=== PATIENT | male | born 1945 | race African-American/Black ===

== ENCOUNTER 2016-04-26 19:10 | Outpatient (CLI) | payer MEDICARE, OTHER | END 2016-04-26 19:11 | disposition home or self-care (01) | DX: Z03.89 Encounter for observation for other suspected diseases and conditions ruled out (principal) ==

== ENCOUNTER 2017-06-20 10:07 | Outpatient (CLI) | payer MEDICARE, OTHER | END 2017-06-20 10:08 | disposition EMS.NT | LOC: EMS 10:07 | PROVIDERS: ATTEND Surgery | DX: Z03.89 Encounter for observation for other suspected diseases and conditions ruled out (principal) ==

== ENCOUNTER 2018-08-15 14:41 | Emergency (ER) | payer MEDICARE, OTHER ==
[2018-08-15 15:49] LABS: BASOPHILS % (AUTO) 0.3 %; EOSINOPHILS # (AUTO) 0.2 10^3/uL (0.0-0.7); EOSINOPHILS % (AUTO) 3.7 %; HGB - HEMOGLOBIN 12.2 g/dL (14.0-18.0); LYMPHOCYTES % (AUTO) 50.8 %; MEAN CORPUSCULAR HGB CONC 31.5 g/dL (32.0-36.0); MEAN PLATELET VOLUME 8.8 fL (7.4-11.4); MONOCYTES # (AUTO) 0.6 10^3/uL (0.0-1.0); NEUTROPHILS # (AUTO) 2.1 10^3/uL (1.5-6.6); PLT - PLATELET COUNT 235 10^3/uL (130-450); RED BLOOD COUNT 5.09 10^6/uL (4.70-6.10); WHITE BLOOD COUNT 5.9 x10^3/uL (4.8-10.8)
[2018-08-15 16:01] LABS: ALBUMIN 3.9 g/dL (3.2-5.5); ALBUMIN/GLOBULIN RATIO 1.4 (1.0-2.2); BILIRUBIN,TOTAL 0.6 mg/dL (0.2-1.0); CALCIUM 9.6 mg/dL (8.5-10.3); TOTAL PROTEIN 6.7 g/dL (6.7-8.2)
--- NOTE | 2018-08-15 17:30 | ED Physician Documentation ---
History of Present Illness - Stated complaint Stated Complaint: DIZZINESS - Chief complaint Chief Complaint: Neuro - History obtained from History obtained from: Patient - History of Present Illness Timing: Today Pain level max: 0 Pain level now: 0 Improved by: walking Worsened by: going to sleep - Additonal information Additional information: 73-year-old male presents to the emergency department stating that he feels dizzy when he wakes up from sleep. Feels like the room is spinning. He then sits up on the edge of the bed and the spinning decreases. He then starts to walk and the spinning goes away. This is been ongoing for the past 4 to 5 days. Does not occur when he is up and moving around during the day. No focal neurological deficits. No numbness or tingling. No recent illnesses or infections. Review of Systems Ten Systems: 10 systems reviewed and negative Constitutional: denies: Fever, Chills Eyes: denies: Loss of vision, Decreased vision Ears: denies: Ear pain, Drainage/discharge Nose: denies: Rhinorrhea / runny nose, Congestion Throat: denies: Sore throat Cardiac: denies: Chest pain / pressure Respiratory: denies: Cough GI: denies: Vomiting, Diarrhea Skin: denies: Rash Musculoskeletal: denies: Neck pain, Back pain Neurologic: denies: Focal weakness, Numbness, Difficulty speaking, Near syncope, Confused, Altered mental status, Headache PD PAST MEDICAL HISTORY - Past Medical History Cardiovascular: Hypertension Respiratory: None Musculoskeletal: Chronic back pain - Past Surgical History Past Surgical History: No - Present Medications Home Medications: Ambulatory Orders Medication Instructions Recorded Confirmed Atenolol 06/28/13 06/28/13 Docusate Sodium 100Mg Capsule 06/28/13 06/28/13 [Colace] Flurbiprofen Sodium [Ocufen] 2 drops OP QID #1 bottle 11/18/15 - Allergies Allergies/Adverse Reactions: Allergies Allergy/AdvReac Type Severity Reaction Status Date / Time codeine Allergy Itching Verified 11/18/15 18:46 - Social History Does the pt smoke?: No Smoking Status: Never smoker Does the pt drink ETOH?: Yes Does the pt have substance abuse?: No PD ED PE NORMAL - Vitals Vital signs reviewed: Yes - General General: Alert and oriented X 3, No acute distress, Well developed/nourished - HEENT HEENT: Atraumatic, PERRL, EOMI, Ears normal, Moist mucous membranes, Pharynx benign, Other - Neck Neck: Supple, no meningeal sign, No bony TTP - Cardiac Cardiac: RRR, Strong equal pulses - Respiratory Respiratory: No respiratory distress, Clear bilaterally - Abdomen Abdomen: Soft, Non tender, Non distended - Derm Derm: Warm and dry - Extremities Extremities: Normal ROM s pain, No edema - Neuro Neuro: Alert and oriented X 3, assistant plant controller 2-12 intact, No motor deficit, No sensory deficit, Normal speech - Psych Psych: Normal mood, Normal affect - Free text exam Free text exam: NIHSS 0 Results - Vitals Vitals: Vital Signs - 24 hr 08/15/18 08/15/18 08/15/18 14:47 16:52 19:19 Temperature 36.6 C 37 C Heart Rate 65 52 L 57 L Respiratory 16 20 17 Rate Blood Pressure 137/80 H 128/75 139/79 H O2 Saturation 100 100 100 08/15/18 19:20 Temperature 36.7 C Heart Rate 52 L Respiratory 18 Rate Blood Pressure 139/77 H O2 Saturation 97 Oxygen O2 Source Room air - EKG (time done) 1716 Rate: Rate (enter#) (49) Rhythm: Sinus bradycardia [place]: Normal Intervals: Normal [place] QRS: Normal Ischemia: Normal ST segments - Labs Labs: Laboratory Tests 08/15/18 08/15/18 08/15/18 15:44 15:44 17:20 WBC 5.9 RBC 5.09 Hgb 12.2 L Hct 38.7 L MCV 76.0 L MCH 24.0 L MCHC 31.5 L RDW 16.0 H Plt Count 235 MPV 8.8 Neut # (Auto) 2.1 Lymph # (Auto) 3.0 [place] # (Auto) 0.6 Eos # (Auto) 0.2 Baso # (Auto) 0.0 Absolute Nucleated RBC 0.00 Nucleated RBC % 0.0 Sodium 138 Potassium 4.3 Chloride 106 Carbon Dioxide 23 Anion Gap 9.0 BUN 16 Creatinine 1.0 Estimated GFR (MDRD) 89 Glucose 89 Calcium 9.6 Total Bilirubin 0.6 AST 14 ALT 11 Alkaline Phosphatase 56 Total Protein 6.7 Albumin 3.9 Globulin 2.8 Albumin/Globulin Ratio 1.4 Lipase 48 Urine Color YELLOW Urine Clarity CLEAR Urine pH 5.0 Ur Specific [place] 1.020 Urine Protein NEGATIVE Urine Glucose (UA) NEGATIVE Urine Ketones NEGATIVE Urine Occult Blood NEGATIVE Urine Nitrite NEGATIVE Urine Bilirubin NEGATIVE Urine Urobilinogen 0.2 (NORMAL) Ur Leukocyte Esterase NEGATIVE Ur Microscopic Review NOT INDICATED Urine Culture Comments NOT INDICATED - Rads (name of study) head CT Radiology: Prelim report reviewed, EMP read contemporaneously, See rad report (No acute abnormality) PD MEDICAL DECISION MAKING - ED course Complexity details: reviewed results, re-evaluated patient, considered differential, d/w patient ED course: Patient with dizziness upon waking up from sleep recently. Unclear etiology. He is slightly bradycardic in the emergency department and asymptomatic. It is possible that his heart rate decreases further during sleep causing him to feel lightheaded upon waking. Then as he moves the heart rate increases and symptoms resolved. He does not know his dose of atenolol, therefore we will hold the atenolol for a few days and see if this changes his symptoms. No acute findings on head CT. No signs of stroke. Hallpike is negative. No nystagmus here. Only occurs on waking up from sleep. Patient counseled regarding signs and symptoms for which I believe and urgent re-evaluation would be necessary. Patient with good understanding of and agreement to plan and is comfortable going home at this time This document was made in part using voice recognition software. While efforts are made to proofread this document, sound alike and grammatical errors may occur. Departure - Departure Disposition: 01 Home, Self Care Clinical Impression: Dizziness Condition: Good Instructions: ED Dizziness UKO Follow-Up: Your,doctor in 1 week [Other] Comments: Try holding the atenolol for the next 2 to 3 days and see if your symptoms resolve. Return if you worsen. This may be related to a low heart rates from the medication. Your doctor may want to place a Holter monitor on you as well. Discharge Date/Time: 08/15/18 19:20
[2018-08-15 17:31] LABS: BILIRUBIN,URINE NEGATIVE (NEGATIVE); GLUCOSE, URINE (UA) NEGATIVE (NEGATIVE); KETONES,URINE (UA) NEGATIVE (NEGATIVE); LEUKOCYTE ESTERASE, URINE NEGATIVE (NEGATIVE); NITRITE,URINE NEGATIVE (NEGATIVE); OCCULT BLOOD,URINE NEGATIVE (NEGATIVE); PROTEIN,URINE NEGATIVE (NEGATIVE); UROBILINOGEN,URINE 0.2 (NORMAL) E.U./dL (NORMAL)
[2018-08-15 17:33] LABS: CLARITY,URINE CLEAR (CLEAR)
--- NOTE | 2018-08-15 19:03 | CT Report ---
Reason: dizziness Procedure Date: 08/15/2018 Accession Number: [id number] / [id number] Procedure: CT - HEAD WO CPT Code: FULL RESULT: EXAM: CT HEAD EXAM DATE: 08/15/2018 06:21 PM. CLINICAL HISTORY: Dizziness. COMPARISON: None. TECHNIQUE: Multiaxial CT images were obtained from the foramen magnum to the vertex. Reformats: Sagittal and coronal. IV contrast: None. In accordance with CT protocol optimization, one or more of the following dose reduction techniques were utilized for this exam: automated exposure control, adjustment of mA and/or KV based on patient size, or use of iterative reconstructive technique. FINDINGS: Parenchyma: No intraparenchymal hemorrhage. No evidence of mass, midline shift, or CT findings of infarction. Alfonso-white differentiation is distinct. Extraaxial Spaces: Normal for age. No subdural or epidural collections identified. Ventricles: Normal in size and position. Sinuses and Orbits: Imaged paranasal sinuses, orbits, and mastoids show no significant abnormality. Bones: No evidence of fracture or calvarial defect. Other: None. IMPRESSION: No acute intracranial abnormality. RADIA
[2018-08-15 19:21] VITALS: BP 139/77
== END 2018-08-15 19:20 | disposition home or self-care (01) ==
LOC: ED 14:41
DX: R42 Dizziness and giddiness (principal); R00.1 Bradycardia, unspecified; I10 Essential (primary) hypertension
CPT/HCPCS: 36415; 70450; 80053; 81001; 81003; 83690; 85025; 87086; 93005; 99284

== ENCOUNTER 2021-05-28 16:52 | Emergency (ER) | payer MEDICARE, OTHER ==
[2021-05-28] MEDS ORDERED: ONDANSETRON 4 MG/2 ML VIAL IVP STA (17:16)
[2021-05-28] MEDS ORDERED: SODIUM CHLORIDE 0.9% 1,000 ML IV STA ×2 (17:16→19:17)
[2021-05-28 17:36] LABS: BASOPHILS % (AUTO) 0.6 %; EOSINOPHILS # (AUTO) 0.1 10^3/uL (0.0-0.7); EOSINOPHILS % (AUTO) 2.1 %; HCT - HEMATOCRIT 42.5 % (42.0-52.0); HGB - HEMOGLOBIN 14.1 g/dL (14.0-18.0); LYMPHOCYTES # (AUTO) 1.7 10^3/uL (1.5-3.5); LYMPHOCYTES % (AUTO) 26.7 %; MEAN CORPUSCULAR HEMOGLOBIN 27.6 pg (27.0-31.0); MEAN CORPUSCULAR HGB CONC 33.2 g/dL (32.0-36.0); MEAN CORPUSCULAR VOLUME 83.2 fL (80.0-94.0); MEAN PLATELET VOLUME 10.2 fL (7.4-11.4); MONOCYTES # (AUTO) 0.6 10^3/uL (0.0-1.0); MONOCYTES % (AUTO) 9.5 %; NEUTROPHILS # (AUTO) 3.8 10^3/uL (1.5-6.6); NEUTROPHILS % (AUTO) 60.9 %; NRBC ABSOLUTE COUNT (AUTO) 0.02 x10^3/uL; NUCLEATED RED BLOOD CELLS AUTO 0.3 /100WBC; PLT - PLATELET COUNT 173 10^3/uL (130-450); RED BLOOD COUNT 5.11 10^6/uL (4.70-6.10); RED CELL DISTRIBUTION WIDTH 16.5 % (12.0-15.0); WHITE BLOOD COUNT 6.2 x10^3/uL (4.8-10.8)
[2021-05-28 17:48] LABS: ALBUMIN 4.9 g/dL (3.2-5.5); ALBUMIN/GLOBULIN RATIO 1.5 (1.0-2.2); BILIRUBIN,TOTAL 1.3 mg/dL (0.2-1.0); CALCIUM 10.2 mg/dL (8.5-10.3); CREATININE 1.2 mg/dL (0.6-1.2); MAGNESIUM 1.6 mg/dL (1.7-2.8); TOTAL PROTEIN 8.1 g/dL (6.7-8.2)
--- NOTE | 2021-05-28 18:03 | XRAY Report ---
PROCEDURE: Chest 1 View X-Ray INDICATIONS: chest pain TECHNIQUE: One view of the chest was acquired. COMPARISON: None FINDINGS: Surgical changes and devices: None. Lungs and pleura: No pleural effusions or pneumothorax. Lungs are clear. Mediastinum: Mediastinal contours appear normal. Heart size is normal. Atherosclerotic vascular geovany cification noted in the aortic arch Bones and chest wall: No suspicious bony lesions. Overlying soft tissues appear unremarkable. IMPRESSION: No acute cardiopulmonary findings Reviewed by: Steve López MD on 05/28/2021 5:02 PM AKDT Approved by: Steve López MD on 05/28/2021 5:02 PM AKDT Station ID: [id number]
[2021-05-28] MEDS ORDERED: IOVERSOL 320 100 ML VIAL IVP ONE ×2 (18:06→18:32)
--- NOTE | 2021-05-28 19:05 | CT Report ---
PROCEDURE: Abdomen/Pelvis W INDICATIONS: abd fullness and nausea CONTRAST: IV CONTRAST: Optiray 320 ml: 100 PO CONTRAST: *NO PO CONTRAST TECHNIQUE: After the administration of intravenous contrast, 5 mm thick sections acquired from the diaphragms to the symphysis. 5 mm thick coronal and sagittal reformats were acquired. For radiation dose reducti on, the following was used: automated exposure control, adjustment of mA and/or kV according to becky ent size. COMPARISON: None. FINDINGS: Image quality: Excellent. ABDOMEN: Lung bases: Lung bases are clear, although images are mildly degraded by respiratory motion. Heart size is normal. Solid organs: Liver is diffusely hypoattenuating, consistent with fatty infiltration. Focal hypoatten uating lesion in the left hepatic lobe adjacent to the left portal vein is most likely a cyst or fady ngioma. Gallbladder is unremarkable. Biliary system is non dilated. Pancreas enhances normally. Spl een is normal in size. No adrenal nodules. Kidneys demonstrate normal size and enhancement, without hydronephrosis. Peritoneum and bowel: A few diverticula are seen in the colon without signs of acute diverticulitis. No free fluid or air. Nodes and vessels: No retroperitoneal or mesenteric adenopathy by size criteria. Aorta and inferior vena cava are normal in size. Mild aortic atherosclerotic calcifications. Prominent perinephric, ret roperitoneal, and pelvic fat deposition is seen diffusely without a focal mass. Miscellaneous: No ventral hernias. PELVIS: Genitourinary: Bladder wall thickness is normal. Miscellaneous: Fat-containing inguinal hernias are seen bilaterally. Bones: No suspicious bony lesions. No vertebral body compression fractures. Multilevel degenerativ e changes are seen in the spine. IMPRESSION: 1.No acute abnormality identified in the abdomen or pelvis. 2.Pelvic and retroperitoneal lipomatosis with displacement of bowel loops into the anterior upper abd omen. 3.Mild diffuse fatty infiltration of the liver. 4.Mild colonic diverticulosis without signs of acute diverticulitis. Reviewed by: Sony Meek MD on 05/28/2021 7:03 PM PDT Approved by: Sony Meek MD on 05/28/2021 7:03 PM PDT Station ID: [id number]
[2021-05-28 19:12] LABS: B. PARAPERTUSSIS- RESP PCR PAN NOT DETECTED; B. PERTUSSIS- RESP PCR PANEL NOT DETECTED; C. PNEUMONIAE- RESP PCR PANEL NOT DETECTED; CORONAVIRUS 229E-RESP PCR NOT DETECTED; CORONAVIRUS HKU1-RESP PCR NOT DETECTED; CORONAVIRUS NL63-RESP PCR NOT DETECTED; CORONAVIRUS OC43-RESP PCR NOT DETECTED; HUMAN METAPNEUMOVIRUS NOT DETECTED; INFLUENZA A- RESP PCR PANEL NOT DETECTED; INFLUENZA B - RESP PCR PANEL NOT DETECTED; M. PNEUMONIAE- RESP PCR PANEL NOT DETECTED; PARAINFLUENZA VIRUS 1 NOT DETECTED; PARAINFLUENZA VIRUS 2 NOT DETECTED; PARAINFLUENZA VIRUS 3 NOT DETECTED; PARAINFLUENZA VIRUS 4 NOT DETECTED; RHINOVIRUS/ENTEROVIRUS NOT DETECTED; RSV- RESP PCR PANEL NOT DETECTED; SARS-CoV-2 -RESP PCR PANEL NOT DETECTED
[2021-05-28] MEDS ORDERED: ALBUTEROL 1 PUFF INH STA (19:17)
--- NOTE | 2021-05-28 19:20 | ED Physician Documentation ---
PD HPI DYSPNEA - Stated complaint Stated Complaint: LOSS OF APPETITE/RUNNY NOSE/LIGHT HEADED - Chief complaint Chief Complaint: Neuro - History obtained from History obtained from: Patient - History of Present Illness Timing - onset: How many days ago (few) Timing - onset during: Light activity Timing - duration: Days (few) Timing - details: Gradual onset, Still present Inciting event(s): No: URI (The patient does not have any fever or chills sore throat or cough per se but he has had feeling of difficulty getting deep breaths, easy satiety with even small amounts of food and abdominal bloating, general weakness and body aches.) Improved by: No: Rest Worsened by: Exertion, Laying flat Associated symptoms: No: Fever, Cough, Wheezing, Chest pain / discomfort, Bilateral edema Similar symptoms before: Has not had sx before Recently seen: Not recently seen Review of Systems Constitutional: reports: Myalgias, Fatigue (for few days). denies: Fever, Chills Nose: reports: Congestion. denies: Rhinorrhea / runny nose Throat: denies: Sore throat Cardiac: denies: Chest pain / pressure, Palpitations, Pedal edema, Calf pain Respiratory: reports: Dyspnea. denies: Cough, Wheezing GI: reports: Abdominal Swelling (feeling of fullness and easy satiety, feeling bloated with just small amounts of fluids/food.), Nausea. denies: Abdominal Pain, Vomiting, Constipation, Diarrhea : denies: Dysuria Skin: denies: Rash, Lesions Neurologic: reports: Generalized weakness. denies: Near syncope (but has had some lightheaded feeling today.), Headache Endocrine: denies: Weight loss Immunocompromised: denies: Immunocompromised PD PAST MEDICAL HISTORY - Past Medical History Cardiovascular: Hypertension Respiratory: None Neuro: None Endocrine/Autoimmune: None Musculoskeletal: Chronic back pain - Past Surgical History Past Surgical History: No - Present Medications Home Medications: Ambulatory Orders Medication Instructions Recorded Confirmed Atenolol 06/28/13 06/28/13 Docusate Sodium 100Mg Capsule 06/28/13 06/28/13 [Colace] Flurbiprofen Sodium [Ocufen] 2 drops OP QID #1 bottle 11/18/15 Albuterol Sulf [Ventolin Hfa 2 - 3 puffs INH Q4HR PRN #1 inhaler 05/28/21 Inhaler] Ondansetron Odt [Zofran] 4 mg TL Q6H PRN #10 tablet 05/28/21 - Allergies Allergies/Adverse Reactions: Allergies Allergy/AdvReac Type Severity Reaction Status Date / Time codeine Allergy Itching Verified 05/28/21 16:56 - Social History Does the pt smoke?: No Smoking Status: Never smoker Does the pt drink ETOH?: Yes Does the pt have substance abuse?: No PD ED PE NORMAL - Vitals Vital signs reviewed: Yes - General General: Alert and oriented X 3, No acute distress, Well developed/nourished - HEENT HEENT: Moist mucous membranes, Pharynx benign - Cardiac Cardiac: No: RRR (mild tachycardia without murmur nor rub. ) - Respiratory Respiratory: No respiratory distress (He does occasionally take a purposeful deep breath to feel that he has good air. Otherwise he can talk in sentences without any accessory muscle use and no obvious wheezing. O2 sats are 98%.), Clear bilaterally - Abdomen Abdomen: Normal bowel sounds, Soft, Non distended, No organomegaly, Other (Bowel sounds are present and slightly hyperactive. Minimal distention in the upper abdomen without any focal tenderness.) - Back Back: No CVA TTP - Derm Derm: Normal color, Warm and dry - Extremities Extremities: No edema, No calf tenderness / cord - Neuro Neuro: Alert and oriented X 3, No motor deficit, Normal speech Eye Opening: Spontaneous Motor: Obeys Commands Verbal: Oriented GCS Score: 15 Results - Vitals Vitals: Vital Signs - 24 hr 05/28/21 05/28/21 05/28/21 16:57 17:28 19:07 Temperature 37.0 C Heart Rate 125 H 135 H 100 Respiratory 18 23 17 Rate Blood Pressure 174/93 H 157/99 H O2 Saturation 98 100 Oxygen O2 Source Room air - Labs Labs: Laboratory Tests 05/28/21 05/28/21 05/28/21 17:28 17:28 17:28 WBC 6.2 RBC 5.11 Hgb 14.1 Hct 42.5 MCV 83.2 MCH 27.6 MCHC 33.2 RDW 16.5 H Plt Count 173 MPV 10.2 Neut # (Auto) 3.8 Lymph # (Auto) 1.7 [place] # (Auto) 0.6 Eos # (Auto) 0.1 Baso # (Auto) 0.0 Absolute Nucleated RBC 0.02 Nucleated RBC % 0.3 Sodium 141 Potassium 4.0 Chloride 103 Carbon Dioxide 21 Anion Gap 17.0 H BUN 13 Creatinine 1.2 Estimated GFR (MDRD) 72 L Glucose 156 H Calcium 10.2 Magnesium 1.6 L Total Bilirubin 1.3 H AST 33 ALT 17 Alkaline Phosphatase 50 Troponin I High Sens 4.7 B-Natriuretic Peptide Total Protein 8.1 Albumin 4.9 Globulin 3.2 Albumin/Globulin Ratio 1.5 Lipase 57 H Nasal Adenovirus (PCR) Nasal B. parapertussis DNA (PCR) Nasal Coronavir 229E PCR Nasal Coronavir HKU1 PCR Nasal Coronavir NL63 PCR Nasal Coronavir OC43 PCR Nasal Enterovir/Rhinovir PCR Nasal Influenza B PCR Nasal Influenza A PCR Nasal Parainfluen 1 PCR Nasal Parainfluen 2 PCR Nasal Parainfluen 3 PCR Nasal Parainfluen 4 PCR Nasal RSV (PCR) Nasal B.pertussis DNA PCR Nasal C.pneumoniae (PCR) [place] Human Metapneumo PCR Nasal M.pneumoniae (PCR) Nasal SARS-CoV-2 (PCR) 05/28/21 05/28/21 17:28 17:54 WBC RBC Hgb Hct MCV MCH MCHC RDW Plt Count MPV Neut # (Auto) Lymph # (Auto) [place] # (Auto) Eos # (Auto) Baso # (Auto) Absolute Nucleated RBC Nucleated RBC % Sodium Potassium Chloride Carbon Dioxide Anion Gap BUN Creatinine Estimated GFR (MDRD) Glucose Calcium Magnesium Total Bilirubin AST ALT Alkaline Phosphatase Troponin I High Sens B-Natriuretic Peptide 16 Total Protein Albumin Globulin Albumin/Globulin Ratio Lipase Nasal Adenovirus (PCR) NOT DETECTED Nasal B. parapertussis DNA (PCR) NOT DETECTED Nasal Coronavir 229E PCR NOT DETECTED Nasal Coronavir HKU1 PCR NOT DETECTED Nasal Coronavir NL63 PCR NOT DETECTED Nasal Coronavir OC43 PCR NOT DETECTED Nasal Enterovir/Rhinovir PCR NOT DETECTED Nasal Influenza B PCR NOT DETECTED Nasal Influenza A PCR NOT DETECTED Nasal Parainfluen 1 PCR NOT DETECTED Nasal Parainfluen 2 PCR NOT DETECTED Nasal Parainfluen 3 PCR NOT DETECTED Nasal Parainfluen 4 PCR NOT DETECTED Nasal RSV (PCR) NOT DETECTED Nasal B.pertussis DNA PCR NOT DETECTED Nasal C.pneumoniae (PCR) NOT DETECTED [place] Human Metapneumo PCR NOT DETECTED Nasal M.pneumoniae (PCR) NOT DETECTED Nasal SARS-CoV-2 (PCR) NOT DETECTED - Rads (name of study) chest xray Radiology: Prelim report reviewed (no acute cardiopulmonary process), See rad report abd/pelvic CT Radiology: Prelim report reviewed (No acute abnormality. Diverticula without diverticulitis. Moderate amount of intra-abdominal fat without any focal lesions. No bowel obstruction.), See rad report PD MEDICAL DECISION MAKING - ED course Complexity details: re-evaluated patient (No obvious acute processes seen. He did have some improvement with albuterol inhaler 3 puffs. Consider some airway irritation either environmental or possibly viral (more likely a viral syndrome given his other symptoms 2).), considered differential (Consider possible viral syndrome with some congestion, dyspnea, nausea and easy satiety along with general weakness and fatigue. We can do a respiratory panel to evaluate. Otherwise check x-ray and labs to ensure no heart failure or heart injury, CT of the abdomen for obstruction or masses.), d/w patient Departure - Departure Clinical Impression: Abdominal bloating Dyspnea Qualifiers: Dyspnea type: shortness of breath Qualified Code(s): R06.02 - Shortness of breath Condition: Stable Record reviewed to determine appropriate education?: Yes Prescriptions: Albuterol Sulf [Ventolin Hfa Inhaler] 2 - 3 puffs INH Q4HR PRN #1 inhaler PRN Reason: Shortness Of Air/Wheezing Ondansetron Odt [Zofran] 4 mg TL Q6H PRN #10 tablet PRN Reason: Nausea / Vomiting Comments: Your blood tests, chest x-ray, CT scan do not show any obvious acute problems. We did a respiratory panel test and you are negative for the common viruses and negative for COVID. Your symptoms still sound possibly to relate to a viral type illness given less appetite, abdominal fullness, feeling short of breath. There is no signs of pneumonia, heart failure, heart attack, bowel obstruction, gallbladder process or intra-abdominal infection. At this point I would have you try ondansetron every 4-6 hours if not having nausea per se but to see if it improves your feeling of satiety in stomach fullness. Small frequent fluids to maintain hydration. Use the albuterol inhaler 2 to 3 puffs 4 times a day for the next several days to week to help with breathing. Recheck if not improved over the next few days and return sooner if worsening. I sent your prescriptions to [facility] in [place].
[2021-05-28 19:55] VITALS: BP 158/101
== END 2021-05-28 19:56 | disposition home or self-care (01) ==
LOC: ED 16:52
DX: R14.0 Abdominal distension (gaseous) (principal); R06.02 Shortness of breath; I10 Essential (primary) hypertension
CPT/HCPCS: 36415; 71045; 74177; 80053; 83690; 83735; 83880; 84484; 85025; 87633; 93005; 94640; 96374; 99282; 99284; Q9967

== ENCOUNTER 2022-02-20 15:59 | Outpatient (CLI) | payer MEDICARE, OTHER ==
--- NOTE | 2022-02-20 17:51 | XRAY Report ---
PROCEDURE: Hip w/Pelvis 2-3V RT INDICATIONS: PAIN IN RIGHT HIP TECHNIQUE: AP pelvis with lateral view(s) of the right hip(s). COMPARISON: None. FINDINGS: Bones: No fractures or dislocations. Moderate bilateral hip joint osteoarthritic changes are seen w ith joint space narrowing, subchondral sclerosis and small marginal osteophyte formation. No evidence of avascular necrosis of femoral head. Pelvic ring appears intact. No suspicious bony lesions. Mod erate degenerative disc disease throughout visualized lower lumbar spine is also seen. Soft tissues: The visualized bowel gas pattern is normal. No suspicious soft tissue calcifications. IMPRESSION: Moderate bilateral hip joint osteoarthritis. No acute right hip fracture or dislocation. No evidence of avascular necrosis. Degenerative disc disease in lower lumbar spine. No evidence of av ascular necrosis of femoral heads. Reviewed by: Cesar Gomez MD on 02/20/2022 5:49 PM PST Approved by: Cesar Gomez MD on 02/20/2022 5:49 PM PST Station ID: [id number]
== END 2022-02-20 16:00 | disposition home or self-care (01) ==
LOC: DI 15:59
PROVIDERS: ATTEND Physician Assistant
DX: M16.0 Bilateral primary osteoarthritis of hip (principal); M51.36 Other intervertebral disc degeneration, lumbar region

== ENCOUNTER 2022-06-26 15:08 | Outpatient (CLI) | payer MEDICARE, OTHER | END 2022-06-26 15:09 | disposition EMS.NT | LOC: EMS 15:08 | DX: H93.13 Tinnitus, bilateral (principal) ==

== ENCOUNTER 2022-07-30 08:57 | Emergency (ER) | payer MEDICARE, OTHER ==
--- NOTE | 2022-07-30 09:18 | ED Physician Documentation ---
PD HPI ABD PAIN - Stated complaint Stated Complaint: CONSTIPATION - Chief complaint Chief Complaint: Abd Pain - History obtained from History obtained from: Patient - History of Present Illness Timing - onset: How many weeks ago (1) Timing - duration: Weeks (1) Timing - details: Gradual onset, Still present (he states no BM for a week and has had some cramping lower abd pain intermttent the past 2-3 days, worse this morning with marked cramping. Tried enema at home and Miralax doses yesterday. Feeling of rectal fullness/stool.) Quality: Cramping, Aching, Pain Location: Suprapubic, Other (lower abd and rectal area) Radiation: No: Lower back Worsened by: No: Eating, Moving Associated symptoms: Constipation. No: Fever, Nausea, Diarrhea, Melena, Hematochezia Similar symptoms before: Has not had sx before Recently seen: Surgery (had colonoscopy 2 weeks ago with findings of some abnomral and is having repeat scope this coming week.) Review of Systems Constitutional: denies: Fever, Chills Nose: denies: Rhinorrhea / runny nose, Congestion Throat: denies: Sore throat Respiratory: denies: Cough GI: reports: Abdominal Pain, Constipation. denies: Abdominal Swelling, Nausea, Vomiting, Bloody / black stool : reports: Frequency, Hesitancy PD PAST MEDICAL HISTORY - Past Medical History Cardiovascular: Hypertension Respiratory: None Neuro: None Endocrine/Autoimmune: None Musculoskeletal: Chronic back pain - Past Surgical History Past Surgical History: No - Present Medications Home Medications: Ambulatory Orders Medication Instructions Recorded Confirmed Atenolol 06/28/13 06/28/13 Docusate Sodium 100Mg Capsule 06/28/13 06/28/13 [Colace] Flurbiprofen Sodium [Ocufen] 2 drops OP QID #1 bottle 11/18/15 Albuterol Sulf [Ventolin Hfa 2 - 3 puffs INH Q4HR PRN #1 inhaler 05/28/21 Inhaler] Ondansetron Odt [Zofran] 4 mg TL Q6H PRN #10 tablet 05/28/21 Docusate Sodium 100Mg Capsule 100 mg PO DAILY #20 cap 07/30/22 [Colace 100Mg Capsule] - Allergies Allergies/Adverse Reactions: Allergies Allergy/AdvReac Type Severity Reaction Status Date / Time codeine Allergy Itching Verified 07/30/22 09:16 - Social History Does the pt smoke?: No Smoking Status: Never smoker Does the pt drink ETOH?: Yes Does the pt have substance abuse?: No PD ED PE NORMAL - Vitals Vital signs reviewed: Yes - General General: Alert and oriented X 3, No acute distress, Well developed/nourished, Other (he states he had hard ball of stool out just as arrived to ER and his pain has gone. He feels okay now. ) - Abdomen Abdomen: Normal bowel sounds, Soft, Non tender, Non distended, No organomegaly - Male Male : Deferred - Rectal Rectal: Deferred - Back Back: No CVA TTP - Derm Derm: Normal color, Warm and dry Results - Vitals Vitals: Vital Signs - 24 hr 07/30/22 07/30/22 09:09 09:39 Temperature 36.4 C L 36.5 C Heart Rate 73 72 Respiratory 15 20 Rate Blood Pressure 118/77 127/83 H O2 Saturation 99 99 Oxygen O2 Source Room air PD Medical Decision Making - ED course Complexity details: reviewed results (Shared decision with patient to not do any testing at this time, given no pain nor tender at this time. He describes some urinary frequency and small volume. F/U with PMD regarding meds for BPH or other testing. ), considered differential (constipation with cramps and pains. He had recent colonoscopy 2 weeks ago. This is long enough ago to less suspect perforation or such complication of the scope. The complete improvement of the pain with BM here sould suggest against diverticulitis/colitis/etc. ), d/w patient Departure - Departure Disposition: 01 Home, Self Care Clinical Impression: Abdominal cramping, Constipation Condition: Stable Record reviewed to determine appropriate education?: Yes Instructions: ED Constipation Prescriptions: Docusate Sodium 100Mg Capsule [Colace 100Mg Capsule] 100 mg PO DAILY #20 cap Comments: It is good that you are having such improved abdominal pain with having had some bowel movement now. Presume the cramping was related to the constipation. You likely still have some firm stool up through the intestine. I would suggest continuing with the laxative powder dosing once or twice daily for today and tomorrow. I would also add a stool softener such as docusate daily. Stay well-hydrated. Contact the surgical office and see the what their plans are for your colon prep for the colonoscopy next week. Follow-up with your primary care as well regarding the hesitancy and trouble urinating that you describe. They may want to start a mild prostate type medicine or have some other testing to evaluate that. Discharge Date/Time: 07/30/22 09:40
--- OUTSIDE RECORDS SUMMARY | 2022-07-30 09:33 | EXTERNAL MEDICAL SUMMARY RPT | Continuity of Care Document ---
Author Name Unknown Address [address] [place] [address] Phone Organization [facility] Address [address] [place] [address] Phone Care Team Providers Care Gaming Cashier Name Role Phone Unavailable Unavailable Unavailable Jeannette Mcleroy Unavailable Unavailable Allergies and Intolerances date description facility type (no date) No Known Drug Allergies [facility] ( unknown) Medications date description facility 2022-06-28 00:00 Amoxicillin [facility] Problems date description facility 2022-06-26 00:00 Acute urinary tract infection I [facility] 2022-06-27 00:00 Acute metabolic encephalopathy [facility] 2022-06-28 08:12 Urinary tract infection, site n ot specified [facility] 2022-06-28 10:03 Urinary tract infection, site n ot specified [facility] 2022-06-28 13:37 Urinary tract infection, site n ot specified [facility] 2022-06-28 14:11 Urinary tract infection, site n ot specified [facility] 2022-06-28 14:35 Urinary tract infection, site n ot specified [facility] 2022-06-29 08:53 Urinary tract infection, site n ot specified [facility] 2022-06-29 11:01 Urinary tract infection, site n ot specified [facility] 2022-06-29 12:03 Urinary tract infection, site n ot specified [facility] 2022-06-30 12:35 Urinary tract infection, site n ot specified [facility] 2022-06-30 12:40 Urinary tract infection, site n ot specified [facility] 2022-06-30 15:20 Urinary tract infection, site n ot specified [facility] 2022-06-30 15:29 Urinary tract infection, site n ot specified [facility] 2022-07-13 12:58 Urinary tract infection, site n ot specified [facility] 2022-07-13 13:11 Urinary tract infection, site n ot specified [facility] 2022-07-13 14:07 Urinary tract infection, site n ot specified [facility] 2022-07-15 09:22 Urinary tract infection, site n ot specified [facility] 2022-07-15 10:13 Urinary tract infection, site n ot specified [facility] 2022-07-15 11:57 Urinary tract infection, site n ot specified [facility] 2022-07-15 11:57 Weakness [facility] Procedures date description facility 2022-06-26 00:00 Computed tomography of head or brain without contrast [facility] 2022-06-26 00:00 X-ray of chest, single [facility] Results/Labs test date author facility value unit interpretation Result panel 1 (unknown) (no date) (unknown) [facility] (no value) (units unknown) (unknown) Result panel 2 (unknown) (no date) (unknown) [facility] (no value) (units unknown) (unknown) Result panel 3 (unknown) (no date) (unknown) [facility] (no value) (units unknown) (unknown) Result panel 4 (unknown) (no date) (unknown) [facility] (no value) (units unknown) (unknown) Result panel 5 (unknown) (no date) (unknown) [facility] (no value) (units unknown) (unknown) Result panel 6 (unknown) (no date) (unknown) [facility] (no value) (units unknown) (unknown) Result panel 7 (unknown) (no date) (unknown) [facility] (no value) (units unknown) (unknown) Result panel 8 (unknown) (no date) (unknown) [facility] (no value) (units unknown) (unknown) Result panel 9 (unknown) (no date) (unknown) [facility] (no value) (units unknown) (unknown) Result panel 10 (unknown) (no date) (unknown) [facility] (no value) (units unknown) (unknown) Result panel 11 (unknown) (no date) (unknown) [facility] (no value) (units unknown) (unknown) Result panel 12 (unknown) (no date) (unknown) [facility] (no value) (units unknown) (unknown) Result panel 13 (unknown) (no date) (unknown) [facility] (no value) (units unknown) (unknown) Result panel 14 (unknown) (no date) (unknown) [facility] (no value) (units unknown) (unknown) Result panel 15 (unknown) (no date) (unknown) [facility] (no value) (units unknown) (unknown) Result panel 16 (unknown) (no date) (unknown) [facility] (no value) (units unknown) (unknown) Result panel 17 (unknown) (no date) (unknown) [facility] (no value) (units unknown) (unknown) Result panel 18 (unknown) (no date) (unknown) [facility] (no value) (units unknown) (unknown) Result panel 19 (unknown) (no date) (unknown) [facility] (no value) (units unknown) (unknown) Result panel 20 (unknown) (no date) (unknown) [facility] (no value) (units unknown) (unknown) Result panel 21 (unknown) (no date) (unknown) [facility] (no value) (units unknown) (unknown) Result panel 22 (unknown) (no date) (unknown) [facility] (no value) (units unknown) (unknown) Result panel 23 (unknown) (no date) (unknown) [facility] (no value) (units unknown) (unknown) Result panel 24 (unknown) (no date) (unknown) [facility] (no value) (units unknown) (unknown) Result panel 25 (unknown) (no date) (unknown) [facility] (no value) (units unknown) (unknown) Result panel 26 (unknown) (no date) (unknown) [facility] (no value) (units unknown) (unknown) Result panel 27 (unknown) (no date) (unknown) [facility] (no value) (units unknown) (unknown) Result panel 28 (unknown) (no date) (unknown) [facility] (no value) (units unknown) (unknown) Result panel 29 (unknown) (no date) (unknown) [facility] (no value) (units unknown) (unknown) Result panel 30 (unknown) (no date) (unknown) [facility] (no value) (units unknown) (unknown) Result panel 31 (unknown) (no date) (unknown) [facility] (no value) (units unknown) (unknown) Result panel 32 (unknown) (no date) (unknown) [facility] (no value) (units unknown) (unknown) Result panel 33 (unknown) (no date) (unknown) [facility] (no value) (units unknown) (unknown) Result panel 34 (unknown) (no date) (unknown) [facility] (no value) (units unknown) (unknown) Result panel 35 (unknown) (no date) (unknown) [facility] (no value) (units unknown) (unknown) Result panel 36 (unknown) (no date) (unknown) [facility] (no value) (units unknown) (unknown) Result panel 37 (unknown) (no date) (unknown) [facility] (no value) (units unknown) (unknown) Result panel 38 (unknown) (no date) (unknown) [facility] (no value) (units unknown) (unknown) Result panel 39 (unknown) (no date) (unknown) [facility] (no value) (units unknown) (unknown) Result panel 40 (unknown) (no date) (unknown) [facility] (no value) (units unknown) (unknown) Result panel 41 (unknown) (no date) (unknown) [facility] (no value) (units unknown) (unknown) Result panel 42 (unknown) (no date) (unknown) [facility] (no value) (units unknown) (unknown) Result panel 43 (unknown) (no date) (unknown) [facility] (no value) (units unknown) (unknown) Result panel 44 (unknown) (no date) (unknown) [facility] (no value) (units unknown) (unknown) Result panel 45 (unknown) (no date) (unknown) [facility] (no value) (units unknown) (unknown) Result panel 46 (unknown) (no date) (unknown) [facility] (no value) (units unknown) (unknown) Result panel 47 (unknown) (no date) (unknown) [facility] (no value) (units unknown) (unknown) Result panel 48 (unknown) (no date) (unknown) [facility] (no value) (units unknown) (unknown) Result panel 49 (unknown) (no date) (unknown) [facility] (no value) (units unknown) (unknown) Result panel 50 (unknown) (no date) (unknown) [facility] (no value) (units unknown) (unknown) Result panel 51 (unknown) (no date) (unknown) [facility] (no value) (units unknown) (unknown) Result panel 52 (unknown) (no date) (unknown) [facility] (no value) (units unknown) (unknown) Result panel 53 (unknown) (no date) (unknown) [facility] (no value) (units unknown) (unknown) Result panel 54 (unknown) (no date) (unknown) [facility] (no value) (units unknown) (unknown) Result panel 55 (unknown) (no date) (unknown) [facility] (no value) (units unknown) (unknown) Result panel 56 (unknown) (no date) (unknown) [facility] (no value) (units unknown) (unknown) Result panel 57 (unknown) (no date) (unknown) [facility] (no value) (units unknown) (unknown) Result panel 58 (unknown) (no date) (unknown) [facility] (no value) (units unknown) (unknown) Result panel 59 (unknown) (no date) (unknown) [facility] (no value) (units unknown) (unknown) Result panel 60 (unknown) (no date) (unknown) [facility] (no value) (units unknown) (unknown) Result panel 61 (unknown) (no date) (unknown) [facility] (no value) (units unknown) (unknown) Result panel 62 (unknown) (no date) (unknown) [facility] (no value) (units unknown) (unknown) Result panel 63 (unknown) (no date) (unknown) [facility] (no value) (units unknown) (unknown) Result panel 64 (unknown) (no date) (unknown) [facility] (no value) (units unknown) (unknown) Result panel 65 (unknown) (no date) (unknown) [facility] (no value) (units unknown) (unknown) Result panel 66 (unknown) (no date) (unknown) [facility] (no value) (units unknown) (unknown) Result panel 67 (unknown) (no date) (unknown) [facility] (no value) (units unknown) (unknown) Result panel 68 (unknown) (no date) (unknown) [facility] (no value) (units unknown) (unknown) Result panel 69 (unknown) (no date) (unknown) [facility] (no value) (units unknown) (unknown) Result panel 70 (unknown) (no date) (unknown) [facility] (no value) (units unknown) (unknown) Result panel 71 (unknown) (no date) (unknown) [facility] (no value) (units unknown) (unknown) Result panel 72 (unknown) (no date) (unknown) [facility] (no value) (units unknown) (unknown) Result panel 73 (unknown) (no date) (unknown) [facility] (no value) (units unknown) (unknown) Result panel 74 (unknown) (no date) (unknown) [facility] (no value) (units unknown) (unknown) Result panel 75 (unknown) (no date) (unknown) [facility] (no value) (units unknown) (unknown) Result panel 76 (unknown) (no date) (unknown) [facility] (no value) (units unknown) (unknown) Result panel 77 (unknown) (no date) (unknown) [facility] (no value) (units unknown) (unknown) Result panel 78 (unknown) (no date) (unknown) [facility] (no value) (units unknown) (unknown) Result panel 79 (unknown) (no date) (unknown) [facility] (no value) (units unknown) (unknown) Result panel 80 (unknown) (no date) (unknown) [facility] (no value) (units unknown) (unknown) Result panel 81 (unknown) (no date) (unknown) [facility] (no value) (units unknown) (unknown) Result panel 82 (unknown) (no date) (unknown) [facility] (no value) (units unknown) (unknown) Result panel 83 (unknown) (no date) (unknown) [facility] (no value) (units unknown) (unknown) Result panel 84 (unknown) (no date) (unknown) [facility] (no value) (units unknown) (unknown) Result panel 85 (unknown) (no date) (unknown) [facility] (no value) (units unknown) (unknown) Result panel 86 (unknown) (no date) (unknown) [facility] (no value) (units unknown) (unknown) Result panel 87 (unknown) (no date) (unknown) [facility] (no value) (units unknown) (unknown) Result panel 88 (unknown) (no date) (unknown) [facility] (no value) (units unknown) (unknown) Result panel 89 (unknown) (no date) (unknown) [facility] (no value) (units unknown) (unknown) Result panel 90 (unknown) (no date) (unknown) [facility] (no value) (units unknown) (unknown) Result panel 91 (unknown) (no date) (unknown) [facility] (no value) (units unknown) (unknown) Result panel 92 (unknown) (no date) (unknown) [facility] (no value) (units unknown) (unknown) Result panel 93 (unknown) (no date) (unknown) [facility] (no value) (units unknown) (unknown) Result panel 94 (unknown) (no date) (unknown) [facility] (no value) (units unknown) (unknown) Result panel 95 (unknown) (no date) (unknown) [facility] (no value) (units unknown) (unknown) Result panel 96 (unknown) (no date) (unknown) [facility] (no value) (units unknown) (unknown) Result panel 97 (unknown) (no date) (unknown) [facility] (no value) (units unknown) (unknown) Result panel 98 (unknown) (no date) (unknown) [facility] (no value) (units unknown) (unknown) Result panel 99 (unknown) (no date) (unknown) [facility] (no value) (units unknown) (unknown) Result panel 100 (unknown) (no date) (unknown) [facility] (no value) (units unknown) (unknown) Result panel 101 (unknown) (no date) (unknown) [facility] (no value) (units unknown) (unknown) Result panel 102 (unknown) (no date) (unknown) [facility] (no value) (units unknown) (unknown) Result panel 103 (unknown) (no date) (unknown) [facility] (no value) (units unknown) (unknown) Result panel 104 (unknown) (no date) (unknown) [facility] (no value) (units unknown) (unknown) Result panel 105 (unknown) (no date) (unknown) [facility] (no value) (units unknown) (unknown) Result panel 106 (unknown) (no date) (unknown) [facility] (no value) (units unknown) (unknown) Result panel 107 (unknown) (no date) (unknown) [facility] (no value) (units unknown) (unknown) Result panel 108 (unknown) (no date) (unknown) [facility] (no value) (units unknown) (unknown) Result panel 109 (unknown) (no date) (unknown) [facility] (no value) (units unknown) (unknown) Result panel 110 (unknown) (no date) (unknown) [facility] (no value) (units unknown) (unknown) Result panel 111 (unknown) (no date) (unknown) [facility] (no value) (units unknown) (unknown) Result panel 112 (unknown) (no date) (unknown) [facility] (no value) (units unknown) (unknown) Result panel 113 (unknown) (no date) (unknown) [facility] (no value) (units unknown) (unknown) Result panel 114 (unknown) (no date) (unknown) [facility] (no value) (units unknown) (unknown) Result panel 115 (unknown) (no date) (unknown) [facility] (no value) (units unknown) (unknown) Result panel 116 (unknown) (no date) (unknown) [facility] (no value) (units unknown) (unknown) Result panel 117 (unknown) (no date) (unknown) [facility] (no value) (units unknown) (unknown) Result panel 118 (unknown) (no date) (unknown) [facility] (no value) (units unknown) (unknown) Result panel 119 (unknown) (no date) (unknown) [facility] (no value) (units unknown) (unknown) Result panel 120 (unknown) (no date) (unknown) [facility] (no value) (units unknown) (unknown) Result panel 121 (unknown) (no date) (unknown) [facility] (no value) (units unknown) (unknown) Result panel 122 (unknown) (no date) (unknown) [facility] (no value) (units unknown) (unknown) Result panel 123 (unknown) (no date) (unknown) [facility] (no value) (units unknown) (unknown) Result panel 124 (unknown) (no date) (unknown) [facility] (no value) (units unknown) (unknown) Result panel 125 (unknown) (no date) (unknown) [facility] (no value) (units unknown) (unknown) Result panel 126 (unknown) (no date) (unknown) [facility] (no value) (units unknown) (unknown) Result panel 127 (unknown) (no date) (unknown) [facility] (no value) (units unknown) (unknown) Result panel 128 (unknown) (no date) (unknown) [facility] (no value) (units unknown) (unknown) Result panel 129 (unknown) (no date) (unknown) [facility] (no value) (units unknown) (unknown) Result panel 130 (unknown) (no date) (unknown) [facility] (no value) (units unknown) (unknown) Result panel 131 (unknown) (no date) (unknown) [facility] (no value) (units unknown) (unknown) Result panel 132 (unknown) (no date) (unknown) [facility] (no value) (units unknown) (unknown) Result panel 133 (unknown) (no date) (unknown) [facility] (no value) (units unknown) (unknown) Result panel 134 (unknown) (no date) (unknown) [facility] (no value) (units unknown) (unknown) Result panel 135 (unknown) (no date) (unknown) [facility] (no value) (units unknown) (unknown) Result panel 136 (unknown) (no date) (unknown) [facility] (no value) (units unknown) (unknown) Result panel 137 (unknown) (no date) (unknown) [facility] (no value) (units unknown) (unknown) Result panel 138 (unknown) (no date) (unknown) [facility] (no value) (units unknown) (unknown) Result panel 139 (unknown) (no date) (unknown) [facility] (no value) (units unknown) (unknown) Result panel 140 (unknown) (no date) (unknown) [facility] (no value) (units unknown) (unknown) Result panel 141 (unknown) (no date) (unknown) [facility] (no value) (units unknown) (unknown) Result panel 142 (unknown) (no date) (unknown) [facility] (no value) (units unknown) (unknown) Result panel 143 (unknown) (no date) (unknown) [facility] (no value) (units unknown) (unknown) Result panel 144 (unknown) (no date) (unknown) [facility] (no value) (units unknown) (unknown) Result panel 145 (unknown) (no date) (unknown) [facility] (no value) (units unknown) (unknown) Result panel 146 (unknown) (no date) (unknown) [facility] (no value) (units unknown) (unknown) Result panel 147 (unknown) (no date) (unknown) [facility] (no value) (units unknown) (unknown) Result panel 148 (unknown) (no date) (unknown) [facility] (no value) (units unknown) (unknown) Result panel 149 (unknown) (no date) (unknown) [facility] (no value) (units unknown) (unknown) Result panel 150 (unknown) (no date) (unknown) [facility] (no value) (units unknown) (unknown) Result panel 151 (unknown) (no date) (unknown) [facility] (no value) (units unknown) (unknown) Result panel 152 (unknown) (no date) (unknown) [facility] (no value) (units unknown) (unknown) Result panel 153 (unknown) (no date) (unknown) [facility] (no value) (units unknown) (unknown) Result panel 154 (unknown) (no date) (unknown) [facility] (no value) (units unknown) (unknown) Result panel 155 (unknown) (no date) (unknown) [facility] (no value) (units unknown) (unknown) Result panel 156 (unknown) (no date) (unknown) [facility] (no value) (units unknown) (unknown) Result panel 157 (unknown) (no date) (unknown) [facility] (no value) (units unknown) (unknown) Result panel 158 (unknown) (no date) (unknown) [facility] (no value) (units unknown) (unknown) Result panel 159 (unknown) (no date) (unknown) [facility] (no value) (units unknown) (unknown) Result panel 160 (unknown) (no date) (unknown) [facility] (no value) (units unknown) (unknown) Result panel 161 (unknown) (no date) (unknown) [facility] (no value) (units unknown) (unknown) Result panel 162 (unknown) (no date) (unknown) [facility] (no value) (units unknown) (unknown) Result panel 163 (unknown) (no date) (unknown) [facility] (no value) (units unknown) (unknown) Result panel 164 (unknown) (no date) (unknown) [facility] (no value) (units unknown) (unknown) Result panel 165 (unknown) (no date) (unknown) [facility] (no value) (units unknown) (unknown) Result panel 166 (unknown) (no date) (unknown) [facility] (no value) (units unknown) (unknown) Result panel 167 (unknown) (no date) (unknown) [facility] (no value) (units unknown) (unknown) Result panel 168 (unknown) (no date) (unknown) [facility] (no value) (units unknown) (unknown) Result panel 169 (unknown) (no date) (unknown) [facility] (no value) (units unknown) (unknown) Result panel 170 (unknown) (no date) (unknown) [facility] (no value) (units unknown) (unknown) Result panel 171 (unknown) (no date) (unknown) [facility] (no value) (units unknown) (unknown) Result panel 172 (unknown) (no date) (unknown) [facility] (no value) (units unknown) (unknown) Result panel 173 (unknown) (no date) (unknown) [facility] (no value) (units unknown) (unknown) Result panel 174 (unknown) (no date) (unknown) [facility] (no value) (units unknown) (unknown) Result panel 175 (unknown) (no date) (unknown) [facility] (no value) (units unknown) (unknown) Result panel 176 (unknown) (no date) (unknown) [facility] (no value) (units unknown) (unknown) Result panel 177 (unknown) (no date) (unknown) [facility] (no value) (units unknown) (unknown) Result panel 178 (unknown) (no date) (unknown) [facility] (no value) (units unknown) (unknown) Result panel 179 (unknown) (no date) (unknown) [facility] (no value) (units unknown) (unknown) Result panel 180 (unknown) (no date) (unknown) [facility] (no value) (units unknown) (unknown) Result panel 181 (unknown) (no date) (unknown) [facility] (no value) (units unknown) (unknown) Result panel 182 (unknown) (no date) (unknown) [facility] (no value) (units unknown) (unknown) Result panel 183 (unknown) (no date) (unknown) [facility] (no value) (units unknown) (unknown) Result panel 184 (unknown) (no date) (unknown) [facility] (no value) (units unknown) (unknown) Result panel 185 (unknown) (no date) (unknown) [facility] (no value) (units unknown) (unknown) Result panel 186 (unknown) (no date) (unknown) [facility] (no value) (units unknown) (unknown) Result panel 187 (unknown) (no date) (unknown) [facility] (no value) (units unknown) (unknown) Result panel 188 (unknown) (no date) (unknown) [facility] (no value) (units unknown) (unknown) Result panel 189 (unknown) (no date) (unknown) [facility] (no value) (units unknown) (unknown) Result panel 190 (unknown) (no date) (unknown) [facility] (no value) (units unknown) (unknown) Result panel 191 (unknown) (no date) (unknown) [facility] (no value) (units unknown) (unknown) Result panel 192 (unknown) (no date) (unknown) [facility] (no value) (units unknown) (unknown) Result panel 193 (unknown) (no date) (unknown) [facility] (no value) (units unknown) (unknown) Result panel 194 (unknown) (no date) (unknown) [facility] (no value) (units unknown) (unknown) Result panel 195 (unknown) (no date) (unknown) [facility] (no value) (units unknown) (unknown) Result panel 196 (unknown) (no date) (unknown) [facility] (no value) (units unknown) (unknown) Result panel 197 (unknown) (no date) (unknown) [facility] (no value) (units unknown) (unknown) Result panel 198 (unknown) (no date) (unknown) [facility] (no value) (units unknown) (unknown) Result panel 199 (unknown) (no date) (unknown) [facility] (no value) (units unknown) (unknown) Result panel 200 (unknown) (no date) (unknown) [facility] (no value) (units unknown) (unknown) Result panel 201 (unknown) (no date) (unknown) [facility] (no value) (units unknown) (unknown) Result panel 202 (unknown) (no date) (unknown) [facility] (no value) (units unknown) (unknown) Result panel 203 (unknown) (no date) (unknown) [facility] (no value) (units unknown) (unknown) Result panel 204 (unknown) (no date) (unknown) [facility] (no value) (units unknown) (unknown) Result panel 205 (unknown) (no date) (unknown) [facility] (no value) (units unknown) (unknown) Result panel 206 (unknown) (no date) (unknown) [facility] (no value) (units unknown) (unknown) Result panel 207 (unknown) (no date) (unknown) [facility] (no value) (units unknown) (unknown) Result panel 208 (unknown) (no date) (unknown) [facility] (no value) (units unknown) (unknown) Result panel 209 (unknown) (no date) (unknown) [facility] (no value) (units unknown) (unknown) Result panel 210 (unknown) (no date) (unknown) [facility] (no value) (units unknown) (unknown) Result panel 211 (unknown) (no date) (unknown) [facility] (no value) (units unknown) (unknown) Result panel 212 (unknown) (no date) (unknown) [facility] (no value) (units unknown) (unknown) Result panel 213 (unknown) (no date) (unknown) [facility] (no value) (units unknown) (unknown) Result panel 214 (unknown) (no date) (unknown) [facility] (no value) (units unknown) (unknown) Result panel 215 (unknown) (no date) (unknown) [facility] (no value) (units unknown) (unknown) Result panel 216 (unknown) (no date) (unknown) [facility] (no value) (units unknown) (unknown) Result panel 217 (unknown) (no date) (unknown) [facility] (no value) (units unknown) (unknown) Result panel 218 (unknown) (no date) (unknown) [facility] (no value) (units unknown) (unknown) Result panel 219 (unknown) (no date) (unknown) [facility] (no value) (units unknown) (unknown) Result panel 220 (unknown) (no date) (unknown) [facility] (no value) (units unknown) (unknown) Result panel 221 (unknown) (no date) (unknown) [facility] (no value) (units unknown) (unknown) Result panel 222 (unknown) (no date) (unknown) [facility] (no value) (units unknown) (unknown) Result panel 223 (unknown) (no date) (unknown) [facility] (no value) (units unknown) (unknown) Result panel 224 (unknown) (no date) (unknown) [facility] (no value) (units unknown) (unknown) Result panel 225 (unknown) (no date) (unknown) [facility] (no value) (units unknown) (unknown) Result panel 226 (unknown) (no date) (unknown) [facility] (no value) (units unknown) (unknown) Result panel 227 (unknown) (no date) (unknown) [facility] (no value) (units unknown) (unknown) Result panel 228 (unknown) (no date) (unknown) [facility] (no value) (units unknown) (unknown) Result panel 229 (unknown) (no date) (unknown) [facility] (no value) (units unknown) (unknown) Result panel 230 (unknown) (no date) (unknown) [facility] (no value) (units unknown) (unknown) Result panel 231 (unknown) (no date) (unknown) [facility] (no value) (units unknown) (unknown) Result panel 232 (unknown) (no date) (unknown) [facility] (no value) (units unknown) (unknown) Result panel 233 (unknown) (no date) (unknown) [facility] (no value) (units unknown) (unknown) Result panel 234 (unknown) (no date) (unknown) [facility] (no value) (units unknown) (unknown) Result panel 235 (unknown) (no date) (unknown) [facility] (no value) (units unknown) (unknown) Result panel 236 (unknown) (no date) (unknown) [facility] (no value) (units unknown) (unknown) Result panel 237 (unknown) (no date) (unknown) [facility] (no value) (units unknown) (unknown) Result panel 238 (unknown) (no date) (unknown) [facility] (no value) (units unknown) (unknown) Result panel 239 (unknown) (no date) (unknown) (unknown) (no value) (units unknown) (unknown) (unknown) (no date) (unknown) (unknown) [id number] (units unknown) (unknown) (unknown) (no date) (unknown) (unknown) 06/26/22 (units unknown) (unknown) (unknown) (no date) (unknown) (unknown) [address] [place] [address] (units unknown) (unknown) (unknown) (no date) (unknown) (unknown) Accession Number: [id number] (units unknown) (unknown) (unknown) (no date) (unknown) (unknown) Age/Sex: 77 / M Date of Service: (units unknown) (unknown) (unknown) (no date) (unknown) (unknown) [place] [address] (units unknown) (unknown) (unknown) (no date) (unknown) (unknown) Approved by: Casey Sneed M.D. on 06/26/2022 at 16:41 (units unknown) (unknown) (unknown) (no date) (unknown) (unknown) Bones and chest wall : No suspicious bony lesions. Overlying soft tissues (units unknown) (unknown) (unknown) (no date) (unknown) (unknown) COMPARISON: [facility], CR, XR CHEST 1 VIEW, 08/08/2017, 15:26. (units unknown) (unknown) (unknown) (no date) (unknown) (unknown) : 1945 Acct:[id number] (units unknown) (unknown) (unknown) (no date) (unknown) (unknown) Dictated by: Casey Sneed M.D. on 06/26/2022 at 16:40 (units unknown) (unknown) (unknown) (no date) (unknown) (unknown) FINDINGS: (units unknown) (unknown) (unknown) (no date) (unknown) (unknown) IMPRESSION: No acute process. (units unknown) (unknown) (unknown) (no date) (unknown) (unknown) INDICATIONS: suspect ed sepsis (units unknown) (unknown) (unknown) (no date) (unknown) (unknown) [facility] (units unknown) (unknown) (unknown) (no date) (unknown) (unknown) Loc: ED (units unknown) (unknown) (unknown) (no date) (unknown) (unknown) Lungs and pleura: Chante ngs are clear. No pleural effusions or pneumothorax. (units unknown) (unknown) (unknown) (no date) (unknown) (unknown) Mediastinum: Mediastinal contours appear normal. Heart size is normal. (units unknown) (unknown) (unknown) (no date) (unknown) (unknown) Ordering Provider: Gerard Amin D.O. (units unknown) (unknown) (unknown) (no date) (unknown) (unknown) PROCEDURE: XR CHEST 1V (units unknown) (unknown) (unknown) (no date) (unknown) (unknown) Patient: James Hoffman MR#: M (units unknown) (unknown) (unknown) (no date) (unknown) (unknown) Procedure: XR chest 1V (units unknown) (unknown) (unknown) (no date) (unknown) (unknown) Signed (units unknown) (unknown) (unknown) (no date) (unknown) (unknown) Surgical changes and devices: None. (units unknown) (unknown) (unknown) (no date) (unknown) (unknown) TECHNIQUE: One view of the chest was acquired. (units unknown) (unknown) (unknown) (no date) (unknown) (unknown) XRay Report (units unknown) (unknown) (unknown) (no date) (unknown) (unknown) appear (units unknown) (unknown) (unknown) (no date) (unknown) (unknown) unremarkable. (units unknown) (unknown) Result panel 240 (unknown) (no date) (unknown) (unknown) 0 /ul (unknown) (unknown) (no date) (unknown) (unknown) 0.0 % (unknown) (unknown) (no date) (unknown) (unknown) 100 /ul (unknown) (unknown) (no date) (unknown) (unknown) 13.2 g/dl (unknown) (unknown) (no date) (unknown) (unknown) 1300 /ul (unknown) (unknown) (no date) (unknown) (unknown) 15.6 % (unknown) (unknown) (no date) (unknown) (unknown) 16.6 % (unknown) (unknown) (no date) (unknown) (unknown) 168 x10 3/ul (unknown) (unknown) (no date) (unknown) (unknown) 1700 /ul (unknown) (unknown) (no date) (unknown) (unknown) 2.0 % (unknown) (unknown) (no date) (unknown) (unknown) 26.7 pg (unknown) (unknown) (no date) (unknown) (unknown) 3.6 x10 3/ul (unknown) (unknown) (no date) (unknown) (unknown) 32.1 % (unknown) (unknown) (no date) (unknown) (unknown) 36.0 % (unknown) (unknown) (no date) (unknown) (unknown) 4.94 x10 6/ul (unknown) (unknown) (no date) (unknown) (unknown) 41.1 % (unknown) (unknown) (no date) (unknown) (unknown) 46.4 % (unknown) (unknown) (no date) (unknown) (unknown) 600 /ul (unknown) (unknown) (no date) (unknown) (unknown) 83.2 fl (unknown) Result panel 241 (unknown) (no date) (unknown) (unknown) 1.0 (units unknown) (unknown) (unknown) (no date) (unknown) (unknown) 11.4 seconds (unknown) (unknown) (no date) (unknown) (unknown) 31 seconds (unknown) (unknown) (no date) (unknown) (unknown) 31 seconds (unknown) Result panel 242 (unknown) (no date) (unknown) (unknown) (no value) (units unknown) (unknown) (unknown) (no date) (unknown) (unknown) [id number] (units unknown) (unknown) (unknown) (no date) (unknown) (unknown) 06/26/22 (units unknown) (unknown) (unknown) (no date) (unknown) (unknown) [address] [place] [address] (units unknown) (unknown) (unknown) (no date) (unknown) (unknown) Accession Number: [id number] (units unknown) (unknown) (unknown) (no date) (unknown) (unknown) Age/Sex: 77 / M Date of Service: (units unknown) (unknown) (unknown) (no date) (unknown) (unknown) [place] [address] (units unknown) (unknown) (unknown) (no date) (unknown) (unknown) Approved by: Casey Sneed M.D. on 06/26/2022 at 17:08 (units unknown) (unknown) (unknown) (no date) (unknown) (unknown) Brain: No intracrani al bleeds or masses. There is cerebral volume loss for (units unknown) (unknown) (unknown) (no date) (unknown) (unknown) COMPARISON: None. (units unknown) (unknown) (unknown) (no date) (unknown) (unknown) CSF spaces: Basal cisterns are patent. No extra-axial fluid collections. The (units unknown) (unknown) (unknown) (no date) (unknown) (unknown) CT Scan Report (units unknown) (unknown) (unknown) (no date) (unknown) (unknown) : 1945 Acct:[id number] (units unknown) (unknown) (unknown) (no date) (unknown) (unknown) Dictated by: Casey Sneed M.D. on 06/26/2022 at 17:07 (units unknown) (unknown) (unknown) (no date) (unknown) (unknown) FINDINGS: (units unknown) (unknown) (unknown) (no date) (unknown) (unknown) IMPRESSION: No acute intracranial abnormality. (units unknown) (unknown) (unknown) (no date) (unknown) (unknown) INDICATIONS: dizzy, headache (units unknown) (unknown) (unknown) (no date) (unknown) (unknown) Image quality: Excellent. (units unknown) (unknown) (unknown) (no date) (unknown) (unknown) [facility] (units unknown) (unknown) (unknown) (no date) (unknown) (unknown) Loc: ED (units unknown) (unknown) (unknown) (no date) (unknown) (unknown) Noncontrast 4.5 mm thick angled axial sections acquired from the foramen magnum (units unknown) (unknown) (unknown) (no date) (unknown) (unknown) Ordering Provider: Gerard Amin D.O. (units unknown) (unknown) (unknown) (no date) (unknown) (unknown) PROCEDURE: CT HEAD/BRAIN WO CON (units unknown) (unknown) (unknown) (no date) (unknown) (unknown) Patient: James Hoffman MR#: M (units unknown) (unknown) (unknown) (no date) (unknown) (unknown) Procedure: CT head/brain wo con (units unknown) (unknown) (unknown) (no date) (unknown) (unknown) Signed (units unknown) (unknown) (unknown) (no date) (unknown) (unknown) Sinuses: Visualized sinuses and mastoids are clear. (units unknown) (unknown) (unknown) (no date) (unknown) (unknown) Skull and face: Calvarium and visualized facial bones appear intact, without (units unknown) (unknown) (unknown) (no date) (unknown) (unknown) TECHNIQUE: (units unknown) (unknown) (unknown) (no date) (unknown) (unknown) age, with (units unknown) (unknown) (unknown) (no date) (unknown) (unknown) artery atherosclerosis. (units unknown) (unknown) (unknown) (no date) (unknown) (unknown) carotid (units unknown) (unknown) (unknown) (no date) (unknown) (unknown) following (units unknown) (unknown) (unknown) (no date) (unknown) (unknown) lesions. (units unknown) (unknown) (unknown) (no date) (unknown) (unknown) matter chronic small vessel ischemic changes. There is intracranial internal (units unknown) (unknown) (unknown) (no date) (unknown) (unknown) patient (units unknown) (unknown) (unknown) (no date) (unknown) (unknown) resultant ventricula r and sulcal prominence. There are periventricular and deep (units unknown) (unknown) (unknown) (no date) (unknown) (unknown) size. (units unknown) (unknown) (unknown) (no date) (unknown) (unknown) suspicious (units unknown) (unknown) (unknown) (no date) (unknown) (unknown) to the (units unknown) (unknown) (unknown) (no date) (unknown) (unknown) ventricles are symmetric in size and shape. (units unknown) (unknown) (unknown) (no date) (unknown) (unknown) vertex, with coronal and sagittal reformats. For radiation dose reduction, the (units unknown) (unknown) (unknown) (no date) (unknown) (unknown) was used: automated exposure control, adjustment of mA and/or kV according to (units unknown) (unknown) (unknown) (no date) (unknown) (unknown) white (units unknown) (unknown) Result panel 243 (unknown) (no date) (unknown) (unknown) > 60 ml/min (unknown) (unknown) (no date) (unknown) (unknown) > 60 ml/min (unknown) (unknown) (no date) (unknown) (unknown) 0.6 mg/dl (unknown) (unknown) (no date) (unknown) (unknown) 1.04 mg/dl (unknown) (unknown) (no date) (unknown) (unknown) 1.5 (units unknown) (unknown) (unknown) (no date) (unknown) (unknown) 135 mmol/l (unknown) (unknown) (no date) (unknown) (unknown) 181 mg/dl (unknown) (unknown) (no date) (unknown) (unknown) 181 mg/dl (unknown) (unknown) (no date) (unknown) (unknown) 204 u/l (unknown) (unknown) (no date) (unknown) (unknown) 22 mmol/l (unknown) (unknown) (no date) (unknown) (unknown) 3.1 g/dl (unknown) (unknown) (no date) (unknown) (unknown) 3.8 mmol/l (unknown) (unknown) (no date) (unknown) (unknown) 3.9 mmol/l (unknown) (unknown) (no date) (unknown) (unknown) 385 u/l (unknown) (unknown) (no date) (unknown) (unknown) 4.5 g/dl (unknown) (unknown) (no date) (unknown) (unknown) 43 iu/l (unknown) (unknown) (no date) (unknown) (unknown) 48 u/l (unknown) (unknown) (no date) (unknown) (unknown) 7.6 g/dl (unknown) (unknown) (no date) (unknown) (unknown) 8.7 (units unknown) (unknown) (unknown) (no date) (unknown) (unknown) 82 iu/l (unknown) (unknown) (no date) (unknown) (unknown) 9 mg/dl (unknown) (unknown) (no date) (unknown) (unknown) 9.4 mg/dl (unknown) (unknown) (no date) (unknown) (unknown) 99 mmol/l (unknown) Result panel 244 (unknown) (no date) (unknown) (unknown) (no value) (units unknown) (unknown) (unknown) (no date) (unknown) (unknown) > 60 ml/min (unknown) (unknown) (no date) (unknown) (unknown) > 60 ml/min (unknown) (unknown) (no date) (unknown) (unknown) < 0.012 ng/ml (unknown) (unknown) (no date) (unknown) (unknown) < 0.012 ng/ml (unknown) (unknown) (no date) (unknown) (unknown) 0.11 ng/ml (unknown) (unknown) (no date) (unknown) (unknown) 0.11 ng/ml (unknown) (unknown) (no date) (unknown) (unknown) 0.4 % (unknown) (unknown) (no date) (unknown) (unknown) 0.6 mg/dl (unknown) (unknown) (no date) (unknown) (unknown) 0.87 ng/ml (unknown) (unknown) (no date) (unknown) (unknown) [id number] (units unknown) (unknown) (unknown) (no date) (unknown) (unknown) 06/26/22 06/26/22 06/26/22 Range/Units (units unknown) (unknown) (unknown) (no date) (unknown) (unknown) 06/26/22 16:51 (units unknown) (unknown) (unknown) (no date) (unknown) (unknown) 06/26/22 16:57 (units unknown) (unknown) (unknown) (no date) (unknown) (unknown) 06/26/22 17:10 (units unknown) (unknown) (unknown) (no date) (unknown) (unknown) 06/26/22 17:20 (units unknown) (unknown) (unknown) (no date) (unknown) (unknown) 06/26/22 17:42 (units unknown) (unknown) (unknown) (no date) (unknown) (unknown) 06/26/22 Range/Units (units unknown) (unknown) (unknown) (no date) (unknown) (unknown) 06/26/22 (units unknown) (unknown) (unknown) (no date) (unknown) (unknown) 1 tab PO DIRECTED (units unknown) (unknown) (unknown) (no date) (unknown) (unknown) 1.04 mg/dl (unknown) (unknown) (no date) (unknown) (unknown) 1.5 (units unknown) (unknown) (unknown) (no date) (unknown) (unknown) 100 mg PO DAILY (units unknown) (unknown) (unknown) (no date) (unknown) (unknown) 135 mmol/l (unknown) (unknown) (no date) (unknown) (unknown) 16:44 (units unknown) (unknown) (unknown) (no date) (unknown) (unknown) 17:10 17:10 17:10 (units unknown) (unknown) (unknown) (no date) (unknown) (unknown) 17:10 (units unknown) (unknown) (unknown) (no date) (unknown) (unknown) 181 mg/dl (unknown) (unknown) (no date) (unknown) (unknown) 181 mg/dl (unknown) (unknown) (no date) (unknown) (unknown) 204 u/l (unknown) (unknown) (no date) (unknown) (unknown) 22 mmol/l (unknown) (unknown) (no date) (unknown) (unknown) 3.1 g/dl (unknown) (unknown) (no date) (unknown) (unknown) 3.8 mmol/l (unknown) (unknown) (no date) (unknown) (unknown) 385 u/l (unknown) (unknown) (no date) (unknown) (unknown) 4.5 g/dl (unknown) (unknown) (no date) (unknown) (unknown) 43 iu/l (unknown) (unknown) (no date) (unknown) (unknown) 44 pg/ml (unknown) (unknown) (no date) (unknown) (unknown) 44 pg/ml (unknown) (unknown) (no date) (unknown) (unknown) 48 u/l (unknown) (unknown) (no date) (unknown) (unknown) 7.6 g/dl (unknown) (unknown) (no date) (unknown) (unknown) 8.7 (units unknown) (unknown) (unknown) (no date) (unknown) (unknown) 82 iu/l (unknown) (unknown) (no date) (unknown) (unknown) 9 mg/dl (unknown) (unknown) (no date) (unknown) (unknown) 9.4 mg/dl (unknown) (unknown) (no date) (unknown) (unknown) 99 mmol/l (unknown) (unknown) (no date) (unknown) (unknown) ALT (<50) IU/L (units unknown) (unknown) (unknown) (no date) (unknown) (unknown) ALT 43 (<50) IU/L (units unknown) (unknown) (unknown) (no date) (unknown) (unknown) APTT (26-36) SECONDS (units unknown) (unknown) (unknown) (no date) (unknown) (unknown) APTT 31 (26-36) SECONDS (units unknown) (unknown) (unknown) (no date) (unknown) (unknown) AST (17-59) IU/L (units unknown) (unknown) (unknown) (no date) (unknown) (unknown) AST 82 H (17-59) IU/L (units unknown) (unknown) (unknown) (no date) (unknown) (unknown) Age/Sex: 77 / M (units unknown) (unknown) (unknown) (no date) (unknown) (unknown) Albumin (3.5-5.0) g/dL (units unknown) (unknown) (unknown) (no date) (unknown) (unknown) Albumin 4.5 (3.5-5.0 ) g/dL (units unknown) (unknown) (unknown) (no date) (unknown) (unknown) Albumin/Globulin Rat io (1.0-2.8) (units unknown) (unknown) (unknown) (no date) (unknown) (unknown) Albumin/Globulin Rat io 1.5 (1.0-2.8) (units unknown) (unknown) (unknown) (no date) (unknown) (unknown) Alkaline Phosphatase (38-126) U/L (units unknown) (unknown) (unknown) (no date) (unknown) (unknown) Alkaline Phosphatase 48 (38-126) U/L (units unknown) (unknown) (unknown) (no date) (unknown) (unknown) Allergies (units unknown) (unknown) (unknown) (no date) (unknown) (unknown) Allergy/AdvReac Type Severity Reaction Status Date / Time (units unknown) (unknown) (unknown) (no date) (unknown) (unknown) BNP [NT-proBNP (BNP-Adult 18+)] Stat (units unknown) (unknown) (unknown) (no date) (unknown) (unknown) BUN (9-20) mg/dL (units unknown) (unknown) (unknown) (no date) (unknown) (unknown) BUN 9 (9-20) mg/dL (units unknown) (unknown) (unknown) (no date) (unknown) (unknown) BUN/Creatinine Ratio (6-22) (units unknown) (unknown) (unknown) (no date) (unknown) (unknown) BUN/Creatinine Ratio 8.7 (6-22) (units unknown) (unknown) (unknown) (no date) (unknown) (unknown) Baso # (Auto) (0-100 ) /uL (units unknown) (unknown) (unknown) (no date) (unknown) (unknown) Baso # (Auto) 100 (0-100) /uL (units unknown) (unknown) (unknown) (no date) (unknown) (unknown) Baso % (Auto) (0-2) % (units unknown) (unknown) (unknown) (no date) (unknown) (unknown) Baso % (Auto) 2.0 (0 -2) % (units unknown) (unknown) (unknown) (no date) (unknown) (unknown) Blood Culture Stat (units unknown) (unknown) (unknown) (no date) (unknown) (unknown) Blood Pressure 159/8 5 H 06/26/22 16:44 (units unknown) (unknown) (unknown) (no date) (unknown) (unknown) Blood Pressure 159/85 H (units unknown) (unknown) (unknown) (no date) (unknown) (unknown) COVID19 -Nasal RAPID Stat (units unknown) (unknown) (unknown) (no date) (unknown) (unknown) CT head/brain wo con Stat (units unknown) (unknown) (unknown) (no date) (unknown) (unknown) Calcium (8.4-10.2) mg/dL (units unknown) (unknown) (unknown) (no date) (unknown) (unknown) Calcium 9.4 (8.4-10. 2) mg/dL (units unknown) (unknown) (unknown) (no date) (unknown) (unknown) Carbon Dioxide (22-3 2) mmol/L (units unknown) (unknown) (unknown) (no date) (unknown) (unknown) Carbon Dioxide 22 (22-32) mmol/L (units unknown) (unknown) (unknown) (no date) (unknown) (unknown) Chief complaint: Weakness (units unknown) (unknown) (unknown) (no date) (unknown) (unknown) Chloride (98-107) mmol/L (units unknown) (unknown) (unknown) (no date) (unknown) (unknown) Chloride 99 (98-107) mmol/L (units unknown) (unknown) (unknown) (no date) (unknown) (unknown) Complete Blood Count AUTO DIFF Stat (units unknown) (unknown) (unknown) (no date) (unknown) (unknown) Complete) (units unknown) (unknown) (unknown) (no date) (unknown) (unknown) Comprehensive Metabo lic Panel Stat (units unknown) (unknown) (unknown) (no date) (unknown) (unknown) Course (units unknown) (unknown) (unknown) (no date) (unknown) (unknown) Creatinine (0.66-1.2 5) mg/dL (units unknown) (unknown) (unknown) (no date) (unknown) (unknown) Creatinine 1.04 (0.66-1.25) mg/dL (units unknown) (unknown) (unknown) (no date) (unknown) (unknown) : 1945 Acct:[id number] (units unknown) (unknown) (unknown) (no date) (unknown) (unknown) Date of Service: 06/26/22 (units unknown) (unknown) (unknown) (no date) (unknown) (unknown) Departure (units unknown) (unknown) (unknown) (no date) (unknown) (unknown) Discharge Plan (units unknown) (unknown) (unknown) (no date) (unknown) (unknown) Discontinued Medications (units unknown) (unknown) (unknown) (no date) (unknown) (unknown) Documented By: NR (units unknown) (unknown) (unknown) (no date) (unknown) (unknown) ED Orders (units unknown) (unknown) (unknown) (no date) (unknown) (unknown) EKG-12 Lead Stat (units unknown) (unknown) (unknown) (no date) (unknown) (unknown) ER Physician: Mabel Garcia D.O. (units unknown) (unknown) (unknown) (no date) (unknown) (unknown) Emergency Report (units unknown) (unknown) (unknown) (no date) (unknown) (unknown) Eos # (Auto) (0-450) /uL (units unknown) (unknown) (unknown) (no date) (unknown) (unknown) Eos # (Auto) 0 (0-45 0) /uL (units unknown) (unknown) (unknown) (no date) (unknown) (unknown) Eos % (Auto) (2-4) % (units unknown) (unknown) (unknown) (no date) (unknown) (unknown) Eos % (Auto) 0.0 L (2-4) % (units unknown) (unknown) (unknown) (no date) (unknown) (unknown) Estimated GFR > 60 (>60) mL/min (units unknown) (unknown) (unknown) (no date) (unknown) (unknown) Estimated GFR (>60) mL/min (units unknown) (unknown) (unknown) (no date) (unknown) (unknown) Exam (units unknown) (unknown) (unknown) (no date) (unknown) (unknown) General (units unknown) (unknown) (unknown) (no date) (unknown) (unknown) Globulin (1.7-4.1) g/dL (units unknown) (unknown) (unknown) (no date) (unknown) (unknown) Globulin 3.1 (1.7-4. 1) g/dL (units unknown) (unknown) (unknown) (no date) (unknown) (unknown) Glucose (80-110) mg/dL (units unknown) (unknown) (unknown) (no date) (unknown) (unknown) Glucose 181 H (80-11 0) mg/dL (units unknown) (unknown) (unknown) (no date) (unknown) (unknown) HPI - Weakness (units unknown) (unknown) (unknown) (no date) (unknown) (unknown) Hct (41-53) % (units unknown) (unknown) (unknown) (no date) (unknown) (unknown) Hct 41.1 (41-53) % (units unknown) (unknown) (unknown) (no date) (unknown) (unknown) Hgb (13.5-17.5) g/dL (units unknown) (unknown) (unknown) (no date) (unknown) (unknown) Hgb 13.2 L (13.5-17. 5) g/dL (units unknown) (unknown) (unknown) (no date) (unknown) (unknown) Home Medications (units unknown) (unknown) (unknown) (no date) (unknown) (unknown) INR (0.9-1.3) (units unknown) (unknown) (unknown) (no date) (unknown) (unknown) INR 1.0 (0.9-1.3) (units unknown) (unknown) (unknown) (no date) (unknown) (unknown) Initial Vital Signs (units unknown) (unknown) (unknown) (no date) (unknown) (unknown) Initial Vital Signs: (units unknown) (unknown) (unknown) (no date) (unknown) (unknown) [address] [address] (units unknown) (unknown) (unknown) (no date) (unknown) (unknown) Lab Data (units unknown) (unknown) (unknown) (no date) (unknown) (unknown) Lab Results (units unknown) (unknown) (unknown) (no date) (unknown) (unknown) Labs: (units unknown) (unknown) (unknown) (no date) (unknown) (unknown) Lactate (0.7-2.1) mmol/L (units unknown) (unknown) (unknown) (no date) (unknown) (unknown) Lactate (Lactic Acid ) Stat (units unknown) (unknown) (unknown) (no date) (unknown) (unknown) Lactate 3.9 H (0.7-2 .1) mmol/L (units unknown) (unknown) (unknown) (no date) (unknown) (unknown) Last Admin: 06/26/22 17:52 Dose: 1,000 mls/hr (units unknown) (unknown) (unknown) (no date) (unknown) (unknown) Lipase (23-300) U/L (units unknown) (unknown) (unknown) (no date) (unknown) (unknown) Lipase 385 H (23-300 ) U/L (units unknown) (unknown) (unknown) (no date) (unknown) (unknown) Lipase Stat (units unknown) (unknown) (unknown) (no date) (unknown) (unknown) Lymph # (Auto) (8410-4686) /uL (units unknown) (unknown) (unknown) (no date) (unknown) (unknown) Lymph # (Auto) 1300 ([phone]) /uL (units unknown) (unknown) (unknown) (no date) (unknown) (unknown) Lymph % (Auto) (25-4 0) % (units unknown) (unknown) (unknown) (no date) (unknown) (unknown) Lymph % (Auto) 36.0 (25-40) % (units unknown) (unknown) (unknown) (no date) (unknown) (unknown) MCH (26-34) PG (units unknown) (unknown) (unknown) (no date) (unknown) (unknown) MCH 26.7 (26-34) PG (units unknown) (unknown) (unknown) (no date) (unknown) (unknown) MCHC (30-36) % (units unknown) (unknown) (unknown) (no date) (unknown) (unknown) MCHC 32.1 (30-36) % (units unknown) (unknown) (unknown) (no date) (unknown) (unknown) MCV (80-100) fL (units unknown) (unknown) (unknown) (no date) (unknown) (unknown) MCV 83.2 (80-100) fL (units unknown) (unknown) (unknown) (no date) (unknown) (unknown) MDM - Weakness (units unknown) (unknown) (unknown) (no date) (unknown) (unknown) Medication Instructi ons Recorded Confirmed (units unknown) (unknown) (unknown) (no date) (unknown) (unknown) Mode of arrival: Wheelchair (units unknown) (unknown) (unknown) (no date) (unknown) (unknown) [place]y # (Auto) (0-900 ) /uL (units unknown) (unknown) (unknown) (no date) (unknown) (unknown) [place]y # (Auto) 600 (0-900) /uL (units unknown) (unknown) (unknown) (no date) (unknown) (unknown) [place]y % (Auto) (3-14) % (units unknown) (unknown) (unknown) (no date) (unknown) (unknown) [place] % (Auto) 15.6 H (3-14) % (units unknown) (unknown) (unknown) (no date) (unknown) (unknown) Neut # (Auto) (0582-5020) /uL (units unknown) (unknown) (unknown) (no date) (unknown) (unknown) Neut # (Auto) 1700 (3996-1053) /uL (units unknown) (unknown) (unknown) (no date) (unknown) (unknown) Neut % (Auto) (50-75) % (units unknown) (unknown) (unknown) (no date) (unknown) (unknown) Neut % (Auto) 46.4 L (50-75) % (units unknown) (unknown) (unknown) (no date) (unknown) (unknown) No Action (units unknown) (unknown) (unknown) (no date) (unknown) (unknown) No Known Drug Allerg ies Allergy Verified 06/26/22 16:44 (units unknown) (unknown) (unknown) (no date) (unknown) (unknown) Ondansetron HCl (Ondansetron 4 Mg Odt) 4 mg SL NOW PRN (units unknown) (unknown) (unknown) (no date) (unknown) (unknown) Ondansetron HCl (Ondansetron 4 Mg/2 Ml Inj) 4 mg IV NOW PRN (units unknown) (unknown) (unknown) (no date) (unknown) (unknown) Ordered: (units unknown) (unknown) (unknown) (no date) (unknown) (unknown) Orders (units unknown) (unknown) (unknown) (no date) (unknown) (unknown) Oxygen Delivery Meth od Room Air 06/26/22 16:44 (units unknown) (unknown) (unknown) (no date) (unknown) (unknown) Oxygen Delivery Meth od Room Air (units unknown) (unknown) (unknown) (no date) (unknown) (unknown) PRN Reason: Nausea A nd Vomiting (units unknown) (unknown) (unknown) (no date) (unknown) (unknown) PT (10.1-12.7) SECONDS (units unknown) (unknown) (unknown) (no date) (unknown) (unknown) PT 11.4 (10.1-12.7) SECONDS (units unknown) (unknown) (unknown) (no date) (unknown) (unknown) PTT Partial Thromboplastin Freddy Stat (units unknown) (unknown) (unknown) (no date) (unknown) (unknown) Patient Comments: (units unknown) (unknown) (unknown) (no date) (unknown) (unknown) Patient History (units unknown) (unknown) (unknown) (no date) (unknown) (unknown) Patient: James Hoffman MR#: [id number] (units unknown) (unknown) (unknown) (no date) (unknown) (unknown) Plt Count (150-400) X103/uL (units unknown) (unknown) (unknown) (no date) (unknown) (unknown) Plt Count 168 (150-4 00) X103/uL (units unknown) (unknown) (unknown) (no date) (unknown) (unknown) Potassium (3.4-5.1) mmol/L (units unknown) (unknown) (unknown) (no date) (unknown) (unknown) Potassium 3.8 (3.4-5 .1) mmol/L (units unknown) (unknown) (unknown) (no date) (unknown) (unknown) Prescriptions: (units unknown) (unknown) (unknown) (no date) (unknown) (unknown) Procalcitonin Stat (units unknown) (unknown) (unknown) (no date) (unknown) (unknown) Prothrombin Time INR Stat (units unknown) (unknown) (unknown) (no date) (unknown) (unknown) Pulse Oximetry 98 06/26/22 16:44 (units unknown) (unknown) (unknown) (no date) (unknown) (unknown) Pulse Oximetry 98 (units unknown) (unknown) (unknown) (no date) (unknown) (unknown) Pulse Rate 111 H 06/26/22 16:44 (units unknown) (unknown) (unknown) (no date) (unknown) (unknown) Pulse Rate 111 H (units unknown) (unknown) (unknown) (no date) (unknown) (unknown) RBC (4.5-5.9) X106/uL (units unknown) (unknown) (unknown) (no date) (unknown) (unknown) RBC 4.94 (4.5-5.9) X106/uL (units unknown) (unknown) (unknown) (no date) (unknown) (unknown) RDW (11.6-14.8) % (units unknown) (unknown) (unknown) (no date) (unknown) (unknown) RDW 16.6 H (11.6-14. 8) % (units unknown) (unknown) (unknown) (no date) (unknown) (unknown) RT Consult Eval and Treat NOW (units unknown) (unknown) (unknown) (no date) (unknown) (unknown) Referrals: (units unknown) (unknown) (unknown) (no date) (unknown) (unknown) Related Data (units unknown) (unknown) (unknown) (no date) (unknown) (unknown) Respiratory Rate 18 06/26/22 16:44 (units unknown) (unknown) (unknown) (no date) (unknown) (unknown) Respiratory Rate 18 (units unknown) (unknown) (unknown) (no date) (unknown) (unknown) Signed By: (units unknown) (unknown) (unknown) (no date) (unknown) (unknown) Smoking Status: Aviva monge smoker (units unknown) (unknown) (unknown) (no date) (unknown) (unknown) Social History (units unknown) (unknown) (unknown) (no date) (unknown) (unknown) Sodium (137-145) mmol/L (units unknown) (unknown) (unknown) (no date) (unknown) (unknown) Sodium 135 L (137-14 5) mmol/L (units unknown) (unknown) (unknown) (no date) (unknown) (unknown) Sodium Chloride (Nor mal Saline 0.9%) 1,000 mls @ 1,000 mls/hr IV BOLUS ONE (units unknown) (unknown) (unknown) (no date) (unknown) (unknown) Source: patient (units unknown) (unknown) (unknown) (no date) (unknown) (unknown) Stated complaint: Dizzy, Tinnitus, Headache (units unknown) (unknown) (unknown) (no date) (unknown) (unknown) Stop: 06/26/22 17:50 (units unknown) (unknown) (unknown) (no date) (unknown) (unknown) Substance Use Type: does not use (units unknown) (unknown) (unknown) (no date) (unknown) (unknown) Temperature 98.9 F 06/26/22 16:44 (units unknown) (unknown) (unknown) (no date) (unknown) (unknown) Temperature 98.9 F (units unknown) (unknown) (unknown) (no date) (unknown) (unknown) Jeannette Mcelroy MD [Primary Care Provider] (units unknown) (unknown) (unknown) (no date) (unknown) (unknown) Time Seen by Provide r: 06/26/22 17:42 (units unknown) (unknown) (unknown) (no date) (unknown) (unknown) Total Bilirubin (0.2-1.3) mg/dL (units unknown) (unknown) (unknown) (no date) (unknown) (unknown) Total Bilirubin 0.6 (0.2-1.3) mg/dL (units unknown) (unknown) (unknown) (no date) (unknown) (unknown) Total Creatine Kinas e (55-170) U/L (units unknown) (unknown) (unknown) (no date) (unknown) (unknown) Total Creatine Kinas e 204 H (55-170) U/L (units unknown) (unknown) (unknown) (no date) (unknown) (unknown) Total Protein (6.3-8 .2) g/dL (units unknown) (unknown) (unknown) (no date) (unknown) (unknown) Total Protein 7.6 (6.3-8.2) g/dL (units unknown) (unknown) (unknown) (no date) (unknown) (unknown) Troponin + CK Cardia c Panel Stat (units unknown) (unknown) (unknown) (no date) (unknown) (unknown) Vital Signs - 8 hr (units unknown) (unknown) (unknown) (no date) (unknown) (unknown) Vital Signs (units unknown) (unknown) (unknown) (no date) (unknown) (unknown) Vital signs: (units unknown) (unknown) (unknown) (no date) (unknown) (unknown) WBC (4.5-11.0) X103/uL (units unknown) (unknown) (unknown) (no date) (unknown) (unknown) WBC 3.6 L (4.5-11.0) X103/uL (units unknown) (unknown) (unknown) (no date) (unknown) (unknown) XR chest 1V Stat (units unknown) (unknown) (unknown) (no date) (unknown) (unknown) [Embedded Image Not Available] (units unknown) (unknown) (unknown) (no date) (unknown) (unknown) alcohol intake frequency: 0-2 drinks per day (units unknown) (unknown) (unknown) (no date) (unknown) (unknown) atenolol 100 mg Tablet (units unknown) (unknown) (unknown) (no date) (unknown) (unknown) atenolol 100 mg tabl et 100 mg PO DAILY 07/05/17 07/05/17 (units unknown) (unknown) (unknown) (no date) (unknown) (unknown) iron-0.38 mg tablet (Geritol (units unknown) (unknown) (unknown) (no date) (unknown) (unknown) multivitamin with mi n 1 tab PO DIRECTED 07/05/17 07/05/17 (units unknown) (unknown) (unknown) (no date) (unknown) (unknown) mv, min #36-iron,carbonyl-FA [Geritol Complete] 16 mg iron- 0.38 mg Tablet (units unknown) (unknown) (unknown) (no date) (unknown) (unknown) no.36-iron,carbonyl- FA 16 mg (units unknown) (unknown) (unknown) (no date) (unknown) (unknown) strength not confirmed (units unknown) (unknown) Result panel 245 (unknown) (no date) (unknown) (unknown) (no value) (units unknown) (unknown) (unknown) (no date) (unknown) (unknown) [id number] (units unknown) (unknown) (unknown) (no date) (unknown) (unknown) 06/26/22 06/26/22 06/26/22 Range/Units (units unknown) (unknown) (unknown) (no date) (unknown) (unknown) 06/26/22 16:51 (units unknown) (unknown) (unknown) (no date) (unknown) (unknown) 06/26/22 16:57 (units unknown) (unknown) (unknown) (no date) (unknown) (unknown) 06/26/22 17:10 (units unknown) (unknown) (unknown) (no date) (unknown) (unknown) 06/26/22 17:20 (units unknown) (unknown) (unknown) (no date) (unknown) (unknown) 06/26/22 17:42 (units unknown) (unknown) (unknown) (no date) (unknown) (unknown) 06/26/22 Range/Units (units unknown) (unknown) (unknown) (no date) (unknown) (unknown) 06/26/22 (units unknown) (unknown) (unknown) (no date) (unknown) (unknown) 1 tab PO DIRECTED (units unknown) (unknown) (unknown) (no date) (unknown) (unknown) 100 mg PO DAILY (units unknown) (unknown) (unknown) (no date) (unknown) (unknown) 16:44 (units unknown) (unknown) (unknown) (no date) (unknown) (unknown) 17:10 17:10 17:10 (units unknown) (unknown) (unknown) (no date) (unknown) (unknown) 17:10 (units unknown) (unknown) (unknown) (no date) (unknown) (unknown) ALT (<50) IU/L (units unknown) (unknown) (unknown) (no date) (unknown) (unknown) ALT 43 (<50) IU/L (units unknown) (unknown) (unknown) (no date) (unknown) (unknown) APTT (26-36) SECONDS (units unknown) (unknown) (unknown) (no date) (unknown) (unknown) APTT 31 (26-36) SECONDS (units unknown) (unknown) (unknown) (no date) (unknown) (unknown) AST (17-59) IU/L (units unknown) (unknown) (unknown) (no date) (unknown) (unknown) AST 82 H (17-59) IU/L (units unknown) (unknown) (unknown) (no date) (unknown) (unknown) Age/Sex: 77 / M (units unknown) (unknown) (unknown) (no date) (unknown) (unknown) Albumin (3.5-5.0) g/dL (units unknown) (unknown) (unknown) (no date) (unknown) (unknown) Albumin 4.5 (3.5-5.0 ) g/dL (units unknown) (unknown) (unknown) (no date) (unknown) (unknown) Albumin/Globulin Rat io (1.0-2.8) (units unknown) (unknown) (unknown) (no date) (unknown) (unknown) Albumin/Globulin Rat io 1.5 (1.0-2.8) (units unknown) (unknown) (unknown) (no date) (unknown) (unknown) Alkaline Phosphatase (38-126) U/L (units unknown) (unknown) (unknown) (no date) (unknown) (unknown) Alkaline Phosphatase 48 (38-126) U/L (units unknown) (unknown) (unknown) (no date) (unknown) (unknown) Allergies (units unknown) (unknown) (unknown) (no date) (unknown) (unknown) Allergy/AdvReac Type Severity Reaction Status Date / Time (units unknown) (unknown) (unknown) (no date) (unknown) (unknown) BNP [NT-proBNP (BNP-Adult 18+)] Stat (units unknown) (unknown) (unknown) (no date) (unknown) (unknown) BUN (9-20) mg/dL (units unknown) (unknown) (unknown) (no date) (unknown) (unknown) BUN 9 (9-20) mg/dL (units unknown) (unknown) (unknown) (no date) (unknown) (unknown) BUN/Creatinine Ratio (6-22) (units unknown) (unknown) (unknown) (no date) (unknown) (unknown) BUN/Creatinine Ratio 8.7 (6-22) (units unknown) (unknown) (unknown) (no date) (unknown) (unknown) Baso # (Auto) (0-100 ) /uL (units unknown) (unknown) (unknown) (no date) (unknown) (unknown) Baso # (Auto) 100 (0-100) /uL (units unknown) (unknown) (unknown) (no date) (unknown) (unknown) Baso % (Auto) (0-2) % (units unknown) (unknown) (unknown) (no date) (unknown) (unknown) Baso % (Auto) 2.0 (0 -2) % (units unknown) (unknown) (unknown) (no date) (unknown) (unknown) Blood Culture Stat (units unknown) (unknown) (unknown) (no date) (unknown) (unknown) Blood Pressure 159/8 5 H 06/26/22 16:44 (units unknown) (unknown) (unknown) (no date) (unknown) (unknown) Blood Pressure 159/85 H (units unknown) (unknown) (unknown) (no date) (unknown) (unknown) COVID19 -Nasal RAPID Stat (units unknown) (unknown) (unknown) (no date) (unknown) (unknown) CT head/brain wo con Stat (units unknown) (unknown) (unknown) (no date) (unknown) (unknown) Calcium (8.4-10.2) mg/dL (units unknown) (unknown) (unknown) (no date) (unknown) (unknown) Calcium 9.4 (8.4-10. 2) mg/dL (units unknown) (unknown) (unknown) (no date) (unknown) (unknown) Carbon Dioxide (22-3 2) mmol/L (units unknown) (unknown) (unknown) (no date) (unknown) (unknown) Carbon Dioxide 22 (22-32) mmol/L (units unknown) (unknown) (unknown) (no date) (unknown) (unknown) Chief complaint: Weakness (units unknown) (unknown) (unknown) (no date) (unknown) (unknown) Chloride (98-107) mmol/L (units unknown) (unknown) (unknown) (no date) (unknown) (unknown) Chloride 99 (98-107) mmol/L (units unknown) (unknown) (unknown) (no date) (unknown) (unknown) Complete Blood Count AUTO DIFF Stat (units unknown) (unknown) (unknown) (no date) (unknown) (unknown) Complete) (units unknown) (unknown) (unknown) (no date) (unknown) (unknown) Comprehensive Metabo lic Panel Stat (units unknown) (unknown) (unknown) (no date) (unknown) (unknown) Course (units unknown) (unknown) (unknown) (no date) (unknown) (unknown) Creatinine (0.66-1.2 5) mg/dL (units unknown) (unknown) (unknown) (no date) (unknown) (unknown) Creatinine 1.04 (0.66-1.25) mg/dL (units unknown) (unknown) (unknown) (no date) (unknown) (unknown) : 1945 Acct:[id number] (units unknown) (unknown) (unknown) (no date) (unknown) (unknown) Date of Service: 06/26/22 (units unknown) (unknown) (unknown) (no date) (unknown) (unknown) Departure (units unknown) (unknown) (unknown) (no date) (unknown) (unknown) Discharge Plan (units unknown) (unknown) (unknown) (no date) (unknown) (unknown) Discontinued Medications (units unknown) (unknown) (unknown) (no date) (unknown) (unknown) Documented By: NR (units unknown) (unknown) (unknown) (no date) (unknown) (unknown) ED Orders (units unknown) (unknown) (unknown) (no date) (unknown) (unknown) EKG-12 Lead Stat (units unknown) (unknown) (unknown) (no date) (unknown) (unknown) ER Physician: Mabel Garcia D.O. (units unknown) (unknown) (unknown) (no date) (unknown) (unknown) Emergency Report (units unknown) (unknown) (unknown) (no date) (unknown) (unknown) Eos # (Auto) (0-450) /uL (units unknown) (unknown) (unknown) (no date) (unknown) (unknown) Eos # (Auto) 0 (0-45 0) /uL (units unknown) (unknown) (unknown) (no date) (unknown) (unknown) Eos % (Auto) (2-4) % (units unknown) (unknown) (unknown) (no date) (unknown) (unknown) Eos % (Auto) 0.0 L (2-4) % (units unknown) (unknown) (unknown) (no date) (unknown) (unknown) Estimated GFR > 60 (>60) mL/min (units unknown) (unknown) (unknown) (no date) (unknown) (unknown) Estimated GFR (>60) mL/min (units unknown) (unknown) (unknown) (no date) (unknown) (unknown) Exam (units unknown) (unknown) (unknown) (no date) (unknown) (unknown) General (units unknown) (unknown) (unknown) (no date) (unknown) (unknown) Globulin (1.7-4.1) g/dL (units unknown) (unknown) (unknown) (no date) (unknown) (unknown) Globulin 3.1 (1.7-4. 1) g/dL (units unknown) (unknown) (unknown) (no date) (unknown) (unknown) Glucose (80-110) mg/dL (units unknown) (unknown) (unknown) (no date) (unknown) (unknown) Glucose 181 H (80-11 0) mg/dL (units unknown) (unknown) (unknown) (no date) (unknown) (unknown) HPI - Weakness (units unknown) (unknown) (unknown) (no date) (unknown) (unknown) Hct (41-53) % (units unknown) (unknown) (unknown) (no date) (unknown) (unknown) Hct 41.1 (41-53) % (units unknown) (unknown) (unknown) (no date) (unknown) (unknown) Hgb (13.5-17.5) g/dL (units unknown) (unknown) (unknown) (no date) (unknown) (unknown) Hgb 13.2 L (13.5-17. 5) g/dL (units unknown) (unknown) (unknown) (no date) (unknown) (unknown) Home Medications (units unknown) (unknown) (unknown) (no date) (unknown) (unknown) INR (0.9-1.3) (units unknown) (unknown) (unknown) (no date) (unknown) (unknown) INR 1.0 (0.9-1.3) (units unknown) (unknown) (unknown) (no date) (unknown) (unknown) Initial Vital Signs (units unknown) (unknown) (unknown) (no date) (unknown) (unknown) Initial Vital Signs: (units unknown) (unknown) (unknown) (no date) (unknown) (unknown) [address] [address] (units unknown) (unknown) (unknown) (no date) (unknown) (unknown) Lab Data (units unknown) (unknown) (unknown) (no date) (unknown) (unknown) Lab Results (units unknown) (unknown) (unknown) (no date) (unknown) (unknown) Labs: (units unknown) (unknown) (unknown) (no date) (unknown) (unknown) Lactate (0.7-2.1) mmol/L (units unknown) (unknown) (unknown) (no date) (unknown) (unknown) Lactate (Lactic Acid ) Stat (units unknown) (unknown) (unknown) (no date) (unknown) (unknown) Lactate 3.9 H (0.7-2 .1) mmol/L (units unknown) (unknown) (unknown) (no date) (unknown) (unknown) Last Admin: 06/26/22 17:52 Dose: 1,000 mls/hr (units unknown) (unknown) (unknown) (no date) (unknown) (unknown) Lipase (23-300) U/L (units unknown) (unknown) (unknown) (no date) (unknown) (unknown) Lipase 385 H (23-300 ) U/L (units unknown) (unknown) (unknown) (no date) (unknown) (unknown) Lipase Stat (units unknown) (unknown) (unknown) (no date) (unknown) (unknown) Lymph # (Auto) (9676-4824) /uL (units unknown) (unknown) (unknown) (no date) (unknown) (unknown) Lymph # (Auto) 1300 (7973-7689) /uL (units unknown) (unknown) (unknown) (no date) (unknown) (unknown) Lymph % (Auto) (25-4 0) % (units unknown) (unknown) (unknown) (no date) (unknown) (unknown) Lymph % (Auto) 36.0 (25-40) % (units unknown) (unknown) (unknown) (no date) (unknown) (unknown) MCH (26-34) PG (units unknown) (unknown) (unknown) (no date) (unknown) (unknown) MCH 26.7 (26-34) PG (units unknown) (unknown) (unknown) (no date) (unknown) (unknown) MCHC (30-36) % (units unknown) (unknown) (unknown) (no date) (unknown) (unknown) MCHC 32.1 (30-36) % (units unknown) (unknown) (unknown) (no date) (unknown) (unknown) MCV (80-100) fL (units unknown) (unknown) (unknown) (no date) (unknown) (unknown) MCV 83.2 (80-100) fL (units unknown) (unknown) (unknown) (no date) (unknown) (unknown) MDM - Weakness (units unknown) (unknown) (unknown) (no date) (unknown) (unknown) Medication Instructi ons Recorded Confirmed (units unknown) (unknown) (unknown) (no date) (unknown) (unknown) Mode of arrival: Wheelchair (units unknown) (unknown) (unknown) (no date) (unknown) (unknown) Ripley # (Auto) (0-900 ) /uL (units unknown) (unknown) (unknown) (no date) (unknown) (unknown) [place]ipley # (Auto) 600 (0-900) /uL (units unknown) (unknown) (unknown) (no date) (unknown) (unknown) [place]y % (Auto) (3-14) % (units unknown) (unknown) (unknown) (no date) (unknown) (unknown) [place]y % (Auto) 15.6 H (3-14) % (units unknown) (unknown) (unknown) (no date) (unknown) (unknown) Neut # (Auto) (5532-2454) /uL (units unknown) (unknown) (unknown) (no date) (unknown) (unknown) Neut # (Auto) 1700 (9641-5206) /uL (units unknown) (unknown) (unknown) (no date) (unknown) (unknown) Neut % (Auto) (50-75) % (units unknown) (unknown) (unknown) (no date) (unknown) (unknown) Neut % (Auto) 46.4 L (50-75) % (units unknown) (unknown) (unknown) (no date) (unknown) (unknown) No Action (units unknown) (unknown) (unknown) (no date) (unknown) (unknown) No Known Drug Allerg ies Allergy Verified 06/26/22 16:44 (units unknown) (unknown) (unknown) (no date) (unknown) (unknown) Ondansetron HCl (Ondansetron 4 Mg Odt) 4 mg SL NOW PRN (units unknown) (unknown) (unknown) (no date) (unknown) (unknown) Ondansetron HCl (Ondansetron 4 Mg/2 Ml Inj) 4 mg IV NOW PRN (units unknown) (unknown) (unknown) (no date) (unknown) (unknown) Ordered: (units unknown) (unknown) (unknown) (no date) (unknown) (unknown) Orders (units unknown) (unknown) (unknown) (no date) (unknown) (unknown) Oxygen Delivery Meth od Room Air 06/26/22 16:44 (units unknown) (unknown) (unknown) (no date) (unknown) (unknown) Oxygen Delivery Meth od Room Air (units unknown) (unknown) (unknown) (no date) (unknown) (unknown) PRN Reason: Nausea A nd Vomiting (units unknown) (unknown) (unknown) (no date) (unknown) (unknown) PT (10.1-12.7) SECONDS (units unknown) (unknown) (unknown) (no date) (unknown) (unknown) PT 11.4 (10.1-12.7) SECONDS (units unknown) (unknown) (unknown) (no date) (unknown) (unknown) PTT Partial Thromboplastin Freddy Stat (units unknown) (unknown) (unknown) (no date) (unknown) (unknown) Patient Comments: (units unknown) (unknown) (unknown) (no date) (unknown) (unknown) Patient History (units unknown) (unknown) (unknown) (no date) (unknown) (unknown) Patient: James Hoffman MR#: M0 (units unknown) (unknown) (unknown) (no date) (unknown) (unknown) Plt Count (150-400) X103/uL (units unknown) (unknown) (unknown) (no date) (unknown) (unknown) Plt Count 168 (150-4 00) X103/uL (units unknown) (unknown) (unknown) (no date) (unknown) (unknown) Potassium (3.4-5.1) mmol/L (units unknown) (unknown) (unknown) (no date) (unknown) (unknown) Potassium 3.8 (3.4-5 .1) mmol/L (units unknown) (unknown) (unknown) (no date) (unknown) (unknown) Prescriptions: (units unknown) (unknown) (unknown) (no date) (unknown) (unknown) Procalcitonin Stat (units unknown) (unknown) (unknown) (no date) (unknown) (unknown) Prothrombin Time INR Stat (units unknown) (unknown) (unknown) (no date) (unknown) (unknown) Pulse Oximetry 98 06/26/22 16:44 (units unknown) (unknown) (unknown) (no date) (unknown) (unknown) Pulse Oximetry 98 (units unknown) (unknown) (unknown) (no date) (unknown) (unknown) Pulse Rate 111 H 06/26/22 16:44 (units unknown) (unknown) (unknown) (no date) (unknown) (unknown) Pulse Rate 111 H (units unknown) (unknown) (unknown) (no date) (unknown) (unknown) RBC (4.5-5.9) X106/uL (units unknown) (unknown) (unknown) (no date) (unknown) (unknown) RBC 4.94 (4.5-5.9) X106/uL (units unknown) (unknown) (unknown) (no date) (unknown) (unknown) RDW (11.6-14.8) % (units unknown) (unknown) (unknown) (no date) (unknown) (unknown) RDW 16.6 H (11.6-14. 8) % (units unknown) (unknown) (unknown) (no date) (unknown) (unknown) RT Consult Eval and Treat NOW (units unknown) (unknown) (unknown) (no date) (unknown) (unknown) Referrals: (units unknown) (unknown) (unknown) (no date) (unknown) (unknown) Related Data (units unknown) (unknown) (unknown) (no date) (unknown) (unknown) Respiratory Rate 18 06/26/22 16:44 (units unknown) (unknown) (unknown) (no date) (unknown) (unknown) Respiratory Rate 18 (units unknown) (unknown) (unknown) (no date) (unknown) (unknown) Signed By: (units unknown) (unknown) (unknown) (no date) (unknown) (unknown) Smoking Status: Aviva monge smoker (units unknown) (unknown) (unknown) (no date) (unknown) (unknown) Social History (units unknown) (unknown) (unknown) (no date) (unknown) (unknown) Sodium (137-145) mmol/L (units unknown) (unknown) (unknown) (no date) (unknown) (unknown) Sodium 135 L (137-14 5) mmol/L (units unknown) (unknown) (unknown) (no date) (unknown) (unknown) Sodium Chloride (Nor mal Saline 0.9%) 1,000 mls @ 1,000 mls/hr IV BOLUS ONE (units unknown) (unknown) (unknown) (no date) (unknown) (unknown) Source: patient (units unknown) (unknown) (unknown) (no date) (unknown) (unknown) Stated complaint: Dizzy, Tinnitus, Headache (units unknown) (unknown) (unknown) (no date) (unknown) (unknown) Stop: 06/26/22 17:50 (units unknown) (unknown) (unknown) (no date) (unknown) (unknown) Substance Use Type: does not use (units unknown) (unknown) (unknown) (no date) (unknown) (unknown) Temperature 98.9 F 06/26/22 16:44 (units unknown) (unknown) (unknown) (no date) (unknown) (unknown) Temperature 98.9 F (units unknown) (unknown) (unknown) (no date) (unknown) (unknown) Jeannette Mcelroy MD [Primary Care Provider] (units unknown) (unknown) (unknown) (no date) (unknown) (unknown) Time Seen by Provide r: 06/26/22 17:42 (units unknown) (unknown) (unknown) (no date) (unknown) (unknown) Total Bilirubin (0.2-1.3) mg/dL (units unknown) (unknown) (unknown) (no date) (unknown) (unknown) Total Bilirubin 0.6 (0.2-1.3) mg/dL (units unknown) (unknown) (unknown) (no date) (unknown) (unknown) Total Creatine Kinas e (55-170) U/L (units unknown) (unknown) (unknown) (no date) (unknown) (unknown) Total Creatine Kinas e 204 H (55-170) U/L (units unknown) (unknown) (unknown) (no date) (unknown) (unknown) Total Protein (6.3-8 .2) g/dL (units unknown) (unknown) (unknown) (no date) (unknown) (unknown) Total Protein 7.6 (6.3-8.2) g/dL (units unknown) (unknown) (unknown) (no date) (unknown) (unknown) Troponin + CK Cardia c Panel Stat (units unknown) (unknown) (unknown) (no date) (unknown) (unknown) Vital Signs - 8 hr (units unknown) (unknown) (unknown) (no date) (unknown) (unknown) Vital Signs (units unknown) (unknown) (unknown) (no date) (unknown) (unknown) Vital signs: (units unknown) (unknown) (unknown) (no date) (unknown) (unknown) WBC (4.5-11.0) X103/uL (units unknown) (unknown) (unknown) (no date) (unknown) (unknown) WBC 3.6 L (4.5-11.0) X103/uL (units unknown) (unknown) (unknown) (no date) (unknown) (unknown) XR chest 1V Stat (units unknown) (unknown) (unknown) (no date) (unknown) (unknown) [Embedded Image Not Available] (units unknown) (unknown) (unknown) (no date) (unknown) (unknown) alcohol intake frequency: 0-2 drinks per day (units unknown) (unknown) (unknown) (no date) (unknown) (unknown) atenolol 100 mg Tablet (units unknown) (unknown) (unknown) (no date) (unknown) (unknown) atenolol 100 mg tabl et 100 mg PO DAILY 07/05/17 07/05/17 (units unknown) (unknown) (unknown) (no date) (unknown) (unknown) iron-0.38 mg tablet (Geritol (units unknown) (unknown) (unknown) (no date) (unknown) (unknown) multivitamin with mi n 1 tab PO DIRECTED 07/05/17 07/05/17 (units unknown) (unknown) (unknown) (no date) (unknown) (unknown) mv, min #36-iron,carbonyl-FA [Geritol Complete] 16 mg iron- 0.38 mg Tablet (units unknown) (unknown) (unknown) (no date) (unknown) (unknown) no.36-iron,carbonyl- FA 16 mg (units unknown) (unknown) (unknown) (no date) (unknown) (unknown) strength not confirmed (units unknown) (unknown) Result panel 246 (unknown) (no date) (unknown) (unknown) (no value) (units unknown) (unknown) (unknown) (no date) (unknown) (unknown) [id number] (units unknown) (unknown) (unknown) (no date) (unknown) (unknown) 06/26/22 06/26/22 06/26/22 Range/Units (units unknown) (unknown) (unknown) (no date) (unknown) (unknown) 06/26/22 16:51 (units unknown) (unknown) (unknown) (no date) (unknown) (unknown) 06/26/22 16:57 (units unknown) (unknown) (unknown) (no date) (unknown) (unknown) 06/26/22 17:10 (units unknown) (unknown) (unknown) (no date) (unknown) (unknown) 06/26/22 17:20 (units unknown) (unknown) (unknown) (no date) (unknown) (unknown) 06/26/22 17:42 (units unknown) (unknown) (unknown) (no date) (unknown) (unknown) 06/26/22 Range/Units (units unknown) (unknown) (unknown) (no date) (unknown) (unknown) 06/26/22 (units unknown) (unknown) (unknown) (no date) (unknown) (unknown) 1 tab PO DIRECTED (units unknown) (unknown) (unknown) (no date) (unknown) (unknown) 100 mg PO DAILY (units unknown) (unknown) (unknown) (no date) (unknown) (unknown) 16:44 (units unknown) (unknown) (unknown) (no date) (unknown) (unknown) 17:10 17:10 17:10 (units unknown) (unknown) (unknown) (no date) (unknown) (unknown) 17:10 (units unknown) (unknown) (unknown) (no date) (unknown) (unknown) ALT (<50) IU/L (units unknown) (unknown) (unknown) (no date) (unknown) (unknown) ALT 43 (<50) IU/L (units unknown) (unknown) (unknown) (no date) (unknown) (unknown) APTT (26-36) SECONDS (units unknown) (unknown) (unknown) (no date) (unknown) (unknown) APTT 31 (26-36) SECONDS (units unknown) (unknown) (unknown) (no date) (unknown) (unknown) AST (17-59) IU/L (units unknown) (unknown) (unknown) (no date) (unknown) (unknown) AST 82 H (17-59) IU/L (units unknown) (unknown) (unknown) (no date) (unknown) (unknown) Age/Sex: 77 / M (units unknown) (unknown) (unknown) (no date) (unknown) (unknown) Albumin (3.5-5.0) g/dL (units unknown) (unknown) (unknown) (no date) (unknown) (unknown) Albumin 4.5 (3.5-5.0 ) g/dL (units unknown) (unknown) (unknown) (no date) (unknown) (unknown) Albumin/Globulin Rat io (1.0-2.8) (units unknown) (unknown) (unknown) (no date) (unknown) (unknown) Albumin/Globulin Rat io 1.5 (1.0-2.8) (units unknown) (unknown) (unknown) (no date) (unknown) (unknown) Alkaline Phosphatase (38-126) U/L (units unknown) (unknown) (unknown) (no date) (unknown) (unknown) Alkaline Phosphatase 48 (38-126) U/L (units unknown) (unknown) (unknown) (no date) (unknown) (unknown) Allergies (units unknown) (unknown) (unknown) (no date) (unknown) (unknown) Allergy/AdvReac Type Severity Reaction Status Date / Time (units unknown) (unknown) (unknown) (no date) (unknown) (unknown) BNP [NT-proBNP (BNP-Adult 18+)] Stat (units unknown) (unknown) (unknown) (no date) (unknown) (unknown) BUN (9-20) mg/dL (units unknown) (unknown) (unknown) (no date) (unknown) (unknown) BUN 9 (9-20) mg/dL (units unknown) (unknown) (unknown) (no date) (unknown) (unknown) BUN/Creatinine Ratio (6-22) (units unknown) (unknown) (unknown) (no date) (unknown) (unknown) BUN/Creatinine Ratio 8.7 (6-22) (units unknown) (unknown) (unknown) (no date) (unknown) (unknown) Baso # (Auto) (0-100 ) /uL (units unknown) (unknown) (unknown) (no date) (unknown) (unknown) Baso # (Auto) 100 (0-100) /uL (units unknown) (unknown) (unknown) (no date) (unknown) (unknown) Baso % (Auto) (0-2) % (units unknown) (unknown) (unknown) (no date) (unknown) (unknown) Baso % (Auto) 2.0 (0 -2) % (units unknown) (unknown) (unknown) (no date) (unknown) (unknown) Blood Culture Stat (units unknown) (unknown) (unknown) (no date) (unknown) (unknown) Blood Pressure 159/8 5 H 06/26/22 16:44 (units unknown) (unknown) (unknown) (no date) (unknown) (unknown) Blood Pressure 159/85 H (units unknown) (unknown) (unknown) (no date) (unknown) (unknown) COVID19 -Nasal RAPID Stat (units unknown) (unknown) (unknown) (no date) (unknown) (unknown) CT head/brain wo con Stat (units unknown) (unknown) (unknown) (no date) (unknown) (unknown) Calcium (8.4-10.2) mg/dL (units unknown) (unknown) (unknown) (no date) (unknown) (unknown) Calcium 9.4 (8.4-10. 2) mg/dL (units unknown) (unknown) (unknown) (no date) (unknown) (unknown) Carbon Dioxide (22-3 2) mmol/L (units unknown) (unknown) (unknown) (no date) (unknown) (unknown) Carbon Dioxide 22 (22-32) mmol/L (units unknown) (unknown) (unknown) (no date) (unknown) (unknown) Chief complaint: Weakness (units unknown) (unknown) (unknown) (no date) (unknown) (unknown) Chloride (98-107) mmol/L (units unknown) (unknown) (unknown) (no date) (unknown) (unknown) Chloride 99 (98-107) mmol/L (units unknown) (unknown) (unknown) (no date) (unknown) (unknown) Complete Blood Count AUTO DIFF Stat (units unknown) (unknown) (unknown) (no date) (unknown) (unknown) Complete) (units unknown) (unknown) (unknown) (no date) (unknown) (unknown) Comprehensive Metabo lic Panel Stat (units unknown) (unknown) (unknown) (no date) (unknown) (unknown) Course (units unknown) (unknown) (unknown) (no date) (unknown) (unknown) Creatinine (0.66-1.2 5) mg/dL (units unknown) (unknown) (unknown) (no date) (unknown) (unknown) Creatinine 1.04 (0.66-1.25) mg/dL (units unknown) (unknown) (unknown) (no date) (unknown) (unknown) : 1945 Acct:[id number] (units unknown) (unknown) (unknown) (no date) (unknown) (unknown) Date of Service: 06/26/22 (units unknown) (unknown) (unknown) (no date) (unknown) (unknown) Departure (units unknown) (unknown) (unknown) (no date) (unknown) (unknown) Discharge Plan (units unknown) (unknown) (unknown) (no date) (unknown) (unknown) Discontinued Medications (units unknown) (unknown) (unknown) (no date) (unknown) (unknown) Documented By: NR (units unknown) (unknown) (unknown) (no date) (unknown) (unknown) ED Orders (units unknown) (unknown) (unknown) (no date) (unknown) (unknown) EKG-12 Lead Stat (units unknown) (unknown) (unknown) (no date) (unknown) (unknown) ER Physician: Mabel Garcia D.O. (units unknown) (unknown) (unknown) (no date) (unknown) (unknown) Emergency Report (units unknown) (unknown) (unknown) (no date) (unknown) (unknown) Eos # (Auto) (0-450) /uL (units unknown) (unknown) (unknown) (no date) (unknown) (unknown) Eos # (Auto) 0 (0-45 0) /uL (units unknown) (unknown) (unknown) (no date) (unknown) (unknown) Eos % (Auto) (2-4) % (units unknown) (unknown) (unknown) (no date) (unknown) (unknown) Eos % (Auto) 0.0 L (2-4) % (units unknown) (unknown) (unknown) (no date) (unknown) (unknown) Estimated GFR > 60 (>60) mL/min (units unknown) (unknown) (unknown) (no date) (unknown) (unknown) Estimated GFR (>60) mL/min (units unknown) (unknown) (unknown) (no date) (unknown) (unknown) Exam (units unknown) (unknown) (unknown) (no date) (unknown) (unknown) General (units unknown) (unknown) (unknown) (no date) (unknown) (unknown) Globulin (1.7-4.1) g/dL (units unknown) (unknown) (unknown) (no date) (unknown) (unknown) Globulin 3.1 (1.7-4. 1) g/dL (units unknown) (unknown) (unknown) (no date) (unknown) (unknown) Glucose (80-110) mg/dL (units unknown) (unknown) (unknown) (no date) (unknown) (unknown) Glucose 181 H (80-11 0) mg/dL (units unknown) (unknown) (unknown) (no date) (unknown) (unknown) HPI - Weakness (units unknown) (unknown) (unknown) (no date) (unknown) (unknown) Hct (41-53) % (units unknown) (unknown) (unknown) (no date) (unknown) (unknown) Hct 41.1 (41-53) % (units unknown) (unknown) (unknown) (no date) (unknown) (unknown) Hgb (13.5-17.5) g/dL (units unknown) (unknown) (unknown) (no date) (unknown) (unknown) Hgb 13.2 L (13.5-17. 5) g/dL (units unknown) (unknown) (unknown) (no date) (unknown) (unknown) Home Medications (units unknown) (unknown) (unknown) (no date) (unknown) (unknown) INR (0.9-1.3) (units unknown) (unknown) (unknown) (no date) (unknown) (unknown) INR 1.0 (0.9-1.3) (units unknown) (unknown) (unknown) (no date) (unknown) (unknown) Initial Vital Signs (units unknown) (unknown) (unknown) (no date) (unknown) (unknown) Initial Vital Signs: (units unknown) (unknown) (unknown) (no date) (unknown) (unknown) [address] [address] (units unknown) (unknown) (unknown) (no date) (unknown) (unknown) Lab Data (units unknown) (unknown) (unknown) (no date) (unknown) (unknown) Lab Results (units unknown) (unknown) (unknown) (no date) (unknown) (unknown) Labs: (units unknown) (unknown) (unknown) (no date) (unknown) (unknown) Lactate (0.7-2.1) mmol/L (units unknown) (unknown) (unknown) (no date) (unknown) (unknown) Lactate (Lactic Acid ) Stat (units unknown) (unknown) (unknown) (no date) (unknown) (unknown) Lactate 3.9 H (0.7-2 .1) mmol/L (units unknown) (unknown) (unknown) (no date) (unknown) (unknown) Last Admin: 06/26/22 17:52 Dose: 1,000 mls/hr (units unknown) (unknown) (unknown) (no date) (unknown) (unknown) Lipase (23-300) U/L (units unknown) (unknown) (unknown) (no date) (unknown) (unknown) Lipase 385 H (23-300 ) U/L (units unknown) (unknown) (unknown) (no date) (unknown) (unknown) Lipase Stat (units unknown) (unknown) (unknown) (no date) (unknown) (unknown) Lymph # (Auto) (9967-9612) /uL (units unknown) (unknown) (unknown) (no date) (unknown) (unknown) Lymph # (Auto) 1300 (1875-0861) /uL (units unknown) (unknown) (unknown) (no date) (unknown) (unknown) Lymph % (Auto) (25-4 0) % (units unknown) (unknown) (unknown) (no date) (unknown) (unknown) Lymph % (Auto) 36.0 (25-40) % (units unknown) (unknown) (unknown) (no date) (unknown) (unknown) MCH (26-34) PG (units unknown) (unknown) (unknown) (no date) (unknown) (unknown) MCH 26.7 (26-34) PG (units unknown) (unknown) (unknown) (no date) (unknown) (unknown) MCHC (30-36) % (units unknown) (unknown) (unknown) (no date) (unknown) (unknown) MCHC 32.1 (30-36) % (units unknown) (unknown) (unknown) (no date) (unknown) (unknown) MCV (80-100) fL (units unknown) (unknown) (unknown) (no date) (unknown) (unknown) MCV 83.2 (80-100) fL (units unknown) (unknown) (unknown) (no date) (unknown) (unknown) MDM - Weakness (units unknown) (unknown) (unknown) (no date) (unknown) (unknown) Medication Instructi ons Recorded Confirmed (units unknown) (unknown) (unknown) (no date) (unknown) (unknown) Mode of arrival: Wheelchair (units unknown) (unknown) (unknown) (no date) (unknown) (unknown) [place] # (Auto) (0-900 ) /uL (units unknown) (unknown) (unknown) (no date) (unknown) (unknown) [place] # (Auto) 600 (0-900) /uL (units unknown) (unknown) (unknown) (no date) (unknown) (unknown) [place] % (Auto) (3-14) % (units unknown) (unknown) (unknown) (no date) (unknown) (unknown) [place] % (Auto) 15.6 H (3-14) % (units unknown) (unknown) (unknown) (no date) (unknown) (unknown) Neut # (Auto) (0448-0090) /uL (units unknown) (unknown) (unknown) (no date) (unknown) (unknown) Neut # (Auto) 1700 (3527-9870) /uL (units unknown) (unknown) (unknown) (no date) (unknown) (unknown) Neut % (Auto) (50-75) % (units unknown) (unknown) (unknown) (no date) (unknown) (unknown) Neut % (Auto) 46.4 L (50-75) % (units unknown) (unknown) (unknown) (no date) (unknown) (unknown) No Action (units unknown) (unknown) (unknown) (no date) (unknown) (unknown) No Known Drug Allerg ies Allergy Verified 06/26/22 16:44 (units unknown) (unknown) (unknown) (no date) (unknown) (unknown) Ondansetron HCl (Ondansetron 4 Mg Odt) 4 mg SL NOW PRN (units unknown) (unknown) (unknown) (no date) (unknown) (unknown) Ondansetron HCl (Ondansetron 4 Mg/2 Ml Inj) 4 mg IV NOW PRN (units unknown) (unknown) (unknown) (no date) (unknown) (unknown) Ordered: (units unknown) (unknown) (unknown) (no date) (unknown) (unknown) Orders (units unknown) (unknown) (unknown) (no date) (unknown) (unknown) Oxygen Delivery Meth od Room Air 06/26/22 16:44 (units unknown) (unknown) (unknown) (no date) (unknown) (unknown) Oxygen Delivery Meth od Room Air (units unknown) (unknown) (unknown) (no date) (unknown) (unknown) PRN Reason: Nausea A nd Vomiting (units unknown) (unknown) (unknown) (no date) (unknown) (unknown) PT (10.1-12.7) SECONDS (units unknown) (unknown) (unknown) (no date) (unknown) (unknown) PT 11.4 (10.1-12.7) SECONDS (units unknown) (unknown) (unknown) (no date) (unknown) (unknown) PTT Partial Thromboplastin Freddy Stat (units unknown) (unknown) (unknown) (no date) (unknown) (unknown) Patient Comments: (units unknown) (unknown) (unknown) (no date) (unknown) (unknown) Patient History (units unknown) (unknown) (unknown) (no date) (unknown) (unknown) Patient: James Hoffman MR#: [id number] (units unknown) (unknown) (unknown) (no date) (unknown) (unknown) Plt Count (150-400) X103/uL (units unknown) (unknown) (unknown) (no date) (unknown) (unknown) Plt Count 168 (150-4 00) X103/uL (units unknown) (unknown) (unknown) (no date) (unknown) (unknown) Potassium (3.4-5.1) mmol/L (units unknown) (unknown) (unknown) (no date) (unknown) (unknown) Potassium 3.8 (3.4-5 .1) mmol/L (units unknown) (unknown) (unknown) (no date) (unknown) (unknown) Prescriptions: (units unknown) (unknown) (unknown) (no date) (unknown) (unknown) Procalcitonin Stat (units unknown) (unknown) (unknown) (no date) (unknown) (unknown) Prothrombin Time INR Stat (units unknown) (unknown) (unknown) (no date) (unknown) (unknown) Pulse Oximetry 98 06/26/22 16:44 (units unknown) (unknown) (unknown) (no date) (unknown) (unknown) Pulse Oximetry 98 (units unknown) (unknown) (unknown) (no date) (unknown) (unknown) Pulse Rate 111 H 06/26/22 16:44 (units unknown) (unknown) (unknown) (no date) (unknown) (unknown) Pulse Rate 111 H (units unknown) (unknown) (unknown) (no date) (unknown) (unknown) RBC (4.5-5.9) X106/uL (units unknown) (unknown) (unknown) (no date) (unknown) (unknown) RBC 4.94 (4.5-5.9) X106/uL (units unknown) (unknown) (unknown) (no date) (unknown) (unknown) RDW (11.6-14.8) % (units unknown) (unknown) (unknown) (no date) (unknown) (unknown) RDW 16.6 H (11.6-14. 8) % (units unknown) (unknown) (unknown) (no date) (unknown) (unknown) RT Consult Eval and Treat NOW (units unknown) (unknown) (unknown) (no date) (unknown) (unknown) Referrals: (units unknown) (unknown) (unknown) (no date) (unknown) (unknown) Related Data (units unknown) (unknown) (unknown) (no date) (unknown) (unknown) Respiratory Rate 18 06/26/22 16:44 (units unknown) (unknown) (unknown) (no date) (unknown) (unknown) Respiratory Rate 18 (units unknown) (unknown) (unknown) (no date) (unknown) (unknown) Signed By: (units unknown) (unknown) (unknown) (no date) (unknown) (unknown) Smoking Status: Aviva r smoker (units unknown) (unknown) (unknown) (no date) (unknown) (unknown) Social History (units unknown) (unknown) (unknown) (no date) (unknown) (unknown) Sodium (137-145) mmol/L (units unknown) (unknown) (unknown) (no date) (unknown) (unknown) Sodium 135 L (137-14 5) mmol/L (units unknown) (unknown) (unknown) (no date) (unknown) (unknown) Sodium Chloride (Nor mal Saline 0.9%) 1,000 mls @ 1,000 mls/hr IV BOLUS ONE (units unknown) (unknown) (unknown) (no date) (unknown) (unknown) Source: patient (units unknown) (unknown) (unknown) (no date) (unknown) (unknown) Stated complaint: Dizzy, Tinnitus, Headache (units unknown) (unknown) (unknown) (no date) (unknown) (unknown) Stop: 06/26/22 17:50 (units unknown) (unknown) (unknown) (no date) (unknown) (unknown) Substance Use Type: does not use (units unknown) (unknown) (unknown) (no date) (unknown) (unknown) Temperature 98.9 F 06/26/22 16:44 (units unknown) (unknown) (unknown) (no date) (unknown) (unknown) Temperature 98.9 F (units unknown) (unknown) (unknown) (no date) (unknown) (unknown) Jeannette Mcelroy MD [Primary Care Provider] (units unknown) (unknown) (unknown) (no date) (unknown) (unknown) Time Seen by Provide r: 06/26/22 17:42 (units unknown) (unknown) (unknown) (no date) (unknown) (unknown) Total Bilirubin (0.2-1.3) mg/dL (units unknown) (unknown) (unknown) (no date) (unknown) (unknown) Total Bilirubin 0.6 (0.2-1.3) mg/dL (units unknown) (unknown) (unknown) (no date) (unknown) (unknown) Total Creatine Kinas e (55-170) U/L (units unknown) (unknown) (unknown) (no date) (unknown) (unknown) Total Creatine Kinas e 204 H (55-170) U/L (units unknown) (unknown) (unknown) (no date) (unknown) (unknown) Total Protein (6.3-8 .2) g/dL (units unknown) (unknown) (unknown) (no date) (unknown) (unknown) Total Protein 7.6 (6.3-8.2) g/dL (units unknown) (unknown) (unknown) (no date) (unknown) (unknown) Troponin + CK Cardia c Panel Stat (units unknown) (unknown) (unknown) (no date) (unknown) (unknown) Vital Signs - 8 hr (units unknown) (unknown) (unknown) (no date) (unknown) (unknown) Vital Signs (units unknown) (unknown) (unknown) (no date) (unknown) (unknown) Vital signs: (units unknown) (unknown) (unknown) (no date) (unknown) (unknown) WBC (4.5-11.0) X103/uL (units unknown) (unknown) (unknown) (no date) (unknown) (unknown) WBC 3.6 L (4.5-11.0) X103/uL (units unknown) (unknown) (unknown) (no date) (unknown) (unknown) XR chest 1V Stat (units unknown) (unknown) (unknown) (no date) (unknown) (unknown) [Embedded Image Not Available] (units unknown) (unknown) (unknown) (no date) (unknown) (unknown) alcohol intake frequency: 0-2 drinks per day (units unknown) (unknown) (unknown) (no date) (unknown) (unknown) atenolol 100 mg Tablet (units unknown) (unknown) (unknown) (no date) (unknown) (unknown) atenolol 100 mg tabl et 100 mg PO DAILY 07/05/17 07/05/17 (units unknown) (unknown) (unknown) (no date) (unknown) (unknown) iron-0.38 mg tablet (Geritol (units unknown) (unknown) (unknown) (no date) (unknown) (unknown) multivitamin with mi n 1 tab PO DIRECTED 07/05/17 07/05/17 (units unknown) (unknown) (unknown) (no date) (unknown) (unknown) mv, min #36-iron,carbonyl-FA [Geritol Complete] 16 mg iron- 0.38 mg Tablet (units unknown) (unknown) (unknown) (no date) (unknown) (unknown) no.36-iron,carbonyl- FA 16 mg (units unknown) (unknown) (unknown) (no date) (unknown) (unknown) strength not confirmed (units unknown) (unknown) Result panel 247 (unknown) (no date) (unknown) (unknown) (no value) (units unknown) (unknown) (unknown) (no date) (unknown) (unknown) [id number] (units unknown) (unknown) (unknown) (no date) (unknown) (unknown) 06/26/22 06/26/22 06/26/22 Range/Units (units unknown) (unknown) (unknown) (no date) (unknown) (unknown) 06/26/22 16:51 (units unknown) (unknown) (unknown) (no date) (unknown) (unknown) 06/26/22 16:57 (units unknown) (unknown) (unknown) (no date) (unknown) (unknown) 06/26/22 17:10 (units unknown) (unknown) (unknown) (no date) (unknown) (unknown) 06/26/22 17:20 (units unknown) (unknown) (unknown) (no date) (unknown) (unknown) 06/26/22 17:42 (units unknown) (unknown) (unknown) (no date) (unknown) (unknown) 06/26/22 Range/Units (units unknown) (unknown) (unknown) (no date) (unknown) (unknown) 06/26/22 (units unknown) (unknown) (unknown) (no date) (unknown) (unknown) 1 tab PO DIRECTED (units unknown) (unknown) (unknown) (no date) (unknown) (unknown) 100 mg PO DAILY (units unknown) (unknown) (unknown) (no date) (unknown) (unknown) 16:44 (units unknown) (unknown) (unknown) (no date) (unknown) (unknown) 17:10 17:10 17:10 (units unknown) (unknown) (unknown) (no date) (unknown) (unknown) 17:10 (units unknown) (unknown) (unknown) (no date) (unknown) (unknown) ALT (<50) IU/L (units unknown) (unknown) (unknown) (no date) (unknown) (unknown) ALT 43 (<50) IU/L (units unknown) (unknown) (unknown) (no date) (unknown) (unknown) APTT (26-36) SECONDS (units unknown) (unknown) (unknown) (no date) (unknown) (unknown) APTT 31 (26-36) SECONDS (units unknown) (unknown) (unknown) (no date) (unknown) (unknown) AST (17-59) IU/L (units unknown) (unknown) (unknown) (no date) (unknown) (unknown) AST 82 H (17-59) IU/L (units unknown) (unknown) (unknown) (no date) (unknown) (unknown) Age/Sex: 77 / M (units unknown) (unknown) (unknown) (no date) (unknown) (unknown) Albumin (3.5-5.0) g/dL (units unknown) (unknown) (unknown) (no date) (unknown) (unknown) Albumin 4.5 (3.5-5.0 ) g/dL (units unknown) (unknown) (unknown) (no date) (unknown) (unknown) Albumin/Globulin Rat io (1.0-2.8) (units unknown) (unknown) (unknown) (no date) (unknown) (unknown) Albumin/Globulin Rat io 1.5 (1.0-2.8) (units unknown) (unknown) (unknown) (no date) (unknown) (unknown) Alkaline Phosphatase (38-126) U/L (units unknown) (unknown) (unknown) (no date) (unknown) (unknown) Alkaline Phosphatase 48 (38-126) U/L (units unknown) (unknown) (unknown) (no date) (unknown) (unknown) Allergies (units unknown) (unknown) (unknown) (no date) (unknown) (unknown) Allergy/AdvReac Type Severity Reaction Status Date / Time (units unknown) (unknown) (unknown) (no date) (unknown) (unknown) BNP [NT-proBNP (BNP-Adult 18+)] Stat (units unknown) (unknown) (unknown) (no date) (unknown) (unknown) BUN (9-20) mg/dL (units unknown) (unknown) (unknown) (no date) (unknown) (unknown) BUN 9 (9-20) mg/dL (units unknown) (unknown) (unknown) (no date) (unknown) (unknown) BUN/Creatinine Ratio (6-22) (units unknown) (unknown) (unknown) (no date) (unknown) (unknown) BUN/Creatinine Ratio 8.7 (6-22) (units unknown) (unknown) (unknown) (no date) (unknown) (unknown) Baso # (Auto) (0-100 ) /uL (units unknown) (unknown) (unknown) (no date) (unknown) (unknown) Baso # (Auto) 100 (0-100) /uL (units unknown) (unknown) (unknown) (no date) (unknown) (unknown) Baso % (Auto) (0-2) % (units unknown) (unknown) (unknown) (no date) (unknown) (unknown) Baso % (Auto) 2.0 (0 -2) % (units unknown) (unknown) (unknown) (no date) (unknown) (unknown) Blood Culture Stat (units unknown) (unknown) (unknown) (no date) (unknown) (unknown) Blood Pressure 159/8 5 H 06/26/22 16:44 (units unknown) (unknown) (unknown) (no date) (unknown) (unknown) Blood Pressure 159/85 H (units unknown) (unknown) (unknown) (no date) (unknown) (unknown) COVID19 -Nasal RAPID Stat (units unknown) (unknown) (unknown) (no date) (unknown) (unknown) CT head/brain wo con Stat (units unknown) (unknown) (unknown) (no date) (unknown) (unknown) Calcium (8.4-10.2) mg/dL (units unknown) (unknown) (unknown) (no date) (unknown) (unknown) Calcium 9.4 (8.4-10. 2) mg/dL (units unknown) (unknown) (unknown) (no date) (unknown) (unknown) Carbon Dioxide (22-3 2) mmol/L (units unknown) (unknown) (unknown) (no date) (unknown) (unknown) Carbon Dioxide 22 (22-32) mmol/L (units unknown) (unknown) (unknown) (no date) (unknown) (unknown) Chief complaint: Weakness (units unknown) (unknown) (unknown) (no date) (unknown) (unknown) Chloride (98-107) mmol/L (units unknown) (unknown) (unknown) (no date) (unknown) (unknown) Chloride 99 (98-107) mmol/L (units unknown) (unknown) (unknown) (no date) (unknown) (unknown) Complete Blood Count AUTO DIFF Stat (units unknown) (unknown) (unknown) (no date) (unknown) (unknown) Complete) (units unknown) (unknown) (unknown) (no date) (unknown) (unknown) Comprehensive Metabo lic Panel Stat (units unknown) (unknown) (unknown) (no date) (unknown) (unknown) Course (units unknown) (unknown) (unknown) (no date) (unknown) (unknown) Creatinine (0.66-1.2 5) mg/dL (units unknown) (unknown) (unknown) (no date) (unknown) (unknown) Creatinine 1.04 (0.66-1.25) mg/dL (units unknown) (unknown) (unknown) (no date) (unknown) (unknown) : 1945 Acct:[id number] (units unknown) (unknown) (unknown) (no date) (unknown) (unknown) Date of Service: 06/26/22 (units unknown) (unknown) (unknown) (no date) (unknown) (unknown) Departure (units unknown) (unknown) (unknown) (no date) (unknown) (unknown) Discharge Plan (units unknown) (unknown) (unknown) (no date) (unknown) (unknown) Discontinued Medications (units unknown) (unknown) (unknown) (no date) (unknown) (unknown) Documented By: NR (units unknown) (unknown) (unknown) (no date) (unknown) (unknown) ED Orders (units unknown) (unknown) (unknown) (no date) (unknown) (unknown) EKG-12 Lead Stat (units unknown) (unknown) (unknown) (no date) (unknown) (unknown) ER Physician: Mabel Garcia D.O. (units unknown) (unknown) (unknown) (no date) (unknown) (unknown) Emergency Report (units unknown) (unknown) (unknown) (no date) (unknown) (unknown) Eos # (Auto) (0-450) /uL (units unknown) (unknown) (unknown) (no date) (unknown) (unknown) Eos # (Auto) 0 (0-45 0) /uL (units unknown) (unknown) (unknown) (no date) (unknown) (unknown) Eos % (Auto) (2-4) % (units unknown) (unknown) (unknown) (no date) (unknown) (unknown) Eos % (Auto) 0.0 L (2-4) % (units unknown) (unknown) (unknown) (no date) (unknown) (unknown) Estimated GFR > 60 (>60) mL/min (units unknown) (unknown) (unknown) (no date) (unknown) (unknown) Estimated GFR (>60) mL/min (units unknown) (unknown) (unknown) (no date) (unknown) (unknown) Exam (units unknown) (unknown) (unknown) (no date) (unknown) (unknown) General (units unknown) (unknown) (unknown) (no date) (unknown) (unknown) Globulin (1.7-4.1) g/dL (units unknown) (unknown) (unknown) (no date) (unknown) (unknown) Globulin 3.1 (1.7-4. 1) g/dL (units unknown) (unknown) (unknown) (no date) (unknown) (unknown) Glucose (80-110) mg/dL (units unknown) (unknown) (unknown) (no date) (unknown) (unknown) Glucose 181 H (80-11 0) mg/dL (units unknown) (unknown) (unknown) (no date) (unknown) (unknown) HPI - Weakness (units unknown) (unknown) (unknown) (no date) (unknown) (unknown) HPI Narrative: (units unknown) (unknown) (unknown) (no date) (unknown) (unknown) Hct (41-53) % (units unknown) (unknown) (unknown) (no date) (unknown) (unknown) Hct 41.1 (41-53) % (units unknown) (unknown) (unknown) (no date) (unknown) (unknown) Hgb (13.5-17.5) g/dL (units unknown) (unknown) (unknown) (no date) (unknown) (unknown) Hgb 13.2 L (13.5-17. 5) g/dL (units unknown) (unknown) (unknown) (no date) (unknown) (unknown) History of Present Illness (units unknown) (unknown) (unknown) (no date) (unknown) (unknown) Home Medications (units unknown) (unknown) (unknown) (no date) (unknown) (unknown) INR (0.9-1.3) (units unknown) (unknown) (unknown) (no date) (unknown) (unknown) INR 1.0 (0.9-1.3) (units unknown) (unknown) (unknown) (no date) (unknown) (unknown) Initial Vital Signs (units unknown) (unknown) (unknown) (no date) (unknown) (unknown) Initial Vital Signs: (units unknown) (unknown) (unknown) (no date) (unknown) (unknown) [address] [address] (units unknown) (unknown) (unknown) (no date) (unknown) (unknown) Lab Data (units unknown) (unknown) (unknown) (no date) (unknown) (unknown) Lab Results (units unknown) (unknown) (unknown) (no date) (unknown) (unknown) Labs: (units unknown) (unknown) (unknown) (no date) (unknown) (unknown) Lactate (0.7-2.1) mmol/L (units unknown) (unknown) (unknown) (no date) (unknown) (unknown) Lactate (Lactic Acid ) Stat (units unknown) (unknown) (unknown) (no date) (unknown) (unknown) Lactate 3.9 H (0.7-2 .1) mmol/L (units unknown) (unknown) (unknown) (no date) (unknown) (unknown) Last Admin: 06/26/22 17:52 Dose: 1,000 mls/hr (units unknown) (unknown) (unknown) (no date) (unknown) (unknown) Lipase (23-300) U/L (units unknown) (unknown) (unknown) (no date) (unknown) (unknown) Lipase 385 H (23-300 ) U/L (units unknown) (unknown) (unknown) (no date) (unknown) (unknown) Lipase Stat (units unknown) (unknown) (unknown) (no date) (unknown) (unknown) Lymph # (Auto) (8550-8520) /uL (units unknown) (unknown) (unknown) (no date) (unknown) (unknown) Lymph # (Auto) 1300 (6837-9332) /uL (units unknown) (unknown) (unknown) (no date) (unknown) (unknown) Lymph % (Auto) (25-4 0) % (units unknown) (unknown) (unknown) (no date) (unknown) (unknown) Lymph % (Auto) 36.0 (25-40) % (units unknown) (unknown) (unknown) (no date) (unknown) (unknown) MCH (26-34) PG (units unknown) (unknown) (unknown) (no date) (unknown) (unknown) MCH 26.7 (26-34) PG (units unknown) (unknown) (unknown) (no date) (unknown) (unknown) MCHC (30-36) % (units unknown) (unknown) (unknown) (no date) (unknown) (unknown) MCHC 32.1 (30-36) % (units unknown) (unknown) (unknown) (no date) (unknown) (unknown) MCV (80-100) fL (units unknown) (unknown) (unknown) (no date) (unknown) (unknown) MCV 83.2 (80-100) fL (units unknown) (unknown) (unknown) (no date) (unknown) (unknown) MDM - Weakness (units unknown) (unknown) (unknown) (no date) (unknown) (unknown) Medication Instructi ons Recorded Confirmed (units unknown) (unknown) (unknown) (no date) (unknown) (unknown) Mode of arrival: Wheelchair (units unknown) (unknown) (unknown) (no date) (unknown) (unknown) [place] # (Auto) (0-900 ) /uL (units unknown) (unknown) (unknown) (no date) (unknown) (unknown) [place] # (Auto) 600 (0-900) /uL (units unknown) (unknown) (unknown) (no date) (unknown) (unknown) [place] % (Auto) (3-14) % (units unknown) (unknown) (unknown) (no date) (unknown) (unknown) [place] % (Auto) 15.6 H (3-14) % (units unknown) (unknown) (unknown) (no date) (unknown) (unknown) Neut # (Auto) (1497-6041) /uL (units unknown) (unknown) (unknown) (no date) (unknown) (unknown) Neut # (Auto) 1700 (2700-9437) /uL (units unknown) (unknown) (unknown) (no date) (unknown) (unknown) Neut % (Auto) (50-75) % (units unknown) (unknown) (unknown) (no date) (unknown) (unknown) Neut % (Auto) 46.4 L (50-75) % (units unknown) (unknown) (unknown) (no date) (unknown) (unknown) No Action (units unknown) (unknown) (unknown) (no date) (unknown) (unknown) No Known Drug Allerg ies Allergy Verified 06/26/22 16:44 (units unknown) (unknown) (unknown) (no date) (unknown) (unknown) Ondansetron HCl (Ondansetron 4 Mg Odt) 4 mg SL NOW PRN (units unknown) (unknown) (unknown) (no date) (unknown) (unknown) Ondansetron HCl (Ondansetron 4 Mg/2 Ml Inj) 4 mg IV NOW PRN (units unknown) (unknown) (unknown) (no date) (unknown) (unknown) Ordered: (units unknown) (unknown) (unknown) (no date) (unknown) (unknown) Orders (units unknown) (unknown) (unknown) (no date) (unknown) (unknown) Oxygen Delivery Meth od Room Air 06/26/22 16:44 (units unknown) (unknown) (unknown) (no date) (unknown) (unknown) Oxygen Delivery Meth od Room Air (units unknown) (unknown) (unknown) (no date) (unknown) (unknown) PRN Reason: Nausea A nd Vomiting (units unknown) (unknown) (unknown) (no date) (unknown) (unknown) PT (10.1-12.7) SECONDS (units unknown) (unknown) (unknown) (no date) (unknown) (unknown) PT 11.4 (10.1-12.7) SECONDS (units unknown) (unknown) (unknown) (no date) (unknown) (unknown) PTT Partial Thromboplastin Freddy Stat (units unknown) (unknown) (unknown) (no date) (unknown) (unknown) Patient Comments: (units unknown) (unknown) (unknown) (no date) (unknown) (unknown) Patient History (units unknown) (unknown) (unknown) (no date) (unknown) (unknown) Patient is a 77-year-old male history of hypertension presenting today with (units unknown) (unknown) (unknown) (no date) (unknown) (unknown) Patient: James Hoffman MR#: [id number] (units unknown) (unknown) (unknown) (no date) (unknown) (unknown) Plt Count (150-400) X103/uL (units unknown) (unknown) (unknown) (no date) (unknown) (unknown) Plt Count 168 (150-4 00) X103/uL (units unknown) (unknown) (unknown) (no date) (unknown) (unknown) Potassium (3.4-5.1) mmol/L (units unknown) (unknown) (unknown) (no date) (unknown) (unknown) Potassium 3.8 (3.4-5 .1) mmol/L (units unknown) (unknown) (unknown) (no date) (unknown) (unknown) Prescriptions: (units unknown) (unknown) (unknown) (no date) (unknown) (unknown) Procalcitonin Stat (units unknown) (unknown) (unknown) (no date) (unknown) (unknown) Prothrombin Time INR Stat (units unknown) (unknown) (unknown) (no date) (unknown) (unknown) Pulse Oximetry 98 06/26/22 16:44 (units unknown) (unknown) (unknown) (no date) (unknown) (unknown) Pulse Oximetry 98 (units unknown) (unknown) (unknown) (no date) (unknown) (unknown) Pulse Rate 111 H 06/26/22 16:44 (units unknown) (unknown) (unknown) (no date) (unknown) (unknown) Pulse Rate 111 H (units unknown) (unknown) (unknown) (no date) (unknown) (unknown) RBC (4.5-5.9) X106/uL (units unknown) (unknown) (unknown) (no date) (unknown) (unknown) RBC 4.94 (4.5-5.9) X106/uL (units unknown) (unknown) (unknown) (no date) (unknown) (unknown) RDW (11.6-14.8) % (units unknown) (unknown) (unknown) (no date) (unknown) (unknown) RDW 16.6 H (11.6-14. 8) % (units unknown) (unknown) (unknown) (no date) (unknown) (unknown) RT Consult Eval and Treat NOW (units unknown) (unknown) (unknown) (no date) (unknown) (unknown) Referrals: (units unknown) (unknown) (unknown) (no date) (unknown) (unknown) Related Data (units unknown) (unknown) (unknown) (no date) (unknown) (unknown) Respiratory Rate 18 06/26/22 16:44 (units unknown) (unknown) (unknown) (no date) (unknown) (unknown) Respiratory Rate 18 (units unknown) (unknown) (unknown) (no date) (unknown) (unknown) Signed By: (units unknown) (unknown) (unknown) (no date) (unknown) (unknown) Smoking Status: Aviva monge smoker (units unknown) (unknown) (unknown) (no date) (unknown) (unknown) Social History (units unknown) (unknown) (unknown) (no date) (unknown) (unknown) Sodium (137-145) mmol/L (units unknown) (unknown) (unknown) (no date) (unknown) (unknown) Sodium 135 L (137-14 5) mmol/L (units unknown) (unknown) (unknown) (no date) (unknown) (unknown) Sodium Chloride (Nor mal Saline 0.9%) 1,000 mls @ 1,000 mls/hr IV BOLUS ONE (units unknown) (unknown) (unknown) (no date) (unknown) (unknown) Source: patient (units unknown) (unknown) (unknown) (no date) (unknown) (unknown) Stated complaint: Dizzy, Tinnitus, Headache (units unknown) (unknown) (unknown) (no date) (unknown) (unknown) Stop: 06/26/22 17:50 (units unknown) (unknown) (unknown) (no date) (unknown) (unknown) Substance Use Type: does not use (units unknown) (unknown) (unknown) (no date) (unknown) (unknown) Temperature 98.9 F 06/26/22 16:44 (units unknown) (unknown) (unknown) (no date) (unknown) (unknown) Temperature 98.9 F (units unknown) (unknown) (unknown) (no date) (unknown) (unknown) Jeannette Mcelroy MD [Primary Care Provider] (units unknown) (unknown) (unknown) (no date) (unknown) (unknown) Time Seen by Provide r: 06/26/22 17:42 (units unknown) (unknown) (unknown) (no date) (unknown) (unknown) Total Bilirubin (0.2-1.3) mg/dL (units unknown) (unknown) (unknown) (no date) (unknown) (unknown) Total Bilirubin 0.6 (0.2-1.3) mg/dL (units unknown) (unknown) (unknown) (no date) (unknown) (unknown) Total Creatine Kinas e (55-170) U/L (units unknown) (unknown) (unknown) (no date) (unknown) (unknown) Total Creatine Kinas e 204 H (55-170) U/L (units unknown) (unknown) (unknown) (no date) (unknown) (unknown) Total Protein (6.3-8 .2) g/dL (units unknown) (unknown) (unknown) (no date) (unknown) (unknown) Total Protein 7.6 (6.3-8.2) g/dL (units unknown) (unknown) (unknown) (no date) (unknown) (unknown) Troponin + CK Cardia c Panel Stat (units unknown) (unknown) (unknown) (no date) (unknown) (unknown) Vital Signs - 8 hr (units unknown) (unknown) (unknown) (no date) (unknown) (unknown) Vital Signs (units unknown) (unknown) (unknown) (no date) (unknown) (unknown) Vital signs: (units unknown) (unknown) (unknown) (no date) (unknown) (unknown) WBC (4.5-11.0) X103/uL (units unknown) (unknown) (unknown) (no date) (unknown) (unknown) WBC 3.6 L (4.5-11.0) X103/uL (units unknown) (unknown) (unknown) (no date) (unknown) (unknown) XR chest 1V Stat (units unknown) (unknown) (unknown) (no date) (unknown) (unknown) [Embedded Image Not Available] (units unknown) (unknown) (unknown) (no date) (unknown) (unknown) alcohol intake frequency: 0-2 drinks per day (units unknown) (unknown) (unknown) (no date) (unknown) (unknown) atenolol 100 mg Tablet (units unknown) (unknown) (unknown) (no date) (unknown) (unknown) atenolol 100 mg tabl et 100 mg PO DAILY 07/05/17 07/05/17 (units unknown) (unknown) (unknown) (no date) (unknown) (unknown) iron-0.38 mg tablet (Geritol (units unknown) (unknown) (unknown) (no date) (unknown) (unknown) lightheadedness and weakness. (units unknown) (unknown) (unknown) (no date) (unknown) (unknown) multivitamin with mi n 1 tab PO DIRECTED 07/05/17 07/05/17 (units unknown) (unknown) (unknown) (no date) (unknown) (unknown) mv, min #36-iron,carbonyl-FA [Geritol Complete] 16 mg iron- 0.38 mg Tablet (units unknown) (unknown) (unknown) (no date) (unknown) (unknown) no.36-iron,carbonyl- FA 16 mg (units unknown) (unknown) (unknown) (no date) (unknown) (unknown) strength not confirmed (units unknown) (unknown) Result panel 248 (unknown) (no date) (unknown) (unknown) (no value) (units unknown) (unknown) (unknown) (no date) (unknown) (unknown) [id number] (units unknown) (unknown) (unknown) (no date) (unknown) (unknown) 06/26/22 06/26/22 06/26/22 Range/Units (units unknown) (unknown) (unknown) (no date) (unknown) (unknown) 06/26/22 16:51 (units unknown) (unknown) (unknown) (no date) (unknown) (unknown) 06/26/22 16:57 (units unknown) (unknown) (unknown) (no date) (unknown) (unknown) 06/26/22 17:10 (units unknown) (unknown) (unknown) (no date) (unknown) (unknown) 06/26/22 17:20 (units unknown) (unknown) (unknown) (no date) (unknown) (unknown) 06/26/22 17:42 (units unknown) (unknown) (unknown) (no date) (unknown) (unknown) 06/26/22 Range/Units (units unknown) (unknown) (unknown) (no date) (unknown) (unknown) 06/26/22 (units unknown) (unknown) (unknown) (no date) (unknown) (unknown) 1 tab PO DIRECTED (units unknown) (unknown) (unknown) (no date) (unknown) (unknown) 100 mg PO DAILY (units unknown) (unknown) (unknown) (no date) (unknown) (unknown) 16:44 (units unknown) (unknown) (unknown) (no date) (unknown) (unknown) 17:10 17:10 17:10 (units unknown) (unknown) (unknown) (no date) (unknown) (unknown) 17:10 (units unknown) (unknown) (unknown) (no date) (unknown) (unknown) ABDOMEN: Soft, nontender. Normoactive bowel sounds all 4 quadrants. No (units unknown) (unknown) (unknown) (no date) (unknown) (unknown) ALT (<50) IU/L (units unknown) (unknown) (unknown) (no date) (unknown) (unknown) ALT 43 (<50) IU/L (units unknown) (unknown) (unknown) (no date) (unknown) (unknown) APTT (26-36) SECONDS (units unknown) (unknown) (unknown) (no date) (unknown) (unknown) APTT 31 (26-36) SECONDS (units unknown) (unknown) (unknown) (no date) (unknown) (unknown) AST (17-59) IU/L (units unknown) (unknown) (unknown) (no date) (unknown) (unknown) AST 82 H (17-59) IU/L (units unknown) (unknown) (unknown) (no date) (unknown) (unknown) Actually called 911 and then his neighbor brought him in. (units unknown) (unknown) (unknown) (no date) (unknown) (unknown) Age/Sex: 77 / M (units unknown) (unknown) (unknown) (no date) (unknown) (unknown) Albumin (3.5-5.0) g/dL (units unknown) (unknown) (unknown) (no date) (unknown) (unknown) Albumin 4.5 (3.5-5.0 ) g/dL (units unknown) (unknown) (unknown) (no date) (unknown) (unknown) Albumin/Globulin Rat io (1.0-2.8) (units unknown) (unknown) (unknown) (no date) (unknown) (unknown) Albumin/Globulin Rat io 1.5 (1.0-2.8) (units unknown) (unknown) (unknown) (no date) (unknown) (unknown) Alkaline Phosphatase (38-126) U/L (units unknown) (unknown) (unknown) (no date) (unknown) (unknown) Alkaline Phosphatase 48 (38-126) U/L (units unknown) (unknown) (unknown) (no date) (unknown) (unknown) Allergies (units unknown) (unknown) (unknown) (no date) (unknown) (unknown) Allergy/AdvReac Type Severity Reaction Status Date / Time (units unknown) (unknown) (unknown) (no date) (unknown) (unknown) BNP [NT-proBNP (BNP-Adult 18+)] Stat (units unknown) (unknown) (unknown) (no date) (unknown) (unknown) BUN (9-20) mg/dL (units unknown) (unknown) (unknown) (no date) (unknown) (unknown) BUN 9 (9-20) mg/dL (units unknown) (unknown) (unknown) (no date) (unknown) (unknown) BUN/Creatinine Ratio (6-22) (units unknown) (unknown) (unknown) (no date) (unknown) (unknown) BUN/Creatinine Ratio 8.7 (6-22) (units unknown) (unknown) (unknown) (no date) (unknown) (unknown) Baso # (Auto) (0-100 ) /uL (units unknown) (unknown) (unknown) (no date) (unknown) (unknown) Baso # (Auto) 100 (0-100) /uL (units unknown) (unknown) (unknown) (no date) (unknown) (unknown) Baso % (Auto) (0-2) % (units unknown) (unknown) (unknown) (no date) (unknown) (unknown) Baso % (Auto) 2.0 (0 -2) % (units unknown) (unknown) (unknown) (no date) (unknown) (unknown) Blood Culture Stat (units unknown) (unknown) (unknown) (no date) (unknown) (unknown) Blood Pressure 159/8 5 H 06/26/22 16:44 (units unknown) (unknown) (unknown) (no date) (unknown) (unknown) Blood Pressure 159/85 H (units unknown) (unknown) (unknown) (no date) (unknown) (unknown) CARDIOVASCULAR: Regu lar rate and rhythm without murmurs, rubs or gallops. (units unknown) (unknown) (unknown) (no date) (unknown) (unknown) COVID19 -Nasal RAPID Stat (units unknown) (unknown) (unknown) (no date) (unknown) (unknown) CT head/brain wo con Stat (units unknown) (unknown) (unknown) (no date) (unknown) (unknown) Calcium (8.4-10.2) mg/dL (units unknown) (unknown) (unknown) (no date) (unknown) (unknown) Calcium 9.4 (8.4-10. 2) mg/dL (units unknown) (unknown) (unknown) (no date) (unknown) (unknown) Carbon Dioxide (22-3 2) mmol/L (units unknown) (unknown) (unknown) (no date) (unknown) (unknown) Carbon Dioxide 22 (22-32) mmol/L (units unknown) (unknown) (unknown) (no date) (unknown) (unknown) Chief complaint: Weakness (units unknown) (unknown) (unknown) (no date) (unknown) (unknown) Chloride (98-107) mmol/L (units unknown) (unknown) (unknown) (no date) (unknown) (unknown) Chloride 99 (98-107) mmol/L (units unknown) (unknown) (unknown) (no date) (unknown) (unknown) Complete Blood Count AUTO DIFF Stat (units unknown) (unknown) (unknown) (no date) (unknown) (unknown) Complete) (units unknown) (unknown) (unknown) (no date) (unknown) (unknown) Comprehensive Metabo lic Panel Stat (units unknown) (unknown) (unknown) (no date) (unknown) (unknown) Course (units unknown) (unknown) (unknown) (no date) (unknown) (unknown) Creatinine (0.66-1.2 5) mg/dL (units unknown) (unknown) (unknown) (no date) (unknown) (unknown) Creatinine 1.04 (0.66-1.25) mg/dL (units unknown) (unknown) (unknown) (no date) (unknown) (unknown) : 1945 Acct:[id number] (units unknown) (unknown) (unknown) (no date) (unknown) (unknown) Date of Service: 06/26/22 (units unknown) (unknown) (unknown) (no date) (unknown) (unknown) Departure (units unknown) (unknown) (unknown) (no date) (unknown) (unknown) Discharge Plan (units unknown) (unknown) (unknown) (no date) (unknown) (unknown) Discontinued Medications (units unknown) (unknown) (unknown) (no date) (unknown) (unknown) Documented By: NR (units unknown) (unknown) (unknown) (no date) (unknown) (unknown) ED Orders (units unknown) (unknown) (unknown) (no date) (unknown) (unknown) EKG-12 Lead Stat (units unknown) (unknown) (unknown) (no date) (unknown) (unknown) ER Physician: Mabel Garcia D.O. (units unknown) (unknown) (unknown) (no date) (unknown) (unknown) EXTREMITIES: Normal range of motion, no clubbing or edema. Neurovascularly (units unknown) (unknown) (unknown) (no date) (unknown) (unknown) Emergency Report (units unknown) (unknown) (unknown) (no date) (unknown) (unknown) Eos # (Auto) (0-450) /uL (units unknown) (unknown) (unknown) (no date) (unknown) (unknown) Eos # (Auto) 0 (0-45 0) /uL (units unknown) (unknown) (unknown) (no date) (unknown) (unknown) Eos % (Auto) (2-4) % (units unknown) (unknown) (unknown) (no date) (unknown) (unknown) Eos % (Auto) 0.0 L (2-4) % (units unknown) (unknown) (unknown) (no date) (unknown) (unknown) Estimated GFR > 60 (>60) mL/min (units unknown) (unknown) (unknown) (no date) (unknown) (unknown) Estimated GFR (>60) mL/min (units unknown) (unknown) (unknown) (no date) (unknown) (unknown) Exam (units unknown) (unknown) (unknown) (no date) (unknown) (unknown) GENERAL: Alert week 77-year-old male no acute distress and in no acute (units unknown) (unknown) (unknown) (no date) (unknown) (unknown) General (units unknown) (unknown) (unknown) (no date) (unknown) (unknown) Globulin (1.7-4.1) g/dL (units unknown) (unknown) (unknown) (no date) (unknown) (unknown) Globulin 3.1 (1.7-4. 1) g/dL (units unknown) (unknown) (unknown) (no date) (unknown) (unknown) Glucose (80-110) mg/dL (units unknown) (unknown) (unknown) (no date) (unknown) (unknown) Glucose 181 H (80-11 0) mg/dL (units unknown) (unknown) (unknown) (no date) (unknown) (unknown) HEENT: Head atraumatic,EOMI, pupils reactive, face symmetric, moist mucous (units unknown) (unknown) (unknown) (no date) (unknown) (unknown) HPI - Weakness (units unknown) (unknown) (unknown) (no date) (unknown) (unknown) HPI Narrative: (units unknown) (unknown) (unknown) (no date) (unknown) (unknown) Hct (41-53) % (units unknown) (unknown) (unknown) (no date) (unknown) (unknown) Hct 41.1 (41-53) % (units unknown) (unknown) (unknown) (no date) (unknown) (unknown) Hgb (13.5-17.5) g/dL (units unknown) (unknown) (unknown) (no date) (unknown) (unknown) Hgb 13.2 L (13.5-17. 5) g/dL (units unknown) (unknown) (unknown) (no date) (unknown) (unknown) History of Present Illness (units unknown) (unknown) (unknown) (no date) (unknown) (unknown) Home Medications (units unknown) (unknown) (unknown) (no date) (unknown) (unknown) INR (0.9-1.3) (units unknown) (unknown) (unknown) (no date) (unknown) (unknown) INR 1.0 (0.9-1.3) (units unknown) (unknown) (unknown) (no date) (unknown) (unknown) Initial Vital Signs (units unknown) (unknown) (unknown) (no date) (unknown) (unknown) Initial Vital Signs: (units unknown) (unknown) (unknown) (no date) (unknown) (unknown) [address] [address] (units unknown) (unknown) (unknown) (no date) (unknown) (unknown) Lab Data (units unknown) (unknown) (unknown) (no date) (unknown) (unknown) Lab Results (units unknown) (unknown) (unknown) (no date) (unknown) (unknown) Labs: (units unknown) (unknown) (unknown) (no date) (unknown) (unknown) Lactate (0.7-2.1) mmol/L (units unknown) (unknown) (unknown) (no date) (unknown) (unknown) Lactate (Lactic Acid ) Stat (units unknown) (unknown) (unknown) (no date) (unknown) (unknown) Lactate 3.9 H (0.7-2 .1) mmol/L (units unknown) (unknown) (unknown) (no date) (unknown) (unknown) Last Admin: 06/26/22 17:52 Dose: 1,000 mls/hr (units unknown) (unknown) (unknown) (no date) (unknown) (unknown) Lipase (23-300) U/L (units unknown) (unknown) (unknown) (no date) (unknown) (unknown) Lipase 385 H (23-300 ) U/L (units unknown) (unknown) (unknown) (no date) (unknown) (unknown) Lipase Stat (units unknown) (unknown) (unknown) (no date) (unknown) (unknown) Lymph # (Auto) (3373-6388) /uL (units unknown) (unknown) (unknown) (no date) (unknown) (unknown) Lymph # (Auto) 1300 (6761-1419) /uL (units unknown) (unknown) (unknown) (no date) (unknown) (unknown) Lymph % (Auto) (25-4 0) % (units unknown) (unknown) (unknown) (no date) (unknown) (unknown) Lymph % (Auto) 36.0 (25-40) % (units unknown) (unknown) (unknown) (no date) (unknown) (unknown) MCH (26-34) PG (units unknown) (unknown) (unknown) (no date) (unknown) (unknown) MCH 26.7 (26-34) PG (units unknown) (unknown) (unknown) (no date) (unknown) (unknown) MCHC (30-36) % (units unknown) (unknown) (unknown) (no date) (unknown) (unknown) MCHC 32.1 (30-36) % (units unknown) (unknown) (unknown) (no date) (unknown) (unknown) MCV (80-100) fL (units unknown) (unknown) (unknown) (no date) (unknown) (unknown) MCV 83.2 (80-100) fL (units unknown) (unknown) (unknown) (no date) (unknown) (unknown) MDM - Weakness (units unknown) (unknown) (unknown) (no date) (unknown) (unknown) Medication Instructi ons Recorded Confirmed (units unknown) (unknown) (unknown) (no date) (unknown) (unknown) Mode of arrival: Wheelchair (units unknown) (unknown) (unknown) (no date) (unknown) (unknown) [place] # (Auto) (0-900 ) /uL (units unknown) (unknown) (unknown) (no date) (unknown) (unknown) [place] # (Auto) 600 (0-900) /uL (units unknown) (unknown) (unknown) (no date) (unknown) (unknown) [place] % (Auto) (3-14) % (units unknown) (unknown) (unknown) (no date) (unknown) (unknown) [place] % (Auto) 15.6 H (3-14) % (units unknown) (unknown) (unknown) (no date) (unknown) (unknown) NEUROLOGICAL: Alert and oriented x4. Concession Attendant strength equal bilaterally good (units unknown) (unknown) (unknown) (no date) (unknown) (unknown) Neut # (Auto) (2747-4633) /uL (units unknown) (unknown) (unknown) (no date) (unknown) (unknown) Neut # (Auto) 1700 (0681-0835) /uL (units unknown) (unknown) (unknown) (no date) (unknown) (unknown) Neut % (Auto) (50-75) % (units unknown) (unknown) (unknown) (no date) (unknown) (unknown) Neut % (Auto) 46.4 L (50-75) % (units unknown) (unknown) (unknown) (no date) (unknown) (unknown) No Action (units unknown) (unknown) (unknown) (no date) (unknown) (unknown) No Known Drug Allerg ies Allergy Verified 06/26/22 16:44 (units unknown) (unknown) (unknown) (no date) (unknown) (unknown) Ondansetron HCl (Ondansetron 4 Mg Odt) 4 mg SL NOW PRN (units unknown) (unknown) (unknown) (no date) (unknown) (unknown) Ondansetron HCl (Ondansetron 4 Mg/2 Ml Inj) 4 mg IV NOW PRN (units unknown) (unknown) (unknown) (no date) (unknown) (unknown) Ordered: (units unknown) (unknown) (unknown) (no date) (unknown) (unknown) Orders (units unknown) (unknown) (unknown) (no date) (unknown) (unknown) Oxygen Delivery Meth od Room Air 06/26/22 16:44 (units unknown) (unknown) (unknown) (no date) (unknown) (unknown) Oxygen Delivery Meth od Room Air (units unknown) (unknown) (unknown) (no date) (unknown) (unknown) PRN Reason: Nausea A nd Vomiting (units unknown) (unknown) (unknown) (no date) (unknown) (unknown) PT (10.1-12.7) SECONDS (units unknown) (unknown) (unknown) (no date) (unknown) (unknown) PT 11.4 (10.1-12.7) SECONDS (units unknown) (unknown) (unknown) (no date) (unknown) (unknown) PTT Partial Thromboplastin Freddy Stat (units unknown) (unknown) (unknown) (no date) (unknown) (unknown) Patient Comments: (units unknown) (unknown) (unknown) (no date) (unknown) (unknown) Patient History (units unknown) (unknown) (unknown) (no date) (unknown) (unknown) Patient is a 77-year-old male history of hypertension presenting today with (units unknown) (unknown) (unknown) (no date) (unknown) (unknown) Patient: James Hoffman MR#: [id number] (units unknown) (unknown) (unknown) (no date) (unknown) (unknown) Plt Count (150-400) X103/uL (units unknown) (unknown) (unknown) (no date) (unknown) (unknown) Plt Count 168 (150-4 00) X103/uL (units unknown) (unknown) (unknown) (no date) (unknown) (unknown) Potassium (3.4-5.1) mmol/L (units unknown) (unknown) (unknown) (no date) (unknown) (unknown) Potassium 3.8 (3.4-5 .1) mmol/L (units unknown) (unknown) (unknown) (no date) (unknown) (unknown) Prescriptions: (units unknown) (unknown) (unknown) (no date) (unknown) (unknown) Procalcitonin Stat (units unknown) (unknown) (unknown) (no date) (unknown) (unknown) Prothrombin Time INR Stat (units unknown) (unknown) (unknown) (no date) (unknown) (unknown) Pulse Oximetry 98 06/26/22 16:44 (units unknown) (unknown) (unknown) (no date) (unknown) (unknown) Pulse Oximetry 98 (units unknown) (unknown) (unknown) (no date) (unknown) (unknown) Pulse Rate 111 H 06/26/22 16:44 (units unknown) (unknown) (unknown) (no date) (unknown) (unknown) Pulse Rate 111 H (units unknown) (unknown) (unknown) (no date) (unknown) (unknown) RBC (4.5-5.9) X106/uL (units unknown) (unknown) (unknown) (no date) (unknown) (unknown) RBC 4.94 (4.5-5.9) X106/uL (units unknown) (unknown) (unknown) (no date) (unknown) (unknown) RDW (11.6-14.8) % (units unknown) (unknown) (unknown) (no date) (unknown) (unknown) RDW 16.6 H (11.6-14. 8) % (units unknown) (unknown) (unknown) (no date) (unknown) (unknown) RESPIRATORY: Breath sounds equal bilaterally, no wheezes rales or rhonchi. (units unknown) (unknown) (unknown) (no date) (unknown) (unknown) ROS Unobtainable: Al l systems reviewed + are unremarkable except as noted in HPI (units unknown) (unknown) (unknown) (no date) (unknown) (unknown) RT Consult Eval and Treat NOW (units unknown) (unknown) (unknown) (no date) (unknown) (unknown) Referrals: (units unknown) (unknown) (unknown) (no date) (unknown) (unknown) Related Data (units unknown) (unknown) (unknown) (no date) (unknown) (unknown) Respiratory Rate 18 06/26/22 16:44 (units unknown) (unknown) (unknown) (no date) (unknown) (unknown) Respiratory Rate 18 (units unknown) (unknown) (unknown) (no date) (unknown) (unknown) Review of Systems (units unknown) (unknown) (unknown) (no date) (unknown) (unknown) SKIN: Warm, dry, no laceration, no petechiae, no rashes or lesions. (units unknown) (unknown) (unknown) (no date) (unknown) (unknown) Signed By: (units unknown) (unknown) (unknown) (no date) (unknown) (unknown) Smoking Status: Neve r smoker (units unknown) (unknown) (unknown) (no date) (unknown) (unknown) Social History (units unknown) (unknown) (unknown) (no date) (unknown) (unknown) Sodium (137-145) mmol/L (units unknown) (unknown) (unknown) (no date) (unknown) (unknown) Sodium 135 L (137-14 5) mmol/L (units unknown) (unknown) (unknown) (no date) (unknown) (unknown) Sodium Chloride (Nor mal Saline 0.9%) 1,000 mls @ 1,000 mls/hr IV BOLUS ONE (units unknown) (unknown) (unknown) (no date) (unknown) (unknown) Source: patient (units unknown) (unknown) (unknown) (no date) (unknown) (unknown) Stated complaint: Dizzy, Tinnitus, Headache (units unknown) (unknown) (unknown) (no date) (unknown) (unknown) Stop: 06/26/22 17:50 (units unknown) (unknown) (unknown) (no date) (unknown) (unknown) Substance Use Type: does not use (units unknown) (unknown) (unknown) (no date) (unknown) (unknown) Temperature 98.9 F 06/26/22 16:44 (units unknown) (unknown) (unknown) (no date) (unknown) (unknown) Temperature 98.9 F (units unknown) (unknown) (unknown) (no date) (unknown) (unknown) Jeannette Mcelroy MD [Primary Care Provider] (units unknown) (unknown) (unknown) (no date) (unknown) (unknown) Time Seen by Provide r: 06/26/22 17:42 (units unknown) (unknown) (unknown) (no date) (unknown) (unknown) Total Bilirubin (0.2-1.3) mg/dL (units unknown) (unknown) (unknown) (no date) (unknown) (unknown) Total Bilirubin 0.6 (0.2-1.3) mg/dL (units unknown) (unknown) (unknown) (no date) (unknown) (unknown) Total Creatine Kinas e (55-170) U/L (units unknown) (unknown) (unknown) (no date) (unknown) (unknown) Total Creatine Kinas e 204 H (55-170) U/L (units unknown) (unknown) (unknown) (no date) (unknown) (unknown) Total Protein (6.3-8 .2) g/dL (units unknown) (unknown) (unknown) (no date) (unknown) (unknown) Total Protein 7.6 (6.3-8.2) g/dL (units unknown) (unknown) (unknown) (no date) (unknown) (unknown) Troponin + CK Cardia c Panel Stat (units unknown) (unknown) (unknown) (no date) (unknown) (unknown) Vital Signs - 8 hr (units unknown) (unknown) (unknown) (no date) (unknown) (unknown) Vital Signs (units unknown) (unknown) (unknown) (no date) (unknown) (unknown) Vital signs: (units unknown) (unknown) (unknown) (no date) (unknown) (unknown) WBC (4.5-11.0) X103/uL (units unknown) (unknown) (unknown) (no date) (unknown) (unknown) WBC 3.6 L (4.5-11.0) X103/uL (units unknown) (unknown) (unknown) (no date) (unknown) (unknown) XR chest 1V Stat (units unknown) (unknown) (unknown) (no date) (unknown) (unknown) [Embedded Image Not Available] (units unknown) (unknown) (unknown) (no date) (unknown) (unknown) alcohol intake frequency: 0-2 drinks per day (units unknown) (unknown) (unknown) (no date) (unknown) (unknown) and below (units unknown) (unknown) (unknown) (no date) (unknown) (unknown) atenolol 100 mg Tablet (units unknown) (unknown) (unknown) (no date) (unknown) (unknown) atenolol 100 mg tabl et 100 mg PO DAILY 07/05/17 07/05/17 (units unknown) (unknown) (unknown) (no date) (unknown) (unknown) breath. No abdominal pain nausea or vomiting. Just overall does not feel good. (units unknown) (unknown) (unknown) (no date) (unknown) (unknown) distress. (units unknown) (unknown) (unknown) (no date) (unknown) (unknown) [id number]-[id number] no facial droop (units unknown) (unknown) (unknown) (no date) (unknown) (unknown) guarding or rebound. (units unknown) (unknown) (unknown) (no date) (unknown) (unknown) intact (units unknown) (unknown) (unknown) (no date) (unknown) (unknown) iron-0.38 mg tablet (Geritol (units unknown) (unknown) (unknown) (no date) (unknown) (unknown) is actually afebrile . Denies any chest pain palpitations or shortness of (units unknown) (unknown) (unknown) (no date) (unknown) (unknown) lightheadedness and weakness. Ongoing for last 2 days. He says that he feels (units unknown) (unknown) (unknown) (no date) (unknown) (unknown) membranes (units unknown) (unknown) (unknown) (no date) (unknown) (unknown) multivitamin with mi n 1 tab PO DIRECTED 07/05/17 07/05/17 (units unknown) (unknown) (unknown) (no date) (unknown) (unknown) mv, min #36-iron,carbonyl-FA [Geritol Complete] 16 mg iron- 0.38 mg Tablet (units unknown) (unknown) (unknown) (no date) (unknown) (unknown) no.36-iron,carbonyl- FA 16 mg (units unknown) (unknown) (unknown) (no date) (unknown) (unknown) overall weak. Dizzy when he stands up. He thinks he may have had a fever but (units unknown) (unknown) (unknown) (no date) (unknown) (unknown) strength not confirmed (units unknown) (unknown) Result panel 249 (unknown) (no date) (unknown) (unknown) Negative (units unknown) (unknown) (unknown) (no date) (unknown) (unknown) Normal (units unknown) (unknown) Result panel 250 (unknown) (no date) (unknown) (unknown) 90 mg/dl (unknown) (unknown) (no date) (unknown) (unknown) 90 mg/dl (unknown) (unknown) (no date) (unknown) (unknown) Flu A NEGATIVE (units unknown) (unknown) (unknown) (no date) (unknown) (unknown) Flu B NEGATIVE (units unknown) (unknown) (unknown) (no date) (unknown) (unknown) Negative (units unknown) (unknown) (unknown) (no date) (unknown) (unknown) Negative (units unknown) (unknown) Result panel 251 (unknown) (no date) (unknown) (unknown) 0.2 e.u./dl (unknown) (unknown) (no date) (unknown) (unknown) 1.015 (units unknown) (unknown) (unknown) (no date) (unknown) (unknown) 7.5 (units unknown) (unknown) (unknown) (no date) (unknown) (unknown) CLEAR (units unknown) (unknown) (unknown) (no date) (unknown) (unknown) NEGATIVE (units unknown) (unknown) (unknown) (no date) (unknown) (unknown) POSITIVE (units unknown) (unknown) (unknown) (no date) (unknown) (unknown) TRACE (units unknown) (unknown) (unknown) (no date) (unknown) (unknown) TRACE g/dl (unknown) (unknown) (no date) (unknown) (unknown) YELLOW (units unknown) (unknown) (unknown) (no date) (unknown) (unknown) YELLOW (units unknown) (unknown) Result panel 252 (unknown) (no date) (unknown) (unknown) 0.2 e.u./dl (unknown) (unknown) (no date) (unknown) (unknown) 1.015 (units unknown) (unknown) (unknown) (no date) (unknown) (unknown) 10-30/HPF (units unknown) (unknown) (unknown) (no date) (unknown) (unknown) 7.5 (units unknown) (unknown) (unknown) (no date) (unknown) (unknown) CLEAR (units unknown) (unknown) (unknown) (no date) (unknown) (unknown) Many (>30) (units unknown) (unknown) (unknown) (no date) (unknown) (unknown) NEGATIVE (units unknown) (unknown) (unknown) (no date) (unknown) (unknown) None Seen (units unknown) (unknown) (unknown) (no date) (unknown) (unknown) POSITIVE (units unknown) (unknown) (unknown) (no date) (unknown) (unknown) Specimen Cultured (units unknown) (unknown) (unknown) (no date) (unknown) (unknown) TRACE (units unknown) (unknown) (unknown) (no date) (unknown) (unknown) TRACE g/dl (unknown) (unknown) (no date) (unknown) (unknown) YELLOW (units unknown) (unknown) (unknown) (no date) (unknown) (unknown) YELLOW (units unknown) (unknown) Result panel 253 (unknown) (no date) (unknown) (unknown) 2.3 mmol/l (unknown) Result panel 254 (unknown) (no date) (unknown) (unknown) (no value) (units unknown) (unknown) (unknown) (no date) (unknown) (unknown) [id number] (units unknown) (unknown) (unknown) (no date) (unknown) (unknown) 06/26/22 06/26/22 06/26/22 Range/Units (units unknown) (unknown) (unknown) (no date) (unknown) (unknown) 06/26/22 17:10 (units unknown) (unknown) (unknown) (no date) (unknown) (unknown) 06/26/22 17:42 (units unknown) (unknown) (unknown) (no date) (unknown) (unknown) 06/26/22 18:13 (units unknown) (unknown) (unknown) (no date) (unknown) (unknown) 06/26/22 18:47 (units unknown) (unknown) (unknown) (no date) (unknown) (unknown) 06/26/22 (units unknown) (unknown) (unknown) (no date) (unknown) (unknown) 17:10 17:10 17:10 (units unknown) (unknown) (unknown) (no date) (unknown) (unknown) 17:10 17:10 18:13 (units unknown) (unknown) (unknown) (no date) (unknown) (unknown) 18:45 06/26/22 (units unknown) (unknown) (unknown) (no date) (unknown) (unknown) 18:47 18:47 19:45 (units unknown) (unknown) (unknown) (no date) (unknown) (unknown) 19:00 06/26/22 (units unknown) (unknown) (unknown) (no date) (unknown) (unknown) 19:15 (units unknown) (unknown) (unknown) (no date) (unknown) (unknown) 19:30 06/26/22 (units unknown) (unknown) (unknown) (no date) (unknown) (unknown) 19:45 06/26/22 (units unknown) (unknown) (unknown) (no date) (unknown) (unknown) 20:00 (units unknown) (unknown) (unknown) (no date) (unknown) (unknown) 20:15 06/26/22 (units unknown) (unknown) (unknown) (no date) (unknown) (unknown) 20:30 06/26/22 (units unknown) (unknown) (unknown) (no date) (unknown) (unknown) 20:45 (units unknown) (unknown) (unknown) (no date) (unknown) (unknown) ? (units unknown) (unknown) (unknown) (no date) (unknown) (unknown) ABDOMEN: Soft, nontender. Normoactive bowel sounds all 4 quadrants. No (units unknown) (unknown) (unknown) (no date) (unknown) (unknown) ALT (<50) IU/L (units unknown) (unknown) (unknown) (no date) (unknown) (unknown) ALT 43 (<50) IU/L (units unknown) (unknown) (unknown) (no date) (unknown) (unknown) APTT (26-36) SECONDS (units unknown) (unknown) (unknown) (no date) (unknown) (unknown) APTT 31 (26-36) SECONDS (units unknown) (unknown) (unknown) (no date) (unknown) (unknown) AST (17-59) IU/L (units unknown) (unknown) (unknown) (no date) (unknown) (unknown) AST 82 H (17-59) IU/L (units unknown) (unknown) (unknown) (no date) (unknown) (unknown) Acetaminophen (Acetaminophen 325 Mg Tablet) 650 mg PO Q6H PRN (units unknown) (unknown) (unknown) (no date) (unknown) (unknown) Actually called 911 and then his neighbor brought him in. (units unknown) (unknown) (unknown) (no date) (unknown) (unknown) Acute UTI (units unknown) (unknown) (unknown) (no date) (unknown) (unknown) Admin: 06/26/22 17:5 2 Dose: 1,000 mls/hr (units unknown) (unknown) (unknown) (no date) (unknown) (unknown) Admin: 06/26/22 18:3 9 Dose: 1,000 mls/hr (units unknown) (unknown) (unknown) (no date) (unknown) (unknown) Admin: 06/26/22 19:4 1 Dose: 200 mls/hr (units unknown) (unknown) (unknown) (no date) (unknown) (unknown) Admit Date/Time: 06/26/22 20:51 (units unknown) (unknown) (unknown) (no date) (unknown) (unknown) Admit Provider: Boo Byrd (units unknown) (unknown) (unknown) (no date) (unknown) (unknown) Age/Sex: 77 / M (units unknown) (unknown) (unknown) (no date) (unknown) (unknown) Albumin (3.5-5.0) g/dL (units unknown) (unknown) (unknown) (no date) (unknown) (unknown) Albumin 4.5 (3.5-5.0 ) g/dL (units unknown) (unknown) (unknown) (no date) (unknown) (unknown) Albumin/Globulin Rat io (1.0-2.8) (units unknown) (unknown) (unknown) (no date) (unknown) (unknown) Albumin/Globulin Rat io 1.5 (1.0-2.8) (units unknown) (unknown) (unknown) (no date) (unknown) (unknown) Alkaline Phosphatase (38-126) U/L (units unknown) (unknown) (unknown) (no date) (unknown) (unknown) Alkaline Phosphatase 48 (38-126) U/L (units unknown) (unknown) (unknown) (no date) (unknown) (unknown) Allergies (units unknown) (unknown) (unknown) (no date) (unknown) (unknown) Allergy/AdvReac Type Severity Reaction Status Date / Time (units unknown) (unknown) (unknown) (no date) (unknown) (unknown) BUN (9-20) mg/dL (units unknown) (unknown) (unknown) (no date) (unknown) (unknown) BUN 9 (9-20) mg/dL (units unknown) (unknown) (unknown) (no date) (unknown) (unknown) BUN/Creatinine Ratio (6-22) (units unknown) (unknown) (unknown) (no date) (unknown) (unknown) BUN/Creatinine Ratio 8.7 (6-22) (units unknown) (unknown) (unknown) (no date) (unknown) (unknown) Baso # (Auto) (0-100 ) /uL (units unknown) (unknown) (unknown) (no date) (unknown) (unknown) Baso # (Auto) 100 (0-100) /uL (units unknown) (unknown) (unknown) (no date) (unknown) (unknown) Baso % (Auto) (0-2) % (units unknown) (unknown) (unknown) (no date) (unknown) (unknown) Baso % (Auto) 2.0 (0 -2) % (units unknown) (unknown) (unknown) (no date) (unknown) (unknown) Blood Pressure 140/76 (units unknown) (unknown) (unknown) (no date) (unknown) (unknown) Blood Pressure 144/80 H (units unknown) (unknown) (unknown) (no date) (unknown) (unknown) Blood Pressure 159/8 5 H 06/26/22 16:44 (units unknown) (unknown) (unknown) (no date) (unknown) (unknown) Blood Pressure (units unknown) (unknown) (unknown) (no date) (unknown) (unknown) Bones and chest wall :? No suspicious bony lesions.? Overlying soft tissues (units unknown) (unknown) (unknown) (no date) (unknown) (unknown) Brain:? No intracran ial bleeds or masses.? There is cerebral volume loss for (units unknown) (unknown) (unknown) (no date) (unknown) (unknown) CARDIOVASCULAR: Regu lar rate and rhythm without murmurs, rubs or gallops. (units unknown) (unknown) (unknown) (no date) (unknown) (unknown) CK-MB (CK-2) (<2.37) ng/mL (units unknown) (unknown) (unknown) (no date) (unknown) (unknown) CK-MB (CK-2) 0.87 (<2.37) ng/mL (units unknown) (unknown) (unknown) (no date) (unknown) (unknown) CK-MB (CK-2) Rel Ind ex (1.5-5.0) % (units unknown) (unknown) (unknown) (no date) (unknown) (unknown) CK-MB (CK-2) Rel Ind ex 0.4 L (1.5-5.0) % (units unknown) (unknown) (unknown) (no date) (unknown) (unknown) COMPARISON:? None. (units unknown) (unknown) (unknown) (no date) (unknown) (unknown) COMPARISON:? [facility], CR, XR CHEST 1 VIEW, 08/08/2017, 15:26. (units unknown) (unknown) (unknown) (no date) (unknown) (unknown) CSF spaces:? Basal cisterns are patent.? No extra-axial fluid collections.? The (units unknown) (unknown) (unknown) (no date) (unknown) (unknown) CT head/brain wo con Stat (units unknown) (unknown) (unknown) (no date) (unknown) (unknown) CT scan - head: (units unknown) (unknown) (unknown) (no date) (unknown) (unknown) Calcium (8.4-10.2) mg/dL (units unknown) (unknown) (unknown) (no date) (unknown) (unknown) Calcium 9.4 (8.4-10. 2) mg/dL (units unknown) (unknown) (unknown) (no date) (unknown) (unknown) Carbon Dioxide (22-3 2) mmol/L (units unknown) (unknown) (unknown) (no date) (unknown) (unknown) Carbon Dioxide 22 (22-32) mmol/L (units unknown) (unknown) (unknown) (no date) (unknown) (unknown) Ceftriaxone Sodium 1,000 mg/ (Sodium Chloride) 100 mls @ 200 mls/hr IV NOW ONE (units unknown) (unknown) (unknown) (no date) (unknown) (unknown) Ceftriaxone Sodium 1,000 mg/ (Sodium Chloride) 100 mls @ 200 mls/hr IV Q24H AURY (units unknown) (unknown) (unknown) (no date) (unknown) (unknown) Chest x-ray: (units unknown) (unknown) (unknown) (no date) (unknown) (unknown) Chief complaint: Weakness (units unknown) (unknown) (unknown) (no date) (unknown) (unknown) Chloride (98-107) mmol/L (units unknown) (unknown) (unknown) (no date) (unknown) (unknown) Chloride 99 (98-107) mmol/L (units unknown) (unknown) (unknown) (no date) (unknown) (unknown) Clinical Impression: (units unknown) (unknown) (unknown) (no date) (unknown) (unknown) Complete) (units unknown) (unknown) (unknown) (no date) (unknown) (unknown) Course (units unknown) (unknown) (unknown) (no date) (unknown) (unknown) Covid-19 + FLU A/B + RSV - PCR Stat (units unknown) (unknown) (unknown) (no date) (unknown) (unknown) Creatinine (0.66-1.2 5) mg/dL (units unknown) (unknown) (unknown) (no date) (unknown) (unknown) Creatinine 1.04 (0.66-1.25) mg/dL (units unknown) (unknown) (unknown) (no date) (unknown) (unknown) : 1945 Acct:[id number] (units unknown) (unknown) (unknown) (no date) (unknown) (unknown) Date of Service: 06/26/22 (units unknown) (unknown) (unknown) (no date) (unknown) (unknown) Departure (units unknown) (unknown) (unknown) (no date) (unknown) (unknown) Dictated by: Casey Sneed M.D. on 06/26/2022 at 16:40? (units unknown) (unknown) (unknown) (no date) (unknown) (unknown) Dictated by: Casey Sneed M.D. on 06/26/2022 at 17:07 ? (units unknown) (unknown) (unknown) (no date) (unknown) (unknown) Discharge Plan (units unknown) (unknown) (unknown) (no date) (unknown) (unknown) Discontinued Medications (units unknown) (unknown) (unknown) (no date) (unknown) (unknown) Documented By: GC (units unknown) (unknown) (unknown) (no date) (unknown) (unknown) Documented By: JH (units unknown) (unknown) (unknown) (no date) (unknown) (unknown) Documented By: NR (units unknown) (unknown) (unknown) (no date) (unknown) (unknown) Documented By: RL (units unknown) (unknown) (unknown) (no date) (unknown) (unknown) Documented By: SB (units unknown) (unknown) (unknown) (no date) (unknown) (unknown) ED Orders (units unknown) (unknown) (unknown) (no date) (unknown) (unknown) ER Physician: Mabel Garcia D.O. (units unknown) (unknown) (unknown) (no date) (unknown) (unknown) EXTREMITIES: Normal range of motion, no clubbing or edema. Neurovascularly (units unknown) (unknown) (unknown) (no date) (unknown) (unknown) Emergency Report (units unknown) (unknown) (unknown) (no date) (unknown) (unknown) Enoxaparin Sodium (Enoxaparin 40 Mg/0.4 Ml Syringe) 40 mg SUBCUT DAILY AURY (units unknown) (unknown) (unknown) (no date) (unknown) (unknown) Eos # (Auto) (0-450) /uL (units unknown) (unknown) (unknown) (no date) (unknown) (unknown) Eos # (Auto) 0 (0-45 0) /uL (units unknown) (unknown) (unknown) (no date) (unknown) (unknown) Eos % (Auto) (2-4) % (units unknown) (unknown) (unknown) (no date) (unknown) (unknown) Eos % (Auto) 0.0 L (2-4) % (units unknown) (unknown) (unknown) (no date) (unknown) (unknown) Estimated GFR > 60 (>60) mL/min (units unknown) (unknown) (unknown) (no date) (unknown) (unknown) Estimated GFR (>60) mL/min (units unknown) (unknown) (unknown) (no date) (unknown) (unknown) Ethyl Alcohol ( - 10 ) mg/dL (units unknown) (unknown) (unknown) (no date) (unknown) (unknown) Ethyl Alcohol 90 H ( - 10) mg/dL (units unknown) (unknown) (unknown) (no date) (unknown) (unknown) Exam (units unknown) (unknown) (unknown) (no date) (unknown) (unknown) FINDINGS:? (units unknown) (unknown) (unknown) (no date) (unknown) (unknown) GENERAL: Alert week 77-year-old male no acute distress and in no acute (units unknown) (unknown) (unknown) (no date) (unknown) (unknown) General (units unknown) (unknown) (unknown) (no date) (unknown) (unknown) Globulin (1.7-4.1) g/dL (units unknown) (unknown) (unknown) (no date) (unknown) (unknown) Globulin 3.1 (1.7-4. 1) g/dL (units unknown) (unknown) (unknown) (no date) (unknown) (unknown) Glucose (80-110) mg/dL (units unknown) (unknown) (unknown) (no date) (unknown) (unknown) Glucose 181 H (80-11 0) mg/dL (units unknown) (unknown) (unknown) (no date) (unknown) (unknown) HEENT: Head atraumatic,EOMI, pupils reactive, face symmetric, moist mucous (units unknown) (unknown) (unknown) (no date) (unknown) (unknown) HPI - Weakness (units unknown) (unknown) (unknown) (no date) (unknown) (unknown) HPI Narrative: (units unknown) (unknown) (unknown) (no date) (unknown) (unknown) Hct (41-53) % (units unknown) (unknown) (unknown) (no date) (unknown) (unknown) Hct 41.1 (41-53) % (units unknown) (unknown) (unknown) (no date) (unknown) (unknown) Hgb (13.5-17.5) g/dL (units unknown) (unknown) (unknown) (no date) (unknown) (unknown) Hgb 13.2 L (13.5-17. 5) g/dL (units unknown) (unknown) (unknown) (no date) (unknown) (unknown) History of Present Illness (units unknown) (unknown) (unknown) (no date) (unknown) (unknown) Home Medications (units unknown) (unknown) (unknown) (no date) (unknown) (unknown) I spoke with his neighbor on the phone he reports that done is actually quite (units unknown) (unknown) (unknown) (no date) (unknown) (unknown) IMPRESSION:? No acut e intracranial abnormality.? (units unknown) (unknown) (unknown) (no date) (unknown) (unknown) IMPRESSION:? No acut e process. (units unknown) (unknown) (unknown) (no date) (unknown) (unknown) INDICATIONS:? dizzy, headache (units unknown) (unknown) (unknown) (no date) (unknown) (unknown) INDICATIONS:? suspec guilherme sepsis (units unknown) (unknown) (unknown) (no date) (unknown) (unknown) INR (0.9-1.3) (units unknown) (unknown) (unknown) (no date) (unknown) (unknown) INR 1.0 (0.9-1.3) (units unknown) (unknown) (unknown) (no date) (unknown) (unknown) Image quality:? Excellent.? (units unknown) (unknown) (unknown) (no date) (unknown) (unknown) Imaging Data (units unknown) (unknown) (unknown) (no date) (unknown) (unknown) Influenza A (RT-PCR) (NEGATIVE) (units unknown) (unknown) (unknown) (no date) (unknown) (unknown) Influenza A (RT-PCR) Flu a negative (NEGATIVE) (units unknown) (unknown) (unknown) (no date) (unknown) (unknown) Influenza B (RT-PCR) (NEGATIVE) (units unknown) (unknown) (unknown) (no date) (unknown) (unknown) Influenza B (RT-PCR) Flu b negative (NEGATIVE) (units unknown) (unknown) (unknown) (no date) (unknown) (unknown) Initial Vital Signs (units unknown) (unknown) (unknown) (no date) (unknown) (unknown) Initial Vital Signs: (units unknown) (unknown) (unknown) (no date) (unknown) (unknown) [address] [address] (units unknown) (unknown) (unknown) (no date) (unknown) (unknown) Lab Data (units unknown) (unknown) (unknown) (no date) (unknown) (unknown) Lab Results (units unknown) (unknown) (unknown) (no date) (unknown) (unknown) Labs: (units unknown) (unknown) (unknown) (no date) (unknown) (unknown) Lactate (0.7-2.1) mmol/L (units unknown) (unknown) (unknown) (no date) (unknown) (unknown) Lactate 2.3 H (0.7-2 .1) mmol/L (units unknown) (unknown) (unknown) (no date) (unknown) (unknown) Lactate 3.9 H (0.7-2 .1) mmol/L (units unknown) (unknown) (unknown) (no date) (unknown) (unknown) Lactated Ringer's (Lactated Ringers) 1,000 mls @ 100 mls/hr IV CONT AURY (units unknown) (unknown) (unknown) (no date) (unknown) (unknown) Last Admin: 06/26/22 21:07 Dose: 125 mls/hr (units unknown) (unknown) (unknown) (no date) (unknown) (unknown) Last Admin: 06/27/22 00:04 Dose: 100 mls/hr (units unknown) (unknown) (unknown) (no date) (unknown) (unknown) Last Admin: 06/27/22 00:04 Dose: 650 mg (units unknown) (unknown) (unknown) (no date) (unknown) (unknown) Last Infusion: 06/26 18:40 Dose: 0 mls/hr (units unknown) (unknown) (unknown) (no date) (unknown) (unknown) Last Infusion: 06/26 19:40 Dose: 0 mls/hr (units unknown) (unknown) (unknown) (no date) (unknown) (unknown) Last Infusion: 06/26 20:25 Dose: 0 mls/hr (units unknown) (unknown) (unknown) (no date) (unknown) (unknown) Lipase (23-300) U/L (units unknown) (unknown) (unknown) (no date) (unknown) (unknown) Lipase 385 H (23-300 ) U/L (units unknown) (unknown) (unknown) (no date) (unknown) (unknown) Lungs and pleura:? Lungs are clear.? No pleural effusions or pneumothorax.? (units unknown) (unknown) (unknown) (no date) (unknown) (unknown) Lymph # (Auto) (5493-5205) /uL (units unknown) (unknown) (unknown) (no date) (unknown) (unknown) Lymph # (Auto) 1300 (5162-3603) /uL (units unknown) (unknown) (unknown) (no date) (unknown) (unknown) Lymph % (Auto) (25-4 0) % (units unknown) (unknown) (unknown) (no date) (unknown) (unknown) Lymph % (Auto) 36.0 (25-40) % (units unknown) (unknown) (unknown) (no date) (unknown) (unknown) MCH (26-34) PG (units unknown) (unknown) (unknown) (no date) (unknown) (unknown) MCH 26.7 (26-34) PG (units unknown) (unknown) (unknown) (no date) (unknown) (unknown) MCHC (30-36) % (units unknown) (unknown) (unknown) (no date) (unknown) (unknown) MCHC 32.1 (30-36) % (units unknown) (unknown) (unknown) (no date) (unknown) (unknown) MCV (80-100) fL (units unknown) (unknown) (unknown) (no date) (unknown) (unknown) MCV 83.2 (80-100) fL (units unknown) (unknown) (unknown) (no date) (unknown) (unknown) MDM - Weakness (units unknown) (unknown) (unknown) (no date) (unknown) (unknown) Mediastinum:? Mediastinal contours appear normal.? Heart size is normal.? (units unknown) (unknown) (unknown) (no date) (unknown) (unknown) Medication Instructi ons Recorded Confirmed (units unknown) (unknown) (unknown) (no date) (unknown) (unknown) Mode of arrival: Wheelchair (units unknown) (unknown) (unknown) (no date) (unknown) (unknown) [place] # (Auto) (0-900 ) /uL (units unknown) (unknown) (unknown) (no date) (unknown) (unknown) [place] # (Auto) 600 (0-900) /uL (units unknown) (unknown) (unknown) (no date) (unknown) (unknown) [place] % (Auto) (3-14) % (units unknown) (unknown) (unknown) (no date) (unknown) (unknown) [place] % (Auto) 15.6 H (3-14) % (units unknown) (unknown) (unknown) (no date) (unknown) (unknown) NEUROLOGICAL: Alert and oriented x4. Concession Attendant strength equal bilaterally good (units unknown) (unknown) (unknown) (no date) (unknown) (unknown) NT-Pro-B Natriuret P ep (<450) pg/mL (units unknown) (unknown) (unknown) (no date) (unknown) (unknown) NT-Pro-B Natriuret P ep 44 (<450) pg/mL (units unknown) (unknown) (unknown) (no date) (unknown) (unknown) Naloxone HCl (Naloxo ne 0.4 Mg/Ml Vial) 0.2 mg IV Q2MIN PRN (units unknown) (unknown) (unknown) (no date) (unknown) (unknown) Neut # (Auto) (9270-4361) /uL (units unknown) (unknown) (unknown) (no date) (unknown) (unknown) Neut # (Auto) 1700 (7950-8279) /uL (units unknown) (unknown) (unknown) (no date) (unknown) (unknown) Neut % (Auto) (50-75) % (units unknown) (unknown) (unknown) (no date) (unknown) (unknown) Neut % (Auto) 46.4 L (50-75) % (units unknown) (unknown) (unknown) (no date) (unknown) (unknown) No Known Drug Allerg ies Allergy Verified 06/26/22 16:44 (units unknown) (unknown) (unknown) (no date) (unknown) (unknown) Noncontrast 4.5 mm thick angled axial sections acquired from the foramen magnum (units unknown) (unknown) (unknown) (no date) (unknown) (unknown) Ondansetron HCl (Ondansetron 4 Mg Odt) 4 mg SL NOW PRN (units unknown) (unknown) (unknown) (no date) (unknown) (unknown) Ondansetron HCl (Ondansetron 4 Mg/2 Ml Inj) 4 mg IV NOW PRN (units unknown) (unknown) (unknown) (no date) (unknown) (unknown) Ondansetron HCl (Ondansetron 4 Mg/2 Ml Inj) 4 mg IV Q8HR PRN (units unknown) (unknown) (unknown) (no date) (unknown) (unknown) Ordered: (units unknown) (unknown) (unknown) (no date) (unknown) (unknown) Orders (units unknown) (unknown) (unknown) (no date) (unknown) (unknown) Oxygen Delivery Meth od Room Air 06/26/22 16:44 (units unknown) (unknown) (unknown) (no date) (unknown) (unknown) PRN Reason: Fever/Mi ld Pain (1-3) (units unknown) (unknown) (unknown) (no date) (unknown) (unknown) PRN Reason: Nausea A nd Vomiting (units unknown) (unknown) (unknown) (no date) (unknown) (unknown) PRN Reason: Opiate Reversal (units unknown) (unknown) (unknown) (no date) (unknown) (unknown) PROCEDURE:? CT HEAD/BRAIN WO CON (units unknown) (unknown) (unknown) (no date) (unknown) (unknown) PROCEDURE:? XR CHEST 1V (units unknown) (unknown) (unknown) (no date) (unknown) (unknown) PT (10.1-12.7) SECONDS (units unknown) (unknown) (unknown) (no date) (unknown) (unknown) PT 11.4 (10.1-12.7) SECONDS (units unknown) (unknown) (unknown) (no date) (unknown) (unknown) Patient Disposition: Admitted As Inpatient (units unknown) (unknown) (unknown) (no date) (unknown) (unknown) Patient History (units unknown) (unknown) (unknown) (no date) (unknown) (unknown) Patient is a 77-year-old male history of hypertension presenting today with (units unknown) (unknown) (unknown) (no date) (unknown) (unknown) Patient: James Hoffman MR#: [id number] (units unknown) (unknown) (unknown) (no date) (unknown) (unknown) Plt Count (150-400) X103/uL (units unknown) (unknown) (unknown) (no date) (unknown) (unknown) Plt Count 168 (150-4 00) X103/uL (units unknown) (unknown) (unknown) (no date) (unknown) (unknown) Potassium (3.4-5.1) mmol/L (units unknown) (unknown) (unknown) (no date) (unknown) (unknown) Potassium 3.8 (3.4-5 .1) mmol/L (units unknown) (unknown) (unknown) (no date) (unknown) (unknown) Procalcitonin (<0.5) ng/mL (units unknown) (unknown) (unknown) (no date) (unknown) (unknown) Procalcitonin 0.11 (<0.5) ng/mL (units unknown) (unknown) (unknown) (no date) (unknown) (unknown) Pulse Oximetry 95 97 99 (units unknown) (unknown) (unknown) (no date) (unknown) (unknown) Pulse Oximetry 97 96 95 (units unknown) (unknown) (unknown) (no date) (unknown) (unknown) Pulse Oximetry 97 97 97 (units unknown) (unknown) (unknown) (no date) (unknown) (unknown) Pulse Oximetry 98 06/26/22 16:44 (units unknown) (unknown) (unknown) (no date) (unknown) (unknown) Pulse Rate 108 H 114 H 85 (units unknown) (unknown) (unknown) (no date) (unknown) (unknown) Pulse Rate 111 H 06/26/22 16:44 (units unknown) (unknown) (unknown) (no date) (unknown) (unknown) Pulse Rate 88 103 H 112 H (units unknown) (unknown) (unknown) (no date) (unknown) (unknown) Pulse Rate 94 H 97 H 107 H (units unknown) (unknown) (unknown) (no date) (unknown) (unknown) RBC (4.5-5.9) X106/uL (units unknown) (unknown) (unknown) (no date) (unknown) (unknown) RBC 4.94 (4.5-5.9) X106/uL (units unknown) (unknown) (unknown) (no date) (unknown) (unknown) RDW (11.6-14.8) % (units unknown) (unknown) (unknown) (no date) (unknown) (unknown) RDW 16.6 H (11.6-14. 8) % (units unknown) (unknown) (unknown) (no date) (unknown) (unknown) RESPIRATORY: Breath sounds equal bilaterally, no wheezes rales or rhonchi. (units unknown) (unknown) (unknown) (no date) (unknown) (unknown) ROS Unobtainable: Al l systems reviewed + are unremarkable except as noted in HPI (units unknown) (unknown) (unknown) (no date) (unknown) (unknown) RSV (PCR) (Negative) (units unknown) (unknown) (unknown) (no date) (unknown) (unknown) RSV (PCR) Negative (Negative) (units unknown) (unknown) (unknown) (no date) (unknown) (unknown) Radiologist Impression: (units unknown) (unknown) (unknown) (no date) (unknown) (unknown) Related Data (units unknown) (unknown) (unknown) (no date) (unknown) (unknown) Respiratory Rate 18 06/26/22 16:44 (units unknown) (unknown) (unknown) (no date) (unknown) (unknown) Respiratory Rate 19 46 H 45 H (units unknown) (unknown) (unknown) (no date) (unknown) (unknown) Respiratory Rate 22 30 H 35 H (units unknown) (unknown) (unknown) (no date) (unknown) (unknown) Respiratory Rate 36 H 50 H 22 (units unknown) (unknown) (unknown) (no date) (unknown) (unknown) Review of Systems (units unknown) (unknown) (unknown) (no date) (unknown) (unknown) SARS-CoV-2 (PCR) (Negative) (units unknown) (unknown) (unknown) (no date) (unknown) (unknown) SARS-CoV-2 (PCR) Negative (Negative) (units unknown) (unknown) (unknown) (no date) (unknown) (unknown) SKIN: Warm, dry, no laceration, no petechiae, no rashes or lesions. (units unknown) (unknown) (unknown) (no date) (unknown) (unknown) Signed By: (units unknown) (unknown) (unknown) (no date) (unknown) (unknown) Sinuses:? Visualized sinuses and mastoids are clear.? (units unknown) (unknown) (unknown) (no date) (unknown) (unknown) Skull and face:? Calvarium and visualized facial bones appear intact, without (units unknown) (unknown) (unknown) (no date) (unknown) (unknown) Smoking Status: Josee r smoker (units unknown) (unknown) (unknown) (no date) (unknown) (unknown) Social History (units unknown) (unknown) (unknown) (no date) (unknown) (unknown) Sodium (137-145) mmol/L (units unknown) (unknown) (unknown) (no date) (unknown) (unknown) Sodium 135 L (137-14 5) mmol/L (units unknown) (unknown) (unknown) (no date) (unknown) (unknown) Sodium Chloride (Nor mal Saline 0.9%) 1,000 mls @ 1,000 mls/hr IV BOLUS ONE (units unknown) (unknown) (unknown) (no date) (unknown) (unknown) Sodium Chloride (Nor mal Saline 0.9%) 1,000 mls @ 125 mls/hr IV CONT AURY (units unknown) (unknown) (unknown) (no date) (unknown) (unknown) Source: patient (units unknown) (unknown) (unknown) (no date) (unknown) (unknown) Stated complaint: Dizzy, Tinnitus, Headache (units unknown) (unknown) (unknown) (no date) (unknown) (unknown) Stop: 06/26/22 17:50 (units unknown) (unknown) (unknown) (no date) (unknown) (unknown) Stop: 06/26/22 19:12 (units unknown) (unknown) (unknown) (no date) (unknown) (unknown) Stop: 06/26/22 19:23 (units unknown) (unknown) (unknown) (no date) (unknown) (unknown) Substance Use Type: does not use (units unknown) (unknown) (unknown) (no date) (unknown) (unknown) Surgical changes and devices:? None.? (units unknown) (unknown) (unknown) (no date) (unknown) (unknown) TECHNIQUE:? One view of the chest was acquired.? (units unknown) (unknown) (unknown) (no date) (unknown) (unknown) TECHNIQUE:? (units unknown) (unknown) (unknown) (no date) (unknown) (unknown) Temperature 98.9 F 06/26/22 16:44 (units unknown) (unknown) (unknown) (no date) (unknown) (unknown) Time Seen by Provide r: 06/26/22 17:42 (units unknown) (unknown) (unknown) (no date) (unknown) (unknown) Total Bilirubin (0.2-1.3) mg/dL (units unknown) (unknown) (unknown) (no date) (unknown) (unknown) Total Bilirubin 0.6 (0.2-1.3) mg/dL (units unknown) (unknown) (unknown) (no date) (unknown) (unknown) Total Creatine Kinas e (55-170) U/L (units unknown) (unknown) (unknown) (no date) (unknown) (unknown) Total Creatine Kinas e 204 H (55-170) U/L (units unknown) (unknown) (unknown) (no date) (unknown) (unknown) Total Protein (6.3-8 .2) g/dL (units unknown) (unknown) (unknown) (no date) (unknown) (unknown) Total Protein 7.6 (6.3-8.2) g/dL (units unknown) (unknown) (unknown) (no date) (unknown) (unknown) Troponin I < 0.012 (0.01-0.034) ng/mL (units unknown) (unknown) (unknown) (no date) (unknown) (unknown) Troponin I (0.01-0.0 34) ng/mL (units unknown) (unknown) (unknown) (no date) (unknown) (unknown) U Benzodiazepines Sc rn (Negative) (units unknown) (unknown) (unknown) (no date) (unknown) (unknown) U Benzodiazepines Sc rn Negative (Negative) (units unknown) (unknown) (unknown) (no date) (unknown) (unknown) U Marijuana (THC) Screen (Negative) (units unknown) (unknown) (unknown) (no date) (unknown) (unknown) U Marijuana (THC) Screen Negative (Negative) (units unknown) (unknown) (unknown) (no date) (unknown) (unknown) U Methamphetamines S crn (Negative) (units unknown) (unknown) (unknown) (no date) (unknown) (unknown) U Methamphetamines S crn Negative (Negative) (units unknown) (unknown) (unknown) (no date) (unknown) (unknown) U Opiates 300ng/mL c ut (Negative) (units unknown) (unknown) (unknown) (no date) (unknown) (unknown) U Opiates 300ng/mL c ut Negative (Negative) (units unknown) (unknown) (unknown) (no date) (unknown) (unknown) U Tricyclic Antidepr ess (Negative) (units unknown) (unknown) (unknown) (no date) (unknown) (unknown) U Tricyclic Antidepr ess Negative (Negative) (units unknown) (unknown) (unknown) (no date) (unknown) (unknown) Ur Amphetamines Scre en (Negative) (units unknown) (unknown) (unknown) (no date) (unknown) (unknown) Ur Amphetamines Scre en Negative (Negative) (units unknown) (unknown) (unknown) (no date) (unknown) (unknown) Ur Barbiturates Scre en (Negative) (units unknown) (unknown) (unknown) (no date) (unknown) (unknown) Ur Barbiturates Scre en Negative (Negative) (units unknown) (unknown) (unknown) (no date) (unknown) (unknown) Ur Culture Indicated ? Specimen cultured (units unknown) (unknown) (unknown) (no date) (unknown) (unknown) Ur Culture Indicated? (units unknown) (unknown) (unknown) (no date) (unknown) (unknown) Ur Leukocyte [place] e (NEGATIVE) (units unknown) (unknown) (unknown) (no date) (unknown) (unknown) Ur Leukocyte [place] e Trace H (NEGATIVE) (units unknown) (unknown) (unknown) (no date) (unknown) (unknown) Ur MDMA Scrn ([place] y) (Negative) (units unknown) (unknown) (unknown) (no date) (unknown) (unknown) Ur MDMA Scrn ([place] y) Negative (Negative) (units unknown) (unknown) (unknown) (no date) (unknown) (unknown) Ur Oxycodone Screen (Negative) (units unknown) (unknown) (unknown) (no date) (unknown) (unknown) Ur Oxycodone Screen Negative (Negative) (units unknown) (unknown) (unknown) (no date) (unknown) (unknown) Ur Phencyclidine Scr n (Negative) (units unknown) (unknown) (unknown) (no date) (unknown) (unknown) Ur Phencyclidine Scr n Negative (Negative) (units unknown) (unknown) (unknown) (no date) (unknown) (unknown) Ur Specific [place] (1.000-1.035) (units unknown) (unknown) (unknown) (no date) (unknown) (unknown) Ur Specific [place] 1.015 (1.000-1.035) (units unknown) (unknown) (unknown) (no date) (unknown) (unknown) Urinalysis and Microscopic Stat (units unknown) (unknown) (unknown) (no date) (unknown) (unknown) Urine Appearance Clear (units unknown) (unknown) (unknown) (no date) (unknown) (unknown) Urine Appearance (units unknown) (unknown) (unknown) (no date) (unknown) (unknown) Urine Bacteria (None) (units unknown) (unknown) (unknown) (no date) (unknown) (unknown) Urine Bacteria Many (>30) H (None) (units unknown) (unknown) (unknown) (no date) (unknown) (unknown) Urine Bilirubin (NEGATIVE) (units unknown) (unknown) (unknown) (no date) (unknown) (unknown) Urine Bilirubin Negative (NEGATIVE) (units unknown) (unknown) (unknown) (no date) (unknown) (unknown) Urine Cocaine Screen (Negative) (units unknown) (unknown) (unknown) (no date) (unknown) (unknown) Urine Cocaine Screen Negative (Negative) (units unknown) (unknown) (unknown) (no date) (unknown) (unknown) Urine Color Yellow (units unknown) (unknown) (unknown) (no date) (unknown) (unknown) Urine Color (units unknown) (unknown) (unknown) (no date) (unknown) (unknown) Urine Culture Stat (units unknown) (unknown) (unknown) (no date) (unknown) (unknown) Urine Drug Screen, Rapid Stat (units unknown) (unknown) (unknown) (no date) (unknown) (unknown) Urine Glucose (UA) (Negative) g/dL (units unknown) (unknown) (unknown) (no date) (unknown) (unknown) Urine Glucose (UA) Trace H (Negative) g/dL (units unknown) (unknown) (unknown) (no date) (unknown) (unknown) Urine Ketones (NEGATIVE) (units unknown) (unknown) (unknown) (no date) (unknown) (unknown) Urine Ketones Negati ve (NEGATIVE) (units unknown) (unknown) (unknown) (no date) (unknown) (unknown) Urine Methadone Scre en (Negative) (units unknown) (unknown) (unknown) (no date) (unknown) (unknown) Urine Methadone Scre en Negative (Negative) (units unknown) (unknown) (unknown) (no date) (unknown) (unknown) Urine Nitrate (Negative) (units unknown) (unknown) (unknown) (no date) (unknown) (unknown) Urine Nitrate [place] H (Negative) (units unknown) (unknown) (unknown) (no date) (unknown) (unknown) Urine Occult Blood (Negative) (units unknown) (unknown) (unknown) (no date) (unknown) (unknown) Urine Occult Blood Negative (Negative) (units unknown) (unknown) (unknown) (no date) (unknown) (unknown) Urine Protein (Negative) (units unknown) (unknown) (unknown) (no date) (unknown) (unknown) Urine Protein Trace H (Negative) (units unknown) (unknown) (unknown) (no date) (unknown) (unknown) Urine RBC (0-5/HPF) (units unknown) (unknown) (unknown) (no date) (unknown) (unknown) Urine RBC None seen (0-5/HPF) (units unknown) (unknown) (unknown) (no date) (unknown) (unknown) Urine Urobilinogen (0.2) E.U./dL (units unknown) (unknown) (unknown) (no date) (unknown) (unknown) Urine Urobilinogen 0 .2 (0.2) E.U./dL (units unknown) (unknown) (unknown) (no date) (unknown) (unknown) Urine WBC (0-5/HPF) (units unknown) (unknown) (unknown) (no date) (unknown) (unknown) Urine WBC 10-30/hpf H (0-5/HPF) (units unknown) (unknown) (unknown) (no date) (unknown) (unknown) Urine pH (4.5-8.0) (units unknown) (unknown) (unknown) (no date) (unknown) (unknown) Urine pH 7.5 (4.5-8.0) (units unknown) (unknown) (unknown) (no date) (unknown) (unknown) Vital Signs - 8 hr (units unknown) (unknown) (unknown) (no date) (unknown) (unknown) Vital Signs (units unknown) (unknown) (unknown) (no date) (unknown) (unknown) Vital signs: (units unknown) (unknown) (unknown) (no date) (unknown) (unknown) WBC (4.5-11.0) X103/uL (units unknown) (unknown) (unknown) (no date) (unknown) (unknown) WBC 3.6 L (4.5-11.0) X103/uL (units unknown) (unknown) (unknown) (no date) (unknown) (unknown) [Embedded Image Not Available] (units unknown) (unknown) (unknown) (no date) (unknown) (unknown) age, with (units unknown) (unknown) (unknown) (no date) (unknown) (unknown) alcohol intake frequency: 0-2 drinks per day (units unknown) (unknown) (unknown) (no date) (unknown) (unknown) and below (units unknown) (unknown) (unknown) (no date) (unknown) (unknown) appear (units unknown) (unknown) (unknown) (no date) (unknown) (unknown) artery atherosclerosis.? (units unknown) (unknown) (unknown) (no date) (unknown) (unknown) atenolol 100 mg tabl et 100 mg PO DAILY 07/05/17 07/05/17 (units unknown) (unknown) (unknown) (no date) (unknown) (unknown) breath. No abdominal pain nausea or vomiting. Just overall does not feel good. (units unknown) (unknown) (unknown) (no date) (unknown) (unknown) carotid (units unknown) (unknown) (unknown) (no date) (unknown) (unknown) confused more so arielle n normal. He lives by himself he is family out of state. (units unknown) (unknown) (unknown) (no date) (unknown) (unknown) distress. (units unknown) (unknown) (unknown) (no date) (unknown) (unknown) [id number] no facial droop (units unknown) (unknown) (unknown) (no date) (unknown) (unknown) following (units unknown) (unknown) (unknown) (no date) (unknown) (unknown) guarding or rebound. (units unknown) (unknown) (unknown) (no date) (unknown) (unknown) household members: none (units unknown) (unknown) (unknown) (no date) (unknown) (unknown) intact (units unknown) (unknown) (unknown) (no date) (unknown) (unknown) iron-0.38 mg tablet (Geritol (units unknown) (unknown) (unknown) (no date) (unknown) (unknown) is actually afebrile . Denies any chest pain palpitations or shortness of (units unknown) (unknown) (unknown) (no date) (unknown) (unknown) lesions.? (units unknown) (unknown) (unknown) (no date) (unknown) (unknown) lightheadedness and weakness. Ongoing for last 2 days. He says that he feels (units unknown) (unknown) (unknown) (no date) (unknown) (unknown) matter chronic small vessel ischemic changes.? There is intracranial internal (units unknown) (unknown) (unknown) (no date) (unknown) (unknown) membranes (units unknown) (unknown) (unknown) (no date) (unknown) (unknown) multivitamin with mi n 1 tab PO DIRECTED 07/05/17 07/05/17 (units unknown) (unknown) (unknown) (no date) (unknown) (unknown) no.36-iron,carbonyl- FA 16 mg (units unknown) (unknown) (unknown) (no date) (unknown) (unknown) overall weak. Dizzy when he stands up. He thinks he may have had a fever but (units unknown) (unknown) (unknown) (no date) (unknown) (unknown) patient (units unknown) (unknown) (unknown) (no date) (unknown) (unknown) resultant ventricula r and sulcal prominence.? There are periventricular and deep (units unknown) (unknown) (unknown) (no date) (unknown) (unknown) size.? (units unknown) (unknown) (unknown) (no date) (unknown) (unknown) suspicious (units unknown) (unknown) (unknown) (no date) (unknown) (unknown) to the (units unknown) (unknown) (unknown) (no date) (unknown) (unknown) unremarkable.? (units unknown) (unknown) (unknown) (no date) (unknown) (unknown) ventricles are symmetric in size and shape.? (units unknown) (unknown) (unknown) (no date) (unknown) (unknown) vertex, with coronal and sagittal reformats.? For radiation dose reduction, the (units unknown) (unknown) (unknown) (no date) (unknown) (unknown) was used:? automated exposure control, adjustment of mA and/or kV according to (units unknown) (unknown) (unknown) (no date) (unknown) (unknown) white (units unknown) (unknown) Result panel 255 (unknown) (no date) (unknown) (unknown) (no value) (units unknown) (unknown) (unknown) (no date) (unknown) (unknown) <Electronically sign ed by Mabel Garcia D.O.> (units unknown) (unknown) (unknown) (no date) (unknown) (unknown) [id number] (units unknown) (unknown) (unknown) (no date) (unknown) (unknown) 06/26/22 06/26/22 06/26/22 Range/Units (units unknown) (unknown) (unknown) (no date) (unknown) (unknown) 06/26/22 17:10 (units unknown) (unknown) (unknown) (no date) (unknown) (unknown) 06/26/22 17:42 (units unknown) (unknown) (unknown) (no date) (unknown) (unknown) 06/26/22 18:13 (units unknown) (unknown) (unknown) (no date) (unknown) (unknown) 06/26/22 18:47 (units unknown) (unknown) (unknown) (no date) (unknown) (unknown) 06/26/22 (units unknown) (unknown) (unknown) (no date) (unknown) (unknown) 06/27/22 0239 (units unknown) (unknown) (unknown) (no date) (unknown) (unknown) 17:10 17:10 17:10 (units unknown) (unknown) (unknown) (no date) (unknown) (unknown) 17:10 17:10 18:13 (units unknown) (unknown) (unknown) (no date) (unknown) (unknown) 18:45 06/26/22 (units unknown) (unknown) (unknown) (no date) (unknown) (unknown) 18:47 18:47 19:45 (units unknown) (unknown) (unknown) (no date) (unknown) (unknown) 19:00 06/26/22 (units unknown) (unknown) (unknown) (no date) (unknown) (unknown) 19:15 (units unknown) (unknown) (unknown) (no date) (unknown) (unknown) 19:30 06/26/22 (units unknown) (unknown) (unknown) (no date) (unknown) (unknown) 19:45 06/26/22 (units unknown) (unknown) (unknown) (no date) (unknown) (unknown) 20:00 (units unknown) (unknown) (unknown) (no date) (unknown) (unknown) 20:15 06/26/22 (units unknown) (unknown) (unknown) (no date) (unknown) (unknown) 20:30 06/26/22 (units unknown) (unknown) (unknown) (no date) (unknown) (unknown) 20:45 (units unknown) (unknown) (unknown) (no date) (unknown) (unknown) ? (units unknown) (unknown) (unknown) (no date) (unknown) (unknown) ABDOMEN: Soft, nontender. Normoactive bowel sounds all 4 quadrants. No (units unknown) (unknown) (unknown) (no date) (unknown) (unknown) ALT (<50) IU/L (units unknown) (unknown) (unknown) (no date) (unknown) (unknown) ALT 43 (<50) IU/L (units unknown) (unknown) (unknown) (no date) (unknown) (unknown) APTT (26-36) SECONDS (units unknown) (unknown) (unknown) (no date) (unknown) (unknown) APTT 31 (26-36) SECONDS (units unknown) (unknown) (unknown) (no date) (unknown) (unknown) AST (17-59) IU/L (units unknown) (unknown) (unknown) (no date) (unknown) (unknown) AST 82 H (17-59) IU/L (units unknown) (unknown) (unknown) (no date) (unknown) (unknown) Acetaminophen (Acetaminophen 325 Mg Tablet) 650 mg PO Q6H PRN (units unknown) (unknown) (unknown) (no date) (unknown) (unknown) Actually called 911 and then his neighbor brought him in. (units unknown) (unknown) (unknown) (no date) (unknown) (unknown) Acute UTI, Acute metabolic encephalopathy (units unknown) (unknown) (unknown) (no date) (unknown) (unknown) Admin: 06/26/22 17:5 2 Dose: 1,000 mls/hr (units unknown) (unknown) (unknown) (no date) (unknown) (unknown) Admin: 06/26/22 18:3 9 Dose: 1,000 mls/hr (units unknown) (unknown) (unknown) (no date) (unknown) (unknown) Admin: 06/26/22 19:4 1 Dose: 200 mls/hr (units unknown) (unknown) (unknown) (no date) (unknown) (unknown) Admit Date/Time: 06/26/22 20:51 (units unknown) (unknown) (unknown) (no date) (unknown) (unknown) Admit Provider: Boo Byrd (units unknown) (unknown) (unknown) (no date) (unknown) (unknown) Age/Sex: 77 / M (units unknown) (unknown) (unknown) (no date) (unknown) (unknown) Albumin (3.5-5.0) g/dL (units unknown) (unknown) (unknown) (no date) (unknown) (unknown) Albumin 4.5 (3.5-5.0 ) g/dL (units unknown) (unknown) (unknown) (no date) (unknown) (unknown) Albumin/Globulin Rat io (1.0-2.8) (units unknown) (unknown) (unknown) (no date) (unknown) (unknown) Albumin/Globulin Rat io 1.5 (1.0-2.8) (units unknown) (unknown) (unknown) (no date) (unknown) (unknown) Alkaline Phosphatase (38-126) U/L (units unknown) (unknown) (unknown) (no date) (unknown) (unknown) Alkaline Phosphatase 48 (38-126) U/L (units unknown) (unknown) (unknown) (no date) (unknown) (unknown) Allergies (units unknown) (unknown) (unknown) (no date) (unknown) (unknown) Allergy/AdvReac Type Severity Reaction Status Date / Time (units unknown) (unknown) (unknown) (no date) (unknown) (unknown) BUN (9-20) mg/dL (units unknown) (unknown) (unknown) (no date) (unknown) (unknown) BUN 9 (9-20) mg/dL (units unknown) (unknown) (unknown) (no date) (unknown) (unknown) BUN/Creatinine Ratio (6-22) (units unknown) (unknown) (unknown) (no date) (unknown) (unknown) BUN/Creatinine Ratio 8.7 (6-22) (units unknown) (unknown) (unknown) (no date) (unknown) (unknown) Baso # (Auto) (0-100 ) /uL (units unknown) (unknown) (unknown) (no date) (unknown) (unknown) Baso # (Auto) 100 (0-100) /uL (units unknown) (unknown) (unknown) (no date) (unknown) (unknown) Baso % (Auto) (0-2) % (units unknown) (unknown) (unknown) (no date) (unknown) (unknown) Baso % (Auto) 2.0 (0 -2) % (units unknown) (unknown) (unknown) (no date) (unknown) (unknown) Blood Pressure 140/76 (units unknown) (unknown) (unknown) (no date) (unknown) (unknown) Blood Pressure 144/80 H (units unknown) (unknown) (unknown) (no date) (unknown) (unknown) Blood Pressure 159/8 5 H 06/26/22 16:44 (units unknown) (unknown) (unknown) (no date) (unknown) (unknown) Blood Pressure (units unknown) (unknown) (unknown) (no date) (unknown) (unknown) Bones and chest wall :? No suspicious bony lesions.? Overlying soft tissues (units unknown) (unknown) (unknown) (no date) (unknown) (unknown) Brain:? No intracran ial bleeds or masses.? There is cerebral volume loss for (units unknown) (unknown) (unknown) (no date) (unknown) (unknown) CARDIOVASCULAR: Regu lar rate and rhythm without murmurs, rubs or gallops. (units unknown) (unknown) (unknown) (no date) (unknown) (unknown) CK-MB (CK-2) (<2.37) ng/mL (units unknown) (unknown) (unknown) (no date) (unknown) (unknown) CK-MB (CK-2) 0.87 (<2.37) ng/mL (units unknown) (unknown) (unknown) (no date) (unknown) (unknown) CK-MB (CK-2) Rel Ind ex (1.5-5.0) % (units unknown) (unknown) (unknown) (no date) (unknown) (unknown) CK-MB (CK-2) Rel Ind ex 0.4 L (1.5-5.0) % (units unknown) (unknown) (unknown) (no date) (unknown) (unknown) COMPARISON:? None. (units unknown) (unknown) (unknown) (no date) (unknown) (unknown) COMPARISON:? [facility], CR, XR CHEST 1 VIEW, 08/08/2017, 15:26. (units unknown) (unknown) (unknown) (no date) (unknown) (unknown) CSF spaces:? Basal cisterns are patent.? No extra-axial fluid collections.? The (units unknown) (unknown) (unknown) (no date) (unknown) (unknown) CT head/brain wo con Stat (units unknown) (unknown) (unknown) (no date) (unknown) (unknown) CT scan - head: (units unknown) (unknown) (unknown) (no date) (unknown) (unknown) Calcium (8.4-10.2) mg/dL (units unknown) (unknown) (unknown) (no date) (unknown) (unknown) Calcium 9.4 (8.4-10. 2) mg/dL (units unknown) (unknown) (unknown) (no date) (unknown) (unknown) Carbon Dioxide (22-3 2) mmol/L (units unknown) (unknown) (unknown) (no date) (unknown) (unknown) Carbon Dioxide 22 (22-32) mmol/L (units unknown) (unknown) (unknown) (no date) (unknown) (unknown) Ceftriaxone Sodium 1,000 mg/ (Sodium Chloride) 100 mls @ 200 mls/hr IV NOW ONE (units unknown) (unknown) (unknown) (no date) (unknown) (unknown) Ceftriaxone Sodium 1,000 mg/ (Sodium Chloride) 100 mls @ 200 mls/hr IV Q24H AURY (units unknown) (unknown) (unknown) (no date) (unknown) (unknown) Chest x-ray: (units unknown) (unknown) (unknown) (no date) (unknown) (unknown) Chief complaint: Weakness (units unknown) (unknown) (unknown) (no date) (unknown) (unknown) Chloride (98-107) mmol/L (units unknown) (unknown) (unknown) (no date) (unknown) (unknown) Chloride 99 (98-107) mmol/L (units unknown) (unknown) (unknown) (no date) (unknown) (unknown) Clinical Impression: (units unknown) (unknown) (unknown) (no date) (unknown) (unknown) Complete) (units unknown) (unknown) (unknown) (no date) (unknown) (unknown) Course (units unknown) (unknown) (unknown) (no date) (unknown) (unknown) Covid-19 + FLU A/B + RSV - PCR Stat (units unknown) (unknown) (unknown) (no date) (unknown) (unknown) Creatinine (0.66-1.2 5) mg/dL (units unknown) (unknown) (unknown) (no date) (unknown) (unknown) Creatinine 1.04 (0.66-1.25) mg/dL (units unknown) (unknown) (unknown) (no date) (unknown) (unknown) : 1945 Acct:[id number] (units unknown) (unknown) (unknown) (no date) (unknown) (unknown) Date of Service: 06/26/22 (units unknown) (unknown) (unknown) (no date) (unknown) (unknown) Departure (units unknown) (unknown) (unknown) (no date) (unknown) (unknown) Dictated by: Casey Sneed M.D. on 06/26/2022 at 16:40? (units unknown) (unknown) (unknown) (no date) (unknown) (unknown) Dictated by: Casey Sneed M.D. on 06/26/2022 at 17:07 ? (units unknown) (unknown) (unknown) (no date) (unknown) (unknown) Discharge Plan (units unknown) (unknown) (unknown) (no date) (unknown) (unknown) Discontinued Medications (units unknown) (unknown) (unknown) (no date) (unknown) (unknown) Documented By: GC (units unknown) (unknown) (unknown) (no date) (unknown) (unknown) Documented By: JH (units unknown) (unknown) (unknown) (no date) (unknown) (unknown) Documented By: NR (units unknown) (unknown) (unknown) (no date) (unknown) (unknown) Documented By: RL (units unknown) (unknown) (unknown) (no date) (unknown) (unknown) Documented By: SB (units unknown) (unknown) (unknown) (no date) (unknown) (unknown) Dr Byrd accepts patient. (units unknown) (unknown) (unknown) (no date) (unknown) (unknown) ECG Data (units unknown) (unknown) (unknown) (no date) (unknown) (unknown) ED Orders (units unknown) (unknown) (unknown) (no date) (unknown) (unknown) ER Physician: Mabel Garcia D.O. (units unknown) (unknown) (unknown) (no date) (unknown) (unknown) EXTREMITIES: Normal range of motion, no clubbing or edema. Neurovascularly (units unknown) (unknown) (unknown) (no date) (unknown) (unknown) Emergency Report (units unknown) (unknown) (unknown) (no date) (unknown) (unknown) Enoxaparin Sodium (Enoxaparin 40 Mg/0.4 Ml Syringe) 40 mg SUBCUT DAILY AURY (units unknown) (unknown) (unknown) (no date) (unknown) (unknown) Eos # (Auto) (0-450) /uL (units unknown) (unknown) (unknown) (no date) (unknown) (unknown) Eos # (Auto) 0 (0-45 0) /uL (units unknown) (unknown) (unknown) (no date) (unknown) (unknown) Eos % (Auto) (2-4) % (units unknown) (unknown) (unknown) (no date) (unknown) (unknown) Eos % (Auto) 0.0 L (2-4) % (units unknown) (unknown) (unknown) (no date) (unknown) (unknown) Estimated GFR > 60 (>60) mL/min (units unknown) (unknown) (unknown) (no date) (unknown) (unknown) Estimated GFR (>60) mL/min (units unknown) (unknown) (unknown) (no date) (unknown) (unknown) Ethyl Alcohol ( - 10 ) mg/dL (units unknown) (unknown) (unknown) (no date) (unknown) (unknown) Ethyl Alcohol 90 H ( - 10) mg/dL (units unknown) (unknown) (unknown) (no date) (unknown) (unknown) Exam (units unknown) (unknown) (unknown) (no date) (unknown) (unknown) FINDINGS:? (units unknown) (unknown) (unknown) (no date) (unknown) (unknown) GENERAL: Alert week 77-year-old male no acute distress and in no acute (units unknown) (unknown) (unknown) (no date) (unknown) (unknown) General (units unknown) (unknown) (unknown) (no date) (unknown) (unknown) Globulin (1.7-4.1) g/dL (units unknown) (unknown) (unknown) (no date) (unknown) (unknown) Globulin 3.1 (1.7-4. 1) g/dL (units unknown) (unknown) (unknown) (no date) (unknown) (unknown) Glucose (80-110) mg/dL (units unknown) (unknown) (unknown) (no date) (unknown) (unknown) Glucose 181 H (80-11 0) mg/dL (units unknown) (unknown) (unknown) (no date) (unknown) (unknown) HEENT: Head atraumatic,EOMI, pupils reactive, face symmetric, moist mucous (units unknown) (unknown) (unknown) (no date) (unknown) (unknown) HPI - Weakness (units unknown) (unknown) (unknown) (no date) (unknown) (unknown) HPI Narrative: (units unknown) (unknown) (unknown) (no date) (unknown) (unknown) Hct (41-53) % (units unknown) (unknown) (unknown) (no date) (unknown) (unknown) Hct 41.1 (41-53) % (units unknown) (unknown) (unknown) (no date) (unknown) (unknown) He is given a dose Rocephin. He is no significant electrolyte abnormality. (units unknown) (unknown) (unknown) (no date) (unknown) (unknown) Hgb (13.5-17.5) g/dL (units unknown) (unknown) (unknown) (no date) (unknown) (unknown) Hgb 13.2 L (13.5-17. 5) g/dL (units unknown) (unknown) (unknown) (no date) (unknown) (unknown) History of Present Illness (units unknown) (unknown) (unknown) (no date) (unknown) (unknown) Home Medications (units unknown) (unknown) (unknown) (no date) (unknown) (unknown) I spoke with his neighbor on the phone he reports that done is actually quite (units unknown) (unknown) (unknown) (no date) (unknown) (unknown) IMPRESSION:? No acut e intracranial abnormality.? (units unknown) (unknown) (unknown) (no date) (unknown) (unknown) IMPRESSION:? No acut e process. (units unknown) (unknown) (unknown) (no date) (unknown) (unknown) INDICATIONS:? dizzy, headache (units unknown) (unknown) (unknown) (no date) (unknown) (unknown) INDICATIONS:? suspec guilherme sepsis (units unknown) (unknown) (unknown) (no date) (unknown) (unknown) INR (0.9-1.3) (units unknown) (unknown) (unknown) (no date) (unknown) (unknown) INR 1.0 (0.9-1.3) (units unknown) (unknown) (unknown) (no date) (unknown) (unknown) Image quality:? Excellent.? (units unknown) (unknown) (unknown) (no date) (unknown) (unknown) Imaging Data (units unknown) (unknown) (unknown) (no date) (unknown) (unknown) Influenza A (RT-PCR) (NEGATIVE) (units unknown) (unknown) (unknown) (no date) (unknown) (unknown) Influenza A (RT-PCR) Flu a negative (NEGATIVE) (units unknown) (unknown) (unknown) (no date) (unknown) (unknown) Influenza B (RT-PCR) (NEGATIVE) (units unknown) (unknown) (unknown) (no date) (unknown) (unknown) Influenza B (RT-PCR) Flu b negative (NEGATIVE) (units unknown) (unknown) (unknown) (no date) (unknown) (unknown) Initial Vital Signs (units unknown) (unknown) (unknown) (no date) (unknown) (unknown) Initial Vital Signs: (units unknown) (unknown) (unknown) (no date) (unknown) (unknown) Interpretation: (units unknown) (unknown) (unknown) (no date) (unknown) (unknown) Irregular rhythm rat e [address] changes no priors to compare (units unknown) (unknown) (unknown) (no date) (unknown) (unknown) [address] [address] (units unknown) (unknown) (unknown) (no date) (unknown) (unknown) Lab Data (units unknown) (unknown) (unknown) (no date) (unknown) (unknown) Lab Results (units unknown) (unknown) (unknown) (no date) (unknown) (unknown) Labs: (units unknown) (unknown) (unknown) (no date) (unknown) (unknown) Lactate (0.7-2.1) mmol/L (units unknown) (unknown) (unknown) (no date) (unknown) (unknown) Lactate 2.3 H (0.7-2 .1) mmol/L (units unknown) (unknown) (unknown) (no date) (unknown) (unknown) Lactate 3.9 H (0.7-2 .1) mmol/L (units unknown) (unknown) (unknown) (no date) (unknown) (unknown) Lactated Ringer's (Lactated Ringers) 1,000 mls @ 100 mls/hr IV CONT AURY (units unknown) (unknown) (unknown) (no date) (unknown) (unknown) Last Admin: 06/26/22 21:07 Dose: 125 mls/hr (units unknown) (unknown) (unknown) (no date) (unknown) (unknown) Last Admin: 06/27/22 00:04 Dose: 100 mls/hr (units unknown) (unknown) (unknown) (no date) (unknown) (unknown) Last Admin: 06/27/22 00:04 Dose: 650 mg (units unknown) (unknown) (unknown) (no date) (unknown) (unknown) Last Infusion: 06/26 18:40 Dose: 0 mls/hr (units unknown) (unknown) (unknown) (no date) (unknown) (unknown) Last Infusion: 06/26 19:40 Dose: 0 mls/hr (units unknown) (unknown) (unknown) (no date) (unknown) (unknown) Last Infusion: 06/26 20:25 Dose: 0 mls/hr (units unknown) (unknown) (unknown) (no date) (unknown) (unknown) Lipase (23-300) U/L (units unknown) (unknown) (unknown) (no date) (unknown) (unknown) Lipase 385 H (23-300 ) U/L (units unknown) (unknown) (unknown) (no date) (unknown) (unknown) Lungs and pleura:? Lungs are clear.? No pleural effusions or pneumothorax.? (units unknown) (unknown) (unknown) (no date) (unknown) (unknown) Lymph # (Auto) (3284-2493) /uL (units unknown) (unknown) (unknown) (no date) (unknown) (unknown) Lymph # (Auto) 1300 (9839-6363) /uL (units unknown) (unknown) (unknown) (no date) (unknown) (unknown) Lymph % (Auto) (25-4 0) % (units unknown) (unknown) (unknown) (no date) (unknown) (unknown) Lymph % (Auto) 36.0 (25-40) % (units unknown) (unknown) (unknown) (no date) (unknown) (unknown) MCH (26-34) PG (units unknown) (unknown) (unknown) (no date) (unknown) (unknown) MCH 26.7 (26-34) PG (units unknown) (unknown) (unknown) (no date) (unknown) (unknown) MCHC (30-36) % (units unknown) (unknown) (unknown) (no date) (unknown) (unknown) MCHC 32.1 (30-36) % (units unknown) (unknown) (unknown) (no date) (unknown) (unknown) MCV (80-100) fL (units unknown) (unknown) (unknown) (no date) (unknown) (unknown) MCV 83.2 (80-100) fL (units unknown) (unknown) (unknown) (no date) (unknown) (unknown) MDM - Weakness (units unknown) (unknown) (unknown) (no date) (unknown) (unknown) MDM Narrative (units unknown) (unknown) (unknown) (no date) (unknown) (unknown) Mediastinum:? Mediastinal contours appear normal.? Heart size is normal.? (units unknown) (unknown) (unknown) (no date) (unknown) (unknown) Medical decision temitope ing narrative: (units unknown) (unknown) (unknown) (no date) (unknown) (unknown) Medication Instructi ons Recorded Confirmed (units unknown) (unknown) (unknown) (no date) (unknown) (unknown) Mode of arrival: Wheelchair (units unknown) (unknown) (unknown) (no date) (unknown) (unknown) [place] # (Auto) (0-900 ) /uL (units unknown) (unknown) (unknown) (no date) (unknown) (unknown) [place] # (Auto) 600 (0-900) /uL (units unknown) (unknown) (unknown) (no date) (unknown) (unknown) [place] % (Auto) (3-14) % (units unknown) (unknown) (unknown) (no date) (unknown) (unknown) [place] % (Auto) 15.6 H (3-14) % (units unknown) (unknown) (unknown) (no date) (unknown) (unknown) NEUROLOGICAL: Alert and oriented x4. Concession Attendant strength equal bilaterally good (units unknown) (unknown) (unknown) (no date) (unknown) (unknown) NT-Pro-B Natriuret P ep (<450) pg/mL (units unknown) (unknown) (unknown) (no date) (unknown) (unknown) NT-Pro-B Natriuret P ep 44 (<450) pg/mL (units unknown) (unknown) (unknown) (no date) (unknown) (unknown) Naloxone HCl (Naloxo ne 0.4 Mg/Ml Vial) 0.2 mg IV Q2MIN PRN (units unknown) (unknown) (unknown) (no date) (unknown) (unknown) Neut # (Auto) (2637-2916) /uL (units unknown) (unknown) (unknown) (no date) (unknown) (unknown) Neut # (Auto) 1700 (4840-1035) /uL (units unknown) (unknown) (unknown) (no date) (unknown) (unknown) Neut % (Auto) (50-75) % (units unknown) (unknown) (unknown) (no date) (unknown) (unknown) Neut % (Auto) 46.4 L (50-75) % (units unknown) (unknown) (unknown) (no date) (unknown) (unknown) No Known Drug Allerg ies Allergy Verified 06/26/22 16:44 (units unknown) (unknown) (unknown) (no date) (unknown) (unknown) Noncontrast 4.5 mm thick angled axial sections acquired from the foramen magnum (units unknown) (unknown) (unknown) (no date) (unknown) (unknown) Ondansetron HCl (Ondansetron 4 Mg Odt) 4 mg SL NOW PRN (units unknown) (unknown) (unknown) (no date) (unknown) (unknown) Ondansetron HCl (Ondansetron 4 Mg/2 Ml Inj) 4 mg IV NOW PRN (units unknown) (unknown) (unknown) (no date) (unknown) (unknown) Ondansetron HCl (Ondansetron 4 Mg/2 Ml Inj) 4 mg IV Q8HR PRN (units unknown) (unknown) (unknown) (no date) (unknown) (unknown) Ordered: (units unknown) (unknown) (unknown) (no date) (unknown) (unknown) Orders (units unknown) (unknown) (unknown) (no date) (unknown) (unknown) Oxygen Delivery Meth od Room Air 06/26/22 16:44 (units unknown) (unknown) (unknown) (no date) (unknown) (unknown) PRN Reason: Fever/Mi ld Pain (1-3) (units unknown) (unknown) (unknown) (no date) (unknown) (unknown) PRN Reason: Nausea A nd Vomiting (units unknown) (unknown) (unknown) (no date) (unknown) (unknown) PRN Reason: Opiate Reversal (units unknown) (unknown) (unknown) (no date) (unknown) (unknown) PROCEDURE:? CT HEAD/BRAIN WO CON (units unknown) (unknown) (unknown) (no date) (unknown) (unknown) PROCEDURE:? XR CHEST 1V (units unknown) (unknown) (unknown) (no date) (unknown) (unknown) PT (10.1-12.7) SECONDS (units unknown) (unknown) (unknown) (no date) (unknown) (unknown) PT 11.4 (10.1-12.7) SECONDS (units unknown) (unknown) (unknown) (no date) (unknown) (unknown) Patient 77-year-old male history of hypertension presenting today with (units unknown) (unknown) (unknown) (no date) (unknown) (unknown) Patient Disposition: Admitted As Inpatient (units unknown) (unknown) (unknown) (no date) (unknown) (unknown) Patient History (units unknown) (unknown) (unknown) (no date) (unknown) (unknown) Patient is a 77-year-old male history of hypertension presenting today with (units unknown) (unknown) (unknown) (no date) (unknown) (unknown) Patient: James Hoffman MR#: [id number] (units unknown) (unknown) (unknown) (no date) (unknown) (unknown) Plt Count (150-400) X103/uL (units unknown) (unknown) (unknown) (no date) (unknown) (unknown) Plt Count 168 (150-4 00) X103/uL (units unknown) (unknown) (unknown) (no date) (unknown) (unknown) Potassium (3.4-5.1) mmol/L (units unknown) (unknown) (unknown) (no date) (unknown) (unknown) Potassium 3.8 (3.4-5 .1) mmol/L (units unknown) (unknown) (unknown) (no date) (unknown) (unknown) Procalcitonin (<0.5) ng/mL (units unknown) (unknown) (unknown) (no date) (unknown) (unknown) Procalcitonin 0.11 (<0.5) ng/mL (units unknown) (unknown) (unknown) (no date) (unknown) (unknown) Pulse Oximetry 95 97 99 (units unknown) (unknown) (unknown) (no date) (unknown) (unknown) Pulse Oximetry 97 96 95 (units unknown) (unknown) (unknown) (no date) (unknown) (unknown) Pulse Oximetry 97 97 97 (units unknown) (unknown) (unknown) (no date) (unknown) (unknown) Pulse Oximetry 98 06/26/22 16:44 (units unknown) (unknown) (unknown) (no date) (unknown) (unknown) Pulse Rate 108 H 114 H 85 (units unknown) (unknown) (unknown) (no date) (unknown) (unknown) Pulse Rate 111 H 06/26/22 16:44 (units unknown) (unknown) (unknown) (no date) (unknown) (unknown) Pulse Rate 88 103 H 112 H (units unknown) (unknown) (unknown) (no date) (unknown) (unknown) Pulse Rate 94 H 97 H 107 H (units unknown) (unknown) (unknown) (no date) (unknown) (unknown) RBC (4.5-5.9) X106/uL (units unknown) (unknown) (unknown) (no date) (unknown) (unknown) RBC 4.94 (4.5-5.9) X106/uL (units unknown) (unknown) (unknown) (no date) (unknown) (unknown) RDW (11.6-14.8) % (units unknown) (unknown) (unknown) (no date) (unknown) (unknown) RDW 16.6 H (11.6-14. 8) % (units unknown) (unknown) (unknown) (no date) (unknown) (unknown) RESPIRATORY: Breath sounds equal bilaterally, no wheezes rales or rhonchi. (units unknown) (unknown) (unknown) (no date) (unknown) (unknown) ROS Unobtainable: Al l systems reviewed + are unremarkable except as noted in HPI (units unknown) (unknown) (unknown) (no date) (unknown) (unknown) RSV (PCR) (Negative) (units unknown) (unknown) (unknown) (no date) (unknown) (unknown) RSV (PCR) Negative (Negative) (units unknown) (unknown) (unknown) (no date) (unknown) (unknown) Radiologist Impression: (units unknown) (unknown) (unknown) (no date) (unknown) (unknown) Related Data (units unknown) (unknown) (unknown) (no date) (unknown) (unknown) Respiratory Rate 18 06/26/22 16:44 (units unknown) (unknown) (unknown) (no date) (unknown) (unknown) Respiratory Rate 19 46 H 45 H (units unknown) (unknown) (unknown) (no date) (unknown) (unknown) Respiratory Rate 22 30 H 35 H (units unknown) (unknown) (unknown) (no date) (unknown) (unknown) Respiratory Rate 36 H 50 H 22 (units unknown) (unknown) (unknown) (no date) (unknown) (unknown) Review of Systems (units unknown) (unknown) (unknown) (no date) (unknown) (unknown) SARS-CoV-2 (PCR) (Negative) (units unknown) (unknown) (unknown) (no date) (unknown) (unknown) SARS-CoV-2 (PCR) Negative (Negative) (units unknown) (unknown) (unknown) (no date) (unknown) (unknown) SKIN: Warm, dry, no laceration, no petechiae, no rashes or lesions. (units unknown) (unknown) (unknown) (no date) (unknown) (unknown) Signed By: (units unknown) (unknown) (unknown) (no date) (unknown) (unknown) Sinuses:? Visualized sinuses and mastoids are clear.? (units unknown) (unknown) (unknown) (no date) (unknown) (unknown) Skull and face:? Calvarium and visualized facial bones appear intact, without (units unknown) (unknown) (unknown) (no date) (unknown) (unknown) Smoking Status: Neve r smoker (units unknown) (unknown) (unknown) (no date) (unknown) (unknown) Social History (units unknown) (unknown) (unknown) (no date) (unknown) (unknown) Sodium (137-145) mmol/L (units unknown) (unknown) (unknown) (no date) (unknown) (unknown) Sodium 135 L (137-14 5) mmol/L (units unknown) (unknown) (unknown) (no date) (unknown) (unknown) Sodium Chloride (Nor mal Saline 0.9%) 1,000 mls @ 1,000 mls/hr IV BOLUS ONE (units unknown) (unknown) (unknown) (no date) (unknown) (unknown) Sodium Chloride (Nor mal Saline 0.9%) 1,000 mls @ 125 mls/hr IV CONT AURY (units unknown) (unknown) (unknown) (no date) (unknown) (unknown) Source: patient (units unknown) (unknown) (unknown) (no date) (unknown) (unknown) Stated complaint: Dizzy, Tinnitus, Headache (units unknown) (unknown) (unknown) (no date) (unknown) (unknown) Stop: 06/26/22 17:50 (units unknown) (unknown) (unknown) (no date) (unknown) (unknown) Stop: 06/26/22 19:12 (units unknown) (unknown) (unknown) (no date) (unknown) (unknown) Stop: 06/26/22 19:23 (units unknown) (unknown) (unknown) (no date) (unknown) (unknown) Substance Use Type: does not use (units unknown) (unknown) (unknown) (no date) (unknown) (unknown) Surgical changes and devices:? None.? (units unknown) (unknown) (unknown) (no date) (unknown) (unknown) TECHNIQUE:? One view of the chest was acquired.? (units unknown) (unknown) (unknown) (no date) (unknown) (unknown) TECHNIQUE:? (units unknown) (unknown) (unknown) (no date) (unknown) (unknown) Temperature 98.9 F 06/26/22 16:44 (units unknown) (unknown) (unknown) (no date) (unknown) (unknown) Time Seen by Provide r: 06/26/22 17:42 (units unknown) (unknown) (unknown) (no date) (unknown) (unknown) Total Bilirubin (0.2-1.3) mg/dL (units unknown) (unknown) (unknown) (no date) (unknown) (unknown) Total Bilirubin 0.6 (0.2-1.3) mg/dL (units unknown) (unknown) (unknown) (no date) (unknown) (unknown) Total Creatine Kin[place] e (55-170) U/L (units unknown) (unknown) (unknown) (no date) (unknown) (unknown) Total Creatine Kinas e 204 H (55-170) U/L (units unknown) (unknown) (unknown) (no date) (unknown) (unknown) Total Protein (6.3-8 .2) g/dL (units unknown) (unknown) (unknown) (no date) (unknown) (unknown) Total Protein 7.6 (6.3-8.2) g/dL (units unknown) (unknown) (unknown) (no date) (unknown) (unknown) Troponin I < 0.012 (0.01-0.034) ng/mL (units unknown) (unknown) (unknown) (no date) (unknown) (unknown) Troponin I (0.01-0.0 34) ng/mL (units unknown) (unknown) (unknown) (no date) (unknown) (unknown) U Benzodiazepines Sc rn (Negative) (units unknown) (unknown) (unknown) (no date) (unknown) (unknown) U Benzodiazepines Sc rn Negative (Negative) (units unknown) (unknown) (unknown) (no date) (unknown) (unknown) U Marijuana (THC) Screen (Negative) (units unknown) (unknown) (unknown) (no date) (unknown) (unknown) U Marijuana (THC) Screen Negative (Negative) (units unknown) (unknown) (unknown) (no date) (unknown) (unknown) U Methamphetamines S crn (Negative) (units unknown) (unknown) (unknown) (no date) (unknown) (unknown) U Methamphetamines S crn Negative (Negative) (units unknown) (unknown) (unknown) (no date) (unknown) (unknown) U Opiates 300ng/mL c ut (Negative) (units unknown) (unknown) (unknown) (no date) (unknown) (unknown) U Opiates 300ng/mL c ut Negative (Negative) (units unknown) (unknown) (unknown) (no date) (unknown) (unknown) U Tricyclic Antidepr ess (Negative) (units unknown) (unknown) (unknown) (no date) (unknown) (unknown) U Tricyclic Antidepr ess Negative (Negative) (units unknown) (unknown) (unknown) (no date) (unknown) (unknown) Ur Amphetamines Scre en (Negative) (units unknown) (unknown) (unknown) (no date) (unknown) (unknown) Ur Amphetamines Scre en Negative (Negative) (units unknown) (unknown) (unknown) (no date) (unknown) (unknown) Ur Barbiturates Scre en (Negative) (units unknown) (unknown) (unknown) (no date) (unknown) (unknown) Ur Barbiturates Scre en Negative (Negative) (units unknown) (unknown) (unknown) (no date) (unknown) (unknown) Ur Culture Indicated ? Specimen cultured (units unknown) (unknown) (unknown) (no date) (unknown) (unknown) Ur Culture Indicated? (units unknown) (unknown) (unknown) (no date) (unknown) (unknown) Ur Leukocyte [place] e (NEGATIVE) (units unknown) (unknown) (unknown) (no date) (unknown) (unknown) Ur Leukocyte [place] e Trace H (NEGATIVE) (units unknown) (unknown) (unknown) (no date) (unknown) (unknown) Ur MDMA Scrn ([place] y) (Negative) (units unknown) (unknown) (unknown) (no date) (unknown) (unknown) Ur MDMA Scrn ([place] y) Negative (Negative) (units unknown) (unknown) (unknown) (no date) (unknown) (unknown) Ur Oxycodone Screen (Negative) (units unknown) (unknown) (unknown) (no date) (unknown) (unknown) Ur Oxycodone Screen Negative (Negative) (units unknown) (unknown) (unknown) (no date) (unknown) (unknown) Ur Phencyclidine Scr n (Negative) (units unknown) (unknown) (unknown) (no date) (unknown) (unknown) Ur Phencyclidine Scr n Negative (Negative) (units unknown) (unknown) (unknown) (no date) (unknown) (unknown) Ur Specific [place] (1.000-1.035) (units unknown) (unknown) (unknown) (no date) (unknown) (unknown) Ur Specific [place] 1.015 (1.000-1.035) (units unknown) (unknown) (unknown) (no date) (unknown) (unknown) Urinalysis and Microscopic Stat (units unknown) (unknown) (unknown) (no date) (unknown) (unknown) Urine Appearance Clear (units unknown) (unknown) (unknown) (no date) (unknown) (unknown) Urine Appearance (units unknown) (unknown) (unknown) (no date) (unknown) (unknown) Urine Bacteria (None) (units unknown) (unknown) (unknown) (no date) (unknown) (unknown) Urine Bacteria Many (>30) H (None) (units unknown) (unknown) (unknown) (no date) (unknown) (unknown) Urine Bilirubin (NEGATIVE) (units unknown) (unknown) (unknown) (no date) (unknown) (unknown) Urine Bilirubin Negative (NEGATIVE) (units unknown) (unknown) (unknown) (no date) (unknown) (unknown) Urine Cocaine Screen (Negative) (units unknown) (unknown) (unknown) (no date) (unknown) (unknown) Urine Cocaine Screen Negative (Negative) (units unknown) (unknown) (unknown) (no date) (unknown) (unknown) Urine Color Yellow (units unknown) (unknown) (unknown) (no date) (unknown) (unknown) Urine Color (units unknown) (unknown) (unknown) (no date) (unknown) (unknown) Urine Culture Stat (units unknown) (unknown) (unknown) (no date) (unknown) (unknown) Urine Drug Screen, Rapid Stat (units unknown) (unknown) (unknown) (no date) (unknown) (unknown) Urine Glucose (UA) (Negative) g/dL (units unknown) (unknown) (unknown) (no date) (unknown) (unknown) Urine Glucose (UA) Trace H (Negative) g/dL (units unknown) (unknown) (unknown) (no date) (unknown) (unknown) Urine Ketones (NEGATIVE) (units unknown) (unknown) (unknown) (no date) (unknown) (unknown) Urine Ketones Negati ve (NEGATIVE) (units unknown) (unknown) (unknown) (no date) (unknown) (unknown) Urine Methadone Scre en (Negative) (units unknown) (unknown) (unknown) (no date) (unknown) (unknown) Urine Methadone Scre en Negative (Negative) (units unknown) (unknown) (unknown) (no date) (unknown) (unknown) Urine Nitrate (Negative) (units unknown) (unknown) (unknown) (no date) (unknown) (unknown) Urine Nitrate [place] H (Negative) (units unknown) (unknown) (unknown) (no date) (unknown) (unknown) Urine Occult Blood (Negative) (units unknown) (unknown) (unknown) (no date) (unknown) (unknown) Urine Occult Blood Negative (Negative) (units unknown) (unknown) (unknown) (no date) (unknown) (unknown) Urine Protein (Negative) (units unknown) (unknown) (unknown) (no date) (unknown) (unknown) Urine Protein Trace H (Negative) (units unknown) (unknown) (unknown) (no date) (unknown) (unknown) Urine RBC (0-5/HPF) (units unknown) (unknown) (unknown) (no date) (unknown) (unknown) Urine RBC None seen (0-5/HPF) (units unknown) (unknown) (unknown) (no date) (unknown) (unknown) Urine Urobilinogen (0.2) E.U./dL (units unknown) (unknown) (unknown) (no date) (unknown) (unknown) Urine Urobilinogen 0 .2 (0.2) E.U./dL (units unknown) (unknown) (unknown) (no date) (unknown) (unknown) Urine WBC (0-5/HPF) (units unknown) (unknown) (unknown) (no date) (unknown) (unknown) Urine WBC 10-30/hpf H (0-5/HPF) (units unknown) (unknown) (unknown) (no date) (unknown) (unknown) Urine pH (4.5-8.0) (units unknown) (unknown) (unknown) (no date) (unknown) (unknown) Urine pH 7.5 (4.5-8.0) (units unknown) (unknown) (unknown) (no date) (unknown) (unknown) Vital Signs - 8 hr (units unknown) (unknown) (unknown) (no date) (unknown) (unknown) Vital Signs (units unknown) (unknown) (unknown) (no date) (unknown) (unknown) Vital signs: (units unknown) (unknown) (unknown) (no date) (unknown) (unknown) WBC (4.5-11.0) X103/uL (units unknown) (unknown) (unknown) (no date) (unknown) (unknown) WBC 3.6 L (4.5-11.0) X103/uL (units unknown) (unknown) (unknown) (no date) (unknown) (unknown) [Embedded Image Not Available] (units unknown) (unknown) (unknown) (no date) (unknown) (unknown) age, with (units unknown) (unknown) (unknown) (no date) (unknown) (unknown) alcohol intake frequency: 0-2 drinks per day (units unknown) (unknown) (unknown) (no date) (unknown) (unknown) and below (units unknown) (unknown) (unknown) (no date) (unknown) (unknown) appear (units unknown) (unknown) (unknown) (no date) (unknown) (unknown) artery atherosclerosis.? (units unknown) (unknown) (unknown) (no date) (unknown) (unknown) atenolol 100 mg tabl et 100 mg PO DAILY 07/05/17 07/05/17 (units unknown) (unknown) (unknown) (no date) (unknown) (unknown) breath. No abdominal pain nausea or vomiting. Just overall does not feel good. (units unknown) (unknown) (unknown) (no date) (unknown) (unknown) carotid (units unknown) (unknown) (unknown) (no date) (unknown) (unknown) confused more so arielle n normal. He lives by himself he is family out of state. (units unknown) (unknown) (unknown) (no date) (unknown) (unknown) confusion. He is fou nd to have a UTI with nitrates in his urine along with an (units unknown) (unknown) (unknown) (no date) (unknown) (unknown) distress. (units unknown) (unknown) (unknown) (no date) (unknown) (unknown) elevated lactate of 3.9 and leukopenia 3.6. He is afebrile here vitals are (units unknown) (unknown) (unknown) (no date) (unknown) (unknown) [id number] no facial droop (units unknown) (unknown) (unknown) (no date) (unknown) (unknown) following (units unknown) (unknown) (unknown) (no date) (unknown) (unknown) getting up out of be d but is easily redirectable. Further workup head CT is (units unknown) (unknown) (unknown) (no date) (unknown) (unknown) guarding or rebound. (units unknown) (unknown) (unknown) (no date) (unknown) (unknown) household members: none (units unknown) (unknown) (unknown) (no date) (unknown) (unknown) intact (units unknown) (unknown) (unknown) (no date) (unknown) (unknown) iron-0.38 mg tablet (Geritol (units unknown) (unknown) (unknown) (no date) (unknown) (unknown) is actually afebrile . Denies any chest pain palpitations or shortness of (units unknown) (unknown) (unknown) (no date) (unknown) (unknown) lesions.? (units unknown) (unknown) (unknown) (no date) (unknown) (unknown) lightheadedness and weakness. Ongoing for last 2 days. He says that he feels (units unknown) (unknown) (unknown) (no date) (unknown) (unknown) matter chronic small vessel ischemic changes.? There is intracranial internal (units unknown) (unknown) (unknown) (no date) (unknown) (unknown) membranes (units unknown) (unknown) (unknown) (no date) (unknown) (unknown) multivitamin with mi n 1 tab PO DIRECTED 07/05/17 07/05/17 (units unknown) (unknown) (unknown) (no date) (unknown) (unknown) negative he is mildl y intoxicated with alcohol level of 90 but drug screen is (units unknown) (unknown) (unknown) (no date) (unknown) (unknown) negative. I suspect he has mild metabolic encephalopathy 2nd secondary to UTI. (units unknown) (unknown) (unknown) (no date) (unknown) (unknown) no.36-iron,carbonyl- FA 16 mg (units unknown) (unknown) (unknown) (no date) (unknown) (unknown) overall weak. Dizzy when he stands up. He thinks he may have had a fever but (units unknown) (unknown) (unknown) (no date) (unknown) (unknown) patient (units unknown) (unknown) (unknown) (no date) (unknown) (unknown) resultant ventricula r and sulcal prominence.? There are periventricular and deep (units unknown) (unknown) (unknown) (no date) (unknown) (unknown) size.? (units unknown) (unknown) (unknown) (no date) (unknown) (unknown) stable. Lactate improves with fluids he is not hypotensive so sepsis fluids (units unknown) (unknown) (unknown) (no date) (unknown) (unknown) suspicious (units unknown) (unknown) (unknown) (no date) (unknown) (unknown) to the (units unknown) (unknown) (unknown) (no date) (unknown) (unknown) unremarkable.? (units unknown) (unknown) (unknown) (no date) (unknown) (unknown) ventricles are symmetric in size and shape.? (units unknown) (unknown) (unknown) (no date) (unknown) (unknown) vertex, with coronal and sagittal reformats.? For radiation dose reduction, the (units unknown) (unknown) (unknown) (no date) (unknown) (unknown) was used:? automated exposure control, adjustment of mA and/or kV according to (units unknown) (unknown) (unknown) (no date) (unknown) (unknown) were not given but h e is given adequate fluids. He remains mildly confused (units unknown) (unknown) (unknown) (no date) (unknown) (unknown) white (units unknown) (unknown) Result panel 256 (unknown) (no date) (unknown) (unknown) (no value) (units unknown) (unknown) (unknown) (no date) (unknown) (unknown) (past 8 hours): (units unknown) (unknown) (unknown) (no date) (unknown) (unknown) [id number] (units unknown) (unknown) (unknown) (no date) (unknown) (unknown) 06/26/22 06/26/22 06/26/22 (units unknown) (unknown) (unknown) (no date) (unknown) (unknown) 06/26/22 17:10 (units unknown) (unknown) (unknown) (no date) (unknown) (unknown) 06/26/22 (units unknown) (unknown) (unknown) (no date) (unknown) (unknown) 17:10 17:10 17:10 (units unknown) (unknown) (unknown) (no date) (unknown) (unknown) 17:10 17:10 18:13 (units unknown) (unknown) (unknown) (no date) (unknown) (unknown) 18:47 18:47 19:45 (units unknown) (unknown) (unknown) (no date) (unknown) (unknown) 21:30 06/26/22 (units unknown) (unknown) (unknown) (no date) (unknown) (unknown) 21:45 06/26/22 (units unknown) (unknown) (unknown) (no date) (unknown) (unknown) 22:00 (units unknown) (unknown) (unknown) (no date) (unknown) (unknown) 22:15 06/26/22 (units unknown) (unknown) (unknown) (no date) (unknown) (unknown) 22:30 06/26/22 (units unknown) (unknown) (unknown) (no date) (unknown) (unknown) 22:45 (units unknown) (unknown) (unknown) (no date) (unknown) (unknown) 23:00 06/26/22 (units unknown) (unknown) (unknown) (no date) (unknown) (unknown) 23:35 (units unknown) (unknown) (unknown) (no date) (unknown) (unknown) 23:39 06/26/22 (units unknown) (unknown) (unknown) (no date) (unknown) (unknown) 3.6, hgb 13.2, plts 168. Na 135, k 3.8, creatinine 1.04. INR 1.0. Trop negative. (units unknown) (unknown) (unknown) (no date) (unknown) (unknown) ALT 43 (units unknown) (unknown) (unknown) (no date) (unknown) (unknown) ALT (units unknown) (unknown) (unknown) (no date) (unknown) (unknown) APTT 31 (units unknown) (unknown) (unknown) (no date) (unknown) (unknown) APTT (units unknown) (unknown) (unknown) (no date) (unknown) (unknown) AST 82 H (units unknown) (unknown) (unknown) (no date) (unknown) (unknown) AST (units unknown) (unknown) (unknown) (no date) (unknown) (unknown) Age/Sex: 77 / M (units unknown) (unknown) (unknown) (no date) (unknown) (unknown) Albumin 4.5 (units unknown) (unknown) (unknown) (no date) (unknown) (unknown) Albumin (units unknown) (unknown) (unknown) (no date) (unknown) (unknown) Albumin/Globulin Rat io 1.5 (units unknown) (unknown) (unknown) (no date) (unknown) (unknown) Albumin/Globulin Ratio (units unknown) (unknown) (unknown) (no date) (unknown) (unknown) Alkaline Phosphatase 48 (units unknown) (unknown) (unknown) (no date) (unknown) (unknown) Alkaline Phosphatase (units unknown) (unknown) (unknown) (no date) (unknown) (unknown) Allergies (units unknown) (unknown) (unknown) (no date) (unknown) (unknown) Allergy/AdvReac Type Severity Reaction Status Date / Time (units unknown) (unknown) (unknown) (no date) (unknown) (unknown) BUN 9 (units unknown) (unknown) (unknown) (no date) (unknown) (unknown) BUN (units unknown) (unknown) (unknown) (no date) (unknown) (unknown) BUN/Creatinine Ratio 8.7 (units unknown) (unknown) (unknown) (no date) (unknown) (unknown) BUN/Creatinine Ratio (units unknown) (unknown) (unknown) (no date) (unknown) (unknown) Baso # (Auto) 100 (units unknown) (unknown) (unknown) (no date) (unknown) (unknown) Baso # (Auto) (units unknown) (unknown) (unknown) (no date) (unknown) (unknown) Baso % (Auto) 2.0 (units unknown) (unknown) (unknown) (no date) (unknown) (unknown) Baso % (Auto) (units unknown) (unknown) (unknown) (no date) (unknown) (unknown) Blood Pressure 144/72 H (units unknown) (unknown) (unknown) (no date) (unknown) (unknown) Blood Pressure 150/82 H (units unknown) (unknown) (unknown) (no date) (unknown) (unknown) Blood Pressure 152/8 4 H 150/98 H (units unknown) (unknown) (unknown) (no date) (unknown) (unknown) CK-MB (CK-2) 0.87 (units unknown) (unknown) (unknown) (no date) (unknown) (unknown) CK-MB (CK-2) Rel Ind ex 0.4 L (units unknown) (unknown) (unknown) (no date) (unknown) (unknown) CK-MB (CK-2) Rel Index (units unknown) (unknown) (unknown) (no date) (unknown) (unknown) CK-MB (CK-2) (units unknown) (unknown) (unknown) (no date) (unknown) (unknown) Calcium 9.4 (units unknown) (unknown) (unknown) (no date) (unknown) (unknown) Calcium (units unknown) (unknown) (unknown) (no date) (unknown) (unknown) Carbon Dioxide 22 (units unknown) (unknown) (unknown) (no date) (unknown) (unknown) Carbon Dioxide (units unknown) (unknown) (unknown) (no date) (unknown) (unknown) Chest xray reviewed by me and notable for no acute process. CT head reviewed by (units unknown) (unknown) (unknown) (no date) (unknown) (unknown) Chief complaint: Diz zy, Tinnitus, Headache (units unknown) (unknown) (unknown) (no date) (unknown) (unknown) Chloride 99 (units unknown) (unknown) (unknown) (no date) (unknown) (unknown) Chloride (units unknown) (unknown) (unknown) (no date) (unknown) (unknown) Complete) (units unknown) (unknown) (unknown) (no date) (unknown) (unknown) Creatinine 1.04 (units unknown) (unknown) (unknown) (no date) (unknown) (unknown) Creatinine (units unknown) (unknown) (unknown) (no date) (unknown) (unknown) : 1945 Acct:[id number] (units unknown) (unknown) (unknown) (no date) (unknown) (unknown) Date Patient Seen: 06/26/22 (units unknown) (unknown) (unknown) (no date) (unknown) (unknown) Date of Service: 06/26/22 (units unknown) (unknown) (unknown) (no date) (unknown) (unknown) Eos # (Auto) 0 (units unknown) (unknown) (unknown) (no date) (unknown) (unknown) Eos # (Auto) (units unknown) (unknown) (unknown) (no date) (unknown) (unknown) Eos % (Auto) 0.0 L (units unknown) (unknown) (unknown) (no date) (unknown) (unknown) Eos % (Auto) (units unknown) (unknown) (unknown) (no date) (unknown) (unknown) Estimated GFR > 60 (units unknown) (unknown) (unknown) (no date) (unknown) (unknown) Estimated GFR (units unknown) (unknown) (unknown) (no date) (unknown) (unknown) Ethyl Alcohol 90 H (units unknown) (unknown) (unknown) (no date) (unknown) (unknown) Ethyl Alcohol (units unknown) (unknown) (unknown) (no date) (unknown) (unknown) Exam (units unknown) (unknown) (unknown) (no date) (unknown) (unknown) Globulin 3.1 (units unknown) (unknown) (unknown) (no date) (unknown) (unknown) Globulin (units unknown) (unknown) (unknown) (no date) (unknown) (unknown) Glucose 181 H (units unknown) (unknown) (unknown) (no date) (unknown) (unknown) Glucose (units unknown) (unknown) (unknown) (no date) (unknown) (unknown) Hct 41.1 (units unknown) (unknown) (unknown) (no date) (unknown) (unknown) Hct (units unknown) (unknown) (unknown) (no date) (unknown) (unknown) Hgb 13.2 L (units unknown) (unknown) (unknown) (no date) (unknown) (unknown) Hgb (units unknown) (unknown) (unknown) (no date) (unknown) (unknown) History + Physical Report (units unknown) (unknown) (unknown) (no date) (unknown) (unknown) History of Present Illness (units unknown) (unknown) (unknown) (no date) (unknown) (unknown) Home Medications and Allergies (units unknown) (unknown) (unknown) (no date) (unknown) (unknown) Home Medications (units unknown) (unknown) (unknown) (no date) (unknown) (unknown) INR 1.0 (units unknown) (unknown) (unknown) (no date) (unknown) (unknown) INR (units unknown) (unknown) (unknown) (no date) (unknown) (unknown) In the ED workup was done, vitals notable for afebrile, heart rate 110s, (units unknown) (unknown) (unknown) (no date) (unknown) (unknown) Influenza A (RT-PCR) Flu a negative (units unknown) (unknown) (unknown) (no date) (unknown) (unknown) Influenza A (RT-PCR) (units unknown) (unknown) (unknown) (no date) (unknown) (unknown) Influenza B (RT-PCR) Flu b negative (units unknown) (unknown) (unknown) (no date) (unknown) (unknown) Influenza B (RT-PCR) (units unknown) (unknown) (unknown) (no date) (unknown) (unknown) [address] [id number] (units unknown) (unknown) (unknown) (no date) (unknown) (unknown) Laboratory Results - last 24 hr (units unknown) (unknown) (unknown) (no date) (unknown) (unknown) Labs (units unknown) (unknown) (unknown) (no date) (unknown) (unknown) Labs: (units unknown) (unknown) (unknown) (no date) (unknown) (unknown) Lactate 2.3 H (units unknown) (unknown) (unknown) (no date) (unknown) (unknown) Lactate 3.9 H (units unknown) (unknown) (unknown) (no date) (unknown) (unknown) Lactate (units unknown) (unknown) (unknown) (no date) (unknown) (unknown) Lipase 385 H (units unknown) (unknown) (unknown) (no date) (unknown) (unknown) Lipase (units unknown) (unknown) (unknown) (no date) (unknown) (unknown) Lymph # (Auto) 1300 (units unknown) (unknown) (unknown) (no date) (unknown) (unknown) Lymph # (Auto) (units unknown) (unknown) (unknown) (no date) (unknown) (unknown) Lymph % (Auto) 36.0 (units unknown) (unknown) (unknown) (no date) (unknown) (unknown) Lymph % (Auto) (units unknown) (unknown) (unknown) (no date) (unknown) (unknown) MCH 26.7 (units unknown) (unknown) (unknown) (no date) (unknown) (unknown) MCH (units unknown) (unknown) (unknown) (no date) (unknown) (unknown) MCHC 32.1 (units unknown) (unknown) (unknown) (no date) (unknown) (unknown) MCHC (units unknown) (unknown) (unknown) (no date) (unknown) (unknown) MCV 83.2 (units unknown) (unknown) (unknown) (no date) (unknown) (unknown) MCV (units unknown) (unknown) (unknown) (no date) (unknown) (unknown) Medication Instructi ons Recorded Confirmed Type (units unknown) (unknown) (unknown) (no date) (unknown) (unknown) Meds (units unknown) (unknown) (unknown) (no date) (unknown) (unknown) [place] # (Auto) 600 (units unknown) (unknown) (unknown) (no date) (unknown) (unknown) [place] # (Auto) (units unknown) (unknown) (unknown) (no date) (unknown) (unknown) [place] % (Auto) 15.6 H (units unknown) (unknown) (unknown) (no date) (unknown) (unknown) [place] % (Auto) (units unknown) (unknown) (unknown) (no date) (unknown) (unknown) Mr. Hoffman is a 77M with PMH hypertension who presents to the hospital (units unknown) (unknown) (unknown) (no date) (unknown) (unknown) NT-Pro-B Natriuret P ep 44 (units unknown) (unknown) (unknown) (no date) (unknown) (unknown) NT-Pro-B Natriuret Pep (units unknown) (unknown) (unknown) (no date) (unknown) (unknown) Narrative: (units unknown) (unknown) (unknown) (no date) (unknown) (unknown) Neut # (Auto) 1700 (units unknown) (unknown) (unknown) (no date) (unknown) (unknown) Neut # (Auto) (units unknown) (unknown) (unknown) (no date) (unknown) (unknown) Neut % (Auto) 46.4 L (units unknown) (unknown) (unknown) (no date) (unknown) (unknown) Neut % (Auto) (units unknown) (unknown) (unknown) (no date) (unknown) (unknown) No Known Drug Allerg ies Allergy Verified 06/26/22 16:44 (units unknown) (unknown) (unknown) (no date) (unknown) (unknown) Objective (units unknown) (unknown) (unknown) (no date) (unknown) (unknown) Oxygen Delivery Meth od Room Air (units unknown) (unknown) (unknown) (no date) (unknown) (unknown) Oxygen Delivery Method (units unknown) (unknown) (unknown) (no date) (unknown) (unknown) Oxygen Flow Rate 0 (units unknown) (unknown) (unknown) (no date) (unknown) (unknown) Oxygen Flow Rate (units unknown) (unknown) (unknown) (no date) (unknown) (unknown) PFSH (units unknown) (unknown) (unknown) (no date) (unknown) (unknown) PT 11.4 (units unknown) (unknown) (unknown) (no date) (unknown) (unknown) PT (units unknown) (unknown) (unknown) (no date) (unknown) (unknown) Patient: James Hoffman MR#: [id number] (units unknown) (unknown) (unknown) (no date) (unknown) (unknown) Plt Count 168 (units unknown) (unknown) (unknown) (no date) (unknown) (unknown) Plt Count (units unknown) (unknown) (unknown) (no date) (unknown) (unknown) Potassium 3.8 (units unknown) (unknown) (unknown) (no date) (unknown) (unknown) Potassium (units unknown) (unknown) (unknown) (no date) (unknown) (unknown) Procal 0.11. Lactate 3.9->2.3. EtOH 90. UA with nitrates, WBCs, and bacteria. (units unknown) (unknown) (unknown) (no date) (unknown) (unknown) Procalcitonin 0.11 (units unknown) (unknown) (unknown) (no date) (unknown) (unknown) Procalcitonin (units unknown) (unknown) (unknown) (no date) (unknown) (unknown) Provider: Rogelio Byrd MD (units unknown) (unknown) (unknown) (no date) (unknown) (unknown) Pulse Oximetry 95 97 96 (units unknown) (unknown) (unknown) (no date) (unknown) (unknown) Pulse Oximetry 97 99 99 (units unknown) (unknown) (unknown) (no date) (unknown) (unknown) Pulse Oximetry 98 98 98 (units unknown) (unknown) (unknown) (no date) (unknown) (unknown) Pulse Rate 109 H 111 H (units unknown) (unknown) (unknown) (no date) (unknown) (unknown) Pulse Rate 111 H 93 H 79 (units unknown) (unknown) (unknown) (no date) (unknown) (unknown) Pulse Rate 99 H 107 H 109 H (units unknown) (unknown) (unknown) (no date) (unknown) (unknown) RBC 4.94 (units unknown) (unknown) (unknown) (no date) (unknown) (unknown) RBC (units unknown) (unknown) (unknown) (no date) (unknown) (unknown) RDW 16.6 H (units unknown) (unknown) (unknown) (no date) (unknown) (unknown) RDW (units unknown) (unknown) (unknown) (no date) (unknown) (unknown) RSV (PCR) Negative (units unknown) (unknown) (unknown) (no date) (unknown) (unknown) RSV (PCR) (units unknown) (unknown) (unknown) (no date) (unknown) (unknown) Respiratory Rate 24 19 (units unknown) (unknown) (unknown) (no date) (unknown) (unknown) Respiratory Rate 28 H 23 29 H (units unknown) (unknown) (unknown) (no date) (unknown) (unknown) Respiratory Rate 28 H 28 H 22 (units unknown) (unknown) (unknown) (no date) (unknown) (unknown) SARS-CoV-2 (PCR) Negative (units unknown) (unknown) (unknown) (no date) (unknown) (unknown) SARS-CoV-2 (PCR) (units unknown) (unknown) (unknown) (no date) (unknown) (unknown) Signed By: (units unknown) (unknown) (unknown) (no date) (unknown) (unknown) Smoking Status: Aviva monge smoker (units unknown) (unknown) (unknown) (no date) (unknown) (unknown) Social History (units unknown) (unknown) (unknown) (no date) (unknown) (unknown) Sodium 135 L (units unknown) (unknown) (unknown) (no date) (unknown) (unknown) Sodium (units unknown) (unknown) (unknown) (no date) (unknown) (unknown) Temperature 97.7 F (units unknown) (unknown) (unknown) (no date) (unknown) (unknown) Temperature (units unknown) (unknown) (unknown) (no date) (unknown) (unknown) Time Patient Seen: 21:30 (units unknown) (unknown) (unknown) (no date) (unknown) (unknown) Total Bilirubin 0.6 (units unknown) (unknown) (unknown) (no date) (unknown) (unknown) Total Bilirubin (units unknown) (unknown) (unknown) (no date) (unknown) (unknown) Total Creatine Kinas e 204 H (units unknown) (unknown) (unknown) (no date) (unknown) (unknown) Total Creatine Kinase (units unknown) (unknown) (unknown) (no date) (unknown) (unknown) Total Protein 7.6 (units unknown) (unknown) (unknown) (no date) (unknown) (unknown) Total Protein (units unknown) (unknown) (unknown) (no date) (unknown) (unknown) Troponin I < 0.012 (units unknown) (unknown) (unknown) (no date) (unknown) (unknown) Troponin I (units unknown) (unknown) (unknown) (no date) (unknown) (unknown) U Benzodiazepines Sc rn Negative (units unknown) (unknown) (unknown) (no date) (unknown) (unknown) U Benzodiazepines Scrn (units unknown) (unknown) (unknown) (no date) (unknown) (unknown) U Marijuana (THC) Screen Negative (units unknown) (unknown) (unknown) (no date) (unknown) (unknown) U Marijuana (THC) Screen (units unknown) (unknown) (unknown) (no date) (unknown) (unknown) U Methamphetamines S crn Negative (units unknown) (unknown) (unknown) (no date) (unknown) (unknown) U Methamphetamines Scrn (units unknown) (unknown) (unknown) (no date) (unknown) (unknown) U Opiates 300ng/mL c ut Negative (units unknown) (unknown) (unknown) (no date) (unknown) (unknown) U Opiates 300ng/mL cut (units unknown) (unknown) (unknown) (no date) (unknown) (unknown) U Tricyclic Antidepr ess Negative (units unknown) (unknown) (unknown) (no date) (unknown) (unknown) U Tricyclic Antidepress (units unknown) (unknown) (unknown) (no date) (unknown) (unknown) Ur Amphetamines Scre en Negative (units unknown) (unknown) (unknown) (no date) (unknown) (unknown) Ur Amphetamines Screen (units unknown) (unknown) (unknown) (no date) (unknown) (unknown) Ur Barbiturates Scre en Negative (units unknown) (unknown) (unknown) (no date) (unknown) (unknown) Ur Barbiturates Screen (units unknown) (unknown) (unknown) (no date) (unknown) (unknown) Ur Culture Indicated ? Specimen cultured (units unknown) (unknown) (unknown) (no date) (unknown) (unknown) Ur Culture Indicated? (units unknown) (unknown) (unknown) (no date) (unknown) (unknown) Ur Leukocyte [place] e Trace H (units unknown) (unknown) (unknown) (no date) (unknown) (unknown) Ur Leukocyte Esterase (units unknown) (unknown) (unknown) (no date) (unknown) (unknown) Ur MDMA Scrn ([place] y) Negative (units unknown) (unknown) (unknown) (no date) (unknown) (unknown) Ur MDMA Scrn (Ecstasy) (units unknown) (unknown) (unknown) (no date) (unknown) (unknown) Ur Oxycodone Screen Negative (units unknown) (unknown) (unknown) (no date) (unknown) (unknown) Ur Oxycodone Screen (units unknown) (unknown) (unknown) (no date) (unknown) (unknown) Ur Phencyclidine Scr n Negative (units unknown) (unknown) (unknown) (no date) (unknown) (unknown) Ur Phencyclidine Scrn (units unknown) (unknown) (unknown) (no date) (unknown) (unknown) Ur Specific [place] 1.015 (units unknown) (unknown) (unknown) (no date) (unknown) (unknown) Ur Specific [place] (units unknown) (unknown) (unknown) (no date) (unknown) (unknown) Urine Appearance Clear (units unknown) (unknown) (unknown) (no date) (unknown) (unknown) Urine Appearance (units unknown) (unknown) (unknown) (no date) (unknown) (unknown) Urine Bacteria Many (>30) H (units unknown) (unknown) (unknown) (no date) (unknown) (unknown) Urine Bacteria (units unknown) (unknown) (unknown) (no date) (unknown) (unknown) Urine Bilirubin Negative (units unknown) (unknown) (unknown) (no date) (unknown) (unknown) Urine Bilirubin (units unknown) (unknown) (unknown) (no date) (unknown) (unknown) Urine Cocaine Screen Negative (units unknown) (unknown) (unknown) (no date) (unknown) (unknown) Urine Cocaine Screen (units unknown) (unknown) (unknown) (no date) (unknown) (unknown) Urine Color Yellow (units unknown) (unknown) (unknown) (no date) (unknown) (unknown) Urine Color (units unknown) (unknown) (unknown) (no date) (unknown) (unknown) Urine Glucose (UA) Trace H (units unknown) (unknown) (unknown) (no date) (unknown) (unknown) Urine Glucose (UA) (units unknown) (unknown) (unknown) (no date) (unknown) (unknown) Urine Ketones Negative (units unknown) (unknown) (unknown) (no date) (unknown) (unknown) Urine Ketones (units unknown) (unknown) (unknown) (no date) (unknown) (unknown) Urine Methadone Scre en Negative (units unknown) (unknown) (unknown) (no date) (unknown) (unknown) Urine Methadone Screen (units unknown) (unknown) (unknown) (no date) (unknown) (unknown) Urine Nitrate [place] ve H (units unknown) (unknown) (unknown) (no date) (unknown) (unknown) Urine Nitrate (units unknown) (unknown) (unknown) (no date) (unknown) (unknown) Urine Occult Blood Negative (units unknown) (unknown) (unknown) (no date) (unknown) (unknown) Urine Occult Blood (units unknown) (unknown) (unknown) (no date) (unknown) (unknown) Urine Protein Trace H (units unknown) (unknown) (unknown) (no date) (unknown) (unknown) Urine Protein (units unknown) (unknown) (unknown) (no date) (unknown) (unknown) Urine RBC None seen (units unknown) (unknown) (unknown) (no date) (unknown) (unknown) Urine RBC (units unknown) (unknown) (unknown) (no date) (unknown) (unknown) Urine Urobilinogen 0.2 (units unknown) (unknown) (unknown) (no date) (unknown) (unknown) Urine Urobilinogen (units unknown) (unknown) (unknown) (no date) (unknown) (unknown) Urine WBC 10-30/hpf H (units unknown) (unknown) (unknown) (no date) (unknown) (unknown) Urine WBC (units unknown) (unknown) (unknown) (no date) (unknown) (unknown) Urine pH 7.5 (units unknown) (unknown) (unknown) (no date) (unknown) (unknown) Urine pH (units unknown) (unknown) (unknown) (no date) (unknown) (unknown) Vital Signs (units unknown) (unknown) (unknown) (no date) (unknown) (unknown) WBC 3.6 L (units unknown) (unknown) (unknown) (no date) (unknown) (unknown) WBC (units unknown) (unknown) (unknown) (no date) (unknown) (unknown) [Embedded Image Not Available] (units unknown) (unknown) (unknown) (no date) (unknown) (unknown) any other complaints . Denied pain, cough, shortness of breath, nausea, vomiting, (units unknown) (unknown) (unknown) (no date) (unknown) (unknown) as he appears confus ed and he is very hard of hearing. He was really not having (units unknown) (unknown) (unknown) (no date) (unknown) (unknown) atenolol 100 mg tabl et 100 mg PO DAILY 07/05/17 07/05/17 History (units unknown) (unknown) (unknown) (no date) (unknown) (unknown) complaining of weakness. It is very difficult to get a history from the patient (units unknown) (unknown) (unknown) (no date) (unknown) (unknown) household members: none (units unknown) (unknown) (unknown) (no date) (unknown) (unknown) iron-0.38 mg tablet (Geritol (units unknown) (unknown) (unknown) (no date) (unknown) (unknown) me and notable for n o acute process. (units unknown) (unknown) (unknown) (no date) (unknown) (unknown) multivitamin with mi n 1 tab PO DIRECTED 07/05/17 07/05/17 History (units unknown) (unknown) (unknown) (no date) (unknown) (unknown) neighbor that the patient was much more confused than was normal. (units unknown) (unknown) (unknown) (no date) (unknown) (unknown) no.36-iron,carbonyl- FA 16 mg (units unknown) (unknown) (unknown) (no date) (unknown) (unknown) or diarrhea. I spoke with the ED physician who had discussed with the patient's (units unknown) (unknown) (unknown) (no date) (unknown) (unknown) respiratory 18, bloo d pressure 150s/80s, 98% on room air. Labs notable for WBC (units unknown) (unknown) Result panel 257 (unknown) (no date) (unknown) (unknown) (no value) (units unknown) (unknown) (unknown) (no date) (unknown) (unknown) 'Current medications ' to include all prescriptions, [id number] products, (units unknown) (unknown) (unknown) (no date) (unknown) (unknown) (nutritional) supplements. (units unknown) (unknown) (unknown) (no date) (unknown) (unknown) (past 8 hours): (units unknown) (unknown) (unknown) (no date) (unknown) (unknown) -UA postiive with nitrates, wbcs, bacteria (units unknown) (unknown) (unknown) (no date) (unknown) (unknown) -continue ceftriaxone (units unknown) (unknown) (unknown) (no date) (unknown) (unknown) -follow up cultures (units unknown) (unknown) (unknown) (no date) (unknown) (unknown) -for now order for c iwa protocol (units unknown) (unknown) (unknown) (no date) (unknown) (unknown) -has periods where appears irregular (units unknown) (unknown) (unknown) (no date) (unknown) (unknown) -hold off on full anticoagulation for now as not clear what benefits/risks are (units unknown) (unknown) (unknown) (no date) (unknown) (unknown) -order for low dose metoprolol (units unknown) (unknown) (unknown) (no date) (unknown) (unknown) -ordered for gentle IVF (units unknown) (unknown) (unknown) (no date) (unknown) (unknown) -ordered mvi, thiami ne, folate (units unknown) (unknown) (unknown) (no date) (unknown) (unknown) -patient states he h as not had drink recently (units unknown) (unknown) (unknown) (no date) (unknown) (unknown) -unclear if has hist ory of afib (units unknown) (unknown) (unknown) (no date) (unknown) (unknown) -unclear withdrawal risk (units unknown) (unknown) (unknown) (no date) (unknown) (unknown) [id number] (units unknown) (unknown) (unknown) (no date) (unknown) (unknown) 06/26/22 06/26/22 06/26/22 (units unknown) (unknown) (unknown) (no date) (unknown) (unknown) 06/26/22 17:10 (units unknown) (unknown) (unknown) (no date) (unknown) (unknown) 06/26/22 (units unknown) (unknown) (unknown) (no date) (unknown) (unknown) 06/27/22 0529 (units unknown) (unknown) (unknown) (no date) (unknown) (unknown) 1. Acute UTI with metabolic encephalopathy (units unknown) (unknown) (unknown) (no date) (unknown) (unknown) 14 systems reviewed by me and notable for not acute process (units unknown) (unknown) (unknown) (no date) (unknown) (unknown) 17:10 17:10 17:10 (units unknown) (unknown) (unknown) (no date) (unknown) (unknown) 17:10 17:10 18:13 (units unknown) (unknown) (unknown) (no date) (unknown) (unknown) 18:47 18:47 19:45 (units unknown) (unknown) (unknown) (no date) (unknown) (unknown) 2. Elevated alcohol level (units unknown) (unknown) (unknown) (no date) (unknown) (unknown) 21:30 06/26/22 (units unknown) (unknown) (unknown) (no date) (unknown) (unknown) 21:45 06/26/22 (units unknown) (unknown) (unknown) (no date) (unknown) (unknown) 22:00 (units unknown) (unknown) (unknown) (no date) (unknown) (unknown) 22:15 06/26/22 (units unknown) (unknown) (unknown) (no date) (unknown) (unknown) 22:30 06/26/22 (units unknown) (unknown) (unknown) (no date) (unknown) (unknown) 22:45 (units unknown) (unknown) (unknown) (no date) (unknown) (unknown) 23:00 06/26/22 (units unknown) (unknown) (unknown) (no date) (unknown) (unknown) 23:35 (units unknown) (unknown) (unknown) (no date) (unknown) (unknown) 23:39 06/26/22 (units unknown) (unknown) (unknown) (no date) (unknown) (unknown) 3. Tachycardia (units unknown) (unknown) (unknown) (no date) (unknown) (unknown) 3.6, hgb 13.2, plts 168. Na 135, k 3.8, creatinine 1.04. INR 1.0. Trop negative. (units unknown) (unknown) (unknown) (no date) (unknown) (unknown) ABD: soft, nontender , nondistended (units unknown) (unknown) (unknown) (no date) (unknown) (unknown) ALT 43 (units unknown) (unknown) (unknown) (no date) (unknown) (unknown) ALT (units unknown) (unknown) (unknown) (no date) (unknown) (unknown) APTT 31 (units unknown) (unknown) (unknown) (no date) (unknown) (unknown) APTT (units unknown) (unknown) (unknown) (no date) (unknown) (unknown) AST 82 H (units unknown) (unknown) (unknown) (no date) (unknown) (unknown) AST (units unknown) (unknown) (unknown) (no date) (unknown) (unknown) Age/Sex: 77 / M (units unknown) (unknown) (unknown) (no date) (unknown) (unknown) Albumin 4.5 (units unknown) (unknown) (unknown) (no date) (unknown) (unknown) Albumin (units unknown) (unknown) (unknown) (no date) (unknown) (unknown) Albumin/Globulin Rat io 1.5 (units unknown) (unknown) (unknown) (no date) (unknown) (unknown) Albumin/Globulin Ratio (units unknown) (unknown) (unknown) (no date) (unknown) (unknown) Alkaline Phosphatase 48 (units unknown) (unknown) (unknown) (no date) (unknown) (unknown) Alkaline Phosphatase (units unknown) (unknown) (unknown) (no date) (unknown) (unknown) Allergies (units unknown) (unknown) (unknown) (no date) (unknown) (unknown) Allergy/AdvReac Type Severity Reaction Status Date / Time (units unknown) (unknown) (unknown) (no date) (unknown) (unknown) Assessment + Plan narrative: (units unknown) (unknown) (unknown) (no date) (unknown) (unknown) Assessment + Plan (units unknown) (unknown) (unknown) (no date) (unknown) (unknown) BUN 9 (units unknown) (unknown) (unknown) (no date) (unknown) (unknown) BUN (units unknown) (unknown) (unknown) (no date) (unknown) (unknown) BUN/Creatinine Ratio 8.7 (units unknown) (unknown) (unknown) (no date) (unknown) (unknown) BUN/Creatinine Ratio (units unknown) (unknown) (unknown) (no date) (unknown) (unknown) Baso # (Auto) 100 (units unknown) (unknown) (unknown) (no date) (unknown) (unknown) Baso # (Auto) (units unknown) (unknown) (unknown) (no date) (unknown) (unknown) Baso % (Auto) 2.0 (units unknown) (unknown) (unknown) (no date) (unknown) (unknown) Baso % (Auto) (units unknown) (unknown) (unknown) (no date) (unknown) (unknown) Blood Pressure 144/72 H (units unknown) (unknown) (unknown) (no date) (unknown) (unknown) Blood Pressure 150/82 H (units unknown) (unknown) (unknown) (no date) (unknown) (unknown) Blood Pressure 152/8 4 H 150/98 H (units unknown) (unknown) (unknown) (no date) (unknown) (unknown) CK-MB (CK-2) 0.87 (units unknown) (unknown) (unknown) (no date) (unknown) (unknown) CK-MB (CK-2) Rel Ind ex 0.4 L (units unknown) (unknown) (unknown) (no date) (unknown) (unknown) CK-MB (CK-2) Rel Index (units unknown) (unknown) (unknown) (no date) (unknown) (unknown) CK-MB (CK-2) (units unknown) (unknown) (unknown) (no date) (unknown) (unknown) CV: irregular, tachycardic (units unknown) (unknown) (unknown) (no date) (unknown) (unknown) Calcium 9.4 (units unknown) (unknown) (unknown) (no date) (unknown) (unknown) Calcium (units unknown) (unknown) (unknown) (no date) (unknown) (unknown) Carbon Dioxide 22 (units unknown) (unknown) (unknown) (no date) (unknown) (unknown) Carbon Dioxide (units unknown) (unknown) (unknown) (no date) (unknown) (unknown) Chest xray reviewed by me and notable for no acute process. CT head reviewed by (units unknown) (unknown) (unknown) (no date) (unknown) (unknown) Chief complaint: Maritza zy, Tinnitus, Headache (units unknown) (unknown) (unknown) (no date) (unknown) (unknown) Chloride 99 (units unknown) (unknown) (unknown) (no date) (unknown) (unknown) Chloride (units unknown) (unknown) (unknown) (no date) (unknown) (unknown) Complete) (units unknown) (unknown) (unknown) (no date) (unknown) (unknown) Creatinine 1.04 (units unknown) (unknown) (unknown) (no date) (unknown) (unknown) Creatinine (units unknown) (unknown) (unknown) (no date) (unknown) (unknown) : 1945 Acct:[id number] (units unknown) (unknown) (unknown) (no date) (unknown) (unknown) Date Patient Seen: 06/26/22 (units unknown) (unknown) (unknown) (no date) (unknown) (unknown) Date of Service: 06/26/22 (units unknown) (unknown) (unknown) (no date) (unknown) (unknown) EXT: warm and well perfused, no edema (units unknown) (unknown) (unknown) (no date) (unknown) (unknown) Eos # (Auto) 0 (units unknown) (unknown) (unknown) (no date) (unknown) (unknown) Eos # (Auto) (units unknown) (unknown) (unknown) (no date) (unknown) (unknown) Eos % (Auto) 0.0 L (units unknown) (unknown) (unknown) (no date) (unknown) (unknown) Eos % (Auto) (units unknown) (unknown) (unknown) (no date) (unknown) (unknown) Estimated GFR > 60 (units unknown) (unknown) (unknown) (no date) (unknown) (unknown) Estimated GFR (units unknown) (unknown) (unknown) (no date) (unknown) (unknown) Ethyl Alcohol 90 H (units unknown) (unknown) (unknown) (no date) (unknown) (unknown) Ethyl Alcohol (units unknown) (unknown) (unknown) (no date) (unknown) (unknown) Exam Narrative: (units unknown) (unknown) (unknown) (no date) (unknown) (unknown) Exam (units unknown) (unknown) (unknown) (no date) (unknown) (unknown) GEN: no acute distre ss, mildly confused, very hard of hearing (units unknown) (unknown) (unknown) (no date) (unknown) (unknown) Globulin 3.1 (units unknown) (unknown) (unknown) (no date) (unknown) (unknown) Globulin (units unknown) (unknown) (unknown) (no date) (unknown) (unknown) Glucose 181 H (units unknown) (unknown) (unknown) (no date) (unknown) (unknown) Glucose (units unknown) (unknown) (unknown) (no date) (unknown) (unknown) HEENT: moist mucous membranes (units unknown) (unknown) (unknown) (no date) (unknown) (unknown) Hct 41.1 (units unknown) (unknown) (unknown) (no date) (unknown) (unknown) Hct (units unknown) (unknown) (unknown) (no date) (unknown) (unknown) Hgb 13.2 L (units unknown) (unknown) (unknown) (no date) (unknown) (unknown) Hgb (units unknown) (unknown) (unknown) (no date) (unknown) (unknown) History + Physical Report (units unknown) (unknown) (unknown) (no date) (unknown) (unknown) History of Present Illness (units unknown) (unknown) (unknown) (no date) (unknown) (unknown) Home Medications and Allergies (units unknown) (unknown) (unknown) (no date) (unknown) (unknown) Home Medications (units unknown) (unknown) (unknown) (no date) (unknown) (unknown) I have discussed elisa n and obtained history from patient and from ED physician. I (units unknown) (unknown) (unknown) (no date) (unknown) (unknown) I have utilized all available resources to obtain, update, or review the (units unknown) (unknown) (unknown) (no date) (unknown) (unknown) INR 1.0 (units unknown) (unknown) (unknown) (no date) (unknown) (unknown) INR (units unknown) (unknown) (unknown) (no date) (unknown) (unknown) In the ED workup was done, vitals notable for afebrile, heart rate 110s, (units unknown) (unknown) (unknown) (no date) (unknown) (unknown) Influenza A (RT-PCR) Flu a negative (units unknown) (unknown) (unknown) (no date) (unknown) (unknown) Influenza A (RT-PCR) (units unknown) (unknown) (unknown) (no date) (unknown) (unknown) Influenza B (RT-PCR) Flu b negative (units unknown) (unknown) (unknown) (no date) (unknown) (unknown) Influenza B (RT-PCR) (units unknown) (unknown) (unknown) (no date) (unknown) (unknown) [address] [id number] (units unknown) (unknown) (unknown) (no date) (unknown) (unknown) Laboratory Results - last 24 hr (units unknown) (unknown) (unknown) (no date) (unknown) (unknown) Labs (units unknown) (unknown) (unknown) (no date) (unknown) (unknown) Labs: (units unknown) (unknown) (unknown) (no date) (unknown) (unknown) Lactate 2.3 H (units unknown) (unknown) (unknown) (no date) (unknown) (unknown) Lactate 3.9 H (units unknown) (unknown) (unknown) (no date) (unknown) (unknown) Lactate (units unknown) (unknown) (unknown) (no date) (unknown) (unknown) Lipase 385 H (units unknown) (unknown) (unknown) (no date) (unknown) (unknown) Lipase (units unknown) (unknown) (unknown) (no date) (unknown) (unknown) Lymph # (Auto) 1300 (units unknown) (unknown) (unknown) (no date) (unknown) (unknown) Lymph # (Auto) (units unknown) (unknown) (unknown) (no date) (unknown) (unknown) Lymph % (Auto) 36.0 (units unknown) (unknown) (unknown) (no date) (unknown) (unknown) Lymph % (Auto) (units unknown) (unknown) (unknown) (no date) (unknown) (unknown) MCH 26.7 (units unknown) (unknown) (unknown) (no date) (unknown) (unknown) MCH (units unknown) (unknown) (unknown) (no date) (unknown) (unknown) MCHC 32.1 (units unknown) (unknown) (unknown) (no date) (unknown) (unknown) MCHC (units unknown) (unknown) (unknown) (no date) (unknown) (unknown) MCV 83.2 (units unknown) (unknown) (unknown) (no date) (unknown) (unknown) MCV (units unknown) (unknown) (unknown) (no date) (unknown) (unknown) MIPS - Meds (units unknown) (unknown) (unknown) (no date) (unknown) (unknown) Medication Instructi ons Recorded Confirmed Type (units unknown) (unknown) (unknown) (no date) (unknown) (unknown) Meds (units unknown) (unknown) (unknown) (no date) (unknown) (unknown) [place] # (Auto) 600 (units unknown) (unknown) (unknown) (no date) (unknown) (unknown) [place] # (Auto) (units unknown) (unknown) (unknown) (no date) (unknown) (unknown) [place] % (Auto) 15.6 H (units unknown) (unknown) (unknown) (no date) (unknown) (unknown) [place] % (Auto) (units unknown) (unknown) (unknown) (no date) (unknown) (unknown) Mr. Hoffman is a 77M with H hypertension who presents to the hospital (units unknown) (unknown) (unknown) (no date) (unknown) (unknown) NEURO: awake, alert, no focal deficits (units unknown) (unknown) (unknown) (no date) (unknown) (unknown) NT-Pro-B Natriuret P ep 44 (units unknown) (unknown) (unknown) (no date) (unknown) (unknown) NT-Pro-B Natriuret Pep (units unknown) (unknown) (unknown) (no date) (unknown) (unknown) Narrative (units unknown) (unknown) (unknown) (no date) (unknown) (unknown) Narrative: (units unknown) (unknown) (unknown) (no date) (unknown) (unknown) Neut # (Auto) 1700 (units unknown) (unknown) (unknown) (no date) (unknown) (unknown) Neut # (Auto) (units unknown) (unknown) (unknown) (no date) (unknown) (unknown) Neut % (Auto) 46.4 L (units unknown) (unknown) (unknown) (no date) (unknown) (unknown) Neut % (Auto) (units unknown) (unknown) (unknown) (no date) (unknown) (unknown) No Known Drug Allerg ies Allergy Verified 06/26/22 16:44 (units unknown) (unknown) (unknown) (no date) (unknown) (unknown) Objective (units unknown) (unknown) (unknown) (no date) (unknown) (unknown) Oxygen Delivery Meth od Room Air (units unknown) (unknown) (unknown) (no date) (unknown) (unknown) Oxygen Delivery Method (units unknown) (unknown) (unknown) (no date) (unknown) (unknown) Oxygen Flow Rate 0 (units unknown) (unknown) (unknown) (no date) (unknown) (unknown) Oxygen Flow Rate (units unknown) (unknown) (unknown) (no date) (unknown) (unknown) PFSH (units unknown) (unknown) (unknown) (no date) (unknown) (unknown) PT 11.4 (units unknown) (unknown) (unknown) (no date) (unknown) (unknown) PT (units unknown) (unknown) (unknown) (no date) (unknown) (unknown) PULM: clear bilaterally (units unknown) (unknown) (unknown) (no date) (unknown) (unknown) Patient: James Hoffman MR#: [id number] (units unknown) (unknown) (unknown) (no date) (unknown) (unknown) Plt Count 168 (units unknown) (unknown) (unknown) (no date) (unknown) (unknown) Plt Count (units unknown) (unknown) (unknown) (no date) (unknown) (unknown) Potassium 3.8 (units unknown) (unknown) (unknown) (no date) (unknown) (unknown) Potassium (units unknown) (unknown) (unknown) (no date) (unknown) (unknown) Procal 0.11. Lactate 3.9->2.3. EtOH 90. UA with nitrates, WBCs, and bacteria. (units unknown) (unknown) (unknown) (no date) (unknown) (unknown) Procalcitonin 0.11 (units unknown) (unknown) (unknown) (no date) (unknown) (unknown) Procalcitonin (units unknown) (unknown) (unknown) (no date) (unknown) (unknown) Provider: Rogelio Byrd MD (units unknown) (unknown) (unknown) (no date) (unknown) (unknown) Pulse Oximetry 95 97 96 (units unknown) (unknown) (unknown) (no date) (unknown) (unknown) Pulse Oximetry 97 99 99 (units unknown) (unknown) (unknown) (no date) (unknown) (unknown) Pulse Oximetry 98 98 98 (units unknown) (unknown) (unknown) (no date) (unknown) (unknown) Pulse Rate 109 H 111 H (units unknown) (unknown) (unknown) (no date) (unknown) (unknown) Pulse Rate 111 H 93 H 79 (units unknown) (unknown) (unknown) (no date) (unknown) (unknown) Pulse Rate 99 H 107 H 109 H (units unknown) (unknown) (unknown) (no date) (unknown) (unknown) Quality (units unknown) (unknown) (unknown) (no date) (unknown) (unknown) RBC 4.94 (units unknown) (unknown) (unknown) (no date) (unknown) (unknown) RBC (units unknown) (unknown) (unknown) (no date) (unknown) (unknown) RDW 16.6 H (units unknown) (unknown) (unknown) (no date) (unknown) (unknown) RDW (units unknown) (unknown) (unknown) (no date) (unknown) (unknown) RSV (PCR) Negative (units unknown) (unknown) (unknown) (no date) (unknown) (unknown) RSV (PCR) (units unknown) (unknown) (unknown) (no date) (unknown) (unknown) Respiratory Rate 24 19 (units unknown) (unknown) (unknown) (no date) (unknown) (unknown) Respiratory Rate 28 H 23 29 H (units unknown) (unknown) (unknown) (no date) (unknown) (unknown) Respiratory Rate 28 H 28 H 22 (units unknown) (unknown) (unknown) (no date) (unknown) (unknown) Review of Systems (units unknown) (unknown) (unknown) (no date) (unknown) (unknown) SARS-CoV-2 (PCR) Negative (units unknown) (unknown) (unknown) (no date) (unknown) (unknown) SARS-CoV-2 (PCR) (units unknown) (unknown) (unknown) (no date) (unknown) (unknown) Signed By:<Electronically signed by Boo Byrd MD> (units unknown) (unknown) (unknown) (no date) (unknown) (unknown) Smoking Status: Aviva monge smoker (units unknown) (unknown) (unknown) (no date) (unknown) (unknown) Social History (units unknown) (unknown) (unknown) (no date) (unknown) (unknown) Sodium 135 L (units unknown) (unknown) (unknown) (no date) (unknown) (unknown) Sodium (units unknown) (unknown) (unknown) (no date) (unknown) (unknown) Temperature 97.7 F (units unknown) (unknown) (unknown) (no date) (unknown) (unknown) Temperature (units unknown) (unknown) (unknown) (no date) (unknown) (unknown) Time Patient Seen: 21:30 (units unknown) (unknown) (unknown) (no date) (unknown) (unknown) Total Bilirubin 0.6 (units unknown) (unknown) (unknown) (no date) (unknown) (unknown) Total Bilirubin (units unknown) (unknown) (unknown) (no date) (unknown) (unknown) Total Creatine Kinas e 204 H (units unknown) (unknown) (unknown) (no date) (unknown) (unknown) Total Creatine Kinase (units unknown) (unknown) (unknown) (no date) (unknown) (unknown) Total Protein 7.6 (units unknown) (unknown) (unknown) (no date) (unknown) (unknown) Total Protein (units unknown) (unknown) (unknown) (no date) (unknown) (unknown) Troponin I < 0.012 (units unknown) (unknown) (unknown) (no date) (unknown) (unknown) Troponin I (units unknown) (unknown) (unknown) (no date) (unknown) (unknown) U Benzodiazepines Sc rn Negative (units unknown) (unknown) (unknown) (no date) (unknown) (unknown) U Benzodiazepines Scrn (units unknown) (unknown) (unknown) (no date) (unknown) (unknown) U Marijuana (THC) Screen Negative (units unknown) (unknown) (unknown) (no date) (unknown) (unknown) U Marijuana (THC) Screen (units unknown) (unknown) (unknown) (no date) (unknown) (unknown) U Methamphetamines S crn Negative (units unknown) (unknown) (unknown) (no date) (unknown) (unknown) U Methamphetamines Scrn (units unknown) (unknown) (unknown) (no date) (unknown) (unknown) U Opiates 300ng/mL c ut Negative (units unknown) (unknown) (unknown) (no date) (unknown) (unknown) U Opiates 300ng/mL cut (units unknown) (unknown) (unknown) (no date) (unknown) (unknown) U Tricyclic Antidepr ess Negative (units unknown) (unknown) (unknown) (no date) (unknown) (unknown) U Tricyclic Antidepress (units unknown) (unknown) (unknown) (no date) (unknown) (unknown) Ur Amphetamines Scre en Negative (units unknown) (unknown) (unknown) (no date) (unknown) (unknown) Ur Amphetamines Screen (units unknown) (unknown) (unknown) (no date) (unknown) (unknown) Ur Barbiturates Scre en Negative (units unknown) (unknown) (unknown) (no date) (unknown) (unknown) Ur Barbiturates Screen (units unknown) (unknown) (unknown) (no date) (unknown) (unknown) Ur Culture Indicated ? Specimen cultured (units unknown) (unknown) (unknown) (no date) (unknown) (unknown) Ur Culture Indicated? (units unknown) (unknown) (unknown) (no date) (unknown) (unknown) Ur Leukocyte [place] e Trace H (units unknown) (unknown) (unknown) (no date) (unknown) (unknown) Ur Leukocyte Esterase (units unknown) (unknown) (unknown) (no date) (unknown) (unknown) Ur MDMA Scrn ([place] y) Negative (units unknown) (unknown) (unknown) (no date) (unknown) (unknown) Ur MDMA Scrn (Ecstasy) (units unknown) (unknown) (unknown) (no date) (unknown) (unknown) Ur Oxycodone Screen Negative (units unknown) (unknown) (unknown) (no date) (unknown) (unknown) Ur Oxycodone Screen (units unknown) (unknown) (unknown) (no date) (unknown) (unknown) Ur Phencyclidine Scr n Negative (units unknown) (unknown) (unknown) (no date) (unknown) (unknown) Ur Phencyclidine Scrn (units unknown) (unknown) (unknown) (no date) (unknown) (unknown) Ur Specific [place] 1.015 (units unknown) (unknown) (unknown) (no date) (unknown) (unknown) Ur Specific [place] (units unknown) (unknown) (unknown) (no date) (unknown) (unknown) Urine Appearance Clear (units unknown) (unknown) (unknown) (no date) (unknown) (unknown) Urine Appearance (units unknown) (unknown) (unknown) (no date) (unknown) (unknown) Urine Bacteria Many (>30) H (units unknown) (unknown) (unknown) (no date) (unknown) (unknown) Urine Bacteria (units unknown) (unknown) (unknown) (no date) (unknown) (unknown) Urine Bilirubin Negative (units unknown) (unknown) (unknown) (no date) (unknown) (unknown) Urine Bilirubin (units unknown) (unknown) (unknown) (no date) (unknown) (unknown) Urine Cocaine Screen Negative (units unknown) (unknown) (unknown) (no date) (unknown) (unknown) Urine Cocaine Screen (units unknown) (unknown) (unknown) (no date) (unknown) (unknown) Urine Color Yellow (units unknown) (unknown) (unknown) (no date) (unknown) (unknown) Urine Color (units unknown) (unknown) (unknown) (no date) (unknown) (unknown) Urine Glucose (UA) Trace H (units unknown) (unknown) (unknown) (no date) (unknown) (unknown) Urine Glucose (UA) (units unknown) (unknown) (unknown) (no date) (unknown) (unknown) Urine Ketones Negative (units unknown) (unknown) (unknown) (no date) (unknown) (unknown) Urine Ketones (units unknown) (unknown) (unknown) (no date) (unknown) (unknown) Urine Methadone Scre en Negative (units unknown) (unknown) (unknown) (no date) (unknown) (unknown) Urine Methadone Screen (units unknown) (unknown) (unknown) (no date) (unknown) (unknown) Urine Nitrate [place] H (units unknown) (unknown) (unknown) (no date) (unknown) (unknown) Urine Nitrate (units unknown) (unknown) (unknown) (no date) (unknown) (unknown) Urine Occult Blood Negative (units unknown) (unknown) (unknown) (no date) (unknown) (unknown) Urine Occult Blood (units unknown) (unknown) (unknown) (no date) (unknown) (unknown) Urine Protein Trace H (units unknown) (unknown) (unknown) (no date) (unknown) (unknown) Urine Protein (units unknown) (unknown) (unknown) (no date) (unknown) (unknown) Urine RBC None seen (units unknown) (unknown) (unknown) (no date) (unknown) (unknown) Urine RBC (units unknown) (unknown) (unknown) (no date) (unknown) (unknown) Urine Urobilinogen 0.2 (units unknown) (unknown) (unknown) (no date) (unknown) (unknown) Urine Urobilinogen (units unknown) (unknown) (unknown) (no date) (unknown) (unknown) Urine WBC 10-30/hpf H (units unknown) (unknown) (unknown) (no date) (unknown) (unknown) Urine WBC (units unknown) (unknown) (unknown) (no date) (unknown) (unknown) Urine pH 7.5 (units unknown) (unknown) (unknown) (no date) (unknown) (unknown) Urine pH (units unknown) (unknown) (unknown) (no date) (unknown) (unknown) Vital Signs (units unknown) (unknown) (unknown) (no date) (unknown) (unknown) WBC 3.6 L (units unknown) (unknown) (unknown) (no date) (unknown) (unknown) WBC (units unknown) (unknown) (unknown) (no date) (unknown) (unknown) [Embedded Image Not Available] (units unknown) (unknown) (unknown) (no date) (unknown) (unknown) any other complaints . Denied pain, cough, shortness of breath, nausea, vomiting, (units unknown) (unknown) (unknown) (no date) (unknown) (unknown) as he appears confus ed and he is very hard of hearing. He was really not having (units unknown) (unknown) (unknown) (no date) (unknown) (unknown) atenolol 100 mg tabl et 100 mg PO DAILY 07/05/17 07/05/17 History (units unknown) (unknown) (unknown) (no date) (unknown) (unknown) complaining of weakness. It is very difficult to get a history from the patient (units unknown) (unknown) (unknown) (no date) (unknown) (unknown) have discussed plan of care with ED physician and bedside nurse. I have (units unknown) (unknown) (unknown) (no date) (unknown) (unknown) herbals, cannabis/cannabidiol products, and vitamin/mineral/dietary (units unknown) (unknown) (unknown) (no date) (unknown) (unknown) household members: none (units unknown) (unknown) (unknown) (no date) (unknown) (unknown) iron-0.38 mg tablet (Geritol (units unknown) (unknown) (unknown) (no date) (unknown) (unknown) me and notable for n o acute process. (units unknown) (unknown) (unknown) (no date) (unknown) (unknown) multivitamin with mi n 1 tab PO DIRECTED 07/05/17 07/05/17 History (units unknown) (unknown) (unknown) (no date) (unknown) (unknown) neighbor that the patient was much more confused than was normal. (units unknown) (unknown) (unknown) (no date) (unknown) (unknown) no.36-iron,carbonyl- FA 16 mg (units unknown) (unknown) (unknown) (no date) (unknown) (unknown) or diarrhea. I spoke with the ED physician who had discussed with the patient's (units unknown) (unknown) (unknown) (no date) (unknown) (unknown) patient?s current medications. [If Yes, STOP here]: Yes (units unknown) (unknown) (unknown) (no date) (unknown) (unknown) respiratory 18, bloo d pressure 150s/80s, 98% on room air. Labs notable for WBC (units unknown) (unknown) (unknown) (no date) (unknown) (unknown) reviewed labs, imaging (units unknown) (unknown) Result panel 258 (unknown) (no date) (unknown) (unknown) > 60 ml/min (unknown) (unknown) (no date) (unknown) (unknown) > 60 ml/min (unknown) (unknown) (no date) (unknown) (unknown) 0.83 mg/dl (unknown) (unknown) (no date) (unknown) (unknown) 1.8 mmol/l (unknown) (unknown) (no date) (unknown) (unknown) 100 mg/dl (unknown) (unknown) (no date) (unknown) (unknown) 100 mg/dl (unknown) (unknown) (no date) (unknown) (unknown) 105 mmol/l (unknown) (unknown) (no date) (unknown) (unknown) 135 mmol/l (unknown) (unknown) (no date) (unknown) (unknown) 27 mmol/l (unknown) (unknown) (no date) (unknown) (unknown) 3.8 mmol/l (unknown) (unknown) (no date) (unknown) (unknown) 6 mg/dl (unknown) (unknown) (no date) (unknown) (unknown) 7.2 (units unknown) (unknown) (unknown) (no date) (unknown) (unknown) 8.4 mg/dl (unknown) Result panel 259 (unknown) (no date) (unknown) (unknown) 0 /ul (unknown) (unknown) (no date) (unknown) (unknown) 0 /ul (unknown) (unknown) (no date) (unknown) (unknown) 0.2 % (unknown) (unknown) (no date) (unknown) (unknown) 0.7 % (unknown) (unknown) (no date) (unknown) (unknown) 12.0 % (unknown) (unknown) (no date) (unknown) (unknown) 12.0 g/dl (unknown) (unknown) (no date) (unknown) (unknown) 136 x10 3/ul (unknown) (unknown) (no date) (unknown) (unknown) 16.5 % (unknown) (unknown) (no date) (unknown) (unknown) 2000 /ul (unknown) (unknown) (no date) (unknown) (unknown) 2400 /ul (unknown) (unknown) (no date) (unknown) (unknown) 26.9 pg (unknown) (unknown) (no date) (unknown) (unknown) 32.2 % (unknown) (unknown) (no date) (unknown) (unknown) 37.4 % (unknown) (unknown) (no date) (unknown) (unknown) 39.4 % (unknown) (unknown) (no date) (unknown) (unknown) 4.47 x10 6/ul (unknown) (unknown) (no date) (unknown) (unknown) 47.7 % (unknown) (unknown) (no date) (unknown) (unknown) 5.0 x10 3/ul (unknown) (unknown) (no date) (unknown) (unknown) 600 /ul (unknown) (unknown) (no date) (unknown) (unknown) 83.7 fl (unknown) Result panel 260 (unknown) (no date) (unknown) (unknown) >100,000 cfu/ml (unknown) (unknown) (no date) (unknown) (unknown) GPCGram positive cocci (units unknown) (unknown) (unknown) (no date) (unknown) (unknown) Identification and Sensitivity to Follow (units unknown) (unknown) Result panel 261 (unknown) (no date) (unknown) (unknown) (no value) (units unknown) (unknown) (unknown) (no date) (unknown) (unknown) (past 8 hours): (units unknown) (unknown) (unknown) (no date) (unknown) (unknown) -UA positive with nitrates, wbcs, bacteria (units unknown) (unknown) (unknown) (no date) (unknown) (unknown) -can stop IV fluids today (units unknown) (unknown) (unknown) (no date) (unknown) (unknown) -continue ceftriaxone (units unknown) (unknown) (unknown) (no date) (unknown) (unknown) -follow up cultures, currently with gram positive bacilli (units unknown) (unknown) (unknown) (no date) (unknown) (unknown) -for now order for c iwa protocol (units unknown) (unknown) (unknown) (no date) (unknown) (unknown) -has periods where appears irregular (units unknown) (unknown) (unknown) (no date) (unknown) (unknown) -hold off on full anticoagulation for now as not clear what benefits/risks are (units unknown) (unknown) (unknown) (no date) (unknown) (unknown) -order for low dose metoprolol with improvement (units unknown) (unknown) (unknown) (no date) (unknown) (unknown) -ordered mvi, thiami ne, folate (units unknown) (unknown) (unknown) (no date) (unknown) (unknown) -patient states he h as not had drink recently (units unknown) (unknown) (unknown) (no date) (unknown) (unknown) -possible alcoholic encephalopathy / intoxication contributing with elevated (units unknown) (unknown) (unknown) (no date) (unknown) (unknown) -unclear if has hist ory of afib (units unknown) (unknown) (unknown) (no date) (unknown) (unknown) -unclear withdrawal risk (units unknown) (unknown) (unknown) (no date) (unknown) (unknown) [id number] (units unknown) (unknown) (unknown) (no date) (unknown) (unknown) 04:58 04:58 04:58 (units unknown) (unknown) (unknown) (no date) (unknown) (unknown) 06/26/22 06/26/22 06/26/22 (units unknown) (unknown) (unknown) (no date) (unknown) (unknown) 06/27/22 04:58 (units unknown) (unknown) (unknown) (no date) (unknown) (unknown) 06/27/22 06/27/22 06/27/22 (units unknown) (unknown) (unknown) (no date) (unknown) (unknown) 06/27/22 (units unknown) (unknown) (unknown) (no date) (unknown) (unknown) 06:56 06/27/22 (units unknown) (unknown) (unknown) (no date) (unknown) (unknown) 08:00 06/27/22 (units unknown) (unknown) (unknown) (no date) (unknown) (unknown) 08:19 06/27/22 (units unknown) (unknown) (unknown) (no date) (unknown) (unknown) 08:41 (units unknown) (unknown) (unknown) (no date) (unknown) (unknown) 1. Acute UTI with metabolic encephalopathy (units unknown) (unknown) (unknown) (no date) (unknown) (unknown) 12:00 (units unknown) (unknown) (unknown) (no date) (unknown) (unknown) 17:10 17:10 17:10 (units unknown) (unknown) (unknown) (no date) (unknown) (unknown) 17:10 17:10 18:13 (units unknown) (unknown) (unknown) (no date) (unknown) (unknown) 18:47 18:47 19:45 (units unknown) (unknown) (unknown) (no date) (unknown) (unknown) 2. Elevated alcohol level (units unknown) (unknown) (unknown) (no date) (unknown) (unknown) 3. Tachycardia (units unknown) (unknown) (unknown) (no date) (unknown) (unknown) 77 M admitted with acute encephalopathy, UTI, and weakness. He seems more alert (units unknown) (unknown) (unknown) (no date) (unknown) (unknown) ABD: soft, nontender , nondistended (units unknown) (unknown) (unknown) (no date) (unknown) (unknown) ALT 43 (units unknown) (unknown) (unknown) (no date) (unknown) (unknown) ALT (units unknown) (unknown) (unknown) (no date) (unknown) (unknown) APTT 31 (units unknown) (unknown) (unknown) (no date) (unknown) (unknown) APTT (units unknown) (unknown) (unknown) (no date) (unknown) (unknown) AST 82 H (units unknown) (unknown) (unknown) (no date) (unknown) (unknown) AST (units unknown) (unknown) (unknown) (no date) (unknown) (unknown) Age/Sex: 77 / M (units unknown) (unknown) (unknown) (no date) (unknown) (unknown) Albumin 4.5 (units unknown) (unknown) (unknown) (no date) (unknown) (unknown) Albumin (units unknown) (unknown) (unknown) (no date) (unknown) (unknown) Albumin/Globulin Rat io 1.5 (units unknown) (unknown) (unknown) (no date) (unknown) (unknown) Albumin/Globulin Ratio (units unknown) (unknown) (unknown) (no date) (unknown) (unknown) Alkaline Phosphatase 48 (units unknown) (unknown) (unknown) (no date) (unknown) (unknown) Alkaline Phosphatase (units unknown) (unknown) (unknown) (no date) (unknown) (unknown) Assessment + Plan narrative: (units unknown) (unknown) (unknown) (no date) (unknown) (unknown) Assessment + Plan (units unknown) (unknown) (unknown) (no date) (unknown) (unknown) BUN 6 L (units unknown) (unknown) (unknown) (no date) (unknown) (unknown) BUN 9 (units unknown) (unknown) (unknown) (no date) (unknown) (unknown) BUN (units unknown) (unknown) (unknown) (no date) (unknown) (unknown) BUN/Creatinine Ratio 7.2 (units unknown) (unknown) (unknown) (no date) (unknown) (unknown) BUN/Creatinine Ratio 8.7 (units unknown) (unknown) (unknown) (no date) (unknown) (unknown) BUN/Creatinine Ratio (units unknown) (unknown) (unknown) (no date) (unknown) (unknown) Baso # (Auto) 0 (units unknown) (unknown) (unknown) (no date) (unknown) (unknown) Baso # (Auto) 100 (units unknown) (unknown) (unknown) (no date) (unknown) (unknown) Baso # (Auto) (units unknown) (unknown) (unknown) (no date) (unknown) (unknown) Baso % (Auto) 0.7 (units unknown) (unknown) (unknown) (no date) (unknown) (unknown) Baso % (Auto) 2.0 (units unknown) (unknown) (unknown) (no date) (unknown) (unknown) Baso % (Auto) (units unknown) (unknown) (unknown) (no date) (unknown) (unknown) Blood Pressure 160/1 09 H 161/84 H (units unknown) (unknown) (unknown) (no date) (unknown) (unknown) Blood Pressure 160/8 9 H 160/109 H (units unknown) (unknown) (unknown) (no date) (unknown) (unknown) CK-MB (CK-2) 0.87 (units unknown) (unknown) (unknown) (no date) (unknown) (unknown) CK-MB (CK-2) Rel Ind ex 0.4 L (units unknown) (unknown) (unknown) (no date) (unknown) (unknown) CK-MB (CK-2) Rel Index (units unknown) (unknown) (unknown) (no date) (unknown) (unknown) CK-MB (CK-2) (units unknown) (unknown) (unknown) (no date) (unknown) (unknown) CV: irregularly irregular rhythm with normal rate (units unknown) (unknown) (unknown) (no date) (unknown) (unknown) Calcium 8.4 (units unknown) (unknown) (unknown) (no date) (unknown) (unknown) Calcium 9.4 (units unknown) (unknown) (unknown) (no date) (unknown) (unknown) Calcium (units unknown) (unknown) (unknown) (no date) (unknown) (unknown) Carbon Dioxide 22 (units unknown) (unknown) (unknown) (no date) (unknown) (unknown) Carbon Dioxide 27 (units unknown) (unknown) (unknown) (no date) (unknown) (unknown) Carbon Dioxide (units unknown) (unknown) (unknown) (no date) (unknown) (unknown) Chloride 105 (units unknown) (unknown) (unknown) (no date) (unknown) (unknown) Chloride 99 (units unknown) (unknown) (unknown) (no date) (unknown) (unknown) Chloride (units unknown) (unknown) (unknown) (no date) (unknown) (unknown) Creatinine 0.83 (units unknown) (unknown) (unknown) (no date) (unknown) (unknown) Creatinine 1.04 (units unknown) (unknown) (unknown) (no date) (unknown) (unknown) Creatinine (units unknown) (unknown) (unknown) (no date) (unknown) (unknown) : 1945 Acct:[id number] (units unknown) (unknown) (unknown) (no date) (unknown) (unknown) Date of Service: 06/26/22 (units unknown) (unknown) (unknown) (no date) (unknown) (unknown) Dispo: inpatient, possible SNF pending PT/OT evaluations (units unknown) (unknown) (unknown) (no date) (unknown) (unknown) EXT: warm and well perfused, no edema (units unknown) (unknown) (unknown) (no date) (unknown) (unknown) Eos # (Auto) 0 (units unknown) (unknown) (unknown) (no date) (unknown) (unknown) Eos # (Auto) (units unknown) (unknown) (unknown) (no date) (unknown) (unknown) Eos % (Auto) 0.0 L (units unknown) (unknown) (unknown) (no date) (unknown) (unknown) Eos % (Auto) 0.2 L (units unknown) (unknown) (unknown) (no date) (unknown) (unknown) Eos % (Auto) (units unknown) (unknown) (unknown) (no date) (unknown) (unknown) Estimated GFR > 60 (units unknown) (unknown) (unknown) (no date) (unknown) (unknown) Estimated GFR (units unknown) (unknown) (unknown) (no date) (unknown) (unknown) Ethyl Alcohol 90 H (units unknown) (unknown) (unknown) (no date) (unknown) (unknown) Ethyl Alcohol (units unknown) (unknown) (unknown) (no date) (unknown) (unknown) Exam Narrative: (units unknown) (unknown) (unknown) (no date) (unknown) (unknown) Exam (units unknown) (unknown) (unknown) (no date) (unknown) (unknown) GEN: no acute distre ss, mildly confused, very hard of hearing (units unknown) (unknown) (unknown) (no date) (unknown) (unknown) Globulin 3.1 (units unknown) (unknown) (unknown) (no date) (unknown) (unknown) Globulin (units unknown) (unknown) (unknown) (no date) (unknown) (unknown) Glucose 100 (units unknown) (unknown) (unknown) (no date) (unknown) (unknown) Glucose 181 H (units unknown) (unknown) (unknown) (no date) (unknown) (unknown) Glucose (units unknown) (unknown) (unknown) (no date) (unknown) (unknown) HEENT: moist mucous membranes (units unknown) (unknown) (unknown) (no date) (unknown) (unknown) Hct 37.4 L (units unknown) (unknown) (unknown) (no date) (unknown) (unknown) Hct 41.1 (units unknown) (unknown) (unknown) (no date) (unknown) (unknown) Hct (units unknown) (unknown) (unknown) (no date) (unknown) (unknown) Hgb 12.0 L (units unknown) (unknown) (unknown) (no date) (unknown) (unknown) Hgb 13.2 L (units unknown) (unknown) (unknown) (no date) (unknown) (unknown) Hgb (units unknown) (unknown) (unknown) (no date) (unknown) (unknown) INR 1.0 (units unknown) (unknown) (unknown) (no date) (unknown) (unknown) INR (units unknown) (unknown) (unknown) (no date) (unknown) (unknown) Influenza A (RT-PCR) Flu a negative (units unknown) (unknown) (unknown) (no date) (unknown) (unknown) Influenza A (RT-PCR) (units unknown) (unknown) (unknown) (no date) (unknown) (unknown) Influenza B (RT-PCR) Flu b negative (units unknown) (unknown) (unknown) (no date) (unknown) (unknown) Influenza B (RT-PCR) (units unknown) (unknown) (unknown) (no date) (unknown) (unknown) Interval history: (units unknown) (unknown) (unknown) (no date) (unknown) (unknown) [address] [id number] (units unknown) (unknown) (unknown) (no date) (unknown) (unknown) Laboratory Results - last 24 hr (units unknown) (unknown) (unknown) (no date) (unknown) (unknown) Labs (units unknown) (unknown) (unknown) (no date) (unknown) (unknown) Labs: (units unknown) (unknown) (unknown) (no date) (unknown) (unknown) Lactate 1.8 (units unknown) (unknown) (unknown) (no date) (unknown) (unknown) Lactate 2.3 H (units unknown) (unknown) (unknown) (no date) (unknown) (unknown) Lactate 3.9 H (units unknown) (unknown) (unknown) (no date) (unknown) (unknown) Lactate (units unknown) (unknown) (unknown) (no date) (unknown) (unknown) Lipase 385 H (units unknown) (unknown) (unknown) (no date) (unknown) (unknown) Lipase (units unknown) (unknown) (unknown) (no date) (unknown) (unknown) Lymph # (Auto) 1300 (units unknown) (unknown) (unknown) (no date) (unknown) (unknown) Lymph # (Auto) 2000 (units unknown) (unknown) (unknown) (no date) (unknown) (unknown) Lymph # (Auto) (units unknown) (unknown) (unknown) (no date) (unknown) (unknown) Lymph % (Auto) 36.0 (units unknown) (unknown) (unknown) (no date) (unknown) (unknown) Lymph % (Auto) 39.4 (units unknown) (unknown) (unknown) (no date) (unknown) (unknown) Lymph % (Auto) (units unknown) (unknown) (unknown) (no date) (unknown) (unknown) MCH 26.7 (units unknown) (unknown) (unknown) (no date) (unknown) (unknown) MCH 26.9 (units unknown) (unknown) (unknown) (no date) (unknown) (unknown) MCH (units unknown) (unknown) (unknown) (no date) (unknown) (unknown) MCHC 32.1 (units unknown) (unknown) (unknown) (no date) (unknown) (unknown) MCHC 32.2 (units unknown) (unknown) (unknown) (no date) (unknown) (unknown) MCHC (units unknown) (unknown) (unknown) (no date) (unknown) (unknown) MCV 83.2 (units unknown) (unknown) (unknown) (no date) (unknown) (unknown) MCV 83.7 (units unknown) (unknown) (unknown) (no date) (unknown) (unknown) MCV (units unknown) (unknown) (unknown) (no date) (unknown) (unknown) [place] # (Auto) 600 (units unknown) (unknown) (unknown) (no date) (unknown) (unknown) [place] # (Auto) (units unknown) (unknown) (unknown) (no date) (unknown) (unknown) [place] % (Auto) 12.0 (units unknown) (unknown) (unknown) (no date) (unknown) (unknown) [place] % (Auto) 15.6 H (units unknown) (unknown) (unknown) (no date) (unknown) (unknown) [place] % (Auto) (units unknown) (unknown) (unknown) (no date) (unknown) (unknown) NEURO: awake, alert, no focal deficits (units unknown) (unknown) (unknown) (no date) (unknown) (unknown) NT-Pro-B Natriuret P ep 44 (units unknown) (unknown) (unknown) (no date) (unknown) (unknown) NT-Pro-B Natriuret Pep (units unknown) (unknown) (unknown) (no date) (unknown) (unknown) Narrative (units unknown) (unknown) (unknown) (no date) (unknown) (unknown) Neut # (Auto) 1700 (units unknown) (unknown) (unknown) (no date) (unknown) (unknown) Neut # (Auto) 2400 (units unknown) (unknown) (unknown) (no date) (unknown) (unknown) Neut # (Auto) (units unknown) (unknown) (unknown) (no date) (unknown) (unknown) Neut % (Auto) 46.4 L (units unknown) (unknown) (unknown) (no date) (unknown) (unknown) Neut % (Auto) 47.7 L (units unknown) (unknown) (unknown) (no date) (unknown) (unknown) Neut % (Auto) (units unknown) (unknown) (unknown) (no date) (unknown) (unknown) Objective (units unknown) (unknown) (unknown) (no date) (unknown) (unknown) Oxygen Delivery Meth od Room Air (units unknown) (unknown) (unknown) (no date) (unknown) (unknown) Oxygen Delivery Method (units unknown) (unknown) (unknown) (no date) (unknown) (unknown) Oxygen Flow Rate 0 0 (units unknown) (unknown) (unknown) (no date) (unknown) (unknown) Oxygen Flow Rate 0 (units unknown) (unknown) (unknown) (no date) (unknown) (unknown) PFSH (units unknown) (unknown) (unknown) (no date) (unknown) (unknown) PT 11.4 (units unknown) (unknown) (unknown) (no date) (unknown) (unknown) PT (units unknown) (unknown) (unknown) (no date) (unknown) (unknown) PULM: clear bilaterally (units unknown) (unknown) (unknown) (no date) (unknown) (unknown) Patient: James Hoffman MR#: [id number] (units unknown) (unknown) (unknown) (no date) (unknown) (unknown) Plt Count 136 L (units unknown) (unknown) (unknown) (no date) (unknown) (unknown) Plt Count 168 (units unknown) (unknown) (unknown) (no date) (unknown) (unknown) Plt Count (units unknown) (unknown) (unknown) (no date) (unknown) (unknown) Potassium 3.8 (units unknown) (unknown) (unknown) (no date) (unknown) (unknown) Potassium (units unknown) (unknown) (unknown) (no date) (unknown) (unknown) Procalcitonin 0.11 (units unknown) (unknown) (unknown) (no date) (unknown) (unknown) Procalcitonin (units unknown) (unknown) (unknown) (no date) (unknown) (unknown) Progress Note (units unknown) (unknown) (unknown) (no date) (unknown) (unknown) Provider: Kirk Aldridge D.O. (units unknown) (unknown) (unknown) (no date) (unknown) (unknown) Pulse Oximetry 98 (units unknown) (unknown) (unknown) (no date) (unknown) (unknown) Pulse Oximetry 99 100 (units unknown) (unknown) (unknown) (no date) (unknown) (unknown) Pulse Rate 82 91 H (units unknown) (unknown) (unknown) (no date) (unknown) (unknown) Pulse Rate 91 H 91 H (units unknown) (unknown) (unknown) (no date) (unknown) (unknown) RBC 4.47 L (units unknown) (unknown) (unknown) (no date) (unknown) (unknown) RBC 4.94 (units unknown) (unknown) (unknown) (no date) (unknown) (unknown) RBC (units unknown) (unknown) (unknown) (no date) (unknown) (unknown) RDW 16.5 H (units unknown) (unknown) (unknown) (no date) (unknown) (unknown) RDW 16.6 H (units unknown) (unknown) (unknown) (no date) (unknown) (unknown) RDW (units unknown) (unknown) (unknown) (no date) (unknown) (unknown) RSV (PCR) Negative (units unknown) (unknown) (unknown) (no date) (unknown) (unknown) RSV (PCR) (units unknown) (unknown) (unknown) (no date) (unknown) (unknown) Respiratory Rate 18 18 (units unknown) (unknown) (unknown) (no date) (unknown) (unknown) Respiratory Rate 19 (units unknown) (unknown) (unknown) (no date) (unknown) (unknown) SARS-CoV-2 (PCR) Negative (units unknown) (unknown) (unknown) (no date) (unknown) (unknown) SARS-CoV-2 (PCR) (units unknown) (unknown) (unknown) (no date) (unknown) (unknown) Signed By: (units unknown) (unknown) (unknown) (no date) (unknown) (unknown) Smoking Status: [place] saleem smoker (units unknown) (unknown) (unknown) (no date) (unknown) (unknown) Social History (units unknown) (unknown) (unknown) (no date) (unknown) (unknown) Sodium 135 L (units unknown) (unknown) (unknown) (no date) (unknown) (unknown) Sodium (units unknown) (unknown) (unknown) (no date) (unknown) (unknown) Subjective (units unknown) (unknown) (unknown) (no date) (unknown) (unknown) Temperature 97.7 F (units unknown) (unknown) (unknown) (no date) (unknown) (unknown) Temperature 97.8 F 9 8.6 F (units unknown) (unknown) (unknown) (no date) (unknown) (unknown) Total Bilirubin 0.6 (units unknown) (unknown) (unknown) (no date) (unknown) (unknown) Total Bilirubin (units unknown) (unknown) (unknown) (no date) (unknown) (unknown) Total Creatine Kinas e 204 H (units unknown) (unknown) (unknown) (no date) (unknown) (unknown) Total Creatine Kinase (units unknown) (unknown) (unknown) (no date) (unknown) (unknown) Total Protein 7.6 (units unknown) (unknown) (unknown) (no date) (unknown) (unknown) Total Protein (units unknown) (unknown) (unknown) (no date) (unknown) (unknown) Troponin I < 0.012 (units unknown) (unknown) (unknown) (no date) (unknown) (unknown) Troponin I (units unknown) (unknown) (unknown) (no date) (unknown) (unknown) U Benzodiazepines Sc rn Negative (units unknown) (unknown) (unknown) (no date) (unknown) (unknown) U Benzodiazepines Scrn (units unknown) (unknown) (unknown) (no date) (unknown) (unknown) U Marijuana (THC) Screen Negative (units unknown) (unknown) (unknown) (no date) (unknown) (unknown) U Marijuana (THC) Screen (units unknown) (unknown) (unknown) (no date) (unknown) (unknown) U Methamphetamines S crn Negative (units unknown) (unknown) (unknown) (no date) (unknown) (unknown) U Methamphetamines Scrn (units unknown) (unknown) (unknown) (no date) (unknown) (unknown) U Opiates 300ng/mL c ut Negative (units unknown) (unknown) (unknown) (no date) (unknown) (unknown) U Opiates 300ng/mL cut (units unknown) (unknown) (unknown) (no date) (unknown) (unknown) U Tricyclic Antidepr ess Negative (units unknown) (unknown) (unknown) (no date) (unknown) (unknown) U Tricyclic Antidepress (units unknown) (unknown) (unknown) (no date) (unknown) (unknown) Ur Amphetamines Scre en Negative (units unknown) (unknown) (unknown) (no date) (unknown) (unknown) Ur Amphetamines Screen (units unknown) (unknown) (unknown) (no date) (unknown) (unknown) Ur Barbiturates Scre en Negative (units unknown) (unknown) (unknown) (no date) (unknown) (unknown) Ur Barbiturates Screen (units unknown) (unknown) (unknown) (no date) (unknown) (unknown) Ur Culture Indicated ? Specimen cultured (units unknown) (unknown) (unknown) (no date) (unknown) (unknown) Ur Culture Indicated? (units unknown) (unknown) (unknown) (no date) (unknown) (unknown) Ur Leukocyte [place] e Trace H (units unknown) (unknown) (unknown) (no date) (unknown) (unknown) Ur Leukocyte Esterase (units unknown) (unknown) (unknown) (no date) (unknown) (unknown) Ur MDMA Scrn ([place] y) Negative (units unknown) (unknown) (unknown) (no date) (unknown) (unknown) Ur MDMA Scrn (Ecstasy) (units unknown) (unknown) (unknown) (no date) (unknown) (unknown) Ur Oxycodone Screen Negative (units unknown) (unknown) (unknown) (no date) (unknown) (unknown) Ur Oxycodone Screen (units unknown) (unknown) (unknown) (no date) (unknown) (unknown) Ur Phencyclidine Scr n Negative (units unknown) (unknown) (unknown) (no date) (unknown) (unknown) Ur Phencyclidine Scrn (units unknown) (unknown) (unknown) (no date) (unknown) (unknown) Ur Specific [place] 1.015 (units unknown) (unknown) (unknown) (no date) (unknown) (unknown) Ur Specific [place] (units unknown) (unknown) (unknown) (no date) (unknown) (unknown) Urine Appearance Clear (units unknown) (unknown) (unknown) (no date) (unknown) (unknown) Urine Appearance (units unknown) (unknown) (unknown) (no date) (unknown) (unknown) Urine Bacteria Many (>30) H (units unknown) (unknown) (unknown) (no date) (unknown) (unknown) Urine Bacteria (units unknown) (unknown) (unknown) (no date) (unknown) (unknown) Urine Bilirubin Negative (units unknown) (unknown) (unknown) (no date) (unknown) (unknown) Urine Bilirubin (units unknown) (unknown) (unknown) (no date) (unknown) (unknown) Urine Cocaine Screen Negative (units unknown) (unknown) (unknown) (no date) (unknown) (unknown) Urine Cocaine Screen (units unknown) (unknown) (unknown) (no date) (unknown) (unknown) Urine Color Yellow (units unknown) (unknown) (unknown) (no date) (unknown) (unknown) Urine Color (units unknown) (unknown) (unknown) (no date) (unknown) (unknown) Urine Glucose (UA) Trace H (units unknown) (unknown) (unknown) (no date) (unknown) (unknown) Urine Glucose (UA) (units unknown) (unknown) (unknown) (no date) (unknown) (unknown) Urine Ketones Negative (units unknown) (unknown) (unknown) (no date) (unknown) (unknown) Urine Ketones (units unknown) (unknown) (unknown) (no date) (unknown) (unknown) Urine Methadone Scre en Negative (units unknown) (unknown) (unknown) (no date) (unknown) (unknown) Urine Methadone Screen (units unknown) (unknown) (unknown) (no date) (unknown) (unknown) Urine Nitrate [place] ve H (units unknown) (unknown) (unknown) (no date) (unknown) (unknown) Urine Nitrate (units unknown) (unknown) (unknown) (no date) (unknown) (unknown) Urine Occult Blood Negative (units unknown) (unknown) (unknown) (no date) (unknown) (unknown) Urine Occult Blood (units unknown) (unknown) (unknown) (no date) (unknown) (unknown) Urine Protein Trace H (units unknown) (unknown) (unknown) (no date) (unknown) (unknown) Urine Protein (units unknown) (unknown) (unknown) (no date) (unknown) (unknown) Urine RBC None seen (units unknown) (unknown) (unknown) (no date) (unknown) (unknown) Urine RBC (units unknown) (unknown) (unknown) (no date) (unknown) (unknown) Urine Urobilinogen 0.2 (units unknown) (unknown) (unknown) (no date) (unknown) (unknown) Urine Urobilinogen (units unknown) (unknown) (unknown) (no date) (unknown) (unknown) Urine WBC 10-30/hpf H (units unknown) (unknown) (unknown) (no date) (unknown) (unknown) Urine WBC (units unknown) (unknown) (unknown) (no date) (unknown) (unknown) Urine pH 7.5 (units unknown) (unknown) (unknown) (no date) (unknown) (unknown) Urine pH (units unknown) (unknown) (unknown) (no date) (unknown) (unknown) Vital Signs (units unknown) (unknown) (unknown) (no date) (unknown) (unknown) WBC 3.6 L (units unknown) (unknown) (unknown) (no date) (unknown) (unknown) WBC 5.0 (units unknown) (unknown) (unknown) (no date) (unknown) (unknown) WBC (units unknown) (unknown) (unknown) (no date) (unknown) (unknown) [Embedded Image Not Available] (units unknown) (unknown) (unknown) (no date) (unknown) (unknown) etoh level on admission. (units unknown) (unknown) (unknown) (no date) (unknown) (unknown) household members: none (units unknown) (unknown) (unknown) (no date) (unknown) (unknown) today but remains confused. He only complains of weakness, denies nausea, (units unknown) (unknown) (unknown) (no date) (unknown) (unknown) vomiting chest pain abdominal pain or shortness of breath. (units unknown) (unknown) Result panel 262 (unknown) (no date) (unknown) (unknown) (no value) (units unknown) (unknown) (unknown) (no date) (unknown) (unknown) (past 8 hours): (units unknown) (unknown) (unknown) (no date) (unknown) (unknown) -UA positive with nitrates, wbcs, bacteria (units unknown) (unknown) (unknown) (no date) (unknown) (unknown) -can stop IV fluids today (units unknown) (unknown) (unknown) (no date) (unknown) (unknown) -continue ceftriaxone (units unknown) (unknown) (unknown) (no date) (unknown) (unknown) -follow up cultures, currently with gram positive bacilli (units unknown) (unknown) (unknown) (no date) (unknown) (unknown) -for now order for c iwa protocol (units unknown) (unknown) (unknown) (no date) (unknown) (unknown) -has periods where appears irregular (units unknown) (unknown) (unknown) (no date) (unknown) (unknown) -hold off on full anticoagulation for now as not clear what benefits/risks are (units unknown) (unknown) (unknown) (no date) (unknown) (unknown) -order for low dose metoprolol with improvement (units unknown) (unknown) (unknown) (no date) (unknown) (unknown) -ordered mvi, thiami ne, folate (units unknown) (unknown) (unknown) (no date) (unknown) (unknown) -patient states he h as not had drink recently (units unknown) (unknown) (unknown) (no date) (unknown) (unknown) -possible alcoholic encephalopathy / intoxication contributing with elevated (units unknown) (unknown) (unknown) (no date) (unknown) (unknown) -unclear if has hist ory of afib (units unknown) (unknown) (unknown) (no date) (unknown) (unknown) -unclear withdrawal risk (units unknown) (unknown) (unknown) (no date) (unknown) (unknown) [id number] (units unknown) (unknown) (unknown) (no date) (unknown) (unknown) 04:58 04:58 04:58 (units unknown) (unknown) (unknown) (no date) (unknown) (unknown) 06/26/22 06/26/22 06/26/22 (units unknown) (unknown) (unknown) (no date) (unknown) (unknown) 06/27/22 04:58 (units unknown) (unknown) (unknown) (no date) (unknown) (unknown) 06/27/22 06/27/22 06/27/22 (units unknown) (unknown) (unknown) (no date) (unknown) (unknown) 06/27/22 (units unknown) (unknown) (unknown) (no date) (unknown) (unknown) 06:56 06/27/22 (units unknown) (unknown) (unknown) (no date) (unknown) (unknown) 08:00 06/27/22 (units unknown) (unknown) (unknown) (no date) (unknown) (unknown) 08:19 06/27/22 (units unknown) (unknown) (unknown) (no date) (unknown) (unknown) 08:41 (units unknown) (unknown) (unknown) (no date) (unknown) (unknown) 1. Acute UTI with metabolic encephalopathy (units unknown) (unknown) (unknown) (no date) (unknown) (unknown) 12:00 (units unknown) (unknown) (unknown) (no date) (unknown) (unknown) 17:10 17:10 17:10 (units unknown) (unknown) (unknown) (no date) (unknown) (unknown) 17:10 17:10 18:13 (units unknown) (unknown) (unknown) (no date) (unknown) (unknown) 18:47 18:47 19:45 (units unknown) (unknown) (unknown) (no date) (unknown) (unknown) 2. Elevated alcohol level (units unknown) (unknown) (unknown) (no date) (unknown) (unknown) 3. Tachycardia (units unknown) (unknown) (unknown) (no date) (unknown) (unknown) 77 M admitted with acute encephalopathy, UTI, and weakness. He seems more alert (units unknown) (unknown) (unknown) (no date) (unknown) (unknown) ABD: soft, nontender , nondistended (units unknown) (unknown) (unknown) (no date) (unknown) (unknown) ALT 43 (units unknown) (unknown) (unknown) (no date) (unknown) (unknown) ALT (units unknown) (unknown) (unknown) (no date) (unknown) (unknown) APTT 31 (units unknown) (unknown) (unknown) (no date) (unknown) (unknown) APTT (units unknown) (unknown) (unknown) (no date) (unknown) (unknown) AST 82 H (units unknown) (unknown) (unknown) (no date) (unknown) (unknown) AST (units unknown) (unknown) (unknown) (no date) (unknown) (unknown) Age/Sex: 77 / M (units unknown) (unknown) (unknown) (no date) (unknown) (unknown) Albumin 4.5 (units unknown) (unknown) (unknown) (no date) (unknown) (unknown) Albumin (units unknown) (unknown) (unknown) (no date) (unknown) (unknown) Albumin/Globulin Rat io 1.5 (units unknown) (unknown) (unknown) (no date) (unknown) (unknown) Albumin/Globulin Ratio (units unknown) (unknown) (unknown) (no date) (unknown) (unknown) Alkaline Phosphatase 48 (units unknown) (unknown) (unknown) (no date) (unknown) (unknown) Alkaline Phosphatase (units unknown) (unknown) (unknown) (no date) (unknown) (unknown) Assessment + Plan narrative: (units unknown) (unknown) (unknown) (no date) (unknown) (unknown) Assessment + Plan (units unknown) (unknown) (unknown) (no date) (unknown) (unknown) BUN 6 L (units unknown) (unknown) (unknown) (no date) (unknown) (unknown) BUN 9 (units unknown) (unknown) (unknown) (no date) (unknown) (unknown) BUN (units unknown) (unknown) (unknown) (no date) (unknown) (unknown) BUN/Creatinine Ratio 7.2 (units unknown) (unknown) (unknown) (no date) (unknown) (unknown) BUN/Creatinine Ratio 8.7 (units unknown) (unknown) (unknown) (no date) (unknown) (unknown) BUN/Creatinine Ratio (units unknown) (unknown) (unknown) (no date) (unknown) (unknown) Baso # (Auto) 0 (units unknown) (unknown) (unknown) (no date) (unknown) (unknown) Baso # (Auto) 100 (units unknown) (unknown) (unknown) (no date) (unknown) (unknown) Baso # (Auto) (units unknown) (unknown) (unknown) (no date) (unknown) (unknown) Baso % (Auto) 0.7 (units unknown) (unknown) (unknown) (no date) (unknown) (unknown) Baso % (Auto) 2.0 (units unknown) (unknown) (unknown) (no date) (unknown) (unknown) Baso % (Auto) (units unknown) (unknown) (unknown) (no date) (unknown) (unknown) Blood Pressure 160/1 09 H 161/84 H (units unknown) (unknown) (unknown) (no date) (unknown) (unknown) Blood Pressure 160/8 9 H 160/109 H (units unknown) (unknown) (unknown) (no date) (unknown) (unknown) CK-MB (CK-2) 0.87 (units unknown) (unknown) (unknown) (no date) (unknown) (unknown) CK-MB (CK-2) Rel Ind ex 0.4 L (units unknown) (unknown) (unknown) (no date) (unknown) (unknown) CK-MB (CK-2) Rel Index (units unknown) (unknown) (unknown) (no date) (unknown) (unknown) CK-MB (CK-2) (units unknown) (unknown) (unknown) (no date) (unknown) (unknown) CV: irregularly irregular rhythm with normal rate (units unknown) (unknown) (unknown) (no date) (unknown) (unknown) Calcium 8.4 (units unknown) (unknown) (unknown) (no date) (unknown) (unknown) Calcium 9.4 (units unknown) (unknown) (unknown) (no date) (unknown) (unknown) Calcium (units unknown) (unknown) (unknown) (no date) (unknown) (unknown) Carbon Dioxide 22 (units unknown) (unknown) (unknown) (no date) (unknown) (unknown) Carbon Dioxide 27 (units unknown) (unknown) (unknown) (no date) (unknown) (unknown) Carbon Dioxide (units unknown) (unknown) (unknown) (no date) (unknown) (unknown) Chloride 105 (units unknown) (unknown) (unknown) (no date) (unknown) (unknown) Chloride 99 (units unknown) (unknown) (unknown) (no date) (unknown) (unknown) Chloride (units unknown) (unknown) (unknown) (no date) (unknown) (unknown) Code: presumed full, patient remains confused, no known contacts or POA known. (units unknown) (unknown) (unknown) (no date) (unknown) (unknown) Creatinine 0.83 (units unknown) (unknown) (unknown) (no date) (unknown) (unknown) Creatinine 1.04 (units unknown) (unknown) (unknown) (no date) (unknown) (unknown) Creatinine (units unknown) (unknown) (unknown) (no date) (unknown) (unknown) : 1945 Acct:[id number] (units unknown) (unknown) (unknown) (no date) (unknown) (unknown) Date of Service: 06/26/22 (units unknown) (unknown) (unknown) (no date) (unknown) (unknown) Dispo: inpatient, possible SNF pending PT/OT evaluations (units unknown) (unknown) (unknown) (no date) (unknown) (unknown) EXT: warm and well perfused, no edema (units unknown) (unknown) (unknown) (no date) (unknown) (unknown) Eos # (Auto) 0 (units unknown) (unknown) (unknown) (no date) (unknown) (unknown) Eos # (Auto) (units unknown) (unknown) (unknown) (no date) (unknown) (unknown) Eos % (Auto) 0.0 L (units unknown) (unknown) (unknown) (no date) (unknown) (unknown) Eos % (Auto) 0.2 L (units unknown) (unknown) (unknown) (no date) (unknown) (unknown) Eos % (Auto) (units unknown) (unknown) (unknown) (no date) (unknown) (unknown) Estimated GFR > 60 (units unknown) (unknown) (unknown) (no date) (unknown) (unknown) Estimated GFR (units unknown) (unknown) (unknown) (no date) (unknown) (unknown) Ethyl Alcohol 90 H (units unknown) (unknown) (unknown) (no date) (unknown) (unknown) Ethyl Alcohol (units unknown) (unknown) (unknown) (no date) (unknown) (unknown) Exam Narrative: (units unknown) (unknown) (unknown) (no date) (unknown) (unknown) Exam (units unknown) (unknown) (unknown) (no date) (unknown) (unknown) GEN: no acute distre ss, mildly confused, very hard of hearing (units unknown) (unknown) (unknown) (no date) (unknown) (unknown) Globulin 3.1 (units unknown) (unknown) (unknown) (no date) (unknown) (unknown) Globulin (units unknown) (unknown) (unknown) (no date) (unknown) (unknown) Glucose 100 (units unknown) (unknown) (unknown) (no date) (unknown) (unknown) Glucose 181 H (units unknown) (unknown) (unknown) (no date) (unknown) (unknown) Glucose (units unknown) (unknown) (unknown) (no date) (unknown) (unknown) HEENT: moist mucous membranes (units unknown) (unknown) (unknown) (no date) (unknown) (unknown) Hct 37.4 L (units unknown) (unknown) (unknown) (no date) (unknown) (unknown) Hct 41.1 (units unknown) (unknown) (unknown) (no date) (unknown) (unknown) Hct (units unknown) (unknown) (unknown) (no date) (unknown) (unknown) Hgb 12.0 L (units unknown) (unknown) (unknown) (no date) (unknown) (unknown) Hgb 13.2 L (units unknown) (unknown) (unknown) (no date) (unknown) (unknown) Hgb (units unknown) (unknown) (unknown) (no date) (unknown) (unknown) INR 1.0 (units unknown) (unknown) (unknown) (no date) (unknown) (unknown) INR (units unknown) (unknown) (unknown) (no date) (unknown) (unknown) Influenza A (RT-PCR) Flu a negative (units unknown) (unknown) (unknown) (no date) (unknown) (unknown) Influenza A (RT-PCR) (units unknown) (unknown) (unknown) (no date) (unknown) (unknown) Influenza B (RT-PCR) Flu b negative (units unknown) (unknown) (unknown) (no date) (unknown) (unknown) Influenza B (RT-PCR) (units unknown) (unknown) (unknown) (no date) (unknown) (unknown) Interval history: (units unknown) (unknown) (unknown) (no date) (unknown) (unknown) [address] [id number] (units unknown) (unknown) (unknown) (no date) (unknown) (unknown) Laboratory Results - last 24 hr (units unknown) (unknown) (unknown) (no date) (unknown) (unknown) Labs (units unknown) (unknown) (unknown) (no date) (unknown) (unknown) Labs: (units unknown) (unknown) (unknown) (no date) (unknown) (unknown) Lactate 1.8 (units unknown) (unknown) (unknown) (no date) (unknown) (unknown) Lactate 2.3 H (units unknown) (unknown) (unknown) (no date) (unknown) (unknown) Lactate 3.9 H (units unknown) (unknown) (unknown) (no date) (unknown) (unknown) Lactate (units unknown) (unknown) (unknown) (no date) (unknown) (unknown) Lipase 385 H (units unknown) (unknown) (unknown) (no date) (unknown) (unknown) Lipase (units unknown) (unknown) (unknown) (no date) (unknown) (unknown) Lymph # (Auto) 1300 (units unknown) (unknown) (unknown) (no date) (unknown) (unknown) Lymph # (Auto) 2000 (units unknown) (unknown) (unknown) (no date) (unknown) (unknown) Lymph # (Auto) (units unknown) (unknown) (unknown) (no date) (unknown) (unknown) Lymph % (Auto) 36.0 (units unknown) (unknown) (unknown) (no date) (unknown) (unknown) Lymph % (Auto) 39.4 (units unknown) (unknown) (unknown) (no date) (unknown) (unknown) Lymph % (Auto) (units unknown) (unknown) (unknown) (no date) (unknown) (unknown) MCH 26.7 (units unknown) (unknown) (unknown) (no date) (unknown) (unknown) MCH 26.9 (units unknown) (unknown) (unknown) (no date) (unknown) (unknown) MCH (units unknown) (unknown) (unknown) (no date) (unknown) (unknown) MCHC 32.1 (units unknown) (unknown) (unknown) (no date) (unknown) (unknown) MCHC 32.2 (units unknown) (unknown) (unknown) (no date) (unknown) (unknown) MCHC (units unknown) (unknown) (unknown) (no date) (unknown) (unknown) MCV 83.2 (units unknown) (unknown) (unknown) (no date) (unknown) (unknown) MCV 83.7 (units unknown) (unknown) (unknown) (no date) (unknown) (unknown) MCV (units unknown) (unknown) (unknown) (no date) (unknown) (unknown) [place] # (Auto) 600 (units unknown) (unknown) (unknown) (no date) (unknown) (unknown) [place] # (Auto) (units unknown) (unknown) (unknown) (no date) (unknown) (unknown) [place] % (Auto) 12.0 (units unknown) (unknown) (unknown) (no date) (unknown) (unknown) [place] % (Auto) 15.6 H (units unknown) (unknown) (unknown) (no date) (unknown) (unknown) [place] % (Auto) (units unknown) (unknown) (unknown) (no date) (unknown) (unknown) NEURO: awake, alert, no focal deficits (units unknown) (unknown) (unknown) (no date) (unknown) (unknown) NT-Pro-B Natriuret P ep 44 (units unknown) (unknown) (unknown) (no date) (unknown) (unknown) NT-Pro-B Natriuret Pep (units unknown) (unknown) (unknown) (no date) (unknown) (unknown) Narrative (units unknown) (unknown) (unknown) (no date) (unknown) (unknown) Neut # (Auto) 1700 (units unknown) (unknown) (unknown) (no date) (unknown) (unknown) Neut # (Auto) 2400 (units unknown) (unknown) (unknown) (no date) (unknown) (unknown) Neut # (Auto) (units unknown) (unknown) (unknown) (no date) (unknown) (unknown) Neut % (Auto) 46.4 L (units unknown) (unknown) (unknown) (no date) (unknown) (unknown) Neut % (Auto) 47.7 L (units unknown) (unknown) (unknown) (no date) (unknown) (unknown) Neut % (Auto) (units unknown) (unknown) (unknown) (no date) (unknown) (unknown) Objective (units unknown) (unknown) (unknown) (no date) (unknown) (unknown) Oxygen Delivery Meth od Room Air (units unknown) (unknown) (unknown) (no date) (unknown) (unknown) Oxygen Delivery Method (units unknown) (unknown) (unknown) (no date) (unknown) (unknown) Oxygen Flow Rate 0 0 (units unknown) (unknown) (unknown) (no date) (unknown) (unknown) Oxygen Flow Rate 0 (units unknown) (unknown) (unknown) (no date) (unknown) (unknown) PFSH (units unknown) (unknown) (unknown) (no date) (unknown) (unknown) PT 11.4 (units unknown) (unknown) (unknown) (no date) (unknown) (unknown) PT (units unknown) (unknown) (unknown) (no date) (unknown) (unknown) PULM: clear bilaterally (units unknown) (unknown) (unknown) (no date) (unknown) (unknown) Patient: James Hoffman gume W MR#: [id number] (units unknown) (unknown) (unknown) (no date) (unknown) (unknown) Plt Count 136 L (units unknown) (unknown) (unknown) (no date) (unknown) (unknown) Plt Count 168 (units unknown) (unknown) (unknown) (no date) (unknown) (unknown) Plt Count (units unknown) (unknown) (unknown) (no date) (unknown) (unknown) Potassium 3.8 (units unknown) (unknown) (unknown) (no date) (unknown) (unknown) Potassium (units unknown) (unknown) (unknown) (no date) (unknown) (unknown) Procalcitonin 0.11 (units unknown) (unknown) (unknown) (no date) (unknown) (unknown) Procalcitonin (units unknown) (unknown) (unknown) (no date) (unknown) (unknown) Progress Note (units unknown) (unknown) (unknown) (no date) (unknown) (unknown) Provider: Kirk Aldridge D.O. (units unknown) (unknown) (unknown) (no date) (unknown) (unknown) Pulse Oximetry 98 (units unknown) (unknown) (unknown) (no date) (unknown) (unknown) Pulse Oximetry 99 100 (units unknown) (unknown) (unknown) (no date) (unknown) (unknown) Pulse Rate 82 91 H (units unknown) (unknown) (unknown) (no date) (unknown) (unknown) Pulse Rate 91 H 91 H (units unknown) (unknown) (unknown) (no date) (unknown) (unknown) RBC 4.47 L (units unknown) (unknown) (unknown) (no date) (unknown) (unknown) RBC 4.94 (units unknown) (unknown) (unknown) (no date) (unknown) (unknown) RBC (units unknown) (unknown) (unknown) (no date) (unknown) (unknown) RDW 16.5 H (units unknown) (unknown) (unknown) (no date) (unknown) (unknown) RDW 16.6 H (units unknown) (unknown) (unknown) (no date) (unknown) (unknown) RDW (units unknown) (unknown) (unknown) (no date) (unknown) (unknown) RSV (PCR) Negative (units unknown) (unknown) (unknown) (no date) (unknown) (unknown) RSV (PCR) (units unknown) (unknown) (unknown) (no date) (unknown) (unknown) Respiratory Rate 18 18 (units unknown) (unknown) (unknown) (no date) (unknown) (unknown) Respiratory Rate 19 (units unknown) (unknown) (unknown) (no date) (unknown) (unknown) SARS-CoV-2 (PCR) Negative (units unknown) (unknown) (unknown) (no date) (unknown) (unknown) SARS-CoV-2 (PCR) (units unknown) (unknown) (unknown) (no date) (unknown) (unknown) Signed By: (units unknown) (unknown) (unknown) (no date) (unknown) (unknown) Smoking Status: Aviva monge smoker (units unknown) (unknown) (unknown) (no date) (unknown) (unknown) Social History (units unknown) (unknown) (unknown) (no date) (unknown) (unknown) Sodium 135 L (units unknown) (unknown) (unknown) (no date) (unknown) (unknown) Sodium (units unknown) (unknown) (unknown) (no date) (unknown) (unknown) Subjective (units unknown) (unknown) (unknown) (no date) (unknown) (unknown) Temperature 97.7 F (units unknown) (unknown) (unknown) (no date) (unknown) (unknown) Temperature 97.8 F 9 8.6 F (units unknown) (unknown) (unknown) (no date) (unknown) (unknown) Total Bilirubin 0.6 (units unknown) (unknown) (unknown) (no date) (unknown) (unknown) Total Bilirubin (units unknown) (unknown) (unknown) (no date) (unknown) (unknown) Total Creatine Kinas e 204 H (units unknown) (unknown) (unknown) (no date) (unknown) (unknown) Total Creatine Kinase (units unknown) (unknown) (unknown) (no date) (unknown) (unknown) Total Protein 7.6 (units unknown) (unknown) (unknown) (no date) (unknown) (unknown) Total Protein (units unknown) (unknown) (unknown) (no date) (unknown) (unknown) Troponin I < 0.012 (units unknown) (unknown) (unknown) (no date) (unknown) (unknown) Troponin I (units unknown) (unknown) (unknown) (no date) (unknown) (unknown) U Benzodiazepines Sc rn Negative (units unknown) (unknown) (unknown) (no date) (unknown) (unknown) U Benzodiazepines Scrn (units unknown) (unknown) (unknown) (no date) (unknown) (unknown) U Marijuana (THC) Screen Negative (units unknown) (unknown) (unknown) (no date) (unknown) (unknown) U Marijuana (THC) Screen (units unknown) (unknown) (unknown) (no date) (unknown) (unknown) U Methamphetamines S crn Negative (units unknown) (unknown) (unknown) (no date) (unknown) (unknown) U Methamphetamines Scrn (units unknown) (unknown) (unknown) (no date) (unknown) (unknown) U Opiates 300ng/mL c ut Negative (units unknown) (unknown) (unknown) (no date) (unknown) (unknown) U Opiates 300ng/mL cut (units unknown) (unknown) (unknown) (no date) (unknown) (unknown) U Tricyclic Antidepr ess Negative (units unknown) (unknown) (unknown) (no date) (unknown) (unknown) U Tricyclic Antidepress (units unknown) (unknown) (unknown) (no date) (unknown) (unknown) Ur Amphetamines Scre en Negative (units unknown) (unknown) (unknown) (no date) (unknown) (unknown) Ur Amphetamines Screen (units unknown) (unknown) (unknown) (no date) (unknown) (unknown) Ur Barbiturates Scre en Negative (units unknown) (unknown) (unknown) (no date) (unknown) (unknown) Ur Barbiturates Screen (units unknown) (unknown) (unknown) (no date) (unknown) (unknown) Ur Culture Indicated ? Specimen cultured (units unknown) (unknown) (unknown) (no date) (unknown) (unknown) Ur Culture Indicated? (units unknown) (unknown) (unknown) (no date) (unknown) (unknown) Ur Leukocyte [place] e Trace H (units unknown) (unknown) (unknown) (no date) (unknown) (unknown) Ur Leukocyte Esterase (units unknown) (unknown) (unknown) (no date) (unknown) (unknown) Ur MDMA Scrn ([place] y) Negative (units unknown) (unknown) (unknown) (no date) (unknown) (unknown) Ur MDMA Scrn (Ecstasy) (units unknown) (unknown) (unknown) (no date) (unknown) (unknown) Ur Oxycodone Screen Negative (units unknown) (unknown) (unknown) (no date) (unknown) (unknown) Ur Oxycodone Screen (units unknown) (unknown) (unknown) (no date) (unknown) (unknown) Ur Phencyclidine Scr n Negative (units unknown) (unknown) (unknown) (no date) (unknown) (unknown) Ur Phencyclidine Scrn (units unknown) (unknown) (unknown) (no date) (unknown) (unknown) Ur Specific [place] 1.015 (units unknown) (unknown) (unknown) (no date) (unknown) (unknown) Ur Specific [place] (units unknown) (unknown) (unknown) (no date) (unknown) (unknown) Urine Appearance Clear (units unknown) (unknown) (unknown) (no date) (unknown) (unknown) Urine Appearance (units unknown) (unknown) (unknown) (no date) (unknown) (unknown) Urine Bacteria Many (>30) H (units unknown) (unknown) (unknown) (no date) (unknown) (unknown) Urine Bacteria (units unknown) (unknown) (unknown) (no date) (unknown) (unknown) Urine Bilirubin Negative (units unknown) (unknown) (unknown) (no date) (unknown) (unknown) Urine Bilirubin (units unknown) (unknown) (unknown) (no date) (unknown) (unknown) Urine Cocaine Screen Negative (units unknown) (unknown) (unknown) (no date) (unknown) (unknown) Urine Cocaine Screen (units unknown) (unknown) (unknown) (no date) (unknown) (unknown) Urine Color Yellow (units unknown) (unknown) (unknown) (no date) (unknown) (unknown) Urine Color (units unknown) (unknown) (unknown) (no date) (unknown) (unknown) Urine Glucose (UA) Trace H (units unknown) (unknown) (unknown) (no date) (unknown) (unknown) Urine Glucose (UA) (units unknown) (unknown) (unknown) (no date) (unknown) (unknown) Urine Ketones Negative (units unknown) (unknown) (unknown) (no date) (unknown) (unknown) Urine Ketones (units unknown) (unknown) (unknown) (no date) (unknown) (unknown) Urine Methadone Scre en Negative (units unknown) (unknown) (unknown) (no date) (unknown) (unknown) Urine Methadone Screen (units unknown) (unknown) (unknown) (no date) (unknown) (unknown) Urine Nitrate [place] ve H (units unknown) (unknown) (unknown) (no date) (unknown) (unknown) Urine Nitrate (units unknown) (unknown) (unknown) (no date) (unknown) (unknown) Urine Occult Blood Negative (units unknown) (unknown) (unknown) (no date) (unknown) (unknown) Urine Occult Blood (units unknown) (unknown) (unknown) (no date) (unknown) (unknown) Urine Protein Trace H (units unknown) (unknown) (unknown) (no date) (unknown) (unknown) Urine Protein (units unknown) (unknown) (unknown) (no date) (unknown) (unknown) Urine RBC None seen (units unknown) (unknown) (unknown) (no date) (unknown) (unknown) Urine RBC (units unknown) (unknown) (unknown) (no date) (unknown) (unknown) Urine Urobilinogen 0.2 (units unknown) (unknown) (unknown) (no date) (unknown) (unknown) Urine Urobilinogen (units unknown) (unknown) (unknown) (no date) (unknown) (unknown) Urine WBC 10-30/hpf H (units unknown) (unknown) (unknown) (no date) (unknown) (unknown) Urine WBC (units unknown) (unknown) (unknown) (no date) (unknown) (unknown) Urine pH 7.5 (units unknown) (unknown) (unknown) (no date) (unknown) (unknown) Urine pH (units unknown) (unknown) (unknown) (no date) (unknown) (unknown) Vital Signs (units unknown) (unknown) (unknown) (no date) (unknown) (unknown) WBC 3.6 L (units unknown) (unknown) (unknown) (no date) (unknown) (unknown) WBC 5.0 (units unknown) (unknown) (unknown) (no date) (unknown) (unknown) WBC (units unknown) (unknown) (unknown) (no date) (unknown) (unknown) [Embedded Image Not Available] (units unknown) (unknown) (unknown) (no date) (unknown) (unknown) etoh level on admission. (units unknown) (unknown) (unknown) (no date) (unknown) (unknown) household members: none (units unknown) (unknown) (unknown) (no date) (unknown) (unknown) today but remains confused. He only complains of weakness, denies nausea, (units unknown) (unknown) (unknown) (no date) (unknown) (unknown) vomiting chest pain abdominal pain or shortness of breath. (units unknown) (unknown) Result panel 263 (unknown) (no date) (unknown) (unknown) (no value) (units unknown) (unknown) (unknown) (no date) (unknown) (unknown) (past 8 hours): (units unknown) (unknown) (unknown) (no date) (unknown) (unknown) - likely due to EtOH , possible sepsis (units unknown) (unknown) (unknown) (no date) (unknown) (unknown) -UA positive with nitrates, wbcs, bacteria (units unknown) (unknown) (unknown) (no date) (unknown) (unknown) -can stop IV fluids today (units unknown) (unknown) (unknown) (no date) (unknown) (unknown) -continue ceftriaxone (units unknown) (unknown) (unknown) (no date) (unknown) (unknown) -follow up cultures, currently with gram positive bacilli (units unknown) (unknown) (unknown) (no date) (unknown) (unknown) -for now order for c iwa protocol (units unknown) (unknown) (unknown) (no date) (unknown) (unknown) -has periods where appears irregular (units unknown) (unknown) (unknown) (no date) (unknown) (unknown) -hold off on full anticoagulation for now as not clear what benefits/risks are (units unknown) (unknown) (unknown) (no date) (unknown) (unknown) -order for low dose metoprolol with improvement (units unknown) (unknown) (unknown) (no date) (unknown) (unknown) -ordered mvi, thiami ne, folate (units unknown) (unknown) (unknown) (no date) (unknown) (unknown) -patient states he h as not had drink recently (units unknown) (unknown) (unknown) (no date) (unknown) (unknown) -possible alcoholic encephalopathy / intoxication contributing with elevated (units unknown) (unknown) (unknown) (no date) (unknown) (unknown) -unclear if has hist ory of afib (units unknown) (unknown) (unknown) (no date) (unknown) (unknown) -unclear withdrawal risk (units unknown) (unknown) (unknown) (no date) (unknown) (unknown) [id number] (units unknown) (unknown) (unknown) (no date) (unknown) (unknown) 04:58 04:58 04:58 (units unknown) (unknown) (unknown) (no date) (unknown) (unknown) 06/26/22 06/26/22 06/26/22 (units unknown) (unknown) (unknown) (no date) (unknown) (unknown) 06/27/22 04:58 (units unknown) (unknown) (unknown) (no date) (unknown) (unknown) 06/27/22 06/27/22 06/27/22 (units unknown) (unknown) (unknown) (no date) (unknown) (unknown) 06/27/22 1443 (units unknown) (unknown) (unknown) (no date) (unknown) (unknown) 06/27/22 (units unknown) (unknown) (unknown) (no date) (unknown) (unknown) 06:56 06/27/22 (units unknown) (unknown) (unknown) (no date) (unknown) (unknown) 08:00 06/27/22 (units unknown) (unknown) (unknown) (no date) (unknown) (unknown) 08:19 06/27/22 (units unknown) (unknown) (unknown) (no date) (unknown) (unknown) 08:41 (units unknown) (unknown) (unknown) (no date) (unknown) (unknown) 1. Acute UTI with metabolic encephalopathy, possible sepsis with encephalopathy (units unknown) (unknown) (unknown) (no date) (unknown) (unknown) 12:00 (units unknown) (unknown) (unknown) (no date) (unknown) (unknown) 17:10 17:10 17:10 (units unknown) (unknown) (unknown) (no date) (unknown) (unknown) 17:10 17:10 18:13 (units unknown) (unknown) (unknown) (no date) (unknown) (unknown) 18:47 18:47 19:45 (units unknown) (unknown) (unknown) (no date) (unknown) (unknown) 2. Elevated alcohol level (units unknown) (unknown) (unknown) (no date) (unknown) (unknown) 3. Tachycardia (units unknown) (unknown) (unknown) (no date) (unknown) (unknown) 4. Thrombocytopenia (units unknown) (unknown) (unknown) (no date) (unknown) (unknown) 77 M admitted with acute encephalopathy, UTI, and weakness. He seems more alert (units unknown) (unknown) (unknown) (no date) (unknown) (unknown) ABD: soft, nontender , nondistended (units unknown) (unknown) (unknown) (no date) (unknown) (unknown) ALT 43 (units unknown) (unknown) (unknown) (no date) (unknown) (unknown) ALT (units unknown) (unknown) (unknown) (no date) (unknown) (unknown) APTT 31 (units unknown) (unknown) (unknown) (no date) (unknown) (unknown) APTT (units unknown) (unknown) (unknown) (no date) (unknown) (unknown) AST 82 H (units unknown) (unknown) (unknown) (no date) (unknown) (unknown) AST (units unknown) (unknown) (unknown) (no date) (unknown) (unknown) Age/Sex: 77 / M (units unknown) (unknown) (unknown) (no date) (unknown) (unknown) Albumin 4.5 (units unknown) (unknown) (unknown) (no date) (unknown) (unknown) Albumin (units unknown) (unknown) (unknown) (no date) (unknown) (unknown) Albumin/Globulin Rat io 1.5 (units unknown) (unknown) (unknown) (no date) (unknown) (unknown) Albumin/Globulin Ratio (units unknown) (unknown) (unknown) (no date) (unknown) (unknown) Alkaline Phosphatase 48 (units unknown) (unknown) (unknown) (no date) (unknown) (unknown) Alkaline Phosphatase (units unknown) (unknown) (unknown) (no date) (unknown) (unknown) Assessment + Plan narrative: (units unknown) (unknown) (unknown) (no date) (unknown) (unknown) Assessment + Plan (units unknown) (unknown) (unknown) (no date) (unknown) (unknown) BUN 6 L (units unknown) (unknown) (unknown) (no date) (unknown) (unknown) BUN 9 (units unknown) (unknown) (unknown) (no date) (unknown) (unknown) BUN (units unknown) (unknown) (unknown) (no date) (unknown) (unknown) BUN/Creatinine Ratio 7.2 (units unknown) (unknown) (unknown) (no date) (unknown) (unknown) BUN/Creatinine Ratio 8.7 (units unknown) (unknown) (unknown) (no date) (unknown) (unknown) BUN/Creatinine Ratio (units unknown) (unknown) (unknown) (no date) (unknown) (unknown) Baso # (Auto) 0 (units unknown) (unknown) (unknown) (no date) (unknown) (unknown) Baso # (Auto) 100 (units unknown) (unknown) (unknown) (no date) (unknown) (unknown) Baso # (Auto) (units unknown) (unknown) (unknown) (no date) (unknown) (unknown) Baso % (Auto) 0.7 (units unknown) (unknown) (unknown) (no date) (unknown) (unknown) Baso % (Auto) 2.0 (units unknown) (unknown) (unknown) (no date) (unknown) (unknown) Baso % (Auto) (units unknown) (unknown) (unknown) (no date) (unknown) (unknown) Blood Pressure 160/1 09 H 161/84 H (units unknown) (unknown) (unknown) (no date) (unknown) (unknown) Blood Pressure 160/8 9 H 160/109 H (units unknown) (unknown) (unknown) (no date) (unknown) (unknown) CK-MB (CK-2) 0.87 (units unknown) (unknown) (unknown) (no date) (unknown) (unknown) CK-MB (CK-2) Rel Ind ex 0.4 L (units unknown) (unknown) (unknown) (no date) (unknown) (unknown) CK-MB (CK-2) Rel Index (units unknown) (unknown) (unknown) (no date) (unknown) (unknown) CK-MB (CK-2) (units unknown) (unknown) (unknown) (no date) (unknown) (unknown) CV: irregularly irregular rhythm with normal rate (units unknown) (unknown) (unknown) (no date) (unknown) (unknown) Calcium 8.4 (units unknown) (unknown) (unknown) (no date) (unknown) (unknown) Calcium 9.4 (units unknown) (unknown) (unknown) (no date) (unknown) (unknown) Calcium (units unknown) (unknown) (unknown) (no date) (unknown) (unknown) Carbon Dioxide 22 (units unknown) (unknown) (unknown) (no date) (unknown) (unknown) Carbon Dioxide 27 (units unknown) (unknown) (unknown) (no date) (unknown) (unknown) Carbon Dioxide (units unknown) (unknown) (unknown) (no date) (unknown) (unknown) Chloride 105 (units unknown) (unknown) (unknown) (no date) (unknown) (unknown) Chloride 99 (units unknown) (unknown) (unknown) (no date) (unknown) (unknown) Chloride (units unknown) (unknown) (unknown) (no date) (unknown) (unknown) Code: presumed full, patient remains confused, no known contacts or POA known. (units unknown) (unknown) (unknown) (no date) (unknown) (unknown) Creatinine 0.83 (units unknown) (unknown) (unknown) (no date) (unknown) (unknown) Creatinine 1.04 (units unknown) (unknown) (unknown) (no date) (unknown) (unknown) Creatinine (units unknown) (unknown) (unknown) (no date) (unknown) (unknown) : 1945 Acct:[id number] (units unknown) (unknown) (unknown) (no date) (unknown) (unknown) Date of Service: 06/26/22 (units unknown) (unknown) (unknown) (no date) (unknown) (unknown) Dispo: inpatient, possible SNF pending PT/OT evaluations (units unknown) (unknown) (unknown) (no date) (unknown) (unknown) EXT: warm and well perfused, no edema (units unknown) (unknown) (unknown) (no date) (unknown) (unknown) Eos # (Auto) 0 (units unknown) (unknown) (unknown) (no date) (unknown) (unknown) Eos # (Auto) (units unknown) (unknown) (unknown) (no date) (unknown) (unknown) Eos % (Auto) 0.0 L (units unknown) (unknown) (unknown) (no date) (unknown) (unknown) Eos % (Auto) 0.2 L (units unknown) (unknown) (unknown) (no date) (unknown) (unknown) Eos % (Auto) (units unknown) (unknown) (unknown) (no date) (unknown) (unknown) Estimated GFR > 60 (units unknown) (unknown) (unknown) (no date) (unknown) (unknown) Estimated GFR (units unknown) (unknown) (unknown) (no date) (unknown) (unknown) Ethyl Alcohol 90 H (units unknown) (unknown) (unknown) (no date) (unknown) (unknown) Ethyl Alcohol (units unknown) (unknown) (unknown) (no date) (unknown) (unknown) Exam Narrative: (units unknown) (unknown) (unknown) (no date) (unknown) (unknown) Exam (units unknown) (unknown) (unknown) (no date) (unknown) (unknown) GEN: no acute distre ss, mildly confused, very hard of hearing (units unknown) (unknown) (unknown) (no date) (unknown) (unknown) Globulin 3.1 (units unknown) (unknown) (unknown) (no date) (unknown) (unknown) Globulin (units unknown) (unknown) (unknown) (no date) (unknown) (unknown) Glucose 100 (units unknown) (unknown) (unknown) (no date) (unknown) (unknown) Glucose 181 H (units unknown) (unknown) (unknown) (no date) (unknown) (unknown) Glucose (units unknown) (unknown) (unknown) (no date) (unknown) (unknown) HEENT: moist mucous membranes (units unknown) (unknown) (unknown) (no date) (unknown) (unknown) Hct 37.4 L (units unknown) (unknown) (unknown) (no date) (unknown) (unknown) Hct 41.1 (units unknown) (unknown) (unknown) (no date) (unknown) (unknown) Hct (units unknown) (unknown) (unknown) (no date) (unknown) (unknown) Hgb 12.0 L (units unknown) (unknown) (unknown) (no date) (unknown) (unknown) Hgb 13.2 L (units unknown) (unknown) (unknown) (no date) (unknown) (unknown) Hgb (units unknown) (unknown) (unknown) (no date) (unknown) (unknown) INR 1.0 (units unknown) (unknown) (unknown) (no date) (unknown) (unknown) INR (units unknown) (unknown) (unknown) (no date) (unknown) (unknown) Influenza A (RT-PCR) Flu a negative (units unknown) (unknown) (unknown) (no date) (unknown) (unknown) Influenza A (RT-PCR) (units unknown) (unknown) (unknown) (no date) (unknown) (unknown) Influenza B (RT-PCR) Flu b negative (units unknown) (unknown) (unknown) (no date) (unknown) (unknown) Influenza B (RT-PCR) (units unknown) (unknown) (unknown) (no date) (unknown) (unknown) Interval history: (units unknown) (unknown) (unknown) (no date) (unknown) (unknown) [address] [id number] (units unknown) (unknown) (unknown) (no date) (unknown) (unknown) Laboratory Results - last 24 hr (units unknown) (unknown) (unknown) (no date) (unknown) (unknown) Labs (units unknown) (unknown) (unknown) (no date) (unknown) (unknown) Labs: (units unknown) (unknown) (unknown) (no date) (unknown) (unknown) Lactate 1.8 (units unknown) (unknown) (unknown) (no date) (unknown) (unknown) Lactate 2.3 H (units unknown) (unknown) (unknown) (no date) (unknown) (unknown) Lactate 3.9 H (units unknown) (unknown) (unknown) (no date) (unknown) (unknown) Lactate (units unknown) (unknown) (unknown) (no date) (unknown) (unknown) Lipase 385 H (units unknown) (unknown) (unknown) (no date) (unknown) (unknown) Lipase (units unknown) (unknown) (unknown) (no date) (unknown) (unknown) Lymph # (Auto) 1300 (units unknown) (unknown) (unknown) (no date) (unknown) (unknown) Lymph # (Auto) 2000 (units unknown) (unknown) (unknown) (no date) (unknown) (unknown) Lymph # (Auto) (units unknown) (unknown) (unknown) (no date) (unknown) (unknown) Lymph % (Auto) 36.0 (units unknown) (unknown) (unknown) (no date) (unknown) (unknown) Lymph % (Auto) 39.4 (units unknown) (unknown) (unknown) (no date) (unknown) (unknown) Lymph % (Auto) (units unknown) (unknown) (unknown) (no date) (unknown) (unknown) MCH 26.7 (units unknown) (unknown) (unknown) (no date) (unknown) (unknown) MCH 26.9 (units unknown) (unknown) (unknown) (no date) (unknown) (unknown) MCH (units unknown) (unknown) (unknown) (no date) (unknown) (unknown) MCHC 32.1 (units unknown) (unknown) (unknown) (no date) (unknown) (unknown) MCHC 32.2 (units unknown) (unknown) (unknown) (no date) (unknown) (unknown) MCHC (units unknown) (unknown) (unknown) (no date) (unknown) (unknown) MCV 83.2 (units unknown) (unknown) (unknown) (no date) (unknown) (unknown) MCV 83.7 (units unknown) (unknown) (unknown) (no date) (unknown) (unknown) MCV (units unknown) (unknown) (unknown) (no date) (unknown) (unknown) [place] # (Auto) 600 (units unknown) (unknown) (unknown) (no date) (unknown) (unknown) [place] # (Auto) (units unknown) (unknown) (unknown) (no date) (unknown) (unknown) [place] % (Auto) 12.0 (units unknown) (unknown) (unknown) (no date) (unknown) (unknown) [place] % (Auto) 15.6 H (units unknown) (unknown) (unknown) (no date) (unknown) (unknown) [place] % (Auto) (units unknown) (unknown) (unknown) (no date) (unknown) (unknown) NEURO: awake, alert, no focal deficits (units unknown) (unknown) (unknown) (no date) (unknown) (unknown) NT-Pro-B Natriuret P ep 44 (units unknown) (unknown) (unknown) (no date) (unknown) (unknown) NT-Pro-B Natriuret Pep (units unknown) (unknown) (unknown) (no date) (unknown) (unknown) Narrative (units unknown) (unknown) (unknown) (no date) (unknown) (unknown) Neut # (Auto) 1700 (units unknown) (unknown) (unknown) (no date) (unknown) (unknown) Neut # (Auto) 2400 (units unknown) (unknown) (unknown) (no date) (unknown) (unknown) Neut # (Auto) (units unknown) (unknown) (unknown) (no date) (unknown) (unknown) Neut % (Auto) 46.4 L (units unknown) (unknown) (unknown) (no date) (unknown) (unknown) Neut % (Auto) 47.7 L (units unknown) (unknown) (unknown) (no date) (unknown) (unknown) Neut % (Auto) (units unknown) (unknown) (unknown) (no date) (unknown) (unknown) Objective (units unknown) (unknown) (unknown) (no date) (unknown) (unknown) Oxygen Delivery Meth od Room Air (units unknown) (unknown) (unknown) (no date) (unknown) (unknown) Oxygen Delivery Method (units unknown) (unknown) (unknown) (no date) (unknown) (unknown) Oxygen Flow Rate 0 0 (units unknown) (unknown) (unknown) (no date) (unknown) (unknown) Oxygen Flow Rate 0 (units unknown) (unknown) (unknown) (no date) (unknown) (unknown) PFSH (units unknown) (unknown) (unknown) (no date) (unknown) (unknown) PT 11.4 (units unknown) (unknown) (unknown) (no date) (unknown) (unknown) PT (units unknown) (unknown) (unknown) (no date) (unknown) (unknown) PULM: clear bilaterally (units unknown) (unknown) (unknown) (no date) (unknown) (unknown) Patient: aJmes Hoffman MR#: [id number] (units unknown) (unknown) (unknown) (no date) (unknown) (unknown) Plt Count 136 L (units unknown) (unknown) (unknown) (no date) (unknown) (unknown) Plt Count 168 (units unknown) (unknown) (unknown) (no date) (unknown) (unknown) Plt Count (units unknown) (unknown) (unknown) (no date) (unknown) (unknown) Potassium 3.8 (units unknown) (unknown) (unknown) (no date) (unknown) (unknown) Potassium (units unknown) (unknown) (unknown) (no date) (unknown) (unknown) Procalcitonin 0.11 (units unknown) (unknown) (unknown) (no date) (unknown) (unknown) Procalcitonin (units unknown) (unknown) (unknown) (no date) (unknown) (unknown) Progress Note (units unknown) (unknown) (unknown) (no date) (unknown) (unknown) Provider: Kirk Aldridge D.O. (units unknown) (unknown) (unknown) (no date) (unknown) (unknown) Pulse Oximetry 98 (units unknown) (unknown) (unknown) (no date) (unknown) (unknown) Pulse Oximetry 99 100 (units unknown) (unknown) (unknown) (no date) (unknown) (unknown) Pulse Rate 82 91 H (units unknown) (unknown) (unknown) (no date) (unknown) (unknown) Pulse Rate 91 H 91 H (units unknown) (unknown) (unknown) (no date) (unknown) (unknown) RBC 4.47 L (units unknown) (unknown) (unknown) (no date) (unknown) (unknown) RBC 4.94 (units unknown) (unknown) (unknown) (no date) (unknown) (unknown) RBC (units unknown) (unknown) (unknown) (no date) (unknown) (unknown) RDW 16.5 H (units unknown) (unknown) (unknown) (no date) (unknown) (unknown) RDW 16.6 H (units unknown) (unknown) (unknown) (no date) (unknown) (unknown) RDW (units unknown) (unknown) (unknown) (no date) (unknown) (unknown) RSV (PCR) Negative (units unknown) (unknown) (unknown) (no date) (unknown) (unknown) RSV (PCR) (units unknown) (unknown) (unknown) (no date) (unknown) (unknown) Respiratory Rate 18 18 (units unknown) (unknown) (unknown) (no date) (unknown) (unknown) Respiratory Rate 19 (units unknown) (unknown) (unknown) (no date) (unknown) (unknown) SARS-CoV-2 (PCR) Negative (units unknown) (unknown) (unknown) (no date) (unknown) (unknown) SARS-CoV-2 (PCR) (units unknown) (unknown) (unknown) (no date) (unknown) (unknown) Signed By:<Electronically signed by Kirk Aldridge D.O.> (units unknown) (unknown) (unknown) (no date) (unknown) (unknown) Smoking Status: Aviva monge smoker (units unknown) (unknown) (unknown) (no date) (unknown) (unknown) Social History (units unknown) (unknown) (unknown) (no date) (unknown) (unknown) Sodium 135 L (units unknown) (unknown) (unknown) (no date) (unknown) (unknown) Sodium (units unknown) (unknown) (unknown) (no date) (unknown) (unknown) Subjective (units unknown) (unknown) (unknown) (no date) (unknown) (unknown) Temperature 97.7 F (units unknown) (unknown) (unknown) (no date) (unknown) (unknown) Temperature 97.8 F 9 8.6 F (units unknown) (unknown) (unknown) (no date) (unknown) (unknown) Total Bilirubin 0.6 (units unknown) (unknown) (unknown) (no date) (unknown) (unknown) Total Bilirubin (units unknown) (unknown) (unknown) (no date) (unknown) (unknown) Total Creatine Kinas e 204 H (units unknown) (unknown) (unknown) (no date) (unknown) (unknown) Total Creatine Kinase (units unknown) (unknown) (unknown) (no date) (unknown) (unknown) Total Protein 7.6 (units unknown) (unknown) (unknown) (no date) (unknown) (unknown) Total Protein (units unknown) (unknown) (unknown) (no date) (unknown) (unknown) Troponin I < 0.012 (units unknown) (unknown) (unknown) (no date) (unknown) (unknown) Troponin I (units unknown) (unknown) (unknown) (no date) (unknown) (unknown) U Benzodiazepines Sc rn Negative (units unknown) (unknown) (unknown) (no date) (unknown) (unknown) U Benzodiazepines Scrn (units unknown) (unknown) (unknown) (no date) (unknown) (unknown) U Marijuana (THC) Screen Negative (units unknown) (unknown) (unknown) (no date) (unknown) (unknown) U Marijuana (THC) Screen (units unknown) (unknown) (unknown) (no date) (unknown) (unknown) U Methamphetamines S crn Negative (units unknown) (unknown) (unknown) (no date) (unknown) (unknown) U Methamphetamines Scrn (units unknown) (unknown) (unknown) (no date) (unknown) (unknown) U Opiates 300ng/mL c ut Negative (units unknown) (unknown) (unknown) (no date) (unknown) (unknown) U Opiates 300ng/mL cut (units unknown) (unknown) (unknown) (no date) (unknown) (unknown) U Tricyclic Antidepr ess Negative (units unknown) (unknown) (unknown) (no date) (unknown) (unknown) U Tricyclic Antidepress (units unknown) (unknown) (unknown) (no date) (unknown) (unknown) Ur Amphetamines Scre en Negative (units unknown) (unknown) (unknown) (no date) (unknown) (unknown) Ur Amphetamines Screen (units unknown) (unknown) (unknown) (no date) (unknown) (unknown) Ur Barbiturates Scre en Negative (units unknown) (unknown) (unknown) (no date) (unknown) (unknown) Ur Barbiturates Screen (units unknown) (unknown) (unknown) (no date) (unknown) (unknown) Ur Culture Indicated ? Specimen cultured (units unknown) (unknown) (unknown) (no date) (unknown) (unknown) Ur Culture Indicated? (units unknown) (unknown) (unknown) (no date) (unknown) (unknown) Ur Leukocyte [place] e Trace H (units unknown) (unknown) (unknown) (no date) (unknown) (unknown) Ur Leukocyte Esterase (units unknown) (unknown) (unknown) (no date) (unknown) (unknown) Ur MDMA Scrn ([place] y) Negative (units unknown) (unknown) (unknown) (no date) (unknown) (unknown) Ur MDMA Scrn (Ecstasy) (units unknown) (unknown) (unknown) (no date) (unknown) (unknown) Ur Oxycodone Screen Negative (units unknown) (unknown) (unknown) (no date) (unknown) (unknown) Ur Oxycodone Screen (units unknown) (unknown) (unknown) (no date) (unknown) (unknown) Ur Phencyclidine Scr n Negative (units unknown) (unknown) (unknown) (no date) (unknown) (unknown) Ur Phencyclidine Scrn (units unknown) (unknown) (unknown) (no date) (unknown) (unknown) Ur Specific [place] 1.015 (units unknown) (unknown) (unknown) (no date) (unknown) (unknown) Ur Specific [place] (units unknown) (unknown) (unknown) (no date) (unknown) (unknown) Urine Appearance Clear (units unknown) (unknown) (unknown) (no date) (unknown) (unknown) Urine Appearance (units unknown) (unknown) (unknown) (no date) (unknown) (unknown) Urine Bacteria Many (>30) H (units unknown) (unknown) (unknown) (no date) (unknown) (unknown) Urine Bacteria (units unknown) (unknown) (unknown) (no date) (unknown) (unknown) Urine Bilirubin Negative (units unknown) (unknown) (unknown) (no date) (unknown) (unknown) Urine Bilirubin (units unknown) (unknown) (unknown) (no date) (unknown) (unknown) Urine Cocaine Screen Negative (units unknown) (unknown) (unknown) (no date) (unknown) (unknown) Urine Cocaine Screen (units unknown) (unknown) (unknown) (no date) (unknown) (unknown) Urine Color Yellow (units unknown) (unknown) (unknown) (no date) (unknown) (unknown) Urine Color (units unknown) (unknown) (unknown) (no date) (unknown) (unknown) Urine Glucose (UA) Trace H (units unknown) (unknown) (unknown) (no date) (unknown) (unknown) Urine Glucose (UA) (units unknown) (unknown) (unknown) (no date) (unknown) (unknown) Urine Ketones Negative (units unknown) (unknown) (unknown) (no date) (unknown) (unknown) Urine Ketones (units unknown) (unknown) (unknown) (no date) (unknown) (unknown) Urine Methadone Scre en Negative (units unknown) (unknown) (unknown) (no date) (unknown) (unknown) Urine Methadone Screen (units unknown) (unknown) (unknown) (no date) (unknown) (unknown) Urine Nitrate [place] ve H (units unknown) (unknown) (unknown) (no date) (unknown) (unknown) Urine Nitrate (units unknown) (unknown) (unknown) (no date) (unknown) (unknown) Urine Occult Blood Negative (units unknown) (unknown) (unknown) (no date) (unknown) (unknown) Urine Occult Blood (units unknown) (unknown) (unknown) (no date) (unknown) (unknown) Urine Protein Trace H (units unknown) (unknown) (unknown) (no date) (unknown) (unknown) Urine Protein (units unknown) (unknown) (unknown) (no date) (unknown) (unknown) Urine RBC None seen (units unknown) (unknown) (unknown) (no date) (unknown) (unknown) Urine RBC (units unknown) (unknown) (unknown) (no date) (unknown) (unknown) Urine Urobilinogen 0.2 (units unknown) (unknown) (unknown) (no date) (unknown) (unknown) Urine Urobilinogen (units unknown) (unknown) (unknown) (no date) (unknown) (unknown) Urine WBC 10-30/hpf H (units unknown) (unknown) (unknown) (no date) (unknown) (unknown) Urine WBC (units unknown) (unknown) (unknown) (no date) (unknown) (unknown) Urine pH 7.5 (units unknown) (unknown) (unknown) (no date) (unknown) (unknown) Urine pH (units unknown) (unknown) (unknown) (no date) (unknown) (unknown) Vital Signs (units unknown) (unknown) (unknown) (no date) (unknown) (unknown) WBC 3.6 L (units unknown) (unknown) (unknown) (no date) (unknown) (unknown) WBC 5.0 (units unknown) (unknown) (unknown) (no date) (unknown) (unknown) WBC (units unknown) (unknown) (unknown) (no date) (unknown) (unknown) [Embedded Image Not Available] (units unknown) (unknown) (unknown) (no date) (unknown) (unknown) and thrombocytopenia , present on admission (units unknown) (unknown) (unknown) (no date) (unknown) (unknown) etoh level on admission. (units unknown) (unknown) (unknown) (no date) (unknown) (unknown) household members: none (units unknown) (unknown) (unknown) (no date) (unknown) (unknown) today but remains confused. He only complains of weakness, denies nausea, (units unknown) (unknown) (unknown) (no date) (unknown) (unknown) vomiting chest pain abdominal pain or shortness of breath. (units unknown) (unknown) Result panel 264 (unknown) (no date) (unknown) (unknown) (no value) (units unknown) (unknown) (unknown) (no date) (unknown) (unknown) NO GROWTH AFTER 24 HOURS (units unknown) (unknown) (unknown) (no date) (unknown) (unknown) NO GROWTH AFTER 24 HOURS (units unknown) (unknown) Result panel 265 (unknown) (no date) (unknown) (unknown) (no value) (units unknown) (unknown) (unknown) (no date) (unknown) (unknown) NO GROWTH AFTER 24 HOURS (units unknown) (unknown) (unknown) (no date) (unknown) (unknown) NO GROWTH AFTER 24 HOURS (units unknown) (unknown) Result panel 266 (unknown) (no date) (unknown) (unknown) 0 /ul (unknown) (unknown) (no date) (unknown) (unknown) 0 /ul (unknown) (unknown) (no date) (unknown) (unknown) 0.6 % (unknown) (unknown) (no date) (unknown) (unknown) 0.7 % (unknown) (unknown) (no date) (unknown) (unknown) 13.0 g/dl (unknown) (unknown) (no date) (unknown) (unknown) 14.1 % (unknown) (unknown) (no date) (unknown) (unknown) 150 x10 3/ul (unknown) (unknown) (no date) (unknown) (unknown) 16.7 % (unknown) (unknown) (no date) (unknown) (unknown) 2300 /ul (unknown) (unknown) (no date) (unknown) (unknown) 26.9 pg (unknown) (unknown) (no date) (unknown) (unknown) 32.2 % (unknown) (unknown) (no date) (unknown) (unknown) 3200 /ul (unknown) (unknown) (no date) (unknown) (unknown) 35.5 % (unknown) (unknown) (no date) (unknown) (unknown) 4.84 x10 6/ul (unknown) (unknown) (no date) (unknown) (unknown) 40.4 % (unknown) (unknown) (no date) (unknown) (unknown) 49.1 % (unknown) (unknown) (no date) (unknown) (unknown) 6.6 x10 3/ul (unknown) (unknown) (no date) (unknown) (unknown) 83.5 fl (unknown) (unknown) (no date) (unknown) (unknown) 900 /ul (unknown) Result panel 267 (unknown) (no date) (unknown) (unknown) > 60 ml/min (unknown) (unknown) (no date) (unknown) (unknown) > 60 ml/min (unknown) (unknown) (no date) (unknown) (unknown) 0.88 mg/dl (unknown) (unknown) (no date) (unknown) (unknown) 101 mmol/l (unknown) (unknown) (no date) (unknown) (unknown) 134 mmol/l (unknown) (unknown) (no date) (unknown) (unknown) 26 mmol/l (unknown) (unknown) (no date) (unknown) (unknown) 4.2 mmol/l (unknown) (unknown) (no date) (unknown) (unknown) 6 mg/dl (unknown) (unknown) (no date) (unknown) (unknown) 6.8 (units unknown) (unknown) (unknown) (no date) (unknown) (unknown) 9.0 mg/dl (unknown) (unknown) (no date) (unknown) (unknown) 91 mg/dl (unknown) (unknown) (no date) (unknown) (unknown) 91 mg/dl (unknown) Result panel 268 (unknown) (no date) (unknown) (unknown) >100,000 cfu/ml (unknown) (unknown) (no date) (unknown) (unknown) <=0.12 (units unknown) (unknown) (unknown) (no date) (unknown) (unknown) <=0.25 (units unknown) (unknown) (unknown) (no date) (unknown) (unknown) <=0.5 (units unknown) (unknown) (unknown) (no date) (unknown) (unknown) <=1 (units unknown) (unknown) (unknown) (no date) (unknown) (unknown) <=10 (units unknown) (unknown) (unknown) (no date) (unknown) (unknown) <=16 (units unknown) (unknown) (unknown) (no date) (unknown) (unknown) 0.5 (units unknown) (unknown) (unknown) (no date) (unknown) (unknown) 1 (units unknown) (unknown) (unknown) (no date) (unknown) (unknown) 2 (units unknown) (unknown) (unknown) (no date) (unknown) (unknown) STAEPIStaphylococcus epidermidis (units unknown) (unknown) Result panel 269 (unknown) (no date) (unknown) (unknown) (no value) (units unknown) (unknown) (unknown) (no date) (unknown) (unknown) NO GROWTH AFTER 48 HOURS (units unknown) (unknown) (unknown) (no date) (unknown) (unknown) NO GROWTH AFTER 48 HOURS (units unknown) (unknown) Result panel 270 (unknown) (no date) (unknown) (unknown) (no value) (units unknown) (unknown) (unknown) (no date) (unknown) (unknown) NO GROWTH AFTER 48 HOURS (units unknown) (unknown) (unknown) (no date) (unknown) (unknown) NO GROWTH AFTER 48 HOURS (units unknown) (unknown) Result panel 271 (unknown) (no date) (unknown) (unknown) (no value) (units unknown) (unknown) (unknown) (no date) (unknown) (unknown) (past 8 hours): (units unknown) (unknown) (unknown) (no date) (unknown) (unknown) Discharges patien t from system. (units unknown) (unknown) (unknown) (no date) (unknown) (unknown) -UA positive with nitrates, wbcs, bacteria (units unknown) (unknown) (unknown) (no date) (unknown) (unknown) -can stop IV fluids today (units unknown) (unknown) (unknown) (no date) (unknown) (unknown) -continue ceftriaxone (units unknown) (unknown) (unknown) (no date) (unknown) (unknown) -follow up cultures, currently with gram positive bacilli (units unknown) (unknown) (unknown) (no date) (unknown) (unknown) -for now order for c iwa protocol (units unknown) (unknown) (unknown) (no date) (unknown) (unknown) -has periods where appears irregular (units unknown) (unknown) (unknown) (no date) (unknown) (unknown) -hold off on full anticoagulation for now as not clear what benefits/risks are (units unknown) (unknown) (unknown) (no date) (unknown) (unknown) -order for low dose metoprolol with improvement (units unknown) (unknown) (unknown) (no date) (unknown) (unknown) -ordered mvi, thiami ne, folate (units unknown) (unknown) (unknown) (no date) (unknown) (unknown) -patient states he h as not had drink recently (units unknown) (unknown) (unknown) (no date) (unknown) (unknown) -possible alcoholic encephalopathy / intoxication contributing with elevated (units unknown) (unknown) (unknown) (no date) (unknown) (unknown) -unclear if has hist ory of afib (units unknown) (unknown) (unknown) (no date) (unknown) (unknown) -unclear withdrawal risk (units unknown) (unknown) (unknown) (no date) (unknown) (unknown) [id number] (units unknown) (unknown) (unknown) (no date) (unknown) (unknown) 06/26/22 20:51 (units unknown) (unknown) (unknown) (no date) (unknown) (unknown) 06/26/22 23:35 (units unknown) (unknown) (unknown) (no date) (unknown) (unknown) 06/26/22 23:57 (units unknown) (unknown) (unknown) (no date) (unknown) (unknown) 06/28/22 05:39 (units unknown) (unknown) (unknown) (no date) (unknown) (unknown) 06/28/22 14:26 (units unknown) (unknown) (unknown) (no date) (unknown) (unknown) 1 tab PO DIRECTED (units unknown) (unknown) (unknown) (no date) (unknown) (unknown) 1. Acute UTI with metabolic encephalopathy, possible sepsis with encephalopathy (units unknown) (unknown) (unknown) (no date) (unknown) (unknown) 100 mg PO DAILY (units unknown) (unknown) (unknown) (no date) (unknown) (unknown) 2. Elevated alcohol level (units unknown) (unknown) (unknown) (no date) (unknown) (unknown) 3. Tachycardia (units unknown) (unknown) (unknown) (no date) (unknown) (unknown) 3.6, hgb 13.2, plts 168. Na 135, k 3.8, creatinine 1.04. INR 1.0. Trop negative. (units unknown) (unknown) (unknown) (no date) (unknown) (unknown) 4. Thrombocytopenia (units unknown) (unknown) (unknown) (no date) (unknown) (unknown) 875 mg PO BID 6 Days Qty: 12 0RF (units unknown) (unknown) (unknown) (no date) (unknown) (unknown) ?- likely due to EtO H, possible sepsis (units unknown) (unknown) (unknown) (no date) (unknown) (unknown) ABD: soft, nontender , nondistended (units unknown) (unknown) (unknown) (no date) (unknown) (unknown) Age/Sex: 77 / M (units unknown) (unknown) (unknown) (no date) (unknown) (unknown) Amoxicillin (units unknown) (unknown) (unknown) (no date) (unknown) (unknown) CV: irregularly irregular rhythm with normal rate (units unknown) (unknown) (unknown) (no date) (unknown) (unknown) Chest xray reviewed by me and notable for no acute process. CT head reviewed by (units unknown) (unknown) (unknown) (no date) (unknown) (unknown) Chief complaint: Diz zy, Tinnitus, Headache (units unknown) (unknown) (unknown) (no date) (unknown) (unknown) Comment: UTI, encephalopathy, cognition (units unknown) (unknown) (unknown) (no date) (unknown) (unknown) Comment: per patient request (units unknown) (unknown) (unknown) (no date) (unknown) (unknown) Comment: (units unknown) (unknown) (unknown) (no date) (unknown) (unknown) Consult to Dietitian , Adult Routine (units unknown) (unknown) (unknown) (no date) (unknown) (unknown) Consult to Home [facility] Routine (units unknown) (unknown) (unknown) (no date) (unknown) (unknown) Consult to Occupatio nal Therapy Evaluate + Treat (units unknown) (unknown) (unknown) (no date) (unknown) (unknown) Consult to Pastoral Services Routine (units unknown) (unknown) (unknown) (no date) (unknown) (unknown) Consult to Physical Therapy Evaluate + Treat (units unknown) (unknown) (unknown) (no date) (unknown) (unknown) Consults: (units unknown) (unknown) (unknown) (no date) (unknown) (unknown) Continued (units unknown) (unknown) (unknown) (no date) (unknown) (unknown) : 1945 Acct:[id number] (units unknown) (unknown) (unknown) (no date) (unknown) (unknown) Date Patient Seen: 06/26/22 (units unknown) (unknown) (unknown) (no date) (unknown) (unknown) Date of Service: 06/26/22 (units unknown) (unknown) (unknown) (no date) (unknown) (unknown) Date of admission: (units unknown) (unknown) (unknown) (no date) (unknown) (unknown) Discharge Data (units unknown) (unknown) (unknown) (no date) (unknown) (unknown) Discharge Date/Time: 06/28/22 14:33 (units unknown) (unknown) (unknown) (no date) (unknown) (unknown) Discharge Date: 06/28/22 (units unknown) (unknown) (unknown) (no date) (unknown) (unknown) Discharge Diagnosis: (units unknown) (unknown) (unknown) (no date) (unknown) (unknown) Discharge Plan (units unknown) (unknown) (unknown) (no date) (unknown) (unknown) Discharge Providers (units unknown) (unknown) (unknown) (no date) (unknown) (unknown) Discharge Summary (units unknown) (unknown) (unknown) (no date) (unknown) (unknown) Discharge orders + Medications (units unknown) (unknown) (unknown) (no date) (unknown) (unknown) Discharge provider: (units unknown) (unknown) (unknown) (no date) (unknown) (unknown) EXT: warm and well perfused, no edema (units unknown) (unknown) (unknown) (no date) (unknown) (unknown) Exam Narrative: (units unknown) (unknown) (unknown) (no date) (unknown) (unknown) Exam (units unknown) (unknown) (unknown) (no date) (unknown) (unknown) Follow up/Referrals: (units unknown) (unknown) (unknown) (no date) (unknown) (unknown) GEN: no acute distre ss, mildly confused, very hard of hearing (units unknown) (unknown) (unknown) (no date) (unknown) (unknown) Geritol Complete 16 mg iron- 0.38 mg Tablet (units unknown) (unknown) (unknown) (no date) (unknown) (unknown) HEENT: moist mucous membranes (units unknown) (unknown) (unknown) (no date) (unknown) (unknown) History of Present Illness (units unknown) (unknown) (unknown) (no date) (unknown) (unknown) Hospital Course (units unknown) (unknown) (unknown) (no date) (unknown) (unknown) In the ED workup was done, vitals notable for afebrile, heart rate 110s, (units unknown) (unknown) (unknown) (no date) (unknown) (unknown) Instructions: Urinar y Tract Infection, DI for Urinary Tract Infection (UTI), (units unknown) (unknown) (unknown) (no date) (unknown) (unknown) [address] [address] (units unknown) (unknown) (unknown) (no date) (unknown) (unknown) Labs (units unknown) (unknown) (unknown) (no date) (unknown) (unknown) Jeannette Mcelroy MD (units unknown) (unknown) (unknown) (no date) (unknown) (unknown) Nnamdi Larson, DO (units unknown) (unknown) (unknown) (no date) (unknown) (unknown) Mr. Hoffman is a 77M with H hypertension who presents to the hospital (units unknown) (unknown) (unknown) (no date) (unknown) (unknown) NEURO: awake, alert, no focal deficits (units unknown) (unknown) (unknown) (no date) (unknown) (unknown) Narrative (units unknown) (unknown) (unknown) (no date) (unknown) (unknown) Narrative: (units unknown) (unknown) (unknown) (no date) (unknown) (unknown) New (units unknown) (unknown) (unknown) (no date) (unknown) (unknown) Objective (units unknown) (unknown) (unknown) (no date) (unknown) (unknown) Oxygen Delivery Meth od Room Air (units unknown) (unknown) (unknown) (no date) (unknown) (unknown) Oxygen Flow Rate 0 (units unknown) (unknown) (unknown) (no date) (unknown) (unknown) PFSH (units unknown) (unknown) (unknown) (no date) (unknown) (unknown) PULM: clear bilaterally (units unknown) (unknown) (unknown) (no date) (unknown) (unknown) Patient Comments: (units unknown) (unknown) (unknown) (no date) (unknown) (unknown) Patient Disposition: Home Health Service (units unknown) (unknown) (unknown) (no date) (unknown) (unknown) Patient: James Hoffman MR#: [id number] (units unknown) (unknown) (unknown) (no date) (unknown) (unknown) Physician Instructio ns: Evaluate and Treat (units unknown) (unknown) (unknown) (no date) (unknown) (unknown) Physician Instructio ns: Evaluate and treat (units unknown) (unknown) (unknown) (no date) (unknown) (unknown) Prescriptions: (units unknown) (unknown) (unknown) (no date) (unknown) (unknown) Primary Care Provide r: Jeannette Mcelroy (units unknown) (unknown) (unknown) (no date) (unknown) (unknown) Primary care physician: (units unknown) (unknown) (unknown) (no date) (unknown) (unknown) Procal 0.11. Lactate 3.9->2.3. EtOH 90. UA with nitrates, WBCs, and bacteria. (units unknown) (unknown) (unknown) (no date) (unknown) (unknown) Provider Discharge Comment: You were admitted for some confusion. You may have (units unknown) (unknown) (unknown) (no date) (unknown) (unknown) Provider (units unknown) (unknown) (unknown) (no date) (unknown) (unknown) Provider: Alber Larson D.O. 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 (units unknown) (unknown) (unknown) (no date) (unknown) (unknown) Reason For Exam: decreased appetite (units unknown) (unknown) (unknown) (no date) (unknown) (unknown) Signed By: (units unknown) (unknown) (unknown) (no date) (unknown) (unknown) Smoking Status: Aviva r smoker (units unknown) (unknown) (unknown) (no date) (unknown) (unknown) Social History (units unknown) (unknown) (unknown) (no date) (unknown) (unknown) Stand Alone Forms: Patient Portal/API, Stroke Signs + Symptoms (units unknown) (unknown) (unknown) (no date) (unknown) (unknown) Summary (units unknown) (unknown) (unknown) (no date) (unknown) (unknown) Jeannette Mcelroy MD [Primary Care Provider] - 2 Weeks (units unknown) (unknown) (unknown) (no date) (unknown) (unknown) Time Patient Seen: 21:30 (units unknown) (unknown) (unknown) (no date) (unknown) (unknown) Time Spent with Patient (units unknown) (unknown) (unknown) (no date) (unknown) (unknown) Time spent: Greater than 30 minutes (units unknown) (unknown) (unknown) (no date) (unknown) (unknown) Visit Report/Dischar ge Packet (units unknown) (unknown) (unknown) (no date) (unknown) (unknown) Vital Signs (units unknown) (unknown) (unknown) (no date) (unknown) (unknown) [Embedded Image Not Available] (units unknown) (unknown) (unknown) (no date) (unknown) (unknown) amoxicillin 875 mg tablet (units unknown) (unknown) (unknown) (no date) (unknown) (unknown) and thrombocytopenia , present on admission (units unknown) (unknown) (unknown) (no date) (unknown) (unknown) any other complaints . Denied pain, cough, shortness of breath, nausea, vomiting, (units unknown) (unknown) (unknown) (no date) (unknown) (unknown) as he appears confus ed and he is very hard of hearing. He was really not having (units unknown) (unknown) (unknown) (no date) (unknown) (unknown) atenolol 100 mg Tablet (units unknown) (unknown) (unknown) (no date) (unknown) (unknown) bit. (units unknown) (unknown) (unknown) (no date) (unknown) (unknown) complaining of weakness. It is very difficult to get a history from the patient (units unknown) (unknown) (unknown) (no date) (unknown) (unknown) confusion. Your urin e was growing bacteria suggesting a urinary tract infection (units unknown) (unknown) (unknown) (no date) (unknown) (unknown) etoh level on admission. (units unknown) (unknown) (unknown) (no date) (unknown) (unknown) have your hearing checked and see what they can offer. In 75% patients with (units unknown) (unknown) (unknown) (no date) (unknown) (unknown) hearing loss, a cochlear implant for hearing loss can improve tinnitus quite a (units unknown) (unknown) (unknown) (no date) (unknown) (unknown) household members: none (units unknown) (unknown) (unknown) (no date) (unknown) (unknown) me and notable for n o acute process. (units unknown) (unknown) (unknown) (no date) (unknown) (unknown) neighbor that the patient was much more confused than was normal. (units unknown) (unknown) (unknown) (no date) (unknown) (unknown) or diarrhea. I spoke with the ED physician who had discussed with the patient's (units unknown) (unknown) (unknown) (no date) (unknown) (unknown) pharmacy. For you tinnitus, I would ask your PCP to send a referral to ENT to (units unknown) (unknown) (unknown) (no date) (unknown) (unknown) respiratory 18, bloo d pressure 150s/80s, 98% on room air. Labs notable for WBC (units unknown) (unknown) (unknown) (no date) (unknown) (unknown) so we are treating t hat just in case with antibiotics. I've sent some to your (units unknown) (unknown) (unknown) (no date) (unknown) (unknown) some dementia that i s starting to set in. We didn't find any other cause of your (units unknown) (unknown) (unknown) (no date) (unknown) (unknown) strength not confirm ed - patient unable to confirm due to confusion (units unknown) (unknown) Result panel 272 (unknown) (no date) (unknown) (unknown) (no value) (units unknown) (unknown) (unknown) (no date) (unknown) (unknown) NO GROWTH AFTER 72 HOURS (units unknown) (unknown) (unknown) (no date) (unknown) (unknown) NO GROWTH AFTER 72 HOURS (units unknown) (unknown) Result panel 273 (unknown) (no date) (unknown) (unknown) (no value) (units unknown) (unknown) (unknown) (no date) (unknown) (unknown) NO GROWTH AFTER 72 HOURS (units unknown) (unknown) (unknown) (no date) (unknown) (unknown) NO GROWTH AFTER 72 HOURS (units unknown) (unknown) Result panel 274 (unknown) (no date) (unknown) (unknown) (no value) (units unknown) (unknown) (unknown) (no date) (unknown) (unknown) (past 8 hours): (units unknown) (unknown) (unknown) (no date) (unknown) (unknown) Discharges patien t from system. (units unknown) (unknown) (unknown) (no date) (unknown) (unknown) -SLUMS 15/30 (units unknown) (unknown) (unknown) (no date) (unknown) (unknown) -UA positive with nitrates, wbcs, bacteria (units unknown) (unknown) (unknown) (no date) (unknown) (unknown) -continue ceftriaxone (units unknown) (unknown) (unknown) (no date) (unknown) (unknown) -for now order for c iwa protocol (units unknown) (unknown) (unknown) (no date) (unknown) (unknown) -has periods where appears irregular (units unknown) (unknown) (unknown) (no date) (unknown) (unknown) -hold off on full anticoagulation for now as not clear what benefits/risks are (units unknown) (unknown) (unknown) (no date) (unknown) (unknown) -mentation improving , alert and oriented x3 but easily forgetful (units unknown) (unknown) (unknown) (no date) (unknown) (unknown) -order for low dose metoprolol with improvement (units unknown) (unknown) (unknown) (no date) (unknown) (unknown) -ordered mvi, thiami ne, folate (units unknown) (unknown) (unknown) (no date) (unknown) (unknown) -patient states he h as not had drink recently (units unknown) (unknown) (unknown) (no date) (unknown) (unknown) -placed on amoxicill in to finish 1 more week (units unknown) (unknown) (unknown) (no date) (unknown) (unknown) -unclear if has hist ory of afib (units unknown) (unknown) (unknown) (no date) (unknown) (unknown) -unclear withdrawal risk (units unknown) (unknown) (unknown) (no date) (unknown) (unknown) -urine culture with >100k Staph epi pansensitive (units unknown) (unknown) (unknown) (no date) (unknown) (unknown) [id number] (units unknown) (unknown) (unknown) (no date) (unknown) (unknown) 06/26/22 20:51 (units unknown) (unknown) (unknown) (no date) (unknown) (unknown) 06/26/22 23:35 (units unknown) (unknown) (unknown) (no date) (unknown) (unknown) 06/26/22 23:57 (units unknown) (unknown) (unknown) (no date) (unknown) (unknown) 06/28/22 05:39 (units unknown) (unknown) (unknown) (no date) (unknown) (unknown) 06/28/22 14:26 (units unknown) (unknown) (unknown) (no date) (unknown) (unknown) 1 tab PO DIRECTED (units unknown) (unknown) (unknown) (no date) (unknown) (unknown) 1. Acute UTI with metabolic encephalopathy, possible underyling dementia, (units unknown) (unknown) (unknown) (no date) (unknown) (unknown) 100 mg PO DAILY (units unknown) (unknown) (unknown) (no date) (unknown) (unknown) 2. Elevated alcohol level (units unknown) (unknown) (unknown) (no date) (unknown) (unknown) 3. Tachycardia (units unknown) (unknown) (unknown) (no date) (unknown) (unknown) 3.6, hgb 13.2, plts 168. Na 135, k 3.8, creatinine 1.04. INR 1.0. Trop negative. (units unknown) (unknown) (unknown) (no date) (unknown) (unknown) 4. Thrombocytopenia (units unknown) (unknown) (unknown) (no date) (unknown) (unknown) 875 mg PO BID 6 Days Qty: 12 0RF (units unknown) (unknown) (unknown) (no date) (unknown) (unknown) ?- likely due to EtO H, possible sepsis (units unknown) (unknown) (unknown) (no date) (unknown) (unknown) ABD: soft, nontender , nondistended (units unknown) (unknown) (unknown) (no date) (unknown) (unknown) Age/Sex: 77 / M (units unknown) (unknown) (unknown) (no date) (unknown) (unknown) Amoxicillin (units unknown) (unknown) (unknown) (no date) (unknown) (unknown) CV: irregularly irregular rhythm with normal rate (units unknown) (unknown) (unknown) (no date) (unknown) (unknown) Chest xray reviewed by me and notable for no acute process. CT head reviewed by (units unknown) (unknown) (unknown) (no date) (unknown) (unknown) Chief complaint: Diz zy, Tinnitus, Headache (units unknown) (unknown) (unknown) (no date) (unknown) (unknown) Comment: UTI, encephalopathy, cognition (units unknown) (unknown) (unknown) (no date) (unknown) (unknown) Comment: per patient request (units unknown) (unknown) (unknown) (no date) (unknown) (unknown) Comment: (units unknown) (unknown) (unknown) (no date) (unknown) (unknown) Consult to Dietitian , Adult Routine (units unknown) (unknown) (unknown) (no date) (unknown) (unknown) Consult to Home [facility] Routine (units unknown) (unknown) (unknown) (no date) (unknown) (unknown) Consult to Occupatio nal Therapy Evaluate + Treat (units unknown) (unknown) (unknown) (no date) (unknown) (unknown) Consult to Pastoral Services Routine (units unknown) (unknown) (unknown) (no date) (unknown) (unknown) Consult to Physical Therapy Evaluate + Treat (units unknown) (unknown) (unknown) (no date) (unknown) (unknown) Consults: (units unknown) (unknown) (unknown) (no date) (unknown) (unknown) Continued (units unknown) (unknown) (unknown) (no date) (unknown) (unknown) : 1945 Acct:[id number] (units unknown) (unknown) (unknown) (no date) (unknown) (unknown) Date Patient Seen: 06/26/22 (units unknown) (unknown) (unknown) (no date) (unknown) (unknown) Date of Service: 06/26/22 (units unknown) (unknown) (unknown) (no date) (unknown) (unknown) Date of admission: (units unknown) (unknown) (unknown) (no date) (unknown) (unknown) Discharge Data (units unknown) (unknown) (unknown) (no date) (unknown) (unknown) Discharge Date/Time: 06/28/22 14:33 (units unknown) (unknown) (unknown) (no date) (unknown) (unknown) Discharge Date: 06/28/22 (units unknown) (unknown) (unknown) (no date) (unknown) (unknown) Discharge Diagnosis: (units unknown) (unknown) (unknown) (no date) (unknown) (unknown) Discharge Plan (units unknown) (unknown) (unknown) (no date) (unknown) (unknown) Discharge Providers (units unknown) (unknown) (unknown) (no date) (unknown) (unknown) Discharge Summary (units unknown) (unknown) (unknown) (no date) (unknown) (unknown) Discharge orders + Medications (units unknown) (unknown) (unknown) (no date) (unknown) (unknown) Discharge provider: (units unknown) (unknown) (unknown) (no date) (unknown) (unknown) EXT: warm and well perfused, no edema (units unknown) (unknown) (unknown) (no date) (unknown) (unknown) Exam Narrative: (units unknown) (unknown) (unknown) (no date) (unknown) (unknown) Exam (units unknown) (unknown) (unknown) (no date) (unknown) (unknown) Follow up/Referrals: (units unknown) (unknown) (unknown) (no date) (unknown) (unknown) GEN: no acute distre ss, mildly confused, very hard of hearing (units unknown) (unknown) (unknown) (no date) (unknown) (unknown) Geritol Complete 16 mg iron- 0.38 mg Tablet (units unknown) (unknown) (unknown) (no date) (unknown) (unknown) HEENT: moist mucous membranes (units unknown) (unknown) (unknown) (no date) (unknown) (unknown) History of Present Illness (units unknown) (unknown) (unknown) (no date) (unknown) (unknown) Hospital Course (units unknown) (unknown) (unknown) (no date) (unknown) (unknown) In the ED workup was done, vitals notable for afebrile, heart rate 110s, (units unknown) (unknown) (unknown) (no date) (unknown) (unknown) Instructions: Urinar y Tract Infection, DI for Urinary Tract Infection (UTI), (units unknown) (unknown) (unknown) (no date) (unknown) (unknown) [address] [address] (units unknown) (unknown) (unknown) (no date) (unknown) (unknown) Labs (units unknown) (unknown) (unknown) (no date) (unknown) (unknown) Jeannette Mcelroy MD (units unknown) (unknown) (unknown) (no date) (unknown) (unknown) Nnamdi Larson DO (units unknown) (unknown) (unknown) (no date) (unknown) (unknown) Mr. Hoffman is a 77M with PMH hypertension who presents to the hospital (units unknown) (unknown) (unknown) (no date) (unknown) (unknown) NEURO: awake, alert, no focal deficits (units unknown) (unknown) (unknown) (no date) (unknown) (unknown) Narrative (units unknown) (unknown) (unknown) (no date) (unknown) (unknown) Narrative: (units unknown) (unknown) (unknown) (no date) (unknown) (unknown) New (units unknown) (unknown) (unknown) (no date) (unknown) (unknown) Objective (units unknown) (unknown) (unknown) (no date) (unknown) (unknown) Oxygen Delivery Meth od Room Air (units unknown) (unknown) (unknown) (no date) (unknown) (unknown) Oxygen Flow Rate 0 (units unknown) (unknown) (unknown) (no date) (unknown) (unknown) PFSH (units unknown) (unknown) (unknown) (no date) (unknown) (unknown) PULM: clear bilaterally (units unknown) (unknown) (unknown) (no date) (unknown) (unknown) Patient Comments: (units unknown) (unknown) (unknown) (no date) (unknown) (unknown) Patient Disposition: Home Health Service (units unknown) (unknown) (unknown) (no date) (unknown) (unknown) Patient: James Hoffman MR#: [id number] (units unknown) (unknown) (unknown) (no date) (unknown) (unknown) Physician Nadiya ns: Evaluate and Treat (units unknown) (unknown) (unknown) (no date) (unknown) (unknown) Physician Nadiya ns: Evaluate and treat (units unknown) (unknown) (unknown) (no date) (unknown) (unknown) Prescriptions: (units unknown) (unknown) (unknown) (no date) (unknown) (unknown) Primary Care Provide r: Jeannette Mcelroy (units unknown) (unknown) (unknown) (no date) (unknown) (unknown) Primary care physician: (units unknown) (unknown) (unknown) (no date) (unknown) (unknown) Procal 0.11. Lactate 3.9->2.3. EtOH 90. UA with nitrates, WBCs, and bacteria. (units unknown) (unknown) (unknown) (no date) (unknown) (unknown) Provider Discharge Comment: You were admitted for some confusion. You may have (units unknown) (unknown) (unknown) (no date) (unknown) (unknown) Provider (units unknown) (unknown) (unknown) (no date) (unknown) (unknown) Provider: Alber Larson D.O. 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 (units unknown) (unknown) (unknown) (no date) (unknown) (unknown) Reason For Exam: decreased appetite (units unknown) (unknown) (unknown) (no date) (unknown) (unknown) Signed By: (units unknown) (unknown) (unknown) (no date) (unknown) (unknown) Smoking Status: Aviva monge smoker (units unknown) (unknown) (unknown) (no date) (unknown) (unknown) Social History (units unknown) (unknown) (unknown) (no date) (unknown) (unknown) Stand Alone Forms: Patient Portal/API, Stroke Signs + Symptoms (units unknown) (unknown) (unknown) (no date) (unknown) (unknown) Summary (units unknown) (unknown) (unknown) (no date) (unknown) (unknown) Jeannette Mcelroy MD [Primary Care Provider] - 2 Weeks (units unknown) (unknown) (unknown) (no date) (unknown) (unknown) Time Patient Seen: 21:30 (units unknown) (unknown) (unknown) (no date) (unknown) (unknown) Time Spent with Patient (units unknown) (unknown) (unknown) (no date) (unknown) (unknown) Time spent: Greater than 30 minutes (units unknown) (unknown) (unknown) (no date) (unknown) (unknown) Visit Report/Dischar ge Packet (units unknown) (unknown) (unknown) (no date) (unknown) (unknown) Vital Signs (units unknown) (unknown) (unknown) (no date) (unknown) (unknown) [Embedded Image Not Available] (units unknown) (unknown) (unknown) (no date) (unknown) (unknown) amoxicillin 875 mg tablet (units unknown) (unknown) (unknown) (no date) (unknown) (unknown) any other complaints . Denied pain, cough, shortness of breath, nausea, vomiting, (units unknown) (unknown) (unknown) (no date) (unknown) (unknown) as he appears confus ed and he is very hard of hearing. He was really not having (units unknown) (unknown) (unknown) (no date) (unknown) (unknown) atenolol 100 mg Tablet (units unknown) (unknown) (unknown) (no date) (unknown) (unknown) bit. (units unknown) (unknown) (unknown) (no date) (unknown) (unknown) complaining of weakness. It is very difficult to get a history from the patient (units unknown) (unknown) (unknown) (no date) (unknown) (unknown) confusion. Your urin e was growing bacteria suggesting a urinary tract infection (units unknown) (unknown) (unknown) (no date) (unknown) (unknown) have your hearing checked and see what they can offer. In 75% patients with (units unknown) (unknown) (unknown) (no date) (unknown) (unknown) hearing loss, a cochlear implant for hearing loss can improve tinnitus quite a (units unknown) (unknown) (unknown) (no date) (unknown) (unknown) household members: none (units unknown) (unknown) (unknown) (no date) (unknown) (unknown) me and notable for n o acute process. (units unknown) (unknown) (unknown) (no date) (unknown) (unknown) neighbor that the patient was much more confused than was normal. (units unknown) (unknown) (unknown) (no date) (unknown) (unknown) or diarrhea. I spoke with the ED physician who had discussed with the patient's (units unknown) (unknown) (unknown) (no date) (unknown) (unknown) pharmacy. For you tinnitus, I would ask your PCP to send a referral to ENT to (units unknown) (unknown) (unknown) (no date) (unknown) (unknown) present on admission (units unknown) (unknown) (unknown) (no date) (unknown) (unknown) respiratory 18, bloo d pressure 150s/80s, 98% on room air. Labs notable for WBC (units unknown) (unknown) (unknown) (no date) (unknown) (unknown) so we are treating t hat just in case with antibiotics. I've sent some to your (units unknown) (unknown) (unknown) (no date) (unknown) (unknown) some dementia that i s starting to set in. We didn't find any other cause of your (units unknown) (unknown) (unknown) (no date) (unknown) (unknown) strength not confirm ed - patient unable to confirm due to confusion (units unknown) (unknown) Result panel 275 (unknown) (no date) (unknown) (unknown) (no value) (units unknown) (unknown) (unknown) (no date) (unknown) (unknown) (past 8 hours): (units unknown) (unknown) (unknown) (no date) (unknown) (unknown) Discharges patien t from system. (units unknown) (unknown) (unknown) (no date) (unknown) (unknown) -SLUMS 15/30 (units unknown) (unknown) (unknown) (no date) (unknown) (unknown) -UA positive with nitrates, wbcs, bacteria (units unknown) (unknown) (unknown) (no date) (unknown) (unknown) -continue ceftriaxone (units unknown) (unknown) (unknown) (no date) (unknown) (unknown) -for now order for c iwa protocol (units unknown) (unknown) (unknown) (no date) (unknown) (unknown) -had no evidence of withdrawals (units unknown) (unknown) (unknown) (no date) (unknown) (unknown) -has periods where appears irregular (units unknown) (unknown) (unknown) (no date) (unknown) (unknown) -hold off on full anticoagulation for now as not clear what benefits/risks are (units unknown) (unknown) (unknown) (no date) (unknown) (unknown) -mentation improving , alert and oriented x3 but easily forgetful (units unknown) (unknown) (unknown) (no date) (unknown) (unknown) -order for low dose metoprolol with improvement (units unknown) (unknown) (unknown) (no date) (unknown) (unknown) -ordered mvi, thiami ne, folate (units unknown) (unknown) (unknown) (no date) (unknown) (unknown) -patient states he h as not had drink recently (units unknown) (unknown) (unknown) (no date) (unknown) (unknown) -placed on amoxicill in to finish 1 more week (units unknown) (unknown) (unknown) (no date) (unknown) (unknown) -unclear if has hist ory of afib (units unknown) (unknown) (unknown) (no date) (unknown) (unknown) -unclear withdrawal risk (units unknown) (unknown) (unknown) (no date) (unknown) (unknown) -urine culture with >100k Staph epi pansensitive (units unknown) (unknown) (unknown) (no date) (unknown) (unknown) [id number] (units unknown) (unknown) (unknown) (no date) (unknown) (unknown) 06/26/22 20:51 (units unknown) (unknown) (unknown) (no date) (unknown) (unknown) 06/26/22 23:35 (units unknown) (unknown) (unknown) (no date) (unknown) (unknown) 06/26/22 23:57 (units unknown) (unknown) (unknown) (no date) (unknown) (unknown) 06/28/22 05:39 (units unknown) (unknown) (unknown) (no date) (unknown) (unknown) 06/28/22 14:26 (units unknown) (unknown) (unknown) (no date) (unknown) (unknown) 1 tab PO DIRECTED (units unknown) (unknown) (unknown) (no date) (unknown) (unknown) 1. Acute UTI with metabolic encephalopathy, possible underyling dementia, (units unknown) (unknown) (unknown) (no date) (unknown) (unknown) 100 mg PO DAILY (units unknown) (unknown) (unknown) (no date) (unknown) (unknown) 2. Mildly elevated alcohol level of 90 (units unknown) (unknown) (unknown) (no date) (unknown) (unknown) 3. Tachycardia (units unknown) (unknown) (unknown) (no date) (unknown) (unknown) 3.6, hgb 13.2, plts 168. Na 135, k 3.8, creatinine 1.04. INR 1.0. Trop negative. (units unknown) (unknown) (unknown) (no date) (unknown) (unknown) 4. Thrombocytopenia (units unknown) (unknown) (unknown) (no date) (unknown) (unknown) 875 mg PO BID 6 Days Qty: 12 0RF (units unknown) (unknown) (unknown) (no date) (unknown) (unknown) ?- likely due to EtO H, possible sepsis (units unknown) (unknown) (unknown) (no date) (unknown) (unknown) ABD: soft, nontender , nondistended (units unknown) (unknown) (unknown) (no date) (unknown) (unknown) Age/Sex: 77 / M (units unknown) (unknown) (unknown) (no date) (unknown) (unknown) Amoxicillin (units unknown) (unknown) (unknown) (no date) (unknown) (unknown) CV: irregularly irregular rhythm with normal rate (units unknown) (unknown) (unknown) (no date) (unknown) (unknown) Chest xray reviewed by me and notable for no acute process. CT head reviewed by (units unknown) (unknown) (unknown) (no date) (unknown) (unknown) Chief complaint: Diz zy, Tinnitus, Headache (units unknown) (unknown) (unknown) (no date) (unknown) (unknown) Comment: UTI, encephalopathy, cognition (units unknown) (unknown) (unknown) (no date) (unknown) (unknown) Comment: per patient request (units unknown) (unknown) (unknown) (no date) (unknown) (unknown) Comment: (units unknown) (unknown) (unknown) (no date) (unknown) (unknown) Consult to Dietitian , Adult Routine (units unknown) (unknown) (unknown) (no date) (unknown) (unknown) Consult to Home Heal Routine (units unknown) (unknown) (unknown) (no date) (unknown) (unknown) Consult to Occupatio nal Therapy Evaluate + Treat (units unknown) (unknown) (unknown) (no date) (unknown) (unknown) Consult to Pastoral Services Routine (units unknown) (unknown) (unknown) (no date) (unknown) (unknown) Consult to Physical Therapy Evaluate + Treat (units unknown) (unknown) (unknown) (no date) (unknown) (unknown) Consults: (units unknown) (unknown) (unknown) (no date) (unknown) (unknown) Continued (units unknown) (unknown) (unknown) (no date) (unknown) (unknown) : 1945 Acct:[id number] (units unknown) (unknown) (unknown) (no date) (unknown) (unknown) Date Patient Seen: 06/26/22 (units unknown) (unknown) (unknown) (no date) (unknown) (unknown) Date of Service: 06/26/22 (units unknown) (unknown) (unknown) (no date) (unknown) (unknown) Date of admission: (units unknown) (unknown) (unknown) (no date) (unknown) (unknown) Discharge Data (units unknown) (unknown) (unknown) (no date) (unknown) (unknown) Discharge Date/Time: 06/28/22 14:33 (units unknown) (unknown) (unknown) (no date) (unknown) (unknown) Discharge Date: 06/28/22 (units unknown) (unknown) (unknown) (no date) (unknown) (unknown) Discharge Diagnosis: (units unknown) (unknown) (unknown) (no date) (unknown) (unknown) Discharge Plan (units unknown) (unknown) (unknown) (no date) (unknown) (unknown) Discharge Providers (units unknown) (unknown) (unknown) (no date) (unknown) (unknown) Discharge Summary (units unknown) (unknown) (unknown) (no date) (unknown) (unknown) Discharge orders + Medications (units unknown) (unknown) (unknown) (no date) (unknown) (unknown) Discharge provider: (units unknown) (unknown) (unknown) (no date) (unknown) (unknown) EXT: warm and well perfused, no edema (units unknown) (unknown) (unknown) (no date) (unknown) (unknown) Exam Narrative: (units unknown) (unknown) (unknown) (no date) (unknown) (unknown) Exam (units unknown) (unknown) (unknown) (no date) (unknown) (unknown) Follow up/Referrals: (units unknown) (unknown) (unknown) (no date) (unknown) (unknown) GEN: no acute distre ss, mildly confused, very hard of hearing (units unknown) (unknown) (unknown) (no date) (unknown) (unknown) Geritol Complete 16 mg iron- 0.38 mg Tablet (units unknown) (unknown) (unknown) (no date) (unknown) (unknown) HEENT: moist mucous membranes (units unknown) (unknown) (unknown) (no date) (unknown) (unknown) History of Present Illness (units unknown) (unknown) (unknown) (no date) (unknown) (unknown) Hospital Course (units unknown) (unknown) (unknown) (no date) (unknown) (unknown) In the ED workup was done, vitals notable for afebrile, heart rate 110s, (units unknown) (unknown) (unknown) (no date) (unknown) (unknown) Instructions: Urinar y Tract Infection, DI for Urinary Tract Infection (UTI), (units unknown) (unknown) (unknown) (no date) (unknown) (unknown) [address] [address] (units unknown) (unknown) (unknown) (no date) (unknown) (unknown) Labs (units unknown) (unknown) (unknown) (no date) (unknown) (unknown) Jeannette Mcelroy MD (units unknown) (unknown) (unknown) (no date) (unknown) (unknown) Nnamdi Larson DO (units unknown) (unknown) (unknown) (no date) (unknown) (unknown) Mr. Hoffman is a 77M with PMH hypertension who presents to the hospital (units unknown) (unknown) (unknown) (no date) (unknown) (unknown) NEURO: awake, alert, no focal deficits (units unknown) (unknown) (unknown) (no date) (unknown) (unknown) Narrative (units unknown) (unknown) (unknown) (no date) (unknown) (unknown) Narrative: (units unknown) (unknown) (unknown) (no date) (unknown) (unknown) New (units unknown) (unknown) (unknown) (no date) (unknown) (unknown) Objective (units unknown) (unknown) (unknown) (no date) (unknown) (unknown) Oxygen Delivery Meth od Room Air (units unknown) (unknown) (unknown) (no date) (unknown) (unknown) Oxygen Flow Rate 0 (units unknown) (unknown) (unknown) (no date) (unknown) (unknown) PFSH (units unknown) (unknown) (unknown) (no date) (unknown) (unknown) PULM: clear bilaterally (units unknown) (unknown) (unknown) (no date) (unknown) (unknown) Patient Comments: (units unknown) (unknown) (unknown) (no date) (unknown) (unknown) Patient Disposition: Home Health Service (units unknown) (unknown) (unknown) (no date) (unknown) (unknown) Patient: James Hoffman MR#: [id number] (units unknown) (unknown) (unknown) (no date) (unknown) (unknown) Physician Instructio ns: Evaluate and Treat (units unknown) (unknown) (unknown) (no date) (unknown) (unknown) Physician Instructio ns: Evaluate and treat (units unknown) (unknown) (unknown) (no date) (unknown) (unknown) Prescriptions: (units unknown) (unknown) (unknown) (no date) (unknown) (unknown) Primary Care Provide r: Jeannette Mcelroy (units unknown) (unknown) (unknown) (no date) (unknown) (unknown) Primary care physician: (units unknown) (unknown) (unknown) (no date) (unknown) (unknown) Procal 0.11. Lactate 3.9->2.3. EtOH 90. UA with nitrates, WBCs, and bacteria. (units unknown) (unknown) (unknown) (no date) (unknown) (unknown) Provider Discharge Comment: You were admitted for some confusion. You may have (units unknown) (unknown) (unknown) (no date) (unknown) (unknown) Provider (units unknown) (unknown) (unknown) (no date) (unknown) (unknown) Provider: Alber Larson D.O. 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 (units unknown) (unknown) (unknown) (no date) (unknown) (unknown) Reason For Exam: decreased appetite (units unknown) (unknown) (unknown) (no date) (unknown) (unknown) Signed By: (units unknown) (unknown) (unknown) (no date) (unknown) (unknown) Smoking Status: Aviva monge smoker (units unknown) (unknown) (unknown) (no date) (unknown) (unknown) Social History (units unknown) (unknown) (unknown) (no date) (unknown) (unknown) Stand Alone Forms: Patient Portal/API, Stroke Signs + Symptoms (units unknown) (unknown) (unknown) (no date) (unknown) (unknown) Summary (units unknown) (unknown) (unknown) (no date) (unknown) (unknown) Jeannette Mcelroy MD [Primary Care Provider] - 2 Weeks (units unknown) (unknown) (unknown) (no date) (unknown) (unknown) Time Patient Seen: 21:30 (units unknown) (unknown) (unknown) (no date) (unknown) (unknown) Time Spent with Patient (units unknown) (unknown) (unknown) (no date) (unknown) (unknown) Time spent: Greater than 30 minutes (units unknown) (unknown) (unknown) (no date) (unknown) (unknown) Visit Report/Dischar ge Packet (units unknown) (unknown) (unknown) (no date) (unknown) (unknown) Vital Signs (units unknown) (unknown) (unknown) (no date) (unknown) (unknown) [Embedded Image Not Available] (units unknown) (unknown) (unknown) (no date) (unknown) (unknown) amoxicillin 875 mg tablet (units unknown) (unknown) (unknown) (no date) (unknown) (unknown) any other complaints . Denied pain, cough, shortness of breath, nausea, vomiting, (units unknown) (unknown) (unknown) (no date) (unknown) (unknown) as he appears confus ed and he is very hard of hearing. He was really not having (units unknown) (unknown) (unknown) (no date) (unknown) (unknown) atenolol 100 mg Tablet (units unknown) (unknown) (unknown) (no date) (unknown) (unknown) bit. (units unknown) (unknown) (unknown) (no date) (unknown) (unknown) complaining of weakness. It is very difficult to get a history from the patient (units unknown) (unknown) (unknown) (no date) (unknown) (unknown) confusion. Your urin e was growing bacteria suggesting a urinary tract infection (units unknown) (unknown) (unknown) (no date) (unknown) (unknown) have your hearing checked and see what they can offer. In 75% patients with (units unknown) (unknown) (unknown) (no date) (unknown) (unknown) hearing loss, a cochlear implant for hearing loss can improve tinnitus quite a (units unknown) (unknown) (unknown) (no date) (unknown) (unknown) household members: none (units unknown) (unknown) (unknown) (no date) (unknown) (unknown) me and notable for n o acute process. (units unknown) (unknown) (unknown) (no date) (unknown) (unknown) neighbor that the patient was much more confused than was normal. (units unknown) (unknown) (unknown) (no date) (unknown) (unknown) or diarrhea. I spoke with the ED physician who had discussed with the patient's (units unknown) (unknown) (unknown) (no date) (unknown) (unknown) pharmacy. For you tinnitus, I would ask your PCP to send a referral to ENT to (units unknown) (unknown) (unknown) (no date) (unknown) (unknown) present on admission (units unknown) (unknown) (unknown) (no date) (unknown) (unknown) respiratory 18, bloo d pressure 150s/80s, 98% on room air. Labs notable for WBC (units unknown) (unknown) (unknown) (no date) (unknown) (unknown) so we are treating t hat just in case with antibiotics. I've sent some to your (units unknown) (unknown) (unknown) (no date) (unknown) (unknown) some dementia that i s starting to set in. We didn't find any other cause of your (units unknown) (unknown) (unknown) (no date) (unknown) (unknown) strength not confirm ed - patient unable to confirm due to confusion (units unknown) (unknown) Result panel 276 (unknown) (no date) (unknown) (unknown) (no value) (units unknown) (unknown) (unknown) (no date) (unknown) (unknown) (past 8 hours): (units unknown) (unknown) (unknown) (no date) (unknown) (unknown) Discharges patien t from system. (units unknown) (unknown) (unknown) (no date) (unknown) (unknown) -SLUMS 15/30 (units unknown) (unknown) (unknown) (no date) (unknown) (unknown) -UA positive with nitrates, wbcs, bacteria (units unknown) (unknown) (unknown) (no date) (unknown) (unknown) -continue ceftriaxone (units unknown) (unknown) (unknown) (no date) (unknown) (unknown) -for now order for c iwa protocol (units unknown) (unknown) (unknown) (no date) (unknown) (unknown) -had no evidence of withdrawals (units unknown) (unknown) (unknown) (no date) (unknown) (unknown) -has periods where appears irregular (units unknown) (unknown) (unknown) (no date) (unknown) (unknown) -hold off on full anticoagulation for now as not clear what benefits/risks are (units unknown) (unknown) (unknown) (no date) (unknown) (unknown) -mentation improving , alert and oriented x3 but easily forgetful (units unknown) (unknown) (unknown) (no date) (unknown) (unknown) -order for low dose metoprolol with improvement (units unknown) (unknown) (unknown) (no date) (unknown) (unknown) -ordered mvi, thiami ne, folate (units unknown) (unknown) (unknown) (no date) (unknown) (unknown) -patient states he h as not had drink recently (units unknown) (unknown) (unknown) (no date) (unknown) (unknown) -placed on amoxicill in to finish 1 more week (units unknown) (unknown) (unknown) (no date) (unknown) (unknown) -unclear if has hist ory of afib (units unknown) (unknown) (unknown) (no date) (unknown) (unknown) -unclear withdrawal risk (units unknown) (unknown) (unknown) (no date) (unknown) (unknown) -urine culture with >100k Staph epi pansensitive (units unknown) (unknown) (unknown) (no date) (unknown) (unknown) [id number] (units unknown) (unknown) (unknown) (no date) (unknown) (unknown) 06/26/22 20:51 (units unknown) (unknown) (unknown) (no date) (unknown) (unknown) 06/26/22 23:35 (units unknown) (unknown) (unknown) (no date) (unknown) (unknown) 06/26/22 23:57 (units unknown) (unknown) (unknown) (no date) (unknown) (unknown) 06/28/22 05:39 (units unknown) (unknown) (unknown) (no date) (unknown) (unknown) 06/28/22 14:26 (units unknown) (unknown) (unknown) (no date) (unknown) (unknown) 1 tab PO DIRECTED (units unknown) (unknown) (unknown) (no date) (unknown) (unknown) 1. Acute UTI with metabolic encephalopathy, possible underyling dementia, (units unknown) (unknown) (unknown) (no date) (unknown) (unknown) 100 mg PO DAILY (units unknown) (unknown) (unknown) (no date) (unknown) (unknown) 2. Mildly elevated alcohol level of 90 (units unknown) (unknown) (unknown) (no date) (unknown) (unknown) 3. Tachycardia (units unknown) (unknown) (unknown) (no date) (unknown) (unknown) 3.6, hgb 13.2, plts 168. Na 135, k 3.8, creatinine 1.04. INR 1.0. Trop negative. (units unknown) (unknown) (unknown) (no date) (unknown) (unknown) 4. Thrombocytopenia (units unknown) (unknown) (unknown) (no date) (unknown) (unknown) 875 mg PO BID 6 Days Qty: 12 0RF (units unknown) (unknown) (unknown) (no date) (unknown) (unknown) ?- likely due to EtO H, possible sepsis (units unknown) (unknown) (unknown) (no date) (unknown) (unknown) ABD: soft, nontender , nondistended (units unknown) (unknown) (unknown) (no date) (unknown) (unknown) Age/Sex: 77 / M (units unknown) (unknown) (unknown) (no date) (unknown) (unknown) Amoxicillin (units unknown) (unknown) (unknown) (no date) (unknown) (unknown) CV: irregularly irregular rhythm with normal rate (units unknown) (unknown) (unknown) (no date) (unknown) (unknown) Chest xray reviewed by me and notable for no acute process. CT head reviewed by (units unknown) (unknown) (unknown) (no date) (unknown) (unknown) Chief complaint: Diz zy, Tinnitus, Headache (units unknown) (unknown) (unknown) (no date) (unknown) (unknown) Comment: UTI, encephalopathy, cognition (units unknown) (unknown) (unknown) (no date) (unknown) (unknown) Comment: per patient request (units unknown) (unknown) (unknown) (no date) (unknown) (unknown) Comment: (units unknown) (unknown) (unknown) (no date) (unknown) (unknown) Consult to Dietitian , Adult Routine (units unknown) (unknown) (unknown) (no date) (unknown) (unknown) Consult to Home Heal Routine (units unknown) (unknown) (unknown) (no date) (unknown) (unknown) Consult to Occupatio nal Therapy Evaluate + Treat (units unknown) (unknown) (unknown) (no date) (unknown) (unknown) Consult to Pastoral Services Routine (units unknown) (unknown) (unknown) (no date) (unknown) (unknown) Consult to Physical Therapy Evaluate + Treat (units unknown) (unknown) (unknown) (no date) (unknown) (unknown) Consults: (units unknown) (unknown) (unknown) (no date) (unknown) (unknown) Continued (units unknown) (unknown) (unknown) (no date) (unknown) (unknown) : 1945 Acct:[id number] (units unknown) (unknown) (unknown) (no date) (unknown) (unknown) Date Patient Seen: 06/26/22 (units unknown) (unknown) (unknown) (no date) (unknown) (unknown) Date of Service: 06/26/22 (units unknown) (unknown) (unknown) (no date) (unknown) (unknown) Date of admission: (units unknown) (unknown) (unknown) (no date) (unknown) (unknown) Discharge Data (units unknown) (unknown) (unknown) (no date) (unknown) (unknown) Discharge Date/Time: 06/28/22 14:33 (units unknown) (unknown) (unknown) (no date) (unknown) (unknown) Discharge Date: 06/28/22 (units unknown) (unknown) (unknown) (no date) (unknown) (unknown) Discharge Diagnosis: (units unknown) (unknown) (unknown) (no date) (unknown) (unknown) Discharge Plan (units unknown) (unknown) (unknown) (no date) (unknown) (unknown) Discharge Providers (units unknown) (unknown) (unknown) (no date) (unknown) (unknown) Discharge Summary (units unknown) (unknown) (unknown) (no date) (unknown) (unknown) Discharge orders + Medications (units unknown) (unknown) (unknown) (no date) (unknown) (unknown) Discharge provider: (units unknown) (unknown) (unknown) (no date) (unknown) (unknown) EXT: warm and well perfused, no edema (units unknown) (unknown) (unknown) (no date) (unknown) (unknown) Exam Narrative: (units unknown) (unknown) (unknown) (no date) (unknown) (unknown) Exam (units unknown) (unknown) (unknown) (no date) (unknown) (unknown) Follow up/Referrals: (units unknown) (unknown) (unknown) (no date) (unknown) (unknown) GEN: no acute distre ss, mildly confused, very hard of hearing (units unknown) (unknown) (unknown) (no date) (unknown) (unknown) Geritol Complete 16 mg iron- 0.38 mg Tablet (units unknown) (unknown) (unknown) (no date) (unknown) (unknown) HEENT: moist mucous membranes (units unknown) (unknown) (unknown) (no date) (unknown) (unknown) History of Present Illness (units unknown) (unknown) (unknown) (no date) (unknown) (unknown) Hospital Course (units unknown) (unknown) (unknown) (no date) (unknown) (unknown) In the ED workup was done, vitals notable for afebrile, heart rate 110s, (units unknown) (unknown) (unknown) (no date) (unknown) (unknown) Instructions: Urinar y Tract Infection, DI for Urinary Tract Infection (UTI), (units unknown) (unknown) (unknown) (no date) (unknown) (unknown) [address] [address] (units unknown) (unknown) (unknown) (no date) (unknown) (unknown) Labs (units unknown) (unknown) (unknown) (no date) (unknown) (unknown) Jeannette Mcelroy MD (units unknown) (unknown) (unknown) (no date) (unknown) (unknown) Nnamdi Larson DO (units unknown) (unknown) (unknown) (no date) (unknown) (unknown) Mr. Hoffman is a 77M with H hypertension who presents to the hospital (units unknown) (unknown) (unknown) (no date) (unknown) (unknown) NEURO: awake, alert, no focal deficits (units unknown) (unknown) (unknown) (no date) (unknown) (unknown) Narrative (units unknown) (unknown) (unknown) (no date) (unknown) (unknown) Narrative: (units unknown) (unknown) (unknown) (no date) (unknown) (unknown) New (units unknown) (unknown) (unknown) (no date) (unknown) (unknown) Objective (units unknown) (unknown) (unknown) (no date) (unknown) (unknown) Oxygen Delivery Meth od Room Air (units unknown) (unknown) (unknown) (no date) (unknown) (unknown) Oxygen Flow Rate 0 (units unknown) (unknown) (unknown) (no date) (unknown) (unknown) PFSH (units unknown) (unknown) (unknown) (no date) (unknown) (unknown) PULM: clear bilaterally (units unknown) (unknown) (unknown) (no date) (unknown) (unknown) Patient Comments: (units unknown) (unknown) (unknown) (no date) (unknown) (unknown) Patient Disposition: Home Health Service (units unknown) (unknown) (unknown) (no date) (unknown) (unknown) Patient: James Hoffman MR#: [id number] (units unknown) (unknown) (unknown) (no date) (unknown) (unknown) Physician Instructio ns: Evaluate and Treat (units unknown) (unknown) (unknown) (no date) (unknown) (unknown) Physician Instructio ns: Evaluate and treat (units unknown) (unknown) (unknown) (no date) (unknown) (unknown) Prescriptions: (units unknown) (unknown) (unknown) (no date) (unknown) (unknown) Primary Care Provide r: Jeannette Mcelroy (units unknown) (unknown) (unknown) (no date) (unknown) (unknown) Primary care physician: (units unknown) (unknown) (unknown) (no date) (unknown) (unknown) Procal 0.11. Lactate 3.9->2.3. EtOH 90. UA with nitrates, WBCs, and bacteria. (units unknown) (unknown) (unknown) (no date) (unknown) (unknown) Provider Discharge Comment: You were admitted for some confusion. You may have (units unknown) (unknown) (unknown) (no date) (unknown) (unknown) Provider (units unknown) (unknown) (unknown) (no date) (unknown) (unknown) Provider: Alber Larson D.O. 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 (units unknown) (unknown) (unknown) (no date) (unknown) (unknown) Reason For Exam: decreased appetite (units unknown) (unknown) (unknown) (no date) (unknown) (unknown) Signed By: (units unknown) (unknown) (unknown) (no date) (unknown) (unknown) Smoking Status: Aviva monge smoker (units unknown) (unknown) (unknown) (no date) (unknown) (unknown) Social History (units unknown) (unknown) (unknown) (no date) (unknown) (unknown) Stand Alone Forms: Patient Portal/API, Stroke Signs + Symptoms (units unknown) (unknown) (unknown) (no date) (unknown) (unknown) Summary (units unknown) (unknown) (unknown) (no date) (unknown) (unknown) Jeannette Mcelroy MD [Primary Care Provider] - 2 Weeks (units unknown) (unknown) (unknown) (no date) (unknown) (unknown) Time Patient Seen: 21:30 (units unknown) (unknown) (unknown) (no date) (unknown) (unknown) Time Spent with Patient (units unknown) (unknown) (unknown) (no date) (unknown) (unknown) Time spent: Greater than 30 minutes (units unknown) (unknown) (unknown) (no date) (unknown) (unknown) Visit Report/Dischar ge Packet (units unknown) (unknown) (unknown) (no date) (unknown) (unknown) Vital Signs (units unknown) (unknown) (unknown) (no date) (unknown) (unknown) [Embedded Image Not Available] (units unknown) (unknown) (unknown) (no date) (unknown) (unknown) amoxicillin 875 mg tablet (units unknown) (unknown) (unknown) (no date) (unknown) (unknown) any other complaints . Denied pain, cough, shortness of breath, nausea, vomiting, (units unknown) (unknown) (unknown) (no date) (unknown) (unknown) as he appears confus ed and he is very hard of hearing. He was really not having (units unknown) (unknown) (unknown) (no date) (unknown) (unknown) atenolol 100 mg Tablet (units unknown) (unknown) (unknown) (no date) (unknown) (unknown) bit. (units unknown) (unknown) (unknown) (no date) (unknown) (unknown) complaining of weakness. It is very difficult to get a history from the patient (units unknown) (unknown) (unknown) (no date) (unknown) (unknown) confusion. Your urin e was growing bacteria suggesting a urinary tract infection (units unknown) (unknown) (unknown) (no date) (unknown) (unknown) have your hearing checked and see what they can offer. In 75% patients with (units unknown) (unknown) (unknown) (no date) (unknown) (unknown) hearing loss, a cochlear implant for hearing loss can improve tinnitus quite a (units unknown) (unknown) (unknown) (no date) (unknown) (unknown) household members: none (units unknown) (unknown) (unknown) (no date) (unknown) (unknown) me and notable for n o acute process. (units unknown) (unknown) (unknown) (no date) (unknown) (unknown) neighbor that the patient was much more confused than was normal. (units unknown) (unknown) (unknown) (no date) (unknown) (unknown) or diarrhea. I spoke with the ED physician who had discussed with the patient's (units unknown) (unknown) (unknown) (no date) (unknown) (unknown) pharmacy. For you tinnitus, I would ask your PCP to send a referral to ENT to (units unknown) (unknown) (unknown) (no date) (unknown) (unknown) present on admission (units unknown) (unknown) (unknown) (no date) (unknown) (unknown) respiratory 18, bloo d pressure 150s/80s, 98% on room air. Labs notable for WBC (units unknown) (unknown) (unknown) (no date) (unknown) (unknown) so we are treating t hat just in case with antibiotics. I've sent some to your (units unknown) (unknown) (unknown) (no date) (unknown) (unknown) some dementia that i s starting to set in. We didn't find any other cause of your (units unknown) (unknown) (unknown) (no date) (unknown) (unknown) strength not confirm ed - patient unable to confirm due to confusion (units unknown) (unknown) Result panel 277 (unknown) (no date) (unknown) (unknown) (no value) (units unknown) (unknown) (unknown) (no date) (unknown) (unknown) NO GROWTH AFTER 4 DAYS (units unknown) (unknown) (unknown) (no date) (unknown) (unknown) NO GROWTH AFTER 4 DAYS (units unknown) (unknown) Result panel 278 (unknown) (no date) (unknown) (unknown) (no value) (units unknown) (unknown) (unknown) (no date) (unknown) (unknown) NO GROWTH AFTER 4 DAYS (units unknown) (unknown) (unknown) (no date) (unknown) (unknown) NO GROWTH AFTER 4 DAYS (units unknown) (unknown) Result panel 279 (unknown) (no date) (unknown) (unknown) (no value) (units unknown) (unknown) (unknown) (no date) (unknown) (unknown) (past 8 hours): (units unknown) (unknown) (unknown) (no date) (unknown) (unknown) Discharges patien t from system. (units unknown) (unknown) (unknown) (no date) (unknown) (unknown) -SLUMS 15/30 (units unknown) (unknown) (unknown) (no date) (unknown) (unknown) -UA positive with nitrates, wbcs, bacteria (units unknown) (unknown) (unknown) (no date) (unknown) (unknown) -continue ceftriaxone (units unknown) (unknown) (unknown) (no date) (unknown) (unknown) -for now order for c iwa protocol (units unknown) (unknown) (unknown) (no date) (unknown) (unknown) -had no evidence of withdrawals (units unknown) (unknown) (unknown) (no date) (unknown) (unknown) -has periods where appears irregular (units unknown) (unknown) (unknown) (no date) (unknown) (unknown) -hold off on full anticoagulation for now as not clear what benefits/risks are (units unknown) (unknown) (unknown) (no date) (unknown) (unknown) -mentation improving , alert and oriented x3 but easily forgetful (units unknown) (unknown) (unknown) (no date) (unknown) (unknown) -order for low dose metoprolol with improvement (units unknown) (unknown) (unknown) (no date) (unknown) (unknown) -ordered mvi, thiami ne, folate (units unknown) (unknown) (unknown) (no date) (unknown) (unknown) -patient has hearing aids, but 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 which he says is (units unknown) (unknown) (unknown) (no date) (unknown) (unknown) -patient states he h as not had drink recently (units unknown) (unknown) (unknown) (no date) (unknown) (unknown) -placed on amoxicill in to finish 1 week total (units unknown) (unknown) (unknown) (no date) (unknown) (unknown) -recommend outpatien t ENT referral (units unknown) (unknown) (unknown) (no date) (unknown) (unknown) -unclear if has hist ory of afib (units unknown) (unknown) (unknown) (no date) (unknown) (unknown) -unclear withdrawal risk (units unknown) (unknown) (unknown) (no date) (unknown) (unknown) -urine culture with >100k Staph epi pansensitive (units unknown) (unknown) (unknown) (no date) (unknown) (unknown) [id number] (units unknown) (unknown) (unknown) (no date) (unknown) (unknown) 06/26/22 20:51 (units unknown) (unknown) (unknown) (no date) (unknown) (unknown) 06/26/22 23:35 (units unknown) (unknown) (unknown) (no date) (unknown) (unknown) 06/26/22 23:57 (units unknown) (unknown) (unknown) (no date) (unknown) (unknown) 06/28/22 05:39 (units unknown) (unknown) (unknown) (no date) (unknown) (unknown) 06/28/22 14:26 (units unknown) (unknown) (unknown) (no date) (unknown) (unknown) 1 tab PO DIRECTED (units unknown) (unknown) (unknown) (no date) (unknown) (unknown) 1. Acute UTI with metabolic encephalopathy, possible underyling dementia, (units unknown) (unknown) (unknown) (no date) (unknown) (unknown) 100 mg PO DAILY (units unknown) (unknown) (unknown) (no date) (unknown) (unknown) 2. Mildly elevated alcohol level of 90 (units unknown) (unknown) (unknown) (no date) (unknown) (unknown) 3. Tachycardia (units unknown) (unknown) (unknown) (no date) (unknown) (unknown) 3.6, hgb 13.2, plts 168. Na 135, k 3.8, creatinine 1.04. INR 1.0. Trop negative. (units unknown) (unknown) (unknown) (no date) (unknown) (unknown) 4. Thrombocytopenia (units unknown) (unknown) (unknown) (no date) (unknown) (unknown) 5. Hearing loss with tinnitus (units unknown) (unknown) (unknown) (no date) (unknown) (unknown) 875 mg PO BID 6 Days Qty: 12 0RF (units unknown) (unknown) (unknown) (no date) (unknown) (unknown) ?- likely due to EtO H, possible sepsis (units unknown) (unknown) (unknown) (no date) (unknown) (unknown) ABD: soft, nontender , nondistended (units unknown) (unknown) (unknown) (no date) (unknown) (unknown) Admitted for [facility] ed confusion (units unknown) (unknown) (unknown) (no date) (unknown) (unknown) Age/Sex: 77 / M (units unknown) (unknown) (unknown) (no date) (unknown) (unknown) Amoxicillin (units unknown) (unknown) (unknown) (no date) (unknown) (unknown) CV: irregularly irregular rhythm with normal rate (units unknown) (unknown) (unknown) (no date) (unknown) (unknown) Chest xray reviewed by me and notable for no acute process. CT head reviewed by (units unknown) (unknown) (unknown) (no date) (unknown) (unknown) Chief complaint: Diz zy, Tinnitus, Headache (units unknown) (unknown) (unknown) (no date) (unknown) (unknown) Comment: UTI, encephalopathy, cognition (units unknown) (unknown) (unknown) (no date) (unknown) (unknown) Comment: per patient request (units unknown) (unknown) (unknown) (no date) (unknown) (unknown) Comment: (units unknown) (unknown) (unknown) (no date) (unknown) (unknown) Consult to Dietitian , Adult Routine (units unknown) (unknown) (unknown) (no date) (unknown) (unknown) Consult to Home [facility] Routine (units unknown) (unknown) (unknown) (no date) (unknown) (unknown) Consult to Occupatio nal Therapy Evaluate + Treat (units unknown) (unknown) (unknown) (no date) (unknown) (unknown) Consult to Pastoral Services Routine (units unknown) (unknown) (unknown) (no date) (unknown) (unknown) Consult to Physical Therapy Evaluate + Treat (units unknown) (unknown) (unknown) (no date) (unknown) (unknown) Consults: (units unknown) (unknown) (unknown) (no date) (unknown) (unknown) Continued (units unknown) (unknown) (unknown) (no date) (unknown) (unknown) : 1945 Acct:[id number] (units unknown) (unknown) (unknown) (no date) (unknown) (unknown) Date Patient Seen: 06/26/22 (units unknown) (unknown) (unknown) (no date) (unknown) (unknown) Date of Service: 06/26/22 (units unknown) (unknown) (unknown) (no date) (unknown) (unknown) Date of admission: (units unknown) (unknown) (unknown) (no date) (unknown) (unknown) Discharge Data (units unknown) (unknown) (unknown) (no date) (unknown) (unknown) Discharge Date/Time: 06/28/22 14:33 (units unknown) (unknown) (unknown) (no date) (unknown) (unknown) Discharge Date: 06/28/22 (units unknown) (unknown) (unknown) (no date) (unknown) (unknown) Discharge Diagnosis: (units unknown) (unknown) (unknown) (no date) (unknown) (unknown) Discharge Plan (units unknown) (unknown) (unknown) (no date) (unknown) (unknown) Discharge Providers (units unknown) (unknown) (unknown) (no date) (unknown) (unknown) Discharge Summary (units unknown) (unknown) (unknown) (no date) (unknown) (unknown) Discharge orders + Medications (units unknown) (unknown) (unknown) (no date) (unknown) (unknown) Discharge provider: (units unknown) (unknown) (unknown) (no date) (unknown) (unknown) EXT: warm and well perfused, no edema (units unknown) (unknown) (unknown) (no date) (unknown) (unknown) Exam Narrative: (units unknown) (unknown) (unknown) (no date) (unknown) (unknown) Exam (units unknown) (unknown) (unknown) (no date) (unknown) (unknown) Follow up/Referrals: (units unknown) (unknown) (unknown) (no date) (unknown) (unknown) GEN: no acute distre ss, mildly confused, very hard of hearing (units unknown) (unknown) (unknown) (no date) (unknown) (unknown) Geritol Complete 16 mg iron- 0.38 mg Tablet (units unknown) (unknown) (unknown) (no date) (unknown) (unknown) HEENT: moist mucous membranes (units unknown) (unknown) (unknown) (no date) (unknown) (unknown) History of Present Illness (units unknown) (unknown) (unknown) (no date) (unknown) (unknown) Hospital Course (units unknown) (unknown) (unknown) (no date) (unknown) (unknown) Hospital Course: (units unknown) (unknown) (unknown) (no date) (unknown) (unknown) In the ED workup was done, vitals notable for afebrile, heart rate 110s, (units unknown) (unknown) (unknown) (no date) (unknown) (unknown) Instructions: Urinar y Tract Infection, DI for Urinary Tract Infection (UTI), (units unknown) (unknown) (unknown) (no date) (unknown) (unknown) [address] [address] (units unknown) (unknown) (unknown) (no date) (unknown) (unknown) Labs (units unknown) (unknown) (unknown) (no date) (unknown) (unknown) Jeannette Mcelroy MD (units unknown) (unknown) (unknown) (no date) (unknown) (unknown) Nnamdi Larson, (units unknown) (unknown) (unknown) (no date) (unknown) (unknown) Mr. Hoffman is a 77M with [facility] hypertension who presents to the hospital (units unknown) (unknown) (unknown) (no date) (unknown) (unknown) NEURO: awake, alert, no focal deficits (units unknown) (unknown) (unknown) (no date) (unknown) (unknown) Narrative (units unknown) (unknown) (unknown) (no date) (unknown) (unknown) Narrative: (units unknown) (unknown) (unknown) (no date) (unknown) (unknown) New (units unknown) (unknown) (unknown) (no date) (unknown) (unknown) Objective (units unknown) (unknown) (unknown) (no date) (unknown) (unknown) Oxygen Delivery Meth od Room Air (units unknown) (unknown) (unknown) (no date) (unknown) (unknown) Oxygen Flow Rate 0 (units unknown) (unknown) (unknown) (no date) (unknown) (unknown) PFSH (units unknown) (unknown) (unknown) (no date) (unknown) (unknown) PULM: clear bilaterally (units unknown) (unknown) (unknown) (no date) (unknown) (unknown) Patient Comments: (units unknown) (unknown) (unknown) (no date) (unknown) (unknown) Patient Disposition: Home Health Service (units unknown) (unknown) (unknown) (no date) (unknown) (unknown) Patient: James Hoffman MR#: [id number] (units unknown) (unknown) (unknown) (no date) (unknown) (unknown) Physician Instructio ns: Evaluate and Treat (units unknown) (unknown) (unknown) (no date) (unknown) (unknown) Physician Instructio ns: Evaluate and treat (units unknown) (unknown) (unknown) (no date) (unknown) (unknown) Prescriptions: (units unknown) (unknown) (unknown) (no date) (unknown) (unknown) Primary Care Provide r: Jeannette Mcelroy (units unknown) (unknown) (unknown) (no date) (unknown) (unknown) Primary care physician: (units unknown) (unknown) (unknown) (no date) (unknown) (unknown) Procal 0.11. Lactate 3.9->2.3. EtOH 90. UA with nitrates, WBCs, and bacteria. (units unknown) (unknown) (unknown) (no date) (unknown) (unknown) Provider Discharge Comment: You were admitted for some confusion. You may have (units unknown) (unknown) (unknown) (no date) (unknown) (unknown) Provider (units unknown) (unknown) (unknown) (no date) (unknown) (unknown) Provider: Alber Larson D.O. 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 (units unknown) (unknown) (unknown) (no date) (unknown) (unknown) Reason For Exam: decreased appetite (units unknown) (unknown) (unknown) (no date) (unknown) (unknown) Signed By: (units unknown) (unknown) (unknown) (no date) (unknown) (unknown) Smoking Status: Aviva monge smoker (units unknown) (unknown) (unknown) (no date) (unknown) (unknown) Social History (units unknown) (unknown) (unknown) (no date) (unknown) (unknown) Stand Alone Forms: Patient Portal/API, Stroke Signs + Symptoms (units unknown) (unknown) (unknown) (no date) (unknown) (unknown) Summary (units unknown) (unknown) (unknown) (no date) (unknown) (unknown) Jeannette Mcelroy MD [Primary Care Provider] - 2 Weeks (units unknown) (unknown) (unknown) (no date) (unknown) (unknown) Time Patient Seen: 21:30 (units unknown) (unknown) (unknown) (no date) (unknown) (unknown) Time Spent with Patient (units unknown) (unknown) (unknown) (no date) (unknown) (unknown) Time spent: Greater than 30 minutes (units unknown) (unknown) (unknown) (no date) (unknown) (unknown) Visit Report/Dischar ge Packet (units unknown) (unknown) (unknown) (no date) (unknown) (unknown) Vital Signs (units unknown) (unknown) (unknown) (no date) (unknown) (unknown) [Embedded Image Not Available] (units unknown) (unknown) (unknown) (no date) (unknown) (unknown) amoxicillin 875 mg tablet (units unknown) (unknown) (unknown) (no date) (unknown) (unknown) any other complaints . Denied pain, cough, shortness of breath, nausea, vomiting, (units unknown) (unknown) (unknown) (no date) (unknown) (unknown) as he appears confus ed and he is very hard of hearing. He was really not having (units unknown) (unknown) (unknown) (no date) (unknown) (unknown) atenolol 100 mg Tablet (units unknown) (unknown) (unknown) (no date) (unknown) (unknown) bit. (units unknown) (unknown) (unknown) (no date) (unknown) (unknown) complaining of weakness. It is very difficult to get a history from the patient (units unknown) (unknown) (unknown) (no date) (unknown) (unknown) confusion. Your urin e was growing bacteria suggesting a urinary tract infection (units unknown) (unknown) (unknown) (no date) (unknown) (unknown) have your hearing checked and see what they can offer. In 75% patients with (units unknown) (unknown) (unknown) (no date) (unknown) (unknown) hearing loss, a cochlear implant for hearing loss can improve tinnitus quite a (units unknown) (unknown) (unknown) (no date) (unknown) (unknown) household members: none (units unknown) (unknown) (unknown) (no date) (unknown) (unknown) me and notable for n o acute process. (units unknown) (unknown) (unknown) (no date) (unknown) (unknown) neighbor that the patient was much more confused than was normal. (units unknown) (unknown) (unknown) (no date) (unknown) (unknown) or diarrhea. I spoke with the ED physician who had discussed with the patient's (units unknown) (unknown) (unknown) (no date) (unknown) (unknown) pharmacy. For you tinnitus, I would ask your PCP to send a referral to ENT to (units unknown) (unknown) (unknown) (no date) (unknown) (unknown) present on admission (units unknown) (unknown) (unknown) (no date) (unknown) (unknown) respiratory 18, bloo d pressure 150s/80s, 98% on room air. Labs notable for WBC (units unknown) (unknown) (unknown) (no date) (unknown) (unknown) so we are treating t hat just in case with antibiotics. I've sent some to your (units unknown) (unknown) (unknown) (no date) (unknown) (unknown) some dementia that i s starting to set in. We didn't find any other cause of your (units unknown) (unknown) (unknown) (no date) (unknown) (unknown) strength not confirm ed - patient unable to confirm due to confusion (units unknown) (unknown) (unknown) (no date) (unknown) (unknown) very bothersome and gives him headaches (units unknown) (unknown) Result panel 280 (unknown) (no date) (unknown) (unknown) (no value) (units unknown) (unknown) (unknown) (no date) (unknown) (unknown) (past 8 hours): (units unknown) (unknown) (unknown) (no date) (unknown) (unknown) Discharges patien t from system. (units unknown) (unknown) (unknown) (no date) (unknown) (unknown) -SLUMS 15/30 (units unknown) (unknown) (unknown) (no date) (unknown) (unknown) -UA positive with nitrates, wbcs, bacteria (units unknown) (unknown) (unknown) (no date) (unknown) (unknown) -continue ceftriaxone (units unknown) (unknown) (unknown) (no date) (unknown) (unknown) -for now order for c iwa protocol (units unknown) (unknown) (unknown) (no date) (unknown) (unknown) -had no evidence of withdrawals (units unknown) (unknown) (unknown) (no date) (unknown) (unknown) -has periods where appears irregular (units unknown) (unknown) (unknown) (no date) (unknown) (unknown) -hold off on full anticoagulation for now as not clear what benefits/risks are (units unknown) (unknown) (unknown) (no date) (unknown) (unknown) -mentation improving , alert and oriented x3 but easily forgetful (units unknown) (unknown) (unknown) (no date) (unknown) (unknown) -order for low dose metoprolol with improvement (units unknown) (unknown) (unknown) (no date) (unknown) (unknown) -ordered mvi, thiami ne, folate (units unknown) (unknown) (unknown) (no date) (unknown) (unknown) -patient has hearing aids, but 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 which he says is (units unknown) (unknown) (unknown) (no date) (unknown) (unknown) -patient states he h as not had drink recently (units unknown) (unknown) (unknown) (no date) (unknown) (unknown) -placed on amoxicill in to finish 1 week total (units unknown) (unknown) (unknown) (no date) (unknown) (unknown) -recommend outpatien t ENT referral (units unknown) (unknown) (unknown) (no date) (unknown) (unknown) -unclear if has hist ory of afib (units unknown) (unknown) (unknown) (no date) (unknown) (unknown) -unclear withdrawal risk (units unknown) (unknown) (unknown) (no date) (unknown) (unknown) -urine culture with >100k Staph epi pansensitive (units unknown) (unknown) (unknown) (no date) (unknown) (unknown) [id number] (units unknown) (unknown) (unknown) (no date) (unknown) (unknown) 06/26/22 20:51 (units unknown) (unknown) (unknown) (no date) (unknown) (unknown) 06/26/22 23:35 (units unknown) (unknown) (unknown) (no date) (unknown) (unknown) 06/26/22 23:57 (units unknown) (unknown) (unknown) (no date) (unknown) (unknown) 06/28/22 05:39 (units unknown) (unknown) (unknown) (no date) (unknown) (unknown) 06/28/22 14:26 (units unknown) (unknown) (unknown) (no date) (unknown) (unknown) 06/30/22 1931 (units unknown) (unknown) (unknown) (no date) (unknown) (unknown) 1 tab PO DIRECTED (units unknown) (unknown) (unknown) (no date) (unknown) (unknown) 1. Acute UTI with metabolic encephalopathy, possible underyling dementia, (units unknown) (unknown) (unknown) (no date) (unknown) (unknown) 100 mg PO DAILY (units unknown) (unknown) (unknown) (no date) (unknown) (unknown) 2. Mildly elevated alcohol level of 90 (units unknown) (unknown) (unknown) (no date) (unknown) (unknown) 3. Tachycardia (units unknown) (unknown) (unknown) (no date) (unknown) (unknown) 3.6, hgb 13.2, plts 168. Na 135, k 3.8, creatinine 1.04. INR 1.0. Trop negative. (units unknown) (unknown) (unknown) (no date) (unknown) (unknown) 4. Thrombocytopenia (units unknown) (unknown) (unknown) (no date) (unknown) (unknown) 5. Hearing loss with tinnitus (units unknown) (unknown) (unknown) (no date) (unknown) (unknown) 875 mg PO BID 6 Days Qty: 12 0RF (units unknown) (unknown) (unknown) (no date) (unknown) (unknown) ?- likely due to EtO H, possible sepsis (units unknown) (unknown) (unknown) (no date) (unknown) (unknown) ABD: soft, nontender , nondistended (units unknown) (unknown) (unknown) (no date) (unknown) (unknown) Admitted for [facility] ed confusion and found to have UTI. Given abx and his (units unknown) (unknown) (unknown) (no date) (unknown) (unknown) Age/Sex: 77 / M (units unknown) (unknown) (unknown) (no date) (unknown) (unknown) Amoxicillin (units unknown) (unknown) (unknown) (no date) (unknown) (unknown) CV: irregularly irregular rhythm with normal rate (units unknown) (unknown) (unknown) (no date) (unknown) (unknown) Chest xray reviewed by me and notable for no acute process. CT head reviewed by (units unknown) (unknown) (unknown) (no date) (unknown) (unknown) Chief complaint: Diz zy, Tinnitus, Headache (units unknown) (unknown) (unknown) (no date) (unknown) (unknown) Comment: UTI, encephalopathy, cognition (units unknown) (unknown) (unknown) (no date) (unknown) (unknown) Comment: per patient request (units unknown) (unknown) (unknown) (no date) (unknown) (unknown) Comment: (units unknown) (unknown) (unknown) (no date) (unknown) (unknown) Consult to Dietitian , Adult Routine (units unknown) (unknown) (unknown) (no date) (unknown) (unknown) Consult to Home Heal Routine (units unknown) (unknown) (unknown) (no date) (unknown) (unknown) Consult to Occupatio nal Therapy Evaluate + Treat (units unknown) (unknown) (unknown) (no date) (unknown) (unknown) Consult to Pastoral Services Routine (units unknown) (unknown) (unknown) (no date) (unknown) (unknown) Consult to Physical Therapy Evaluate + Treat (units unknown) (unknown) (unknown) (no date) (unknown) (unknown) Consults: (units unknown) (unknown) (unknown) (no date) (unknown) (unknown) Continued (units unknown) (unknown) (unknown) (no date) (unknown) (unknown) : 1945 Acct:[id number] (units unknown) (unknown) (unknown) (no date) (unknown) (unknown) Date Patient Seen: 06/26/22 (units unknown) (unknown) (unknown) (no date) (unknown) (unknown) Date of Service: 06/26/22 (units unknown) (unknown) (unknown) (no date) (unknown) (unknown) Date of admission: (units unknown) (unknown) (unknown) (no date) (unknown) (unknown) Discharge Data (units unknown) (unknown) (unknown) (no date) (unknown) (unknown) Discharge Date/Time: 06/28/22 14:33 (units unknown) (unknown) (unknown) (no date) (unknown) (unknown) Discharge Date: 06/28/22 (units unknown) (unknown) (unknown) (no date) (unknown) (unknown) Discharge Diagnosis: (units unknown) (unknown) (unknown) (no date) (unknown) (unknown) Discharge Plan (units unknown) (unknown) (unknown) (no date) (unknown) (unknown) Discharge Providers (units unknown) (unknown) (unknown) (no date) (unknown) (unknown) Discharge Summary (units unknown) (unknown) (unknown) (no date) (unknown) (unknown) Discharge orders + Medications (units unknown) (unknown) (unknown) (no date) (unknown) (unknown) Discharge provider: (units unknown) (unknown) (unknown) (no date) (unknown) (unknown) Discharged home with po amox to finish 1 week. Home health arranged. (units unknown) (unknown) (unknown) (no date) (unknown) (unknown) EXT: warm and well perfused, no edema (units unknown) (unknown) (unknown) (no date) (unknown) (unknown) Exam Narrative: (units unknown) (unknown) (unknown) (no date) (unknown) (unknown) Exam (units unknown) (unknown) (unknown) (no date) (unknown) (unknown) Follow up/Referrals: (units unknown) (unknown) (unknown) (no date) (unknown) (unknown) GEN: no acute distre ss, very hard of hearing (units unknown) (unknown) (unknown) (no date) (unknown) (unknown) Geritol Complete 16 mg iron- 0.38 mg Tablet (units unknown) (unknown) (unknown) (no date) (unknown) (unknown) HEENT: moist mucous membranes (units unknown) (unknown) (unknown) (no date) (unknown) (unknown) History of Present Illness (units unknown) (unknown) (unknown) (no date) (unknown) (unknown) Hospital Course (units unknown) (unknown) (unknown) (no date) (unknown) (unknown) Hospital Course: (units unknown) (unknown) (unknown) (no date) (unknown) (unknown) In the ED workup was done, vitals notable for afebrile, heart rate 110s, (units unknown) (unknown) (unknown) (no date) (unknown) (unknown) Instructions: Urinar y Tract Infection, DI for Urinary Tract Infection (UTI), (units unknown) (unknown) (unknown) (no date) (unknown) (unknown) [facility] [address] [place] [address] (units unknown) (unknown) (unknown) (no date) (unknown) (unknown) Labs (units unknown) (unknown) (unknown) (no date) (unknown) (unknown) Jeannette Mcelroy MD (units unknown) (unknown) (unknown) (no date) (unknown) (unknown) Nnamdi Larson, DO (units unknown) (unknown) (unknown) (no date) (unknown) (unknown) Mr. Hoffman is a 77M with H hypertension who presents to the hospital (units unknown) (unknown) (unknown) (no date) (unknown) (unknown) NEURO: awake, alert, no focal deficits, oriented x3 but forgetful (units unknown) (unknown) (unknown) (no date) (unknown) (unknown) Narrative (units unknown) (unknown) (unknown) (no date) (unknown) (unknown) Narrative: (units unknown) (unknown) (unknown) (no date) (unknown) (unknown) New (units unknown) (unknown) (unknown) (no date) (unknown) (unknown) Objective (units unknown) (unknown) (unknown) (no date) (unknown) (unknown) Oxygen Delivery Meth od Room Air (units unknown) (unknown) (unknown) (no date) (unknown) (unknown) Oxygen Flow Rate 0 (units unknown) (unknown) (unknown) (no date) (unknown) (unknown) PFSH (units unknown) (unknown) (unknown) (no date) (unknown) (unknown) PULM: clear bilaterally (units unknown) (unknown) (unknown) (no date) (unknown) (unknown) Patient Comments: (units unknown) (unknown) (unknown) (no date) (unknown) (unknown) Patient Disposition: Home Health Service (units unknown) (unknown) (unknown) (no date) (unknown) (unknown) Patient: James Hoffman MR#: [id number] (units unknown) (unknown) (unknown) (no date) (unknown) (unknown) Physician Instructio ns: Evaluate and Treat (units unknown) (unknown) (unknown) (no date) (unknown) (unknown) Physician Instructio ns: Evaluate and treat (units unknown) (unknown) (unknown) (no date) (unknown) (unknown) Prescriptions: (units unknown) (unknown) (unknown) (no date) (unknown) (unknown) Primary Care Provide r: Jeannette Mcelroy (units unknown) (unknown) (unknown) (no date) (unknown) (unknown) Primary care physician: (units unknown) (unknown) (unknown) (no date) (unknown) (unknown) Procal 0.11. Lactate 3.9->2.3. EtOH 90. UA with nitrates, WBCs, and bacteria. (units unknown) (unknown) (unknown) (no date) (unknown) (unknown) Provider Discharge Comment: You were admitted for some confusion. You may have (units unknown) (unknown) (unknown) (no date) (unknown) (unknown) Provider (units unknown) (unknown) (unknown) (no date) (unknown) (unknown) Provider: Alber Larson D.O. 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 (units unknown) (unknown) (unknown) (no date) (unknown) (unknown) Reason For Exam: decreased appetite (units unknown) (unknown) (unknown) (no date) (unknown) (unknown) Signed By:<Electronically signed by Nnamdi Larson D.O.> (units unknown) (unknown) (unknown) (no date) (unknown) (unknown) Smoking Status: Aviva monge smoker (units unknown) (unknown) (unknown) (no date) (unknown) (unknown) Social History (units unknown) (unknown) (unknown) (no date) (unknown) (unknown) Stand Alone Forms: Patient Portal/API, Stroke Signs + Symptoms (units unknown) (unknown) (unknown) (no date) (unknown) (unknown) Summary (units unknown) (unknown) (unknown) (no date) (unknown) (unknown) Jeannette Mcelroy MD [Primary Care Provider] - 2 Weeks (units unknown) (unknown) (unknown) (no date) (unknown) (unknown) Time Patient Seen: 21:30 (units unknown) (unknown) (unknown) (no date) (unknown) (unknown) Time Spent with Patient (units unknown) (unknown) (unknown) (no date) (unknown) (unknown) Time spent: Greater than 30 minutes (units unknown) (unknown) (unknown) (no date) (unknown) (unknown) Visit Report/Dischar ge Packet (units unknown) (unknown) (unknown) (no date) (unknown) (unknown) Vital Signs (units unknown) (unknown) (unknown) (no date) (unknown) (unknown) [Embedded Image Not Available] (units unknown) (unknown) (unknown) (no date) (unknown) (unknown) amoxicillin 875 mg tablet (units unknown) (unknown) (unknown) (no date) (unknown) (unknown) any other complaints . Denied pain, cough, shortness of breath, nausea, vomiting, (units unknown) (unknown) (unknown) (no date) (unknown) (unknown) as he appears confus ed and he is very hard of hearing. He was really not having (units unknown) (unknown) (unknown) (no date) (unknown) (unknown) atenolol 100 mg Tablet (units unknown) (unknown) (unknown) (no date) (unknown) (unknown) bit. (units unknown) (unknown) (unknown) (no date) (unknown) (unknown) complaining of weakness. It is very difficult to get a history from the patient (units unknown) (unknown) (unknown) (no date) (unknown) (unknown) confusion. Your urin e was growing bacteria suggesting a urinary tract infection (units unknown) (unknown) (unknown) (no date) (unknown) (unknown) have your hearing checked and see what they can offer. In 75% patients with (units unknown) (unknown) (unknown) (no date) (unknown) (unknown) hearing loss, a cochlear implant for hearing loss can improve tinnitus quite a (units unknown) (unknown) (unknown) (no date) (unknown) (unknown) household members: none (units unknown) (unknown) (unknown) (no date) (unknown) (unknown) me and notable for n o acute process. (units unknown) (unknown) (unknown) (no date) (unknown) (unknown) mentation improved some. Likely has underlying dementia with slums of 15/30. (units unknown) (unknown) (unknown) (no date) (unknown) (unknown) neighbor that the patient was much more confused than was normal. (units unknown) (unknown) (unknown) (no date) (unknown) (unknown) or diarrhea. I spoke with the ED physician who had discussed with the patient's (units unknown) (unknown) (unknown) (no date) (unknown) (unknown) pharmacy. For you tinnitus, I would ask your PCP to send a referral to ENT to (units unknown) (unknown) (unknown) (no date) (unknown) (unknown) present on admission (units unknown) (unknown) (unknown) (no date) (unknown) (unknown) respiratory 18, bloo d pressure 150s/80s, 98% on room air. Labs notable for WBC (units unknown) (unknown) (unknown) (no date) (unknown) (unknown) so we are treating t hat just in case with antibiotics. I've sent some to your (units unknown) (unknown) (unknown) (no date) (unknown) (unknown) some dementia that i s starting to set in. We didn't find any other cause of your (units unknown) (unknown) (unknown) (no date) (unknown) (unknown) strength not confirm ed - patient unable to confirm due to confusion (units unknown) (unknown) (unknown) (no date) (unknown) (unknown) very bothersome and gives him headaches (units unknown) (unknown) Result panel 281 (unknown) (no date) (unknown) (unknown) (no value) (units unknown) (unknown) (unknown) (no date) (unknown) (unknown) NO GROWTH AFTER 5 DAYS (units unknown) (unknown) (unknown) (no date) (unknown) (unknown) NO GROWTH AFTER 5 DAYS (units unknown) (unknown) Result panel 282 (unknown) (no date) (unknown) (unknown) (no value) (units unknown) (unknown) (unknown) (no date) (unknown) (unknown) NO GROWTH AFTER 5 DAYS (units unknown) (unknown) (unknown) (no date) (unknown) (unknown) NO GROWTH AFTER 5 DAYS (units unknown) (unknown) Social History date description facility 2022-06-26 00:00 Never smoked tobacco (finding) [facility] Vital Signs date measurement value units 2022-06-26 00:00 BP_diastolic 84 mmHg 2022-06-26 00:00 BP_systolic 152 mmHg 2022-06-26 00:00 heart_rate 109 /min 2022-06-26 00:00 height_metric 175.26 cm 2022-06-26 00:00 height_standard 69 in 2022-06-26 00:00 o2_saturation 97 % 2022-06-26 00:00 respiration_rate 24 /min 2022-06-26 00:00 temperature_metric 37.17 C 2022-06-26 00:00 temperature_standard 98.9 F 2022-06-26 00:00 weight_metric 82.78 kg 2022-06-26 00:00 weight_standard 182.5 lb 2022-06-28 00:00 BP_diastolic 98 mmHg 2022-06-28 00:00 BP_systolic 149 mmHg 2022-06-28 00:00 heart_rate 87 /min 2022-06-28 00:00 o2_saturation 99 % 2022-06-28 00:00 respiration_rate 18 /min 2022-06-28 00:00 temperature_metric 36.5 C 2022-06-28 00:00 temperature_standard 97.7 F
[2022-07-30 09:46] VITALS: BP 127/83
== END 2022-07-30 09:40 | disposition home or self-care (01) ==
LOC: ED 08:57
DX: K59.00 Constipation, unspecified (principal); R10.30 Lower abdominal pain, unspecified; I10 Essential (primary) hypertension
CPT/HCPCS: 99282; 99283

== ENCOUNTER 2022-08-04 19:05 | Emergency (ER) | payer MEDICARE, OTHER ==
--- OUTSIDE RECORDS SUMMARY | 2022-08-04 19:32 | EXTERNAL MEDICAL SUMMARY RPT | Continuity of Care Document ---
Author Name Unknown Address [address] [place] [address] Phone Organization [place] Address [address] [place] [address] Phone Care Team Providers Care It Quality Assurance Analyst Name Role Phone Unavailable Unavailable Unavailable Jeannette Mcelroy Unavailable Unavailable Allergies and Intolerances date description facility type (no date) No Known Drug Allergies [facility] ( unknown) Medications date description facility 2022-06-28 00:00 Amoxicillin [facility] Problems date description facility 2022-06-26 00:00 Acute urinary tract infection [facility] 2022-06-27 00:00 Acute metabolic encephalopathy [facility] 2022-06-28 08:12 Urinary tract infection, site n ot specified [facility] 2022-06-28 10:03 Urinary tract infection, site n ot specified [facility] 2022-06-28 13:37 Urinary tract infection, site n ot specified [facility] 2022-06-28 14:11 Urinary tract infection, site n ot specified [facility] 2022-06-28 14:35 Urinary tract infection, site n ot specified [facility] 2022-06-29 08:53 Urinary tract infection, site n ot specified [facility] 2022-06-29 11:01 Urinary tract infection, site n ot specified [facility] 2022-06-29 12:03 Urinary tract infection, site n ot specified [facility] 2022-06-30 12:35 Urinary tract infection, site n ot specified [facility] 2022-06-30 12:40 Urinary tract infection, site n ot specified [facility] 2022-06-30 15:20 Urinary tract infection, site n ot specified [facility] 2022-06-30 15:29 Urinary tract infection, site n ot specified [facility] 2022-07-13 12:58 Urinary tract infection, site n ot specified [facility] 2022-07-13 13:11 Urinary tract infection, site n ot specified [facility] 2022-07-13 14:07 Urinary tract infection, site n ot specified [facility] 2022-07-15 09:22 Urinary tract infection, site n ot specified [facility] 2022-07-15 10:13 Urinary tract infection, site n ot specified [facility] 2022-07-15 11:57 Urinary tract infection, site n ot specified [facility] 2022-07-15 11:57 Weakness [facility] Procedures date description facility 2022-06-26 00:00 Computed tomography of head or brain without contrast [facility] 2022-06-26 00:00 X-ray of chest, single [facility] Results/Labs test date author facility value unit interpretation Result panel 1 (unknown) (no date) (unknown) [facility] (no value) (units unknown) (unknown) Result panel 2 (unknown) (no date) (unknown) [facility] (no value) (units unknown) (unknown) Result panel 3 (unknown) (no date) (unknown) [facility] (no value) (units unknown) (unknown) Result panel 4 (unknown) (no date) (unknown) [facility] (no value) (units unknown) (unknown) Result panel 5 (unknown) (no date) (unknown) [facility] (no value) (units unknown) (unknown) Result panel 6 (unknown) (no date) (unknown) [facility] (no value) (units unknown) (unknown) Result panel 7 (unknown) (no date) (unknown) [facility] (no value) (units unknown) (unknown) Result panel 8 (unknown) (no date) (unknown) [facility] (no value) (units unknown) (unknown) Result panel 9 (unknown) (no date) (unknown) [facility] (no value) (units unknown) (unknown) Result panel 10 (unknown) (no date) (unknown) [facility] (no value) (units unknown) (unknown) Result panel 11 (unknown) (no date) (unknown) [facility] (no value) (units unknown) (unknown) Result panel 12 (unknown) (no date) (unknown) [facility] (no value) (units unknown) (unknown) Result panel 13 (unknown) (no date) (unknown) [facility] (no value) (units unknown) (unknown) Result panel 14 (unknown) (no date) (unknown) [facility] (no value) (units unknown) (unknown) Result panel 15 (unknown) (no date) (unknown) [facility] (no value) (units unknown) (unknown) Result panel 16 (unknown) (no date) (unknown) [facility] (no value) (units unknown) (unknown) Result panel 17 (unknown) (no date) (unknown) [facility] (no value) (units unknown) (unknown) Result panel 18 (unknown) (no date) (unknown) [facility] (no value) (units unknown) (unknown) Result panel 19 (unknown) (no date) (unknown) [facility] (no value) (units unknown) (unknown) Result panel 20 (unknown) (no date) (unknown) [facility] (no value) (units unknown) (unknown) Result panel 21 (unknown) (no date) (unknown) [facility] (no value) (units unknown) (unknown) Result panel 22 (unknown) (no date) (unknown) [facility] (no value) (units unknown) (unknown) Result panel 23 (unknown) (no date) (unknown) [facility] (no value) (units unknown) (unknown) Result panel 24 (unknown) (no date) (unknown) [facility] (no value) (units unknown) (unknown) Result panel 25 (unknown) (no date) (unknown) [facility] (no value) (units unknown) (unknown) Result panel 26 (unknown) (no date) (unknown) [facility] (no value) (units unknown) (unknown) Result panel 27 (unknown) (no date) (unknown) [facility] (no value) (units unknown) (unknown) Result panel 28 (unknown) (no date) (unknown) [facility] (no value) (units unknown) (unknown) Result panel 29 (unknown) (no date) (unknown) [facility] (no value) (units unknown) (unknown) Result panel 30 (unknown) (no date) (unknown) [facility] (no value) (units unknown) (unknown) Result panel 31 (unknown) (no date) (unknown) [facility] (no value) (units unknown) (unknown) Result panel 32 (unknown) (no date) (unknown) [facility] (no value) (units unknown) (unknown) Result panel 33 (unknown) (no date) (unknown) [facility] (no value) (units unknown) (unknown) Result panel 34 (unknown) (no date) (unknown) [facility] (no value) (units unknown) (unknown) Result panel 35 (unknown) (no date) (unknown) [facility] (no value) (units unknown) (unknown) Result panel 36 (unknown) (no date) (unknown) [facility] (no value) (units unknown) (unknown) Result panel 37 (unknown) (no date) (unknown) [facility] (no value) (units unknown) (unknown) Result panel 38 (unknown) (no date) (unknown) [facility] (no value) (units unknown) (unknown) Result panel 39 (unknown) (no date) (unknown) [facility] (no value) (units unknown) (unknown) Result panel 40 (unknown) (no date) (unknown) [facility] (no value) (units unknown) (unknown) Result panel 41 (unknown) (no date) (unknown) [facility] (no value) (units unknown) (unknown) Result panel 42 (unknown) (no date) (unknown) [facility] (no value) (units unknown) (unknown) Result panel 43 (unknown) (no date) (unknown) [facility] (no value) (units unknown) (unknown) Result panel 44 (unknown) (no date) (unknown) [facility] (no value) (units unknown) (unknown) Result panel 45 (unknown) (no date) (unknown) [facility] (no value) (units unknown) (unknown) Result panel 46 (unknown) (no date) (unknown) [facility] (no value) (units unknown) (unknown) Result panel 47 (unknown) (no date) (unknown) [facility] (no value) (units unknown) (unknown) Result panel 48 (unknown) (no date) (unknown) [facility] (no value) (units unknown) (unknown) Result panel 49 (unknown) (no date) (unknown) [facility] (no value) (units unknown) (unknown) Result panel 50 (unknown) (no date) (unknown) [facility] (no value) (units unknown) (unknown) Result panel 51 (unknown) (no date) (unknown) [facility] (no value) (units unknown) (unknown) Result panel 52 (unknown) (no date) (unknown) [facility] (no value) (units unknown) (unknown) Result panel 53 (unknown) (no date) (unknown) [facility] (no value) (units unknown) (unknown) Result panel 54 (unknown) (no date) (unknown) [facility] (no value) (units unknown) (unknown) Result panel 55 (unknown) (no date) (unknown) [facility] (no value) (units unknown) (unknown) Result panel 56 (unknown) (no date) (unknown) [facility] (no value) (units unknown) (unknown) Result panel 57 (unknown) (no date) (unknown) [facility] (no value) (units unknown) (unknown) Result panel 58 (unknown) (no date) (unknown) [facility] (no value) (units unknown) (unknown) Result panel 59 (unknown) (no date) (unknown) [facility] (no value) (units unknown) (unknown) Result panel 60 (unknown) (no date) (unknown) [facility] (no value) (units unknown) (unknown) Result panel 61 (unknown) (no date) (unknown) [facility] (no value) (units unknown) (unknown) Result panel 62 (unknown) (no date) (unknown) [facility] (no value) (units unknown) (unknown) Result panel 63 (unknown) (no date) (unknown) [facility] (no value) (units unknown) (unknown) Result panel 64 (unknown) (no date) (unknown) [facility] (no value) (units unknown) (unknown) Result panel 65 (unknown) (no date) (unknown) [facility] (no value) (units unknown) (unknown) Result panel 66 (unknown) (no date) (unknown) [facility] (no value) (units unknown) (unknown) Result panel 67 (unknown) (no date) (unknown) [facility] (no value) (units unknown) (unknown) Result panel 68 (unknown) (no date) (unknown) [facility] (no value) (units unknown) (unknown) Result panel 69 (unknown) (no date) (unknown) [facility] (no value) (units unknown) (unknown) Result panel 70 (unknown) (no date) (unknown) [facility] (no value) (units unknown) (unknown) Result panel 71 (unknown) (no date) (unknown) [facility] (no value) (units unknown) (unknown) Result panel 72 (unknown) (no date) (unknown) [facility] (no value) (units unknown) (unknown) Result panel 73 (unknown) (no date) (unknown) [facility] (no value) (units unknown) (unknown) Result panel 74 (unknown) (no date) (unknown) [facility] (no value) (units unknown) (unknown) Result panel 75 (unknown) (no date) (unknown) [facility] (no value) (units unknown) (unknown) Result panel 76 (unknown) (no date) (unknown) [facility] (no value) (units unknown) (unknown) Result panel 77 (unknown) (no date) (unknown) [facility] (no value) (units unknown) (unknown) Result panel 78 (unknown) (no date) (unknown) [facility] (no value) (units unknown) (unknown) Result panel 79 (unknown) (no date) (unknown) [facility] (no value) (units unknown) (unknown) Result panel 80 (unknown) (no date) (unknown) [facility] (no value) (units unknown) (unknown) Result panel 81 (unknown) (no date) (unknown) [facility] (no value) (units unknown) (unknown) Result panel 82 (unknown) (no date) (unknown) [facility] (no value) (units unknown) (unknown) Result panel 83 (unknown) (no date) (unknown) [facility] (no value) (units unknown) (unknown) Result panel 84 (unknown) (no date) (unknown) [facility] (no value) (units unknown) (unknown) Result panel 85 (unknown) (no date) (unknown) [facility] (no value) (units unknown) (unknown) Result panel 86 (unknown) (no date) (unknown) [facility] (no value) (units unknown) (unknown) Result panel 87 (unknown) (no date) (unknown) [facility] (no value) (units unknown) (unknown) Result panel 88 (unknown) (no date) (unknown) [facility] (no value) (units unknown) (unknown) Result panel 89 (unknown) (no date) (unknown) [facility] (no value) (units unknown) (unknown) Result panel 90 (unknown) (no date) (unknown) [facility] (no value) (units unknown) (unknown) Result panel 91 (unknown) (no date) (unknown) [facility] (no value) (units unknown) (unknown) Result panel 92 (unknown) (no date) (unknown) [facility] (no value) (units unknown) (unknown) Result panel 93 (unknown) (no date) (unknown) [facility] (no value) (units unknown) (unknown) Result panel 94 (unknown) (no date) (unknown) [facility] (no value) (units unknown) (unknown) Result panel 95 (unknown) (no date) (unknown) [facility] (no value) (units unknown) (unknown) Result panel 96 (unknown) (no date) (unknown) [facility] (no value) (units unknown) (unknown) Result panel 97 (unknown) (no date) (unknown) [facility] (no value) (units unknown) (unknown) Result panel 98 (unknown) (no date) (unknown) [facility] (no value) (units unknown) (unknown) Result panel 99 (unknown) (no date) (unknown) [facility] (no value) (units unknown) (unknown) Result panel 100 (unknown) (no date) (unknown) [facility] (no value) (units unknown) (unknown) Result panel 101 (unknown) (no date) (unknown) [facility] (no value) (units unknown) (unknown) Result panel 102 (unknown) (no date) (unknown) [facility] (no value) (units unknown) (unknown) Result panel 103 (unknown) (no date) (unknown) [facility] (no value) (units unknown) (unknown) Result panel 104 (unknown) (no date) (unknown) [facility] (no value) (units unknown) (unknown) Result panel 105 (unknown) (no date) (unknown) [facility] (no value) (units unknown) (unknown) Result panel 106 (unknown) (no date) (unknown) [facility] (no value) (units unknown) (unknown) Result panel 107 (unknown) (no date) (unknown) [facility] (no value) (units unknown) (unknown) Result panel 108 (unknown) (no date) (unknown) [facility] (no value) (units unknown) (unknown) Result panel 109 (unknown) (no date) (unknown) [facility] (no value) (units unknown) (unknown) Result panel 110 (unknown) (no date) (unknown) [facility] (no value) (units unknown) (unknown) Result panel 111 (unknown) (no date) (unknown) [facility] (no value) (units unknown) (unknown) Result panel 112 (unknown) (no date) (unknown) [facility] (no value) (units unknown) (unknown) Result panel 113 (unknown) (no date) (unknown) [facility] (no value) (units unknown) (unknown) Result panel 114 (unknown) (no date) (unknown) [facility] (no value) (units unknown) (unknown) Result panel 115 (unknown) (no date) (unknown) [facility] (no value) (units unknown) (unknown) Result panel 116 (unknown) (no date) (unknown) [facility] (no value) (units unknown) (unknown) Result panel 117 (unknown) (no date) (unknown) [facility] (no value) (units unknown) (unknown) Result panel 118 (unknown) (no date) (unknown) [facility] (no value) (units unknown) (unknown) Result panel 119 (unknown) (no date) (unknown) [facility] (no value) (units unknown) (unknown) Result panel 120 (unknown) (no date) (unknown) [facility] (no value) (units unknown) (unknown) Result panel 121 (unknown) (no date) (unknown) [facility] (no value) (units unknown) (unknown) Result panel 122 (unknown) (no date) (unknown) [facility] (no value) (units unknown) (unknown) Result panel 123 (unknown) (no date) (unknown) [facility] (no value) (units unknown) (unknown) Result panel 124 (unknown) (no date) (unknown) [facility] (no value) (units unknown) (unknown) Result panel 125 (unknown) (no date) (unknown) [facility] (no value) (units unknown) (unknown) Result panel 126 (unknown) (no date) (unknown) [facility] (no value) (units unknown) (unknown) Result panel 127 (unknown) (no date) (unknown) [facility] (no value) (units unknown) (unknown) Result panel 128 (unknown) (no date) (unknown) [facility] (no value) (units unknown) (unknown) Result panel 129 (unknown) (no date) (unknown) [facility] (no value) (units unknown) (unknown) Result panel 130 (unknown) (no date) (unknown) [facility] (no value) (units unknown) (unknown) Result panel 131 (unknown) (no date) (unknown) [facility] (no value) (units unknown) (unknown) Result panel 132 (unknown) (no date) (unknown) [facility] (no value) (units unknown) (unknown) Result panel 133 (unknown) (no date) (unknown) [facility] (no value) (units unknown) (unknown) Result panel 134 (unknown) (no date) (unknown) [facility] (no value) (units unknown) (unknown) Result panel 135 (unknown) (no date) (unknown) [facility] (no value) (units unknown) (unknown) Result panel 136 (unknown) (no date) (unknown) [facility] (no value) (units unknown) (unknown) Result panel 137 (unknown) (no date) (unknown) [facility] (no value) (units unknown) (unknown) Result panel 138 (unknown) (no date) (unknown) [facility] (no value) (units unknown) (unknown) Result panel 139 (unknown) (no date) (unknown) [facility] (no value) (units unknown) (unknown) Result panel 140 (unknown) (no date) (unknown) [facility] (no value) (units unknown) (unknown) Result panel 141 (unknown) (no date) (unknown) [facility] (no value) (units unknown) (unknown) Result panel 142 (unknown) (no date) (unknown) [facility] (no value) (units unknown) (unknown) Result panel 143 (unknown) (no date) (unknown) [facility] (no value) (units unknown) (unknown) Result panel 144 (unknown) (no date) (unknown) [facility] (no value) (units unknown) (unknown) Result panel 145 (unknown) (no date) (unknown) [facility] (no value) (units unknown) (unknown) Result panel 146 (unknown) (no date) (unknown) [facility] (no value) (units unknown) (unknown) Result panel 147 (unknown) (no date) (unknown) [facility] (no value) (units unknown) (unknown) Result panel 148 (unknown) (no date) (unknown) [facility] (no value) (units unknown) (unknown) Result panel 149 (unknown) (no date) (unknown) [facility] (no value) (units unknown) (unknown) Result panel 150 (unknown) (no date) (unknown) [facility] (no value) (units unknown) (unknown) Result panel 151 (unknown) (no date) (unknown) [facility] (no value) (units unknown) (unknown) Result panel 152 (unknown) (no date) (unknown) [facility] (no value) (units unknown) (unknown) Result panel 153 (unknown) (no date) (unknown) [facility] (no value) (units unknown) (unknown) Result panel 154 (unknown) (no date) (unknown) [facility] (no value) (units unknown) (unknown) Result panel 155 (unknown) (no date) (unknown) [facility] (no value) (units unknown) (unknown) Result panel 156 (unknown) (no date) (unknown) [facility] (no value) (units unknown) (unknown) Result panel 157 (unknown) (no date) (unknown) [facility] (no value) (units unknown) (unknown) Result panel 158 (unknown) (no date) (unknown) [facility] (no value) (units unknown) (unknown) Result panel 159 (unknown) (no date) (unknown) [facility] (no value) (units unknown) (unknown) Result panel 160 (unknown) (no date) (unknown) [facility] (no value) (units unknown) (unknown) Result panel 161 (unknown) (no date) (unknown) [facility] (no value) (units unknown) (unknown) Result panel 162 (unknown) (no date) (unknown) [facility] (no value) (units unknown) (unknown) Result panel 163 (unknown) (no date) (unknown) [facility] (no value) (units unknown) (unknown) Result panel 164 (unknown) (no date) (unknown) [facility] (no value) (units unknown) (unknown) Result panel 165 (unknown) (no date) (unknown) [facility] (no value) (units unknown) (unknown) Result panel 166 (unknown) (no date) (unknown) [facility] (no value) (units unknown) (unknown) Result panel 167 (unknown) (no date) (unknown) [facility] (no value) (units unknown) (unknown) Result panel 168 (unknown) (no date) (unknown) [facility] (no value) (units unknown) (unknown) Result panel 169 (unknown) (no date) (unknown) [facility] (no value) (units unknown) (unknown) Result panel 170 (unknown) (no date) (unknown) [facility] (no value) (units unknown) (unknown) Result panel 171 (unknown) (no date) (unknown) [facility] (no value) (units unknown) (unknown) Result panel 172 (unknown) (no date) (unknown) [facility] (no value) (units unknown) (unknown) Result panel 173 (unknown) (no date) (unknown) [facility] (no value) (units unknown) (unknown) Result panel 174 (unknown) (no date) (unknown) [facility] (no value) (units unknown) (unknown) Result panel 175 (unknown) (no date) (unknown) [facility] (no value) (units unknown) (unknown) Result panel 176 (unknown) (no date) (unknown) [facility] (no value) (units unknown) (unknown) Result panel 177 (unknown) (no date) (unknown) [facility] (no value) (units unknown) (unknown) Result panel 178 (unknown) (no date) (unknown) [facility] (no value) (units unknown) (unknown) Result panel 179 (unknown) (no date) (unknown) [facility] (no value) (units unknown) (unknown) Result panel 180 (unknown) (no date) (unknown) [facility] (no value) (units unknown) (unknown) Result panel 181 (unknown) (no date) (unknown) [facility] (no value) (units unknown) (unknown) Result panel 182 (unknown) (no date) (unknown) [facility] (no value) (units unknown) (unknown) Result panel 183 (unknown) (no date) (unknown) [facility] (no value) (units unknown) (unknown) Result panel 184 (unknown) (no date) (unknown) [facility] (no value) (units unknown) (unknown) Result panel 185 (unknown) (no date) (unknown) [facility] (no value) (units unknown) (unknown) Result panel 186 (unknown) (no date) (unknown) [facility] (no value) (units unknown) (unknown) Result panel 187 (unknown) (no date) (unknown) [facility] (no value) (units unknown) (unknown) Result panel 188 (unknown) (no date) (unknown) [facility] (no value) (units unknown) (unknown) Result panel 189 (unknown) (no date) (unknown) [facility] (no value) (units unknown) (unknown) Result panel 190 (unknown) (no date) (unknown) [facility] (no value) (units unknown) (unknown) Result panel 191 (unknown) (no date) (unknown) [facility] (no value) (units unknown) (unknown) Result panel 192 (unknown) (no date) (unknown) [facility] (no value) (units unknown) (unknown) Result panel 193 (unknown) (no date) (unknown) [facility] (no value) (units unknown) (unknown) Result panel 194 (unknown) (no date) (unknown) [facility] (no value) (units unknown) (unknown) Result panel 195 (unknown) (no date) (unknown) [facility] (no value) (units unknown) (unknown) Result panel 196 (unknown) (no date) (unknown) [facility] (no value) (units unknown) (unknown) Result panel 197 (unknown) (no date) (unknown) [facility] (no value) (units unknown) (unknown) Result panel 198 (unknown) (no date) (unknown) [facility] (no value) (units unknown) (unknown) Result panel 199 (unknown) (no date) (unknown) [facility] (no value) (units unknown) (unknown) Result panel 200 (unknown) (no date) (unknown) [facility] (no value) (units unknown) (unknown) Result panel 201 (unknown) (no date) (unknown) [facility] (no value) (units unknown) (unknown) Result panel 202 (unknown) (no date) (unknown) [facility] (no value) (units unknown) (unknown) Result panel 203 (unknown) (no date) (unknown) [facility] (no value) (units unknown) (unknown) Result panel 204 (unknown) (no date) (unknown) [facility] (no value) (units unknown) (unknown) Result panel 205 (unknown) (no date) (unknown) [facility] (no value) (units unknown) (unknown) Result panel 206 (unknown) (no date) (unknown) [facility] (no value) (units unknown) (unknown) Result panel 207 (unknown) (no date) (unknown) [facility] (no value) (units unknown) (unknown) Result panel 208 (unknown) (no date) (unknown) [facility] (no value) (units unknown) (unknown) Result panel 209 (unknown) (no date) (unknown) [facility] (no value) (units unknown) (unknown) Result panel 210 (unknown) (no date) (unknown) [facility] (no value) (units unknown) (unknown) Result panel 211 (unknown) (no date) (unknown) [facility] (no value) (units unknown) (unknown) Result panel 212 (unknown) (no date) (unknown) [facility] (no value) (units unknown) (unknown) Result panel 213 (unknown) (no date) (unknown) [facility] ([facility] value) (units unknown) (unknown) Result panel 214 (unknown) (no date) (unknown) [facility] (no value) (units unknown) (unknown) Result panel 215 (unknown) (no date) (unknown) [facility] (no value) (units unknown) (unknown) Result panel 216 (unknown) (no date) (unknown) [facility] (no value) (units unknown) (unknown) Result panel 217 (unknown) (no date) (unknown) [facility] (no value) (units unknown) (unknown) Result panel 218 (unknown) (no date) (unknown) [facility] (no value) (units unknown) (unknown) Result panel 219 (unknown) (no date) (unknown) [facility] (no value) (units unknown) (unknown) Result panel 220 (unknown) (no date) (unknown) [facility] (no value) (units unknown) (unknown) Result panel 221 (unknown) (no date) (unknown) [facility] (no value) (units unknown) (unknown) Result panel 222 (unknown) (no date) (unknown) [facility] (no value) (units unknown) (unknown) Result panel 223 (unknown) (no date) (unknown) [facility] (no value) (units unknown) (unknown) Result panel 224 (unknown) (no date) (unknown) [facility] (no value) (units unknown) (unknown) Result panel 225 (unknown) (no date) (unknown) [facility] (no value) (units unknown) (unknown) Result panel 226 (unknown) (no date) (unknown) [facility] (no value) (units unknown) (unknown) Result panel 227 (unknown) (no date) (unknown) [facility] (no value) (units unknown) (unknown) Result panel 228 (unknown) (no date) (unknown) [facility] (no value) (units unknown) (unknown) Result panel 229 (unknown) (no date) (unknown) [facility] (no value) (units unknown) (unknown) Result panel 230 (unknown) (no date) (unknown) [facility] (no value) (units unknown) (unknown) Result panel 231 (unknown) (no date) (unknown) [facility] (no value) (units unknown) (unknown) Result panel 232 (unknown) (no date) (unknown) [facility] (no value) (units unknown) (unknown) Result panel 233 (unknown) (no date) (unknown) [facility] (no value) (units unknown) (unknown) Result panel 234 (unknown) (no date) (unknown) [facility] (no value) (units unknown) (unknown) Result panel 235 (unknown) (no date) (unknown) [facility] (no value) (units unknown) (unknown) Result panel 236 (unknown) (no date) (unknown) [facility] (no value) (units unknown) (unknown) Result panel 237 (unknown) (no date) (unknown) [facility] (no value) (units unknown) (unknown) Result panel 238 (unknown) (no date) (unknown) [facility] (no value) (units unknown) (unknown) Result panel 239 (unknown) (no date) (unknown) (unknown) (no value) (units unknown) (unknown) (unknown) (no date) (unknown) (unknown) [id number] (units unknown) (unknown) (unknown) (no date) (unknown) (unknown) 06/26/22 (units unknown) (unknown) (unknown) (no date) (unknown) (unknown) [address] [place] [address] (units unknown) (unknown) (unknown) (no date) (unknown) (unknown) Accession Number: [id number] (units unknown) (unknown) (unknown) (no date) (unknown) (unknown) Age/Sex: 77 / M Date of Service: (units unknown) (unknown) (unknown) (no date) (unknown) (unknown) [place] [address] (units unknown) (unknown) (unknown) (no date) (unknown) (unknown) Approved by: Casey Sneed M.D. on 06/26/2022 at 16:41 (units unknown) (unknown) (unknown) (no date) (unknown) (unknown) Bones and chest wall : No suspicious bony lesions. Overlying soft tissues (units unknown) (unknown) (unknown) (no date) (unknown) (unknown) COMPARISON: [facility], CR, XR CHEST 1 VIEW, 08/08/2017, 15:26. (units unknown) (unknown) (unknown) (no date) (unknown) (unknown) : 1945 Acct:[id number] (units unknown) (unknown) (unknown) (no date) (unknown) (unknown) Dictated by: Casey Sneed M.D. on 06/26/2022 at 16:40 (units unknown) (unknown) (unknown) (no date) (unknown) (unknown) FINDINGS: (units unknown) (unknown) (unknown) (no date) (unknown) (unknown) IMPRESSION: No acute process. (units unknown) (unknown) (unknown) (no date) (unknown) (unknown) INDICATIONS: suspect ed sepsis (units unknown) (unknown) (unknown) (no date) (unknown) (unknown) [facility] (units unknown) (unknown) (unknown) (no date) (unknown) [...] unknown) (unknown) (unknown) (no date) (unknown) (unknown) [id number] (units unknown) (unknown) (unknown) (no date) (unknown) (unknown) 06/26/22 (units unknown) (unknown) (unknown) (no date) (unknown) (unknown) [address] [place] [address] (units unknown) (unknown) (unknown) (no date) (unknown) (unknown) Accession Number: [id number] (units unknown) (unknown) (unknown) (no date) (unknown) (unknown) Age/Sex: 77 / M Date of Service: (units unknown) (unknown) (unknown) (no date) (unknown) (unknown) [place] [address] (units unknown) (unknown) (unknown) (no date) (unknown) [...] (unknown) (no date) (unknown) (unknown) : 1945 Acct:[id number] (units unknown) (unknown) (unknown) (no date) (unknown) [...] unknown) (unknown) (unknown) (no date) (unknown) (unknown) [facility] (units unknown) (unknown) (unknown) (no date) (unknown) [...] ng/ml (unknown) (unknown) (no date) (unknown) (unknown) [id number] (units unknown) (unknown) (unknown) (no date) (unknown) [...] (unknown) (no date) (unknown) (unknown) : 1945 Acct:[id number] (units unknown) (unknown) (unknown) (no date) (unknown) [...] unknown) (unknown) (unknown) (no date) (unknown) (unknown) [address] [address] (units unknown) (unknown) (unknown) (no date) (unknown) [...] (no date) (unknown) (unknown) Lymph # (Auto) (3673-0712) /uL (units unknown) (unknown) (unknown) (no date) (unknown) (unknown) Lymph # (Auto) 1300 (0519-1480) /uL (units unknown) (unknown) (unknown) (no date) [...] unknown) (unknown) (unknown) (no date) (unknown) (unknown) [place] # (Auto) (0-900 ) /uL (units unknown) (unknown) (unknown) (no date) (unknown) (unknown) [place] # (Auto) 600 (0-900) /uL (units unknown) (unknown) (unknown) (no date) (unknown) (unknown) [place] % (Auto) (3-14) % (units unknown) (unknown) (unknown) (no date) (unknown) (unknown) [place] % (Auto) 15.6 H (3-14) % (units unknown) (unknown) (unknown) (no date) (unknown) (unknown) Neut # (Auto) (9409-1033) /uL (units unknown) (unknown) (unknown) (no date) (unknown) (unknown) Neut # (Auto) 1700 (4080-9176) /uL (units unknown) (unknown) (unknown) (no date) [...] unknown) (unknown) (unknown) (no date) (unknown) (unknown) [id number] (units unknown) (unknown) (unknown) (no date) (unknown) [...] (unknown) (no date) (unknown) (unknown) : 1945 Acct:[id number] (units unknown) (unknown) (unknown) (no date) (unknown) [...] unknown) (unknown) (unknown) (no date) (unknown) (unknown) [address] [address] (units unknown) (unknown) (unknown) (no date) (unknown) [...] (no date) (unknown) (unknown) Lymph # (Auto) (2283-2392) /uL (units unknown) (unknown) (unknown) (no date) (unknown) (unknown) Lymph # (Auto) 1300 (8932-4057) /uL (units unknown) (unknown) (unknown) (no date) [...] unknown) (unknown) (unknown) (no date) (unknown) (unknown) [place] # (Auto) (0-900 ) /uL (units unknown) (unknown) (unknown) (no date) (unknown) (unknown) [place] # (Auto) 600 (0-900) /uL (units unknown) (unknown) (unknown) (no date) (unknown) (unknown) [place] % (Auto) (3-14) % (units unknown) (unknown) (unknown) (no date) (unknown) (unknown) [place] % (Auto) 15.6 H (3-14) % (units unknown) (unknown) (unknown) (no date) (unknown) (unknown) Neut # (Auto) (7968-6721) /uL (units unknown) (unknown) (unknown) (no date) (unknown) (unknown) Neut # (Auto) 1700 (6037-6231) /uL (units unknown) (unknown) (unknown) (no date) [...] unknown) (unknown) (unknown) (no date) (unknown) (unknown) [id number] (units unknown) (unknown) (unknown) (no date) (unknown) [...] (unknown) (no date) (unknown) (unknown) : 1945 Acct:[id number] (units unknown) (unknown) (unknown) (no date) (unknown) [...] unknown) (unknown) (unknown) (no date) (unknown) (unknown) [address] [address] (units unknown) (unknown) (unknown) (no date) (unknown) [...] (no date) (unknown) (unknown) Lymph # (Auto) (7734-4589) /uL (units unknown) (unknown) (unknown) (no date) (unknown) (unknown) Lymph # (Auto) 1300 (3745-2321) /uL (units unknown) (unknown) (unknown) (no date) [...] unknown) (unknown) (unknown) (no date) (unknown) (unknown) [place] # (Auto) (0-900 ) /uL (units unknown) (unknown) (unknown) (no date) (unknown) (unknown) [place] # (Auto) 600 (0-900) /uL (units unknown) (unknown) (unknown) (no date) (unknown) (unknown) [place] % (Auto) (3-14) % (units unknown) (unknown) (unknown) (no date) (unknown) (unknown) [place] % (Auto) 15.6 H (3-14) % (units unknown) (unknown) (unknown) (no date) (unknown) (unknown) Neut # (Auto) (5916-8962) /uL (units unknown) (unknown) (unknown) (no date) (unknown) (unknown) Neut # (Auto) 1700 (0957-9407) /uL (units unknown) (unknown) (unknown) (no date) [...] unknown) (unknown) (unknown) (no date) (unknown) (unknown) [id number] (units unknown) (unknown) (unknown) (no date) (unknown) [...] (unknown) (no date) (unknown) (unknown) : 1945 Acct:[id number] (units unknown) (unknown) (unknown) (no date) (unknown) [...] unknown) (unknown) (unknown) (no date) (unknown) (unknown) [address] [address] (units unknown) (unknown) (unknown) (no date) (unknown) [...] (no date) (unknown) (unknown) Lymph # (Auto) (3678-6240) /uL (units unknown) (unknown) (unknown) (no date) (unknown) (unknown) Lymph # (Auto) 1300 (8226-7415) /uL (units unknown) (unknown) (unknown) (no date) [...] unknown) (unknown) (unknown) (no date) (unknown) (unknown) [place] # (Auto) (0-900 ) /uL (units unknown) (unknown) (unknown) (no date) (unknown) (unknown) [place] # (Auto) 600 (0-900) /uL (units unknown) (unknown) (unknown) (no date) (unknown) (unknown) [place] % (Auto) (3-14) % (units unknown) (unknown) (unknown) (no date) (unknown) (unknown) [place] % (Auto) 15.6 H (3-14) % (units unknown) (unknown) (unknown) (no date) (unknown) (unknown) Neut # (Auto) (6747-1711) /uL (units unknown) (unknown) (unknown) (no date) (unknown) (unknown) Neut # (Auto) 1700 (8481-7627) /uL (units unknown) (unknown) (unknown) (no date) [...] unknown) (unknown) (unknown) (no date) (unknown) (unknown) [id number] (units unknown) (unknown) (unknown) (no date) (unknown) [...] (unknown) (no date) (unknown) (unknown) : 1945 Acct:[id number] (units unknown) (unknown) (unknown) (no date) (unknown) [...] unknown) (unknown) (unknown) (no date) (unknown) (unknown) [address] [address] (units unknown) (unknown) (unknown) (no date) (unknown) [...] (no date) (unknown) (unknown) Lymph # (Auto) (1054-8004) /uL (units unknown) (unknown) (unknown) (no date) (unknown) (unknown) Lymph # (Auto) 1300 (0360-6462) /uL (units unknown) (unknown) (unknown) (no date) [...] unknown) (unknown) (unknown) (no date) (unknown) (unknown) [place] # (Auto) (0-900 ) /uL (units unknown) (unknown) (unknown) (no date) (unknown) (unknown) [place] # (Auto) 600 (0-900) /uL (units unknown) (unknown) (unknown) (no date) (unknown) (unknown) [place] % (Auto) (3-14) % (units unknown) (unknown) (unknown) (no date) (unknown) (unknown) [place] % (Auto) 15.6 H (3-14) % (units unknown) (unknown) (unknown) (no date) (unknown) (unknown) NEUROLOGICAL: Alert and oriented x4. Costing Analyst strength equal bilaterally good (units unknown) (unknown) (unknown) (no date) (unknown) (unknown) Neut # (Auto) (8805-6843) /uL (units unknown) (unknown) (unknown) (no date) (unknown) (unknown) Neut # (Auto) 1700 (8855-4820) /uL (units unknown) (unknown) (unknown) (no date) [...] unknown) (unknown) (unknown) (no date) (unknown) (unknown) [id number]-[id number]-[id number] no facial droop (units unknown) (unknown) (unknown) [...] unknown) (unknown) (unknown) (no date) (unknown) (unknown) [id number] (units unknown) (unknown) (unknown) (no date) (unknown) [...] (unknown) (no date) (unknown) (unknown) Admit Provider: Byrd,Boo (units unknown) (unknown) (unknown) (no date) (unknown) [...] (unknown) (unknown) (no date) (unknown) (unknown) COMPARISON:? [facility], CR, XR CHEST 1 VIEW, 08/08/2017, 15:26. [...] (unknown) (no date) (unknown) (unknown) : 1945 Acct:[id number] (units unknown) (unknown) (unknown) (no date) (unknown) [...] unknown) (unknown) (unknown) (no date) (unknown) (unknown) [address] [address] (units unknown) (unknown) (unknown) (no date) (unknown) [...] (no date) (unknown) (unknown) Lymph # (Auto) (0209-7758) /uL (units unknown) (unknown) (unknown) (no date) (unknown) (unknown) Lymph # (Auto) 1300 (5184-8264) /uL (units unknown) (unknown) (unknown) (no date) [...] unknown) (unknown) (unknown) (no date) (unknown) (unknown) [place] # (Auto) (0-900 ) /uL (units unknown) (unknown) (unknown) (no date) (unknown) (unknown) [place] # (Auto) 600 (0-900) /uL (units unknown) (unknown) (unknown) (no date) (unknown) (unknown) [place] % (Auto) (3-14) % (units unknown) (unknown) (unknown) (no date) (unknown) (unknown) [place] % (Auto) 15.6 H (3-14) % (units unknown) (unknown) (unknown) (no date) (unknown) (unknown) NEUROLOGICAL: Alert and oriented x4. Costing Analyst strength equal bilaterally good (units unknown) (unknown) [...] (no date) (unknown) (unknown) Neut # (Auto) (6516-6615) /uL (units unknown) (unknown) (unknown) (no date) (unknown) (unknown) Neut # (Auto) 1700 (1210-8778) /uL (units unknown) (unknown) (unknown) (no date) [...] (unknown) (no date) (unknown) (unknown) Ur Specific [place] (1.000-1.035) (units unknown) (unknown) (unknown) (no date) (unknown) (unknown) Ur Specific [place] 1.015 (1.000-1.035) (units unknown) (unknown) (unknown) (no [...] unknown) (unknown) (unknown) (no date) (unknown) (unknown) [id number]-[id number] no facial droop (units unknown) (unknown) (unknown) [...] unknown) (unknown) (unknown) (no date) (unknown) (unknown) [id number] (units unknown) (unknown) (unknown) (no date) (unknown) [...] (unknown) (unknown) (no date) (unknown) (unknown) COMPARISON:? [facility], CR, XR CHEST 1 VIEW, 08/08/2017, 15:26. [...] (unknown) (no date) (unknown) (unknown) : 1945 Acct:[id number] (units unknown) (unknown) (unknown) (no date) (unknown) [...] unknown) (unknown) (unknown) (no date) (unknown) (unknown) [address] [address] (units unknown) (unknown) (unknown) (no date) (unknown) [...] (no date) (unknown) (unknown) Lymph # (Auto) (8027-5209) /uL (units unknown) (unknown) (unknown) (no date) (unknown) (unknown) Lymph # (Auto) 1300 (9736-8443) /uL (units unknown) (unknown) (unknown) (no date) [...] unknown) (unknown) (unknown) (no date) (unknown) (unknown) [place] # (Auto) (0-900 ) /uL (units unknown) (unknown) (unknown) (no date) (unknown) (unknown) [place] # (Auto) 600 (0-900) /uL (units unknown) (unknown) (unknown) (no date) (unknown) (unknown) [place] % (Auto) (3-14) % (units unknown) (unknown) (unknown) (no date) (unknown) (unknown) [place] % (Auto) 15.6 H (3-14) % (units unknown) (unknown) (unknown) (no date) (unknown) (unknown) NEUROLOGICAL: Alert and oriented x4. Costing Analyst strength equal bilaterally good (units unknown) (unknown) [...] (no date) (unknown) (unknown) Neut # (Auto) (5484-5453) /uL (units unknown) (unknown) (unknown) (no date) (unknown) (unknown) Neut # (Auto) 1700 (1133-7149) /uL (units unknown) (unknown) (unknown) (no date) [...] (unknown) (no date) (unknown) (unknown) Ur Specific [place] (1.000-1.035) (units unknown) (unknown) (unknown) (no date) (unknown) (unknown) Ur Specific [place] 1.015 (1.000-1.035) (units unknown) (unknown) (unknown) (no [...] unknown) (unknown) (unknown) (no date) (unknown) (unknown) [id number]-pn-swxu no facial droop (units unknown) (unknown) (unknown) [...] unknown) (unknown) (unknown) (no date) (unknown) (unknown) [id number] (units unknown) (unknown) (unknown) (no date) (unknown) [...] (unknown) (no date) (unknown) (unknown) Chief complaint: [place] zy, Tinnitus, Headache (units unknown) (unknown) (unknown) (no date) (unknown) (unknown) Chloride 99 (units unknown) (unknown) (unknown) (no date) (unknown) (unknown) Chloride (units unknown) (unknown) (unknown) (no date) (unknown) (unknown) Complete) (units unknown) (unknown) (unknown) (no date) (unknown) (unknown) Creatinine 1.04 (units unknown) (unknown) (unknown) (no date) (unknown) (unknown) Creatinine (units unknown) (unknown) (unknown) (no date) (unknown) (unknown) : 1945 Acct:[id number] (units unknown) (unknown) (unknown) (no date) (unknown) [...] unknown) (unknown) (unknown) (no date) (unknown) (unknown) [address] [address] (units unknown) (unknown) (unknown) (no date) (unknown) [...] unknown) (unknown) (unknown) (no date) (unknown) (unknown) [place] # (Auto) 600 (units unknown) (unknown) (unknown) (no date) (unknown) (unknown) [place] # (Auto) (units unknown) (unknown) (unknown) (no date) (unknown) (unknown) [place] % (Auto) 15.6 H (units unknown) (unknown) (unknown) (no date) (unknown) (unknown) [place] % (Auto) (units unknown) (unknown) (unknown) (no [...] (unknown) (no date) (unknown) (unknown) Ur Specific [place] 1.015 (units unknown) (unknown) (unknown) (no date) (unknown) (unknown) Ur Specific [place] (units unknown) (unknown) (unknown) (no date) (unknown) [...] 'Current medications ' to include all prescriptions, caxg-wmi-nyizvui products, (units unknown) (unknown) (unknown) (no date) [...] unknown) (unknown) (unknown) (no date) (unknown) (unknown) [id number] (units unknown) (unknown) (unknown) (no date) (unknown) [...] (unknown) (no date) (unknown) (unknown) : 1945 Acct:[id number] (units unknown) (unknown) (unknown) (no date) (unknown) [...] unknown) (unknown) (unknown) (no date) (unknown) (unknown) [address] [address] (units unknown) (unknown) (unknown) (no date) (unknown) [...] unknown) (unknown) (unknown) (no date) (unknown) (unknown) [place] # (Auto) 600 (units unknown) (unknown) (unknown) (no date) (unknown) (unknown) [place] # (Auto) (units unknown) (unknown) (unknown) (no date) (unknown) (unknown) [place] % (Auto) 15.6 H (units unknown) (unknown) (unknown) (no date) (unknown) (unknown) [place] % (Auto) (units unknown) (unknown) (unknown) (no [...] (unknown) (no date) (unknown) (unknown) Ur Specific [place] 1.015 (units unknown) (unknown) (unknown) (no date) (unknown) (unknown) Ur Specific [place] (units unknown) (unknown) (unknown) (no date) (unknown) [...] unknown) (unknown) (unknown) (no date) (unknown) (unknown) [id number] (units unknown) (unknown) (unknown) (no date) (unknown) [...] (unknown) (no date) (unknown) (unknown) : 1945 Acct:[id number] (units unknown) (unknown) (unknown) (no date) (unknown) [...] unknown) (unknown) (unknown) (no date) (unknown) (unknown) [address] [address] (units unknown) (unknown) (unknown) (no date) (unknown) [...] unknown) (unknown) (unknown) (no date) (unknown) (unknown) [place] # (Auto) 600 (units unknown) (unknown) (unknown) (no date) (unknown) (unknown) [place] # (Auto) (units unknown) (unknown) (unknown) (no date) (unknown) (unknown) [place] % (Auto) 12.0 (units unknown) (unknown) (unknown) (no date) (unknown) (unknown) [place] % (Auto) 15.6 H (units unknown) (unknown) (unknown) (no date) (unknown) (unknown) [place] % (Auto) (units unknown) (unknown) (unknown) (no [...] (unknown) (no date) (unknown) (unknown) Ur Specific [place] 1.015 (units unknown) (unknown) (unknown) (no date) (unknown) (unknown) Ur Specific [place] (units unknown) (unknown) (unknown) (no date) (unknown) [...] unknown) (unknown) (unknown) (no date) (unknown) (unknown) [id number] (units unknown) (unknown) (unknown) (no date) (unknown) [...] (unknown) (no date) (unknown) (unknown) : 1945 Acct:[id number] (units unknown) (unknown) (unknown) (no date) (unknown) [...] unknown) (unknown) (unknown) (no date) (unknown) (unknown) [address] [address] (units unknown) (unknown) (unknown) (no date) (unknown) [...] unknown) (unknown) (unknown) (no date) (unknown) (unknown) [place] # (Auto) 600 (units unknown) (unknown) (unknown) (no date) (unknown) (unknown) [place] # (Auto) (units unknown) (unknown) (unknown) (no date) (unknown) (unknown) [place] % (Auto) 12.0 (units unknown) (unknown) (unknown) (no date) (unknown) (unknown) [place] % (Auto) 15.6 H (units unknown) (unknown) (unknown) (no date) (unknown) (unknown) [place] % (Auto) (units unknown) (unknown) (unknown) (no [...] (unknown) (no date) (unknown) (unknown) Ur Specific [place] 1.015 (units unknown) (unknown) (unknown) (no date) (unknown) (unknown) Ur Specific [place] (units unknown) (unknown) (unknown) (no date) (unknown) [...] unknown) (unknown) (unknown) (no date) (unknown) (unknown) [id number] (units unknown) (unknown) (unknown) (no date) (unknown) [...] (unknown) (no date) (unknown) (unknown) : 1945 Acct:[id number] (units unknown) (unknown) (unknown) (no date) (unknown) [...] unknown) (unknown) (unknown) (no date) (unknown) (unknown) [address] [address] (units unknown) (unknown) (unknown) (no date) (unknown) [...] unknown) (unknown) (unknown) (no date) (unknown) (unknown) [place] # (Auto) 600 (units unknown) (unknown) (unknown) (no date) (unknown) (unknown) [place] # (Auto) (units unknown) (unknown) (unknown) (no date) (unknown) (unknown) [place] % (Auto) 12.0 (units unknown) (unknown) (unknown) (no date) (unknown) (unknown) [place] % (Auto) 15.6 H (units unknown) (unknown) (unknown) (no date) (unknown) (unknown) [place] % (Auto) (units unknown) (unknown) (unknown) (no [...] (unknown) (no date) (unknown) (unknown) Ur Specific [place] 1.015 (units unknown) (unknown) (unknown) (no date) (unknown) (unknown) [place] [facility] [place] (units unknown) (unknown) (unknown) (no date) (unknown) [...] unknown) (unknown) (unknown) (no date) (unknown) (unknown) [id number] (units unknown) (unknown) (unknown) (no date) (unknown) [...] (unknown) (no date) (unknown) (unknown) : 1945 Acct:[id number] (units unknown) (unknown) (unknown) (no date) (unknown) [...] unknown) (unknown) (unknown) (no date) (unknown) (unknown) [address] [address] (units unknown) (unknown) (unknown) (no date) (unknown) [...] (unknown) Reason For Exam: Set up HH RN/PT/OT/CYBER INCIDENT ANALYST (units unknown) (unknown) (unknown) (no date) (unknown) [...] unknown) (unknown) (unknown) (no date) (unknown) (unknown) [id number] (units unknown) (unknown) (unknown) (no date) (unknown) [...] (no date) (unknown) (unknown) Consult to Home [facility] Routine (units unknown) (unknown) (unknown) (no date) [...] (unknown) (no date) (unknown) (unknown) : 1945 Acct:[id number] (units unknown) (unknown) (unknown) (no date) (unknown) [...] unknown) (unknown) (unknown) (no date) (unknown) (unknown) [address] [address] (units unknown) (unknown) (unknown) (no date) (unknown) [...] (unknown) Reason For Exam: Set up HH RN/PT/OT/CYBER INCIDENT ANALYST (units unknown) (unknown) (unknown) (no date) (unknown) [...] unknown) (unknown) (unknown) (no date) (unknown) (unknown) [id number] (units unknown) (unknown) (unknown) (no date) (unknown) [...] (unknown) (no date) (unknown) (unknown) : 1945 Acct:[id number] (units unknown) (unknown) (unknown) (no date) (unknown) [...] unknown) (unknown) (unknown) (no date) (unknown) (unknown) [address] [address] (units unknown) (unknown) (unknown) (no date) (unknown) [...] (unknown) (unknown) Reason For Exam: Set up RN/PT/OT/CYBER INCIDENT ANALYST (units unknown) (unknown) (unknown) (no date) (unknown) [...] unknown) (unknown) (unknown) (no date) (unknown) (unknown) [id number] (units unknown) (unknown) (unknown) (no date) (unknown) [...] date) (unknown) (unknown) Consult to Home [facility] Routine (units unknown) (unknown) (unknown) (no date) [...] (unknown) (no date) (unknown) (unknown) : 1945 Acct:[id number] (units unknown) (unknown) (unknown) (no date) (unknown) [...] unknown) (unknown) (unknown) (no date) (unknown) (unknown) [address] [address] (units unknown) (unknown) (unknown) (no date) (unknown) [...] (unknown) Reason For Exam: Set up HH RN/PT/OT/CYBER INCIDENT ANALYST (units unknown) (unknown) (unknown) (no date) (unknown) [...] unknown) (unknown) (unknown) (no date) (unknown) (unknown) [id number] (units unknown) (unknown) (unknown) (no date) (unknown) [...] (unknown) (no date) (unknown) (unknown) Admitted for [facility] ed confusion (units unknown) (unknown) (unknown) [...] (unknown) (no date) (unknown) (unknown) : 1945 Acct:[id number] (units unknown) (unknown) (unknown) (no date) (unknown) [...] unknown) (unknown) (unknown) (no date) (unknown) (unknown) [address] [address] (units unknown) (unknown) (unknown) (no date) (unknown) (unknown) Labs (units unknown) (unknown) (unknown) (no date) (unknown) (unknown) Jeannette Mcelroy MD (units unknown) (unknown) (unknown) (no date) (unknown) (unknown) Nnamdi Larson, (units unknown) (unknown) (unknown) (no date) (unknown) (unknown) Mr. Hoffman is a 77M with [facility] hypertension who presents to the hospital (units [...] (unknown) Reason For Exam: Set up HH RN/PT/OT/CYBER INCIDENT ANALYST (units unknown) (unknown) (unknown) (no date) (unknown) [...] unknown) (unknown) (unknown) (no date) (unknown) (unknown) [id number] (units unknown) (unknown) (unknown) (no date) (unknown) (unknown) 06/26/22 20:51 (units unknown) (unknown) (unknown) (no date) (unknown) (unknown) 06/26/22 23:35 (units unknown) (unknown) (unknown) (no date) (unknown) (unknown) 06/26/22 23:57 (units unknown) (unknown) (unknown) (no date) (unknown) (unknown) 06/28/22 05:39 (units unknown) (unknown) (unknown) (no date) (unknown) (unknown) 06/28/22 14:26 (units unknown) (unknown) (unknown) (no date) (unknown) (unknown) 06/30/22 193 (units unknown) (unknown) (unknown) (no date) (unknown) [...] (unknown) (no date) (unknown) (unknown) Admitted for [facility] ed confusion and found to have [...] (unknown) (no date) (unknown) (unknown) : 1945 Acct:[id number] (units unknown) (unknown) (unknown) (no date) (unknown) [...] unknown) (unknown) (unknown) (no date) (unknown) (unknown) [address] [address] (units unknown) (unknown) (unknown) (no date) (unknown) [...] (unknown) Reason For Exam: Set up HH RN/PT/OT/CYBER INCIDENT ANALYST (units unknown) (unknown) (unknown) (no date) (unknown) [...] facility 2022-06-26 00:00 Never smoked tobacco (finding) [facility] Vital Signs date measurement value units 2022-06-26 [...]
--- NOTE | 2022-08-04 20:23 | XRAY Report ---
PROCEDURE: Hip w/Pelvis 2-3V RT INDICATIONS: worsening pain TECHNIQUE: AP pelvis with lateral view(s) of the right hip(s). COMPARISON: None. FINDINGS: Bones: No fractures or dislocations. No suspicious bony lesions. Soft tissues: No suspicious soft tissue calcifications or masses. IMPRESSION: No visualized acute fracture or dislocation. However, occult injury cannot be excluded. Recommend nancie rt interval imaging follow-up in 7-10 days as clinically indicated for additional evaluation. Reviewed by: Clover Blair MD on 08/04/2022 8:22 PM PDT Approved by: Clover Blair MD on 08/04/2022 8:22 PM PDT Station ID: [id number]
[2022-08-04] MEDS ORDERED: DEXAMETHASONE 10 MG/ML VIAL IM STA (20:47)
[2022-08-04] MEDS ORDERED: HYDROmorphone 0.5 MG/0.5 ML SYRINGE IM STA (20:48)
[2022-08-04] MEDS ORDERED: KETOROLAC 30 MG/ML VIAL IM STA (20:48)
--- NOTE | 2022-08-04 21:04 | ED Physician Documentation ---
History of Present Illness - Stated complaint Stated Complaint: RT HIP PAIN - Chief complaint Chief Complaint: Back Pain - History obtained from History obtained from: Patient - Additonal information Additional information: The patient comes to the emergency department chief complaint of increasing right hip pain over the last several weeks. He states that at first, it was mainly painful in the morning but once he would get up and moving around, it would feel okay. However, over the last few days, it is gotten progressively worse and hurts all day. He denies any direct trauma. No falls or twisting episodes. He states that he gets some low back pain as well and has a history of this chronically. He denies any loss of bowel or bladder function but does have a little bit of numbness and tingling sometimes in his right lower leg. He states his left hip hurts occasionally, too. PD PAST MEDICAL HISTORY - Past Medical History Cardiovascular: Hypertension Respiratory: None Neuro: None Endocrine/Autoimmune: None Musculoskeletal: Chronic back pain - Past Surgical History Past Surgical History: No - Present Medications Home Medications: Ambulatory Orders Medication Instructions Recorded Confirmed Atenolol 06/28/13 06/28/13 Docusate Sodium 100Mg Capsule 06/28/13 06/28/13 [Colace] Flurbiprofen Sodium [Ocufen] 2 drops OP QID #1 bottle 11/18/15 Albuterol Sulf [Ventolin Hfa 2 - 3 puffs INH Q4HR PRN #1 inhaler 05/28/21 Inhaler] Ondansetron Odt [Zofran] 4 mg TL Q6H PRN #10 tablet 05/28/21 Docusate Sodium 100Mg Capsule 100 mg PO DAILY #20 cap 07/30/22 [Colace 100Mg Capsule] HYDROcod/ACETAM 5/325 [[place] 5/325] 1 - 2 tablet PO Q6H PRN #14 tablet 08/04/22 predniSONE [Deltasone] 10 mg PO [id number] #42 tab 08/04/22 - Allergies Allergies/Adverse Reactions: Allergies Allergy/AdvReac Type Severity Reaction Status Date / Time codeine Allergy Itching Verified 08/04/22 19:16 - Social History Does the pt smoke?: No Smoking Status: Never smoker Does the pt drink ETOH?: Yes Does the pt have substance abuse?: No PD ED PE NORMAL - Vitals Vital signs reviewed: Yes - General General: Alert and oriented X 3, No acute distress, Well developed/nourished - HEENT HEENT: Atraumatic, PERRL, EOMI, Moist mucous membranes - Neck Neck: Supple, no meningeal sign - Cardiac Cardiac: RRR, No murmur, Strong equal pulses - Respiratory Respiratory: No respiratory distress, Clear bilaterally - Abdomen Abdomen: Soft, Non tender, Non distended - Derm Derm: Normal color, Warm and dry, No rash - Extremities Extremities: No deformity, No edema - Neuro Neuro: Alert and oriented X 3 - Psych Psych: Normal mood, Normal affect Results - Vitals Vitals: Vital Signs - 24 hr 08/04/22 08/04/22 19:12 21:44 Temperature 36.7 C Heart Rate 94 70 Respiratory 16 18 Rate Blood Pressure 130/80 156/78 H O2 Saturation 100 99 Oxygen O2 Source Room air - Rads (name of study) R hip/pelvis Relevant Findings:: Final report received, See rad report (No acute findings) PD Medical Decision Making - ED course Complexity details: reviewed results, re-evaluated patient, considered differential, d/w patient ED course: The patient was treated symptomatically in the emergency department with improvement in symptoms. X-ray series was unremarkable for acute findings but did show some Degenerative changes in general. I discussed with the patient. For now, we will do symptomatic treatment at home, but the patient has an appointment coming up with his primary care physician in a few weeks and I have encouraged him to discuss his hip pain with his doctor if it still bothering him at that time. Departure - Departure Disposition: 01 Home, Self Care Clinical Impression: Hip pain Qualifiers: Laterality: right Qualified Code(s): M25.551 - Pain in right hip Degenerative joint disease (DJD) of hip Qualifiers: Osteoarthritis type: unspecified Laterality: bilateral Qualified Code(s): M16.0 - Bilateral primary osteoarthritis of hip Condition: Stable Instructions: Hip Osteoarthritis Exercise Prescriptions: predniSONE [Deltasone] 10 mg PO [id number] #42 tab HYDROcod/ACETAM 5/325 [[place] 5/325] 1 - 2 tablet PO Q6H PRN #14 tablet PRN Reason: Pain Comments: Your x-ray shows some mild degeneration of your joints, which could cause some arthritis and pain. We have started you on medication to help calm down the inflammation that you have had, and prescriptions for the same have been electronically transmitted to the [facility] pharmacy in [place] at your request. Please keep the appointment you have coming up with your doctor to discuss some of the ongoing issues you are having. If you are continuing to have pain at the time you see your doctor, please discuss whether a referral to orthopedics would be advisable. Discharge Date/Time: 08/04/22 21:48
[2022-08-04 21:53] VITALS: BP 156/78
== END 2022-08-04 21:48 | disposition home or self-care (01) ==
LOC: ED 19:05
DX: M16.0 Bilateral primary osteoarthritis of hip (principal); I10 Essential (primary) hypertension; Z79.899 Other long term (current) drug therapy
CPT/HCPCS: 73502; 96372; 99283; 99284; J1170

== ENCOUNTER 2023-06-13 16:25 | Emergency (ER) | payer MEDICARE, OTHER ==
[2023-06-13 17:19] LABS: BASOPHILS % (AUTO) 0.5 %; EOSINOPHILS # (AUTO) 0.3 10^3/uL (0.0-0.7); EOSINOPHILS % (AUTO) 5.1 %; HCT - HEMATOCRIT 43.7 % (42.0-52.0); HGB - HEMOGLOBIN 13.9 g/dL (14.0-18.0); LYMPHOCYTES # (AUTO) 3.3 10^3/uL (1.5-3.5); LYMPHOCYTES % (AUTO) 50.7 %; MEAN CORPUSCULAR HEMOGLOBIN 26.1 pg (27.0-31.0); MEAN CORPUSCULAR HGB CONC 31.8 g/dL (32.0-36.0); MEAN PLATELET VOLUME 9.1 fL (7.4-11.4); MONOCYTES # (AUTO) 0.9 10^3/uL (0.0-1.0); MONOCYTES % (AUTO) 13.6 %; NEUTROPHILS % (AUTO) 29.9 %; PLT - PLATELET COUNT 228 10^3/uL (130-450); RED BLOOD COUNT 5.33 10^6/uL (4.70-6.10); RED CELL DISTRIBUTION WIDTH 16.1 % (12.0-15.0); WHITE BLOOD COUNT 6.5 x10^3/uL (4.8-10.8)
[2023-06-13 17:30] LABS: ALBUMIN 4.2 g/dL (3.2-5.5); ALBUMIN/GLOBULIN RATIO 1.4 (1.0-2.2); BILIRUBIN,TOTAL 0.5 mg/dL (0.2-1.0); CREATININE 1.4 mg/dL (0.6-1.3); POTASSIUM 4.6 mmol/L (3.5-4.5); TOTAL PROTEIN 7.1 g/dL (6.4-8.9)
--- NOTE | 2023-06-13 18:29 | ED Physician Documentation ---
History of Present Illness - Stated complaint Stated Complaint: LIGHTHEADED,ABD PX - Chief complaint Chief Complaint: Abd Pain - History obtained from History obtained from: Patient - Additonal information Additional information: He has chronic vertigo for which she takes meclizine. Vertigo was worse this morning when he got up and got out of bed. He is not sure how long it lasted, he went back to bed and slept it off. Now feeling back to normal. Does not notice any focal neurologic symptoms. No headache. PD PAST MEDICAL HISTORY - Past Medical History Past Medical History: Yes Cardiovascular: Hypertension Respiratory: None Neuro: None, Other Endocrine/Autoimmune: None Musculoskeletal: Chronic back pain - Past Surgical History Past Surgical History: No - Present Medications Home Medications: Ambulatory Orders Medication Instructions Recorded Confirmed Atenolol 06/28/13 06/28/13 Docusate Sodium 100Mg Capsule 06/28/13 06/28/13 [Colace] Flurbiprofen Sodium [Ocufen] 2 drops OP QID #1 bottle 11/18/15 Albuterol Sulf [Ventolin Hfa 2 - 3 puffs INH Q4HR PRN #1 inhaler 05/28/21 Inhaler] Ondansetron Odt [Zofran] 4 mg TL Q6H PRN #10 tablet 05/28/21 Docusate Sodium 100Mg Capsule 100 mg PO DAILY #20 cap 07/30/22 [Colace 100Mg Capsule] HYDROcod/ACETAM 5/325 [[place] 5/325] 1 - 2 tablet PO Q6H PRN #14 tablet 08/04/22 predniSONE [Deltasone] 10 mg PO [id number] #42 tab 08/04/22 - Allergies Allergies/Adverse Reactions: Allergies Allergy/AdvReac Type Severity Reaction Status Date / Time codeine Allergy Itching Verified 06/13/23 16:42 - Social History Does the pt smoke?: No Smoking Status: Never smoker Does the pt drink ETOH?: Yes Does the pt have substance abuse?: No - POLST Patient has POLST: No PD ED PE NORMAL - Vitals Vital signs reviewed: Yes - General General: Alert and oriented X 3, No acute distress - HEENT HEENT: PERRL, EOMI - Cardiac Cardiac: RRR, No murmur - Respiratory Respiratory: No respiratory distress, Clear bilaterally - Abdomen Abdomen: Non tender - Derm Derm: Normal color, Warm and dry - Neuro Neuro: Alert and oriented X 3, generation technologist 2-12 intact, No motor deficit, No sensory deficit, Normal speech, Other (Normal finger-nose and eakh-fn-teme testing, no nystagmus, no truncal ataxia. This all noting that he is relatively asymptomatic now.) Eye Opening: Spontaneous Motor: Obeys Commands Verbal: Oriented GCS Score: 15 Results - Vitals Vitals: Vital Signs - 24 hr 06/13/23 06/13/23 06/13/23 16:35 18:42 20:00 Temperature 36.0 C L Heart Rate 54 L 62 74 Respiratory 20 18 16 Rate Blood Pressure 165/83 H 150/82 H 170/89 H O2 Saturation 100 98 98 06/13/23 21:46 Temperature Heart Rate 68 Respiratory 16 Rate Blood Pressure 177/92 H O2 Saturation 98 Oxygen O2 Source Room air - EKG (time done) 1831 EKG releavant findings:: EKG personally interpreted by author of this note. Relevant findings are: Rate: Rate (enter#) (51) Rhythm: NSR [place]: Normal Intervals: Normal [place] QRS: Normal Ischemia: Normal ST segments - Labs Labs: Laboratory Tests 06/13/23 06/13/23 06/13/23 17:10 17:10 20:28 WBC 6.5 RBC 5.33 Hgb 13.9 L Hct 43.7 MCV 82.0 MCH 26.1 L MCHC 31.8 L RDW 16.1 H Plt Count 228 MPV 9.1 Neut # (Auto) 2.0 Lymph # (Auto) 3.3 [place] # (Auto) 0.9 Eos # (Auto) 0.3 Baso # (Auto) 0.0 Absolute Nucleated RBC 0.00 Nucleated RBC % 0.0 Sodium 136 Potassium 4.6 H Chloride 102 Carbon Dioxide 29 Anion Gap 5.0 L BUN 17 Creatinine 1.4 H Estimated GFR (MDRD) 60 L Glucose 90 Calcium 10.0 Total Bilirubin 0.5 AST 14 ALT 8 L Alkaline Phosphatase 53 Total Protein 7.1 Albumin 4.2 Globulin 2.9 Albumin/Globulin Ratio 1.4 Lipase 81 Urine Color YELLOW Urine Clarity CLEAR Urine pH 7.5 Ur Specific [place] 1.010 Urine Protein NEGATIVE Urine Glucose (UA) NEGATIVE Urine Ketones NEGATIVE Urine Occult Blood NEGATIVE Urine Nitrite NEGATIVE Urine Bilirubin NEGATIVE Urine Urobilinogen 0.2 (NORMAL) Ur Leukocyte Esterase NEGATIVE Ur Microscopic Review NOT INDICATED Urine Culture Comments NOT INDICATED - Rads (name of study) CT A/P Relevant Findings:: Final report received (Pt released prior to formal read, reviewed, no findings needing specific f/u), EMP independent interpretation of test PD Medical Decision Making - ED course ED course: He presents with what seems like an exacerbation of chronic vertigo. He is relatively asymptomatic here with normal neurologic exam. Workup in the emergency department demonstrated a nonischemic EKG, relatively unremarkable CBC and CMP save mild elevation in the creatinine. I was preparing to discharge home with ENT follow-up and he started to tell me about some abdominal complaints. Mostly early satiety and bloating and for the last couple of weeks has not been able to get his pants on. He states that his doctor is already done upper and lower endoscopies to work this up without pertinent positive findings. The bloating and early satiety would be concerning and worrisome for intra- abdominal malignancy that might not be found on the prior workup. As such she was sent for a CT of the abdomen pelvis which she was very agreeable to. My initial "wet read of this" demonstrates no significant findings. Offered to keep him around for final read but he would like to go home and I will call him tomorrow if the radiologist sees anything of substance. Looks like he did have a small liver lesion, but this was present on a CT 2 years ago. Also of note, put calipers on his AP abdominal diameter and it is only slightly increased, les s than a centimeter, from the CT done 2 years ago. Finally he talk to me about feeling excessively sleepy during the day after eating. He thinks he is sleeping well at night and does not think he snores, but ZHEN workup was recommended. Departure - Departure Disposition: Home, Self Care Clinical Impression: Vertigo Abdominal pain Qualifiers: Abdominal location: generalized Qualified Code(s): R10.84 - Generalized abdominal pain Condition: Good Record reviewed to determine appropriate education?: Yes Instructions: ED Vertigo Unspecified Comments: You were seen tonight for what sounded like an exacerbation of your chronic vertigo. For that, it would be reasonable for you to follow-up with an ear nose and throat physician as they are the specialists generally and vertigo. The closest for you would be in [place], the phone number is [phone]. Call for an appointment. Beyond that you tell me you are very sleepy during the day especially after eating. I would like you to talk with your doctor about a sleep study to rule out sleep apnea. Finally you are worried about the abdominal distention. We did a CAT scan today, I do not see anything significant on there. Radiology read is pending and I will call you tomorrow if they see anything of significance. Call your doctor to arrange a follow-up appointment, make the next available appointment. In the interim, return anytime if worse or if new symptoms develop. Forms: PCP List Discharge Date/Time: 06/13/23 21:46
[2023-06-13 19:21] VITALS: O2SAT 98
[2023-06-13] MEDS: SODIUM CHLORIDE 0.9% 1,000 ML IV STA (19:21)
[2023-06-13] MEDS ORDERED: iohexoL-300 100 ML VIAL ONE (20:26)
[2023-06-13 20:36] LABS: BILIRUBIN,URINE NEGATIVE (NEGATIVE); GLUCOSE, URINE (UA) NEGATIVE (NEGATIVE); KETONES,URINE (UA) NEGATIVE (NEGATIVE); LEUKOCYTE ESTERASE, URINE NEGATIVE (NEGATIVE); NITRITE,URINE NEGATIVE (NEGATIVE); OCCULT BLOOD,URINE NEGATIVE (NEGATIVE); PH,URINE 7.5 PH (5.0-7.5); PROTEIN,URINE NEGATIVE (NEGATIVE); UROBILINOGEN,URINE 0.2 (NORMAL) E.U./dL (NORMAL)
[2023-06-13 20:37] LABS: CLARITY,URINE CLEAR (CLEAR)
[2023-06-13] MEDS: iohexoL-300 100 ML VIAL IVP ONE (21:22)
[2023-06-13 21:49] VITALS: BP 177/92
--- NOTE | 2023-06-13 22:13 | CT Report ---
PROCEDURE: Abdomen/Pelvis W INDICATIONS: early satiety/bloating, IV only CONTRAST: Omni 300, 100mls TECHNIQUE: After the administration of intravenous contrast, a CT scan of the abdomen and pelvis was performed. Images were recorded and evaluated at appropriate window settings. Reformats: coronal and sagittal. F or radiation dose reduction, the following was used: automated exposure control, adjustment of mA and /or kV according to patient size. COMPARISON: 05/28/2021 FINDINGS: Image quality: Diagnostic Lower chest: Bibasilar atelectasis/scarring. Liver: Multiple hypoattenuating lesions are probably cysts or hemangiomas, similar to prior, but inde terminate on single phase imaging. These were seen previously Gallbladder and biliary system: Unremarkable. Questionable small gallstones. No biliary ductal dilati on Pancreas: Nondilated Spleen: Nonenlarged Adrenals: No discrete nodule Kidneys: No solid mass or hydronephrosis Vessels and lymph nodes: No abdominal aortic aneurysm or pathologic lymph nodes by size criteria retr operitoneal and pelvic lipomatosis again seen, displacing the peritoneum anteriorly Bowel and peritoneum: No evidence of small bowel obstruction. The stomach is nondistended. No abscess or pathologic ascites. No significant acute inflammatory changes. Fecal loading is mild to moderate. Body wall: Small fat-containing inguinal hernias and umbilical hernia Pelvis: Heterogeneous prostate not well evaluated. The bladder is underdistended and also not well ev aluated. Pelvic lipomatosis compresses the bladder toward the midline. Bones: Degenerative changes. IMPRESSION: No bowel obstruction. No significant gastric distention or fecal loading. Other findings as above Of note, there is retroperitoneal and pelvic lipomatosis, that compresses the bladder outlet and mild ly displaces the peritoneum anteriorly. Reviewed by: Fabian Jung MD on 06/13/2023 10:12 PM PDT Approved by: Fabian Jung MD on 06/13/2023 10:12 PM PDT Station ID: [id number]
== END 2023-06-13 21:46 | disposition home or self-care (01) ==
LOC: ED 16:25
DX: R42 Dizziness and giddiness (principal); R10.84 Generalized abdominal pain; R14.0 Abdominal distension (gaseous); R68.81 Early satiety; G47.10 Hypersomnia, unspecified
CPT/HCPCS: 36415; 74177; 80053; 81003; 83690; 85025; 99284; Q9967; 81001; 87086